=== PATIENT | female | born 1990 | race Two or more races ===

== ENCOUNTER 2016-03-12 22:22 | Emergency (ER) | payer OTHER ==
[~2016-03-12 22:22] MED LIST: ACET50TA PO; ANUS2.5C2 TOP; CALC500C8 AD; DOCU10ELUD PO; FLINSTONES VITAMIN PO; IBUP-1114 PO; IBUP600T26 PO; MOM30SS PO; PERC5TAB6 PO; PNV-CAP5 PO; PRENTAB13 PO; ZOVI400T PO; [UNRECOGNIZED DRUG - OTHER] PO
[2016-03-12] MEDS ORDERED: KETOROLAC 30 MG/ML VIAL (J1885) As Ordered ONE (22:51)
[2016-03-12 23:01] LABS: BASO # 0.1 K/mm3 (0.0-0.2); BASO % 1.1 % (0.0-1.0); EOS # 0.1 K/mm3 (0.0-0.50); EOS % 1.3 % (0.0-3.0); LARGE UNSTAINED CELL # 0.2 K/mm3 (0.0-0.4); LYMPH # 2.7 K/mm3 (1.5-6.5); LYMPH % 25.5 % (24.0-44.0); MEAN CORPUSCULAR HGB CONC 34.4 g/dl (32.0-36.5); MEAN CORPUSCULAR VOLUME 87.2 fl (80.0-96.0); MONO # 0.4 K/mm3 (0.0-0.8); MONO % 4.2 % (0.0-5.0); NEUTROPHILS # 6.5 K/mm3 (1.8-7.7); NEUTROPHILS % 65.9 % (36.0-66.0); PLATELET COUNT, AUTOMATED 246 k/mm3 (150-450); RED CELL DISTRIBUTION WIDTH 14.1 % (11.5-14.5); WHITE BLOOD COUNT 9.8 K/mm3 (4.0-10.0)
--- NOTE | 2016-03-13 | REPUSA ---
CLINICAL HISTORY: Vaginal bleeding TECHNIQUE: Pelvic ultrasound COMPARISON: No study for comparison is available at the time of interpretation. Uterus: 10.4 x 4.3 x 5.9 cm. Normal without masses. Endometrial stripe: Normal 2 mm thickness. Right ovary: 3.6 x 2.2 x 1.8 cm. Normal size. No masses. Normal vascular flow. Left ovary: 3.9 x 2.3 x 2.2 cm. Normal size. No masses. Normal vascular flow. Pelvic fluid: Physiologic. IMPRESSION: Normal pelvic ultrasound.
--- NOTE | 2016-03-13 00:23 | EDDOCDS ---
Nurse's Notes [facility] Name: Michelle Kelly Age: 25 yrs Sex: Female : 1990 Arrival Date: 03/12/2016 Time: 22:22 Bed I4 / M4 Private MD: Jose Antonio Dupree Diagnosis: Abnormal uterine and vaginal bleeding, unspecified Presentation: 03/12 22:24 Presenting complaint: Patient states: "I've been going through 4 pads an hour since af2 , dark red blood." states she received her period 10 days early. Risk factors: The patient reports no loss of conciousness prior to arrival. This patient has not had a hysterectomy. This patient has not begun menopause. Adult Sepsis Screening: The patient does not have new or worsening altered mentation. Patient's respiratory rate is less than 22. Systolic blood pressure is greater than 100. Patient has a qSOFA score of 0- Negative Sepsis Screen. Suicide/Homicide risk assessment- the patient denies having any suicidal and/or homicidal ideations and does not present with any other emotional, behavioral or mental health complaints. Status: Patient is not a full service vending driver or dependent. Transition of care: patient was not received from another setting of care. 22:24 Acuity: SHANELLE Level 3 af2 22:24 Method Of Arrival: Walkin/Carried/Asstd af2 Triage Assessment: 22:27 General: Appears in no apparent distress, Behavior is cooperative. Pain: Location: af2 abdomen Pain currently is 10 out of 10 on a pain scale. Noted to be smiling, comfortable. Pt Declines HIV testing. : Reports vaginal bleeding that is brown heavy flow. Historical: - Allergies: Amoxicillin; Pitocin (makes her crazy); PENICILLINS; - Home Meds: 1. trazodone 50 mg Oral tab 1 tab nightly 2. ibuprofen 800 mg Oral tab 1 tab 3 times per day 3. Diamox Sequels 500 mg Oral cpER 1 cap 2 times per day 4. albuterol sulfate 90 mcg/actuation Inhl HFAA 1 puff every 4 hours 5. Flonase Allergy Relief 50 mcg/actuation nasal spsn twice a day 6. 3 prescriptions for h pylori - PMHx: Allergies, Seasonal; bacterial vaginosis; Depression; Pseudo Tumor Cerebri; Anxiety; - PSHx: Cesearean Section; - Social history: Smoking status: Patient uses tobacco products, current every day smoker. No barriers to communication noted, The patient speaks fluent [place]. - Family history: Not pertinent. - : The pt / caregiver states he / she is not on anticoagulants. Home medication list is obtained from the patient. - Exposure Risk Screening:: None identified. Screenin/01 00:20 Screening information is obtained from the patient. Fall risk: No risks identified. ka4 Assistance ADL's: requires no assistance with activities of daily living. Abuse/DV Screen: The patient / caregiver reports he/she is: not in a situation that causes fear, pain or injury. Nutritional screening: No deficits noted. Advance Directives: There is no active DNR order. home support is adequate. Assessment: 03/12 22:56 General: Appears in no apparent distress, comfortable, obese, Behavior is appropriate ka4 for age, cooperative, pleasant. Neurological: Level of Consciousness is awake, alert, obeys commands, Oriented to person, place, time, Leadership Intern are weak bilaterally Moves all extremities. Gait is steady, Speech is normal, Facial symmetry appears normal, Facial symmetry: tongue is midline. Respiratory: Airway is patent Respiratory effort is even, unlabored, Respiratory pattern is regular, symmetrical. : Urine is cloudy. : Derm: Skin is intact, is healthy with good turgor, Skin is pink, warm & dry. 23:06 General: Pt resting comfortably in bed playing on cell phone. When asked about pain, pt ld5 states "well since it only goes to a 10 then my pain is a 10, but it's much more than that". Pt medicated per orders. Will continue to monitor. GI: Abdomen is obese, Bowel sounds present X 4 quads. Denies nausea, vomiting. 23:45 Pain: Pain currently is 7 out of 10 on a pain scale. ka4 Vital Signs: 22:23 BP 114 / 81; Pulse 94; Resp 16; Temp 96.6; Pulse Ox 99% ; Weight 96.16 kg; Height 5 ft. elp 2 in. (157.48 cm); Pain 10/10; 23:51 BP 105 / 58; Pulse 97; Resp 18; Temp 98.2; Pulse Ox 98% ; Pain 7/10; ajs 22:23 Body Mass Index 38.77 (96.16 kg, 157.48 cm) [facility] Vitals: 22:23 Log In Time: March 12, 2016 at 22:21. elp ED Course: 22:23 Patient visited by Afia Miranda PCA. elp 22:23 Jose Antonio Dupree MD is Private Physician. elp 22:23 Patient visited by Afia Miranda PCA. elp 22:23 Patient moved to Waiting elp 22:24 Patient moved to Pre RCE elp 22:26 Triage Initiated af2 22:28 Patient visited by Tosha Rangel,RN. af2 22:28 Patient moved to Triage 3 jmb 22:39 [facility]C [facility] ck7 22:39 Prince Phillips DO is Attending Physician. ck7 22:39 Patient visited by Lamberto Carter RPA-C. ck7 22:44 Patient moved to I4 / M4 rs3 22:56 CBC with Diff Sent. ka4 22:56 Inserted saline lock: 20 gauge in right antecubital area and blood collected. The ka4 patient tolerated the procedure well. 22:57 Patient visited by Jing Mesa LPN. ka4 23:08 Patient visited by Nathalia Patel RN. ld5 23:15 [facility] Payment Agreement was scanned into [employer] and attached to record. zo 23:45 Patient visited by Lamberto Carter RPA-C. ck7 23:53 Patient visited by Jaelyn Alexander. ajs 03/13 00:11 -US Pelvic Non-Ob Complete Returned. EDMS 00:17 Zane Miranda is Referral Physician. ck7 00:20 The patient / caregiver is instructed regarding the plan of care and ED course. ka4 00:20 Discontinued IV lock intact, bleeding controlled, pressure dressing applied, No ka4 redness/swelling at site. No IV's were initiated during this patient's visit. No procedures done that require assistance. Administered Medications: 03/12 23:05 Drug: NS 0.9% 1000 ml [sodium chloride 0.9 % intravenous solution] Route: IV; Rate: ld5 bolus; Site: right antecubital; 23:05 Drug: ketorolac 30 mg [ketorolac 30 mg/mL (1 mL) injection solution (1 mL)] Route: IVP; ld5 Site: right antecubital; 23:46 Follow up: Response: Pain is decreased ka4 Point of Care Testing: Urine : 22:51 hCG Reading: Negative; Control Reading: Positive; rs3 Ranges: Order Results: Lab Order: CBC with Diff; SPEC'M 03/12/16 22:52 Test: WHITE BLOOD COUNT; Value: 9.8; Range: 4.0-10.0; Units: K/mm3; Status: F Test: RED BLOOD COUNT; Value: 4.64; Range: 4.00-5.40; Units: M/mm3; Status: F Test: HEMOGLOBIN; Value: 13.9; Range: 12.0-16.0; Units: g/dl; Status: F Test: HEMATOCRIT; Value: 40.4; Range: 36.0-47.0; Units: %; Status: F Test: MEAN CORPUSCULAR VOLUME; Value: 87.2; Range: 80.0-96.0; Units: fl; Status: F Test: MEAN CORPUSCULAR HEMOGLOBIN; Value: 30.0; Range: 27.0-33.0; Units: pg; Status: F Test: MEAN CORPUSCULAR HGB CONC; Value: 34.4; Range: 32.0-36.5; Units: g/dl; Status: F Test: RED CELL DISTRIBUTION WIDTH; Value: 14.1; Range: 11.5-14.5; Units: %; Status: F Test: PLATELET COUNT, AUTOMATED; Value: 246; Range: 150-450; Units: k/mm3; Status: F Test: NEUTROPHILS %; Value: 65.9; Range: 36.0-66.0; Units: %; Status: F Test: LYMPH %; Value: 25.5; Range: 24.0-44.0; Units: %; Status: F Test: MONO %; Value: 4.2; Range: 0.0-5.0; Units: %; Status: F Test: EOS %; Value: 1.3; Range: 0.0-3.0; Units: %; Status: F Test: BASO %; Value: 1.1; Range: 0.0-1.0; Abnormal: Above high normal; Units: %; Status: F Test: LARGE UNSTAINED CELL %; Value: 2.0; Range: 0.0-4.0; Units: %; Status: F Test: NEUTROPHILS #; Value: 6.5; Range: 1.8-7.7; Units: K/mm3; Status: F Test: LYMPH #; Value: 2.7; Range: 1.5-6.5; Units: K/mm3; Status: F Test: MONO #; Value: 0.4; Range: 0.0-0.8; Units: K/mm3; Status: F Test: EOS #; Value: 0.1; Range: 0.0-0.50; Units: K/mm3; Status: F Test: BASO #; Value: 0.1; Range: 0.0-0.2; Units: K/mm3; Status: F Test: LARGE UNSTAINED CELL #; Value: 0.2; Range: 0.0-0.4; Units: K/mm3; Status: F Radiology Order: -US Pelvic Non-Ob Complete Test: -US Pelvic Non-Ob Complete REASON FOR EXAMINATION: Vaginal Bleeding - Nn-; ; CLINICAL HISTORY: Vaginal bleeding; TECHNIQUE: Pelvic ultrasound; ; COMPARISON: No study for comparison is available at the time of interpretation.; ; Uterus: 10.4 x 4.3 x 5.9 cm. Normal without masses.; Endometrial stripe: Normal 2 mm thickness.; Right ovary: 3.6 x 2.2 x 1.8 cm. Normal size. No masses. Normal vascular flow.; Left ovary: 3.9 x 2.3 x 2.2 cm. Normal size. No masses. Normal vascular flow.; Pelvic fluid: Physiologic.; ; IMPRESSION: Normal pelvic ultrasound.; ; Outcome: 03/13 00:18 Discharge ordered by Provider. ck7 00:22 Patient left the ED. ka4 Signatures: Dispatcher [employer] EDMS Henry Mullen Rosemary,RN RN rs3 Nathalia Patel RN RN ld5 Jaelyn Alexander Christopher, RPA-C RPA-Cck7 Afia Miranda PCA PCA elp Becker, JoshuaRN RN jmb Moshe,Jing,BUTT TRIMMER BUTT TRIMMER ka4 Rangel,Tosha,RN RN af2 MTDD
--- NOTE | 2016-03-13 00:23 | EDDOCDS ---
Physician Documentation [facility] Name: Michelle Kelly Age: 25 yrs Sex: Female : 1990 Arrival Date: 03/12/2016 Time: 22:22 Bed I4 / M4 Private MD: Jose Antonio Dupree Disposition: 03/13/16 00:18 Discharged to Home/Self Care. Impression: Abnormal uterine and vaginal bleeding, unspecified. - Condition is Stable. - Discharge Instructions: Abnormal Uterine Bleeding. - Prescriptions for Ibuprofen 600 mg Oral Tablet - take 1 tablet by ORAL route every 6 hours As needed take with food; 30 tablet. - Medication Reconciliation, Local Pharmacy Hours form. - Follow up: Zane Miranda; When: 2 - 3 days; Reason: Recheck today's complaints, Continuance of care. - Problem is new. - Symptoms have improved. Historical: - Allergies: Amoxicillin; Pitocin (makes her crazy); PENICILLINS; - Home Meds: 1. trazodone 50 mg Oral tab 1 tab nightly 2. ibuprofen 800 mg Oral tab 1 tab 3 times per day 3. Diamox Sequels 500 mg Oral cpER 1 cap 2 times per day 4. albuterol sulfate 90 mcg/actuation Inhl HFAA 1 puff every 4 hours 5. Flonase Allergy Relief 50 mcg/actuation nasal spsn twice a day 6. 3 prescriptions for h pylori - PMHx: Allergies, Seasonal; bacterial vaginosis; Depression; Pseudo Tumor Cerebri; Anxiety; - PSHx: Cesearean Section; - Social history: Smoking status: Patient uses tobacco products, current every day smoker. No barriers to communication noted, The patient speaks fluent Russian. - Family history: Not pertinent. - : The pt / caregiver states he / she is not on anticoagulants. Home medication list is obtained from the patient. - Exposure Risk Screening:: None identified. Vital Signs: 03/12 22:23 BP 114 / 81; Pulse 94; Resp 16; Temp 96.6; Pulse Ox 99% ; Weight 96.16 kg / 212 lbs; elp Height 5 ft. 2 in. (157.48 cm); Pain 10/10; 23:51 BP 105 / 58; Pulse 97; Resp 18; Temp 98.2; Pulse Ox 98% ; Pain 7/10; ajs 22:23 Body Mass Index 38.77 (96.16 kg, 157.48 cm) elp MDM: 22:43 UCG by Nursing ordered. ck7 22:43 IV Saline Lock ordered. ck7 22:43 NS 0.9% 1000 ml IV at bolus once ordered. ck7 22:43 ketorolac 30 mg IVP once ordered. ck7 22:45 CBC with Diff Ordered. EDMS 22:45 -US Pelvic Non-Ob Complete Ordered. EDMS 22:45 DUPLEX SCAN LIMITED (DOPPLER)+US Ordered. EDMS 22:47 Financial registration complete. zo 23:08 CBC with Diff Reviewed. ck7 23:15 [facility] Payment Agreement was scanned into [employer] and attached to record. zo Point of Care Testing: Urine : 22:51 hCG Reading: Negative; Control Reading: Positive; rs3 Ranges: Administered Medications: 23:05 Drug: NS 0.9% 1000 ml [sodium chloride 0.9 % intravenous solution] Route: IV; Rate: ld5 bolus; Site: right antecubital; 23:05 Drug: ketorolac 30 mg [ketorolac 30 mg/mL (1 mL) injection solution (1 mL)] Route: IVP; ld5 Site: right antecubital; 23:46 Follow up: Response: Pain is decreased ka4 Signatures: Dispatcher [employer] EDMS Henry Mullen Christopher, RPA-C RPA-Cck7 Jing Mesa LPN LPN ka4 Tosha Rangel RN RN af2 Nathalia Patel RN ld5 The chart was reviewed and I authenticate all verbal orders and agree with the evaluation and treatment provided.Attachments: 23:15 [facility] Payment Agreement zo MTDD
--- NOTE | 2016-03-15 01:23 | EDDOCDS ---
Physician Documentation [facility] Name: Michelle Kelly Age: 25 yrs Sex: Female : 1990 Arrival Date: 03/12/2016 Time: 22:22 Bed I4 / M4 Private MD: Jose Antonio Dupree Disposition: 03/13/16 00:18 Discharged to Home/Self Care. Impression: Abnormal uterine and vaginal bleeding, unspecified. - Condition is Stable. - Discharge Instructions: Abnormal Uterine Bleeding. - Prescriptions for Ibuprofen 600 mg Oral Tablet - take 1 tablet by ORAL route every 6 hours As needed take with food; 30 tablet. - Medication Reconciliation, Local Pharmacy Hours form. - Follow up: Zane Miranda; When: 2 - 3 days; Reason: Recheck today's complaints, Continuance of care. - Problem is new. - Symptoms have improved. Historical: - Allergies: Amoxicillin; Pitocin (makes her crazy); PENICILLINS; - Home Meds: 1. trazodone 50 mg Oral tab 1 tab nightly 2. ibuprofen 800 mg Oral tab 1 tab 3 times per day 3. Diamox Sequels 500 mg Oral cpER 1 cap 2 times per day 4. albuterol sulfate 90 mcg/actuation Inhl HFAA 1 puff every 4 hours 5. Flonase Allergy Relief 50 mcg/actuation nasal spsn twice a day 6. 3 prescriptions for h pylori - PMHx: Allergies, Seasonal; bacterial vaginosis; Depression; Pseudo Tumor Cerebri; Anxiety; - PSHx: Cesearean Section; - Social history: Smoking status: Patient uses tobacco products, current every day smoker. No barriers to communication noted, The patient speaks fluent Trinidadian. - Family history: Not pertinent. - : The pt / caregiver states he / she is not on anticoagulants. Home medication list is obtained from the patient. - Exposure Risk Screening:: None identified. Vital Signs: 03/12 22:23 BP 114 / 81; Pulse 94; Resp 16; Temp 96.6; Pulse Ox 99% ; Weight 96.16 kg / 212 lbs; elp Height 5 ft. 2 in. (157.48 cm); Pain 10/10; 23:51 BP 105 / 58; Pulse 97; Resp 18; Temp 98.2; Pulse Ox 98% ; Pain 7/10; ajs 22:23 Body Mass Index 38.77 (96.16 kg, 157.48 cm) elp MDM: 22:43 UCG by Nursing ordered. ck7 22:43 IV Saline Lock ordered. ck7 22:43 NS 0.9% 1000 ml IV at bolus once ordered. ck7 22:43 ketorolac 30 mg IVP once ordered. ck7 22:45 CBC with Diff Ordered. EDMS 22:45 -US Pelvic Non-Ob Complete Ordered. EDMS 22:45 DUPLEX SCAN LIMITED (DOPPLER)+US Ordered. EDMS 22:47 Financial registration complete. zo 23:08 CBC with Diff Reviewed. ck7 23:15 [facility] Payment Agreement was scanned into [employer] and attached to record. zo 03/13 09:30 T-Sheet-- Draft Copy was scanned into [employer] and attached to record. [facility] Point of Care Testing: Urine : 03/12 22:51 hCG Reading: Negative; Control Reading: Positive; rs3 Ranges: Administered Medications: 23:05 Drug: NS 0.9% 1000 ml [sodium chloride 0.9 % intravenous solution] Route: IV; Rate: ld5 bolus; Site: right antecubital; 23:05 Drug: ketorolac 30 mg [ketorolac 30 mg/mL (1 mL) injection solution (1 mL)] Route: IVP; ld5 Site: right antecubital; 23:46 Follow up: Response: Pain is decreased ka4 Signatures: Dispatcher [employer] EDMS Henry Mullen Christopher, RPA-C RPA-Cck7 Jing Mesa,ATHLETIC INSTRUCTOR ATHLETIC INSTRUCTOR ka4 Tosha Rangel RN RN norberto2 Sara Jaramillo Laura RN ld5 The chart was reviewed and I authenticate all verbal orders and agree with the evaluation and treatment provided.Attachments: 23:15 [facility] Payment Agreement zo 03/13 09:30 T-Sheet-- Draft Copy [facility] Chart Complete MTDD
--- NOTE | 2016-03-15 01:23 | EDDOCDS ---
Physician Documentation [facility] Name: Michelle Kelly Age: 25 yrs Sex: Female : 1990 Arrival Date: 03/12/2016 Time: 22:22 Bed I4 / M4 Private MD: Jose Antonio Dupree Disposition: 03/13/16 00:18 Discharged to Home/Self Care. Impression: Abnormal uterine and vaginal bleeding, unspecified. - Condition is Stable. - Discharge Instructions: Abnormal Uterine Bleeding. - Prescriptions for Ibuprofen 600 mg Oral Tablet - take 1 tablet by ORAL route every 6 hours As needed take with food; 30 tablet. - Medication Reconciliation, Local Pharmacy Hours form. - Follow up: Zane Miranda; When: 2 - 3 days; Reason: Recheck today's complaints, Continuance of care. - Problem is new. - Symptoms have improved. Historical: - Allergies: Amoxicillin; Pitocin (makes her crazy); PENICILLINS; - Home Meds: 1. trazodone 50 mg Oral tab 1 tab nightly 2. ibuprofen 800 mg Oral tab 1 tab 3 times per day 3. Diamox Sequels 500 mg Oral cpER 1 cap 2 times per day 4. albuterol sulfate 90 mcg/actuation Inhl HFAA 1 puff every 4 hours 5. Flonase Allergy Relief 50 mcg/actuation nasal spsn twice a day 6. 3 prescriptions for h pylori - PMHx: Allergies, Seasonal; bacterial vaginosis; Depression; Pseudo Tumor Cerebri; Anxiety; - PSHx: Cesearean Section; - Social history: Smoking status: Patient uses tobacco products, current every day smoker. No barriers to communication noted, The patient speaks fluent [place]ruguayan. - Family history: Not pertinent. - : The pt / caregiver states he / she is not on anticoagulants. Home medication list is obtained from the patient. - Exposure Risk Screening:: None identified. Vital Signs: 03/12 22:23 BP 114 / 81; Pulse 94; Resp 16; Temp 96.6; Pulse Ox 99% ; Weight 96.16 kg / 212 lbs; elp Height 5 ft. 2 in. (157.48 cm); Pain 10/10; 23:51 BP 105 / 58; Pulse 97; Resp 18; Temp 98.2; Pulse Ox 98% ; Pain 7/10; ajs 22:23 Body Mass Index 38.77 (96.16 kg, 157.48 cm) elp MDM: 22:43 UCG by Nursing ordered. ck7 22:43 IV Saline Lock ordered. ck7 22:43 NS 0.9% 1000 ml IV at bolus once ordered. ck7 22:43 ketorolac 30 mg IVP once ordered. ck7 22:45 CBC with Diff Ordered. EDMS 22:45 -US Pelvic Non-Ob Complete Ordered. EDMS 22:45 DUPLEX SCAN LIMITED (DOPPLER)+US Ordered. EDMS 22:47 Financial registration complete. zo 23:08 CBC with Diff Reviewed. ck7 23:15 [facility] Payment Agreement was scanned into [employer] and attached to record. zo 03/13 09:30 T-Sheet-- Draft Copy was scanned into [employer] and attached to record. [facility] Point of Care Testing: Urine : 03/12 22:51 hCG Reading: Negative; Control Reading: Positive; rs3 Ranges: Administered Medications: 23:05 Drug: NS 0.9% 1000 ml [sodium chloride 0.9 % intravenous solution] Route: IV; Rate: ld5 bolus; Site: right antecubital; 23:05 Drug: ketorolac 30 mg [ketorolac 30 mg/mL (1 mL) injection solution (1 mL)] Route: IVP; ld5 Site: right antecubital; 23:46 Follow up: Response: Pain is decreased ka4 Signatures: Dispatcher [employer] EDMS Henry Mullen Christopher, RPA-C RPA-Cck7 Jing Mesa,DIRECTOR HUMAN SERVICES DIRECTOR HUMAN SERVICES ka4 Tosha Rangel RN RN norberto2 Sara Jaramillo Laura RN ld5 The chart was reviewed and I authenticate all verbal orders and agree with the evaluation and treatment provided.Attachments: 23:15 [facility] Payment Agreement zo 03/13 09:30 T-Sheet-- Draft Copy [facility] Chart Complete MTDD
--- NOTE | 2016-03-15 01:23 | EDDOCDS ---
Nurse's Notes [facility] Name: Michelle Kelly Age: 25 yrs Sex: Female : 1990 Arrival Date: 03/12/2016 Time: 22:22 Bed I4 / M4 Private MD: Jose Antonio Dupree Diagnosis: Abnormal uterine and vaginal bleeding, unspecified Presentation: 03/12 22:24 Presenting complaint: Patient states: "I've been going through 4 pads an hour since af2 , dark red blood." states she received her period 10 days early. Risk factors: The patient reports no loss of conciousness prior to arrival. This patient has not had a hysterectomy. This patient has not begun menopause. Adult Sepsis Screening: The patient does not have new or worsening altered mentation. Patient's respiratory rate is less than 22. Systolic blood pressure is greater than 100. Patient has a qSOFA score of 0- Negative Sepsis Screen. Suicide/Homicide risk assessment- the patient denies having any suicidal and/or homicidal ideations and does not present with any other emotional, behavioral or mental health complaints. Status: Patient is not a equipment service technician or dependent. Transition of care: patient was not received from another setting of care. 22:24 Acuity: SHANELLE Level 3 af2 22:24 Method Of Arrival: Walkin/Carried/Asstd af2 Triage Assessment: 22:27 General: Appears in no apparent distress, Behavior is cooperative. Pain: Location: af2 abdomen Pain currently is 10 out of 10 on a pain scale. Noted to be smiling, comfortable. Pt Declines HIV testing. : Reports vaginal bleeding that is brown heavy flow. Historical: - Allergies: Amoxicillin; Pitocin (makes her crazy); PENICILLINS; - Home Meds: 1. trazodone 50 mg Oral tab 1 tab nightly 2. ibuprofen 800 mg Oral tab 1 tab 3 times per day 3. Diamox Sequels 500 mg Oral cpER 1 cap 2 times per day 4. albuterol sulfate 90 mcg/actuation Inhl HFAA 1 puff every 4 hours 5. Flonase Allergy Relief 50 mcg/actuation nasal spsn twice a day 6. 3 prescriptions for h pylori - PMHx: Allergies, Seasonal; bacterial vaginosis; Depression; Pseudo Tumor Cerebri; Anxiety; - PSHx: Cesearean Section; - Social history: Smoking status: Patient uses tobacco products, current every day smoker. No barriers to communication noted, The patient speaks fluent Angolan. - Family history: Not pertinent. - : The pt / caregiver states he / she is not on anticoagulants. Home medication list is obtained from the patient. - Exposure Risk Screening:: None identified. Screenin/01 00:20 Screening information is obtained from the patient. Fall risk: No risks identified. ka4 Assistance ADL's: requires no assistance with activities of daily living. Abuse/DV Screen: The patient / caregiver reports he/she is: not in a situation that causes fear, pain or injury. Nutritional screening: No deficits noted. Advance Directives: There is no active DNR order. home support is adequate. Assessment: 03/12 22:56 General: Appears in no apparent distress, comfortable, obese, Behavior is appropriate ka4 for age, cooperative, pleasant. Neurological: Level of Consciousness is awake, alert, obeys commands, Oriented to person, place, time, Ventilating Engineer are weak bilaterally Moves all extremities. Gait is steady, Speech is normal, Facial symmetry appears normal, Facial symmetry: tongue is midline. Respiratory: Airway is patent Respiratory effort is even, unlabored, Respiratory pattern is regular, symmetrical. : Urine is cloudy. : Derm: Skin is intact, is healthy with good turgor, Skin is pink, warm & dry. 23:06 General: Pt resting comfortably in bed playing on cell phone. When asked about pain, pt ld5 states "well since it only goes to a 10 then my pain is a 10, but it's much more than that". Pt medicated per orders. Will continue to monitor. GI: Abdomen is obese, Bowel sounds present X 4 quads. Denies nausea, vomiting. 23:45 Pain: Pain currently is 7 out of 10 on a pain scale. ka4 Vital Signs: 22:23 BP 114 / 81; Pulse 94; Resp 16; Temp 96.6; Pulse Ox 99% ; Weight 96.16 kg; Height 5 ft. elp 2 in. (157.48 cm); Pain 10/10; 23:51 BP 105 / 58; Pulse 97; Resp 18; Temp 98.2; Pulse Ox 98% ; Pain 7/10; ajs 22:23 Body Mass Index 38.77 (96.16 kg, 157.48 cm) [facility] Vitals: 22:23 Log In Time: March 12, 2016 at 22:21. [facility] ED Course: 22:23 Patient visited by Afia Miranda PCA. elp 22:23 Jose Antonio Dupree MD is Private Physician. elp 22:23 Patient visited by Afia Miranda PCA. elp 22:23 Patient moved to Waiting elp 22:24 Patient moved to Pre RCE elp 22:26 Triage Initiated af2 22:28 Patient visited by Tosha Rangel,RN. af2 22:28 Patient moved to Triage 3 jmb 22:39 [facility] ck7 22:39 Prince Phillips DO is Attending Physician. ck7 22:39 Patient visited by Lamberto Carter RPA-C. ck7 22:44 Patient moved to I4 / M4 rs3 22:56 CBC with Diff Sent. ka4 22:56 Inserted saline lock: 20 gauge in right antecubital area and blood collected. The ka4 patient tolerated the procedure well. 22:57 Patient visited by Jing Mesa LPN. ka4 23:08 Patient visited by Nathalia Patel RN. ld5 23:15 [facility] Payment Agreement was scanned into [employer] and attached to record. zo 23:45 Patient visited by Lamberto Carter RPA-C. ck7 23:53 Patient visited by Jaelyn Alexander. ajs 03/13 00:11 -US Pelvic Non-Ob Complete Returned. EDMS 00:17 Zane Miranda is Referral Physician. ck7 00:20 The patient / caregiver is instructed regarding the plan of care and ED course. ka4 00:20 Discontinued IV lock intact, bleeding controlled, pressure dressing applied, No ka4 redness/swelling at site. No IV's were initiated during this patient's visit. No procedures done that require assistance. 09:30 T-Sheet-- Draft Copy was scanned into [employer] and attached to record. [facility] Administered Medications: 03/12 23:05 Drug: NS 0.9% 1000 ml [sodium chloride 0.9 % intravenous solution] Route: IV; Rate: ld5 bolus; Site: right antecubital; 23:05 Drug: ketorolac 30 mg [ketorolac 30 mg/mL (1 mL) injection solution (1 mL)] Route: IVP; ld5 Site: right antecubital; 23:46 Follow up: Response: Pain is decreased ka4 Point of Care Testing: Urine : 22:51 hCG Reading: Negative; Control Reading: Positive; rs3 Ranges: Order Results: Lab Order: CBC with Diff; SPEC'M 03/12/16 22:52 Test: WHITE BLOOD COUNT; Value: 9.8; Range: 4.0-10.0; Units: K/mm3; Status: F Test: RED BLOOD COUNT; Value: 4.64; Range: 4.00-5.40; Units: M/mm3; Status: F Test: HEMOGLOBIN; Value: 13.9; Range: 12.0-16.0; Units: g/dl; Status: F Test: HEMATOCRIT; Value: 40.4; Range: 36.0-47.0; Units: %; Status: F Test: MEAN CORPUSCULAR VOLUME; Value: 87.2; Range: 80.0-96.0; Units: fl; Status: F Test: MEAN CORPUSCULAR HEMOGLOBIN; Value: 30.0; Range: 27.0-33.0; Units: pg; Status: F Test: MEAN CORPUSCULAR HGB CONC; Value: 34.4; Range: 32.0-36.5; Units: g/dl; Status: F Test: RED CELL DISTRIBUTION WIDTH; Value: 14.1; Range: 11.5-14.5; Units: %; Status: F Test: PLATELET COUNT, AUTOMATED; Value: 246; Range: 150-450; Units: k/mm3; Status: F Test: NEUTROPHILS %; Value: 65.9; Range: 36.0-66.0; Units: %; Status: F Test: LYMPH %; Value: 25.5; Range: 24.0-44.0; Units: %; Status: F Test: MONO %; Value: 4.2; Range: 0.0-5.0; Units: %; Status: F Test: EOS %; Value: 1.3; Range: 0.0-3.0; Units: %; Status: F Test: BASO %; Value: 1.1; Range: 0.0-1.0; Abnormal: Above high normal; Units: %; Status: F Test: LARGE UNSTAINED CELL %; Value: 2.0; Range: 0.0-4.0; Units: %; Status: F Test: NEUTROPHILS #; Value: 6.5; Range: 1.8-7.7; Units: K/mm3; Status: F Test: LYMPH #; Value: 2.7; Range: 1.5-6.5; Units: K/mm3; Status: F Test: MONO #; Value: 0.4; Range: 0.0-0.8; Units: K/mm3; Status: F Test: EOS #; Value: 0.1; Range: 0.0-0.50; Units: K/mm3; Status: F Test: BASO #; Value: 0.1; Range: 0.0-0.2; Units: K/mm3; Status: F Test: LARGE UNSTAINED CELL #; Value: 0.2; Range: 0.0-0.4; Units: K/mm3; Status: F Radiology Order: -US Pelvic Non-Ob Complete Test: -US Pelvic Non-Ob Complete REASON FOR EXAMINATION: Vaginal Bleeding - Nn-; ; CLINICAL HISTORY: Vaginal bleeding; TECHNIQUE: Pelvic ultrasound; ; COMPARISON: No study for comparison is available at the time of interpretation.; ; Uterus: 10.4 x 4.3 x 5.9 cm. Normal without masses.; Endometrial stripe: Normal 2 mm thickness.; Right ovary: 3.6 x 2.2 x 1.8 cm. Normal size. No masses. Normal vascular flow.; Left ovary: 3.9 x 2.3 x 2.2 cm. Normal size. No masses. Normal vascular flow.; Pelvic fluid: Physiologic.; ; IMPRESSION: Normal pelvic ultrasound.; ; Outcome: 03/13 00:18 Discharge ordered by Provider. ck7 00:22 Patient left the ED. ka4 Signatures: Dispatcher [employer] EDMS Henry Mullen RosemaryRN RN rs3 Nathalia Patel RN RN ld5 Jaelyn Alexander Christopher, RPA-C RPA-Cck7 Afia Miranda PCA PCA elp BeckerRichard,RN RN franckb Jing Mesa,LAUNCHING PAD MECHANIC LAUNCHING PAD MECHANIC ka4 Tosha RangelRN RN af2 Ella, Sara payton Chart Complete MTDD
== END 2016-03-13 00:22 | disposition home or self-care (01) ==
LOC: M ED 22:22
DX: N93.8 Other specified abnormal uterine and vaginal bleeding (principal); G93.2 Benign intracranial hypertension; F41.9 Anxiety disorder, unspecified; F32.9 Major depressive disorder, single episode, unspecified; J30.2 Other seasonal allergic rhinitis; F17.210 Nicotine dependence, cigarettes, uncomplicated; Z92.240 Personal history of inhaled steroid therapy; Z79.899 Other long term (current) drug therapy; Z88.0 Allergy status to penicillin; Z88.8 Allergy status to other drugs, medicaments and biological substances
CPT/HCPCS: 36415; 76856; 81025; 85025; 93976; 96374; 99284; J1885

== ENCOUNTER 2016-03-31 15:13 | Emergency (ER) | payer OTHER ==
[2016-03-31] MEDS ORDERED: BISACODYL 10 MG SUPP As Ordered ONE (17:54)
[2016-03-31] MEDS ORDERED: LACTULOSE 20 GM/30 ML SYRUP UD As Ordered ONE (17:55)
--- NOTE | 2016-03-31 18:12 | REP ---
AP ABDOMINAL SERIES: 03/31/2016. Comparison: CT abdomen pelvis 12/30/2015, KUB 10/17/2015, chest x-ray 05/06/2014. Clinical history: Constipation. PA chest: Upright chest shows the lungs adequately inflated. There is no effusion, atelectasis or mass. No free air under the diaphragm. Heart, mediastinal, hilar contours are normal. There is mild dextroconvex curve mid-thoracic spine. Visualized bones intact. Flat upright abdomen: IUD seen in the paramedian pelvis overlying the sacrum. Moderate stool from rectosigmoid through the distal transverse colon representing some degree of constipation but no obstruction, mass or free air. Gas seen in the proximal colon and small bowel loops without abnormal dilatation. Impression: 1. Some mild degree of constipation without obstruction, mass, free air or abnormal calcifications. 2. PA chest negative. Signed by Edin Light MD 03/31/2016 08:16 P
--- NOTE | 2016-03-31 20:13 | EDDOCDS ---
Physician Documentation [facility] Name: Michelle Kelly Age: 26 yrs Sex: Female : 1990 Arrival Date: 03/31/2016 Time: 15:13 Bed TR7 Private MD: Jose Antonio Dupree M. Disposition: 03/31/16 19:19 Discharged to Home/Self Care. Impression: Constipation. - Condition is Stable. - Discharge Instructions: Constipation, Adult, High-Fiber Diet. - Medication Reconciliation, Local Pharmacy Hours form. - Follow up: Jose Antonio Dupree; When: Call to arrange an appointment; Reason: Recheck today's complaints, Continuance of care. - Problem is new. - Symptoms have improved. - Notes: Keep hydrated Return to the ED for any further concerns Historical: - Allergies: Amoxicillin; PENICILLINS; Pitocin (makes her crazy); - Home Meds: 1. albuterol sulfate 90 mcg/actuation Inhl HFAA 1 puff every 4 hours 2. Diamox Sequels 500 mg Oral cpER 1 cap 2 times per day 3. 3 prescriptions for h pylori 4. Flonase Allergy Relief 50 mcg/actuation nasal spsn twice a day 5. trazodone 50 mg Oral tab 1 tab nightly 6. Dulcolax (bisacodyl) 10 mg Rectal supp 1 suppository once daily (Last dose: 03/31/2016 13:00) - PMHx: Allergies, Seasonal; Anxiety; bacterial vaginosis; Depression; Pseudo Tumor Cerebri; - PSHx: Cesearean Section; - Social history: Smoking status: Patient states was never smoker of tobacco. No barriers to communication noted, The patient speaks fluent Turkmen, Speaks appropriately for age. - Family history: Not pertinent. - : The pt / caregiver states he / she is not on anticoagulants. Home medication list is obtained from the patient. - Exposure Risk Screening:: None identified. 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 2 in. (157.48 cm) (R); Pain 8/10; 18:42 BP 107 / 60; Pulse 100; Resp 20; Temp 98.9(O); Pulse Ox 98% on R/A; Pain 10/10; rs6 19:40 BP 110 / 72; Pulse 106; Resp 20 S; Temp 99.6; Pulse Ox 96% on R/A; ms2 15:15 Body Mass Index 39.69 (98.43 kg, 157.48 cm) gr2 MDM: 16:03 Enema - Tapwater ordered. le 16:30 Abdomen, Flat\E\Upright,PA Chest Ordered. EDMS 17:52 Lactulose Liquid 30 ml PO once ordered. le 17:52 Bisacodyl Suppository 10 mg AL once ordered. le 17:58 [facility] Payment Agreement was scanned into [employer] and attached to record. [facility] 17:58 Financial registration complete. [facility] Administered Medications: 18:04 Drug: Bisacodyl 10 mg [bisacodyl 10 mg rectal suppository (1 supp)] Route: AL; jjr 18:05 Drug: Lactulose 30 ml [lactulose 20 gram/30 mL oral solution (30 mL)] Route: PO; jjr Signatures: Dispatcher [employer] EDMS Nikolai Malone,RN RN Sagar Harris RN RN mlb1 Merlene Lloyd FNP FNP le King, Margaret RN RN mk4 Tammy Ibrahim Yamilet Partida RN jjr The chart was reviewed and I authenticate all verbal orders and agree with the evaluation and treatment provided.Corrections: (The following items were deleted from the chart) 16:11 15:58 Abdomen,Flat\E\Upright,PA CHEST+XR ordered. EDMS EDMS Attachments: 17:58 [facility] Payment Agreement [facility] MTDD
--- NOTE | 2016-03-31 20:13 | EDDOCDS ---
Nurse's Notes [facility] Name: Michelle Kelly Age: 26 yrs Sex: Female : 1990 Arrival Date: 03/31/2016 Time: 15:13 Bed TR7 Private MD: Jose Antonio Dupree M. Diagnosis: Constipation Presentation: 03/31 15:18 Presenting complaint: Mother states: Constipation no BM for the past four days. Risk mlb1 factors: the patient reports no vaginal bleeding. Adult Sepsis Screening: The patient does not have new or worsening altered mentation. Patient's respiratory rate is less than 22. Systolic blood pressure is greater than 100. Patient has a qSOFA score of 0- Negative Sepsis Screen. Suicide/Homicide risk assessment- the patient denies having any suicidal and/or homicidal ideations and does not present with any other emotional, behavioral or mental health complaints. Status: Patient is not a insurance and financial services agent or dependent. Transition of care: patient was not received from another setting of care. 15:18 Acuity: SHANELLE Level 4 mlb1 15:18 Method Of Arrival: Ambulance mlb1 Triage Assessment: 15:20 General: Appears in no apparent distress, obese, Behavior is appropriate for age, mlb1 cooperative. Pain: Location: abdomen Pain currently is 10 out of 10 on a pain scale. HIV screening NA for this visit Offered previously. 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 albuterol sulfate 90 mcg/actuation Inhl HFAA 1 puff every 4 hours 2. Diamox Sequels 500 mg Oral cpER 1 cap 2 times per day 3. 3 prescriptions for h pylori 4. Flonase Allergy Relief 50 mcg/actuation nasal spsn twice a day 5. trazodone 50 mg Oral tab 1 tab nightly 6. Dulcolax (bisacodyl) 10 mg Rectal supp 1 suppository once daily (Last dose: 03/31/2016 13:00) - PMHx: Allergies, Seasonal; Anxiety; bacterial vaginosis; Depression; Pseudo Tumor Cerebri; - PSHx: Cesearean Section; - Social history: Smoking status: Patient states was never smoker of tobacco. No barriers to communication noted, The patient speaks fluent [place], Speaks appropriately for age. - Family history: Not pertinent. - : The pt / caregiver states he / she is not on anticoagulants. Home medication list is obtained from the patient. - Exposure Risk Screening:: None identified. Screenin:25 Screening information is obtained from the patient. Fall risk: No risks identified. mk4 Assistance ADL's: requires no assistance with activities of daily living. Abuse/DV Screen: The patient / caregiver reports he/she is: not in a situation that causes fear, pain or injury. Nutritional screening: No deficits noted. Advance Directives: Currently, there is no health care proxy. There is no active DNR order. There is no living will. There is no Power of Registered Vascular Technologist (Rvt). Advance directive information has not previously been placed in an [facility] medical record. Further advance directive information is declined. home support is adequate. Assessment: 16:21 General: Appears uncomfortable. GI: Abdomen is obese, Abd is tender to palpation X 4 mk4 quads. Reports that she hasnt had a BM in 4 days states that she is supposed to be on a med for stool softening but she hasnt been taking it , tap water enema given pt was unable to retain it, solution returned as soon as it was inserted. 17:16 General: Appears uncomfortable. General:. Pain: Location: abdomen. mk4 18:05 General: Appears in no apparent distress, pt reports difficult to lie down d/t rectal jjr discomfort, 2 small children in room. 18:39 General: attempted 250 mL tap water enema per pt request and permission of provider, pt jjr only able to tolerate 250 mL due to rectal pain, pt c/o dizziness and "I think I'm dehydrated". 19:18 General: Appears in no apparent distress, 2 large formed ck colored stool in BSC, pt jjr reports relief of cramping and continued presence of nausea. 19:40 Adult Sepsis Screening: The patient does not have new or worsening altered mentation. ms2 Patient's respiratory rate is less than 22. Systolic blood pressure is greater than 100. Patient has a qSOFA score of 0- Negative Sepsis Screen. General: Appears in no apparent distress, Behavior is cooperative. Neurological: Level of Consciousness is awake, alert, obeys commands. Respiratory: No deficits noted. Airway is patent Respiratory effort is even, unlabored, Respiratory pattern is regular, symmetrical. GI: Abdomen is non- distended obese. Derm: Skin is pink, warm & dry. Musculoskeletal: Range of motion intact in all extremities. Vital Signs: 15:15 BP 114 / 82; Pulse 119; Resp 18 S; Temp 96.7(O); Pulse Ox 98% on R/A; Weight 98.43 kg gr2 (R); Height 5 ft. 2 in. (157.48 cm) (R); Pain 8/10; 18:42 BP 107 / 60; Pulse 100; Resp 20; Temp 98.9(O); Pulse Ox 98% on R/A; Pain 10/10; rs6 19:40 BP 110 / 72; Pulse 106; Resp 20 S; Temp 99.6; Pulse Ox 96% on R/A; ms2 15:15 Body Mass Index 39.69 (98.43 kg, 157.48 cm) gr2 Vitals: 15:15 Log In Time: March 31, 2016 at 15:15. gr2 ED Course: 15:15 Patient visited by Noé Davey. gr2 15:15 Jose Antonio Dupree is Private Physician. gr2 15:15 Patient moved to Waiting gr2 15:17 Patient visited by Noé Davey. gr2 15:17 Patient moved to Pre RCE gr2 15:18 Patient visited by Sagar Harrison, DARINEL. mlb1 15:18 Triage Initiated mlb1 15:20 Patient visited by Sagar Harrison, DARINEL. mlb1 15:55 Merlene Lloyd FNP is [facility]. le 15:55 Patient moved to I ead 15:56 Patient visited by Kaya Saunders RN. mk4 16:00 Patient visited by Merlene Lloyd FNP. le 16:00 Patient visited by Merlene Lloyd FNP. le 16:25 The patient / caregiver is instructed regarding the plan of care and ED course. mk4 16:25 Tapwater enema given. Patient tolerated poorly. mk4 16:33 Patient visited by Kaya Saunders RN. mk4 17:05 Patient visited by Kaya Saunders RN. mk4 17:54 Patient visited by Kaya Saunders RN. mk4 17:58 [facility] Payment Agreement was scanned into [employer] and attached to record. gjb 18:05 Patient visited by Yamilet Davey RN. jjr 18:37 Patient visited by Kaya Saunders RN. mk4 18:40 Patient visited by Yamilet Davey RN. jjr 18:42 Patient visited by Tiffany Eubanks PCA. rs6 19:07 Abdomen, Flat\\E\\Upright,PA Chest Returned. EDMS 19:18 Patient visited by Yamilet Davey RN. jjr 19:18 Jose Antonio Dupree is Referral Physician. le 19:40 The patient / caregiver is instructed regarding the plan of care and ED course. ms2 19:40 No IV's were initiated during this patient's visit. No procedures done that require ms2 assistance. 19:51 Patient moved to 7 rs6 Administered Medications: 18:04 Drug: Bisacodyl 10 mg [bisacodyl 10 mg rectal suppository (1 supp)] Route: KS; jjr 18:05 Drug: Lactulose 30 ml [lactulose 20 gram/30 mL oral solution (30 mL)] Route: PO; jjr Order Results: Radiology Order: Abdomen, Flat\\E\\Upright,PA Chest Test: Abdomen, Flat\\E\\Upright,PA Chest REASON FOR EXAMINATION: no BM x4 days; AP ABDOMINAL SERIES: 03/31/2016.; ; Comparison: CT abdomen pelvis 12/30/2015, KUB 10/17/2015, chest x-ray; 05/06/2014.; ; Clinical history: Constipation.; ; PA chest: Upright chest shows the lungs adequately inflated. There is no; effusion, atelectasis or mass. No free air under the diaphragm. Heart,; mediastinal, hilar contours are normal. There is mild dextroconvex curve; mid-thoracic spine. Visualized bones intact.; ; Flat upright abdomen: IUD seen in the paramedian pelvis overlying the sacrum.; Moderate stool from rectosigmoid through the distal transverse colon representing; some degree of constipation but no obstruction, mass or free air. Gas seen in; the proximal colon and small bowel loops without abnormal dilatation.; ; Impression:; 1. Some mild degree of constipation without obstruction, mass, free air or; abnormal calcifications.; 2. PA chest negative.; ; ; ; ; ; ; ; ; Unreviewed; Outcome: 19:19 Discharge ordered by Provider. everardo 19:40 Discharge Assessment: patient administered narcotics - no. The following High Risk ms2 Discharge criteria are identified: None. Discharged to home ambulatory, with family. Condition: stable. Discharge instructions given to patient, Instructed on discharge instructions, follow up and referral plans. Demonstrated understanding of instructions, Pt was receptive of discharge instructions/ teaching. No special radiology studies were completed. Property sent home with patient. 20:12 Patient left the ED. ms2 Signatures: Dispatcher [employer] EDMS Nikolai Malone,RN RN ms2 Sagar Harrison RN RN mlb1 Merlene Lloyd, KENO CLERK KENO CLERK Yamilet Arroyo RN RN Noé Martinez 2 Kaya Saunders RN RN mk4 Zoila Damian,RN RN Tiffany Pena, MARKY CLOTH FINISHING RANGE TENDER rs6 Tammy Ibrahim Corrections: (The following items were deleted from the chart) 16:26 16:21 General: Appears uncomfortable, Smells of cat urine. mk4 mk4 20:08 20:06 BP 110 / 72; Pulse 106bpm; Resp 20bpm; Spontaneous; Pulse Ox 96% RA; Temp 99.6F; ms2 ms2 MTDD
--- NOTE | 2016-04-02 21:13 | EDDOCDS ---
Nurse's Notes [facility] Name: Michelle Kelly Age: 26 yrs Sex: Female : 1990 Arrival Date: 03/31/2016 Time: 15:13 Bed TR7 Private MD: Jose Antonio Dupree M. Diagnosis: Constipation Presentation: 03/31 15:18 Presenting complaint: Mother states: Constipation no BM for the past four days. Risk mlb1 factors: the patient reports no vaginal bleeding. Adult Sepsis Screening: The patient does not have new or worsening altered mentation. Patient's respiratory rate is less than 22. Systolic blood pressure is greater than 100. Patient has a qSOFA score of 0- Negative Sepsis Screen. Suicide/Homicide risk assessment- the patient denies having any suicidal and/or homicidal ideations and does not present with any other emotional, behavioral or mental health complaints. Status: Patient is not a central services tech or dependent. Transition of care: patient was not received from another setting of care. 15:18 Acuity: SHANELLE Level 4 mlb1 15:18 Method Of Arrival: Ambulance mlb1 Triage Assessment: 15:20 General: Appears in no apparent distress, obese, Behavior is appropriate for age, mlb1 cooperative. Pain: Location: abdomen Pain currently is 10 out of 10 on a pain scale. HIV screening NA for this visit Offered previously. 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 albuterol sulfate 90 mcg/actuation Inhl HFAA 1 puff every 4 hours 2. Diamox Sequels 500 mg Oral cpER 1 cap 2 times per day 3. 3 prescriptions for h pylori 4. Flonase Allergy Relief 50 mcg/actuation nasal spsn twice a day 5. trazodone 50 mg Oral tab 1 tab nightly 6. Dulcolax (bisacodyl) 10 mg Rectal supp 1 suppository once daily (Last dose: 03/31/2016 13:00) - PMHx: Allergies, Seasonal; Anxiety; bacterial vaginosis; Depression; Pseudo Tumor Cerebri; - PSHx: Cesearean Section; - Social history: Smoking status: Patient states was never smoker of tobacco. No barriers to communication noted, The patient speaks fluent Icelandic, Speaks appropriately for age. - Family history: Not pertinent. - : The pt / caregiver states he / she is not on anticoagulants. Home medication list is obtained from the patient. - Exposure Risk Screening:: None identified. Screenin:25 Screening information is obtained from the patient. Fall risk: No risks identified. mk4 Assistance ADL's: requires no assistance with activities of daily living. Abuse/DV Screen: The patient / caregiver reports he/she is: not in a situation that causes fear, pain or injury. Nutritional screening: No deficits noted. Advance Directives: Currently, there is no health care proxy. There is no active DNR order. There is no living will. There is no Power of Casino Shift Manager. Advance directive information has not previously been placed in an [facility] medical record. Further advance directive information is declined. home support is adequate. Assessment: 16:21 General: Appears uncomfortable. GI: Abdomen is obese, Abd is tender to palpation X 4 mk4 quads. Reports that she hasnt had a BM in 4 days states that she is supposed to be on a med for stool softening but she hasnt been taking it , tap water enema given pt was unable to retain it, solution returned as soon as it was inserted. 17:16 General: Appears uncomfortable. General:. Pain: Location: abdomen. mk4 18:05 General: Appears in no apparent distress, pt reports difficult to lie down d/t rectal jjr discomfort, 2 small children in room. 18:39 General: attempted 250 mL tap water enema per pt request and permission of provider, pt jjr only able to tolerate 250 mL due to rectal pain, pt c/o dizziness and "I think I'm dehydrated". 19:18 General: Appears in no apparent distress, 2 large formed ck colored stool in BSC, pt jjr reports relief of cramping and continued presence of nausea. 19:40 Adult Sepsis Screening: The patient does not have new or worsening altered mentation. ms2 Patient's respiratory rate is less than 22. Systolic blood pressure is greater than 100. Patient has a qSOFA score of 0- Negative Sepsis Screen. General: Appears in no apparent distress, Behavior is cooperative. Neurological: Level of Consciousness is awake, alert, obeys commands. Respiratory: No deficits noted. Airway is patent Respiratory effort is even, unlabored, Respiratory pattern is regular, symmetrical. GI: Abdomen is non- distended obese. Derm: Skin is pink, warm & dry. Musculoskeletal: Range of motion intact in all extremities. Vital Signs: 15:15 BP 114 / 82; Pulse 119; Resp 18 S; Temp 96.7(O); Pulse Ox 98% on R/A; Weight 98.43 kg gr2 (R); Height 5 ft. 2 in. (157.48 cm) (R); Pain 8/10; 18:42 BP 107 / 60; Pulse 100; Resp 20; Temp 98.9(O); Pulse Ox 98% on R/A; Pain 10/10; rs6 19:40 BP 110 / 72; Pulse 106; Resp 20 S; Temp 99.6; Pulse Ox 96% on R/A; ms2 15:15 Body Mass Index 39.69 (98.43 kg, 157.48 cm) gr2 Vitals: 15:15 Log In Time: March 31, 2016 at 15:15. gr2 ED Course: 15:15 Patient visited by Noé Davey. gr2 15:15 Jose Antonio Dupree is Private Physician. gr2 15:15 Patient moved to Waiting gr2 15:17 Patient visited by Noé Davey. gr2 15:17 Patient moved to Pre RCE gr2 15:18 Patient visited by Sagar Harrison, DARINEL. mlb1 15:18 Triage Initiated mlb1 15:20 Patient visited by Sagar Harrison, DARINEL. mlb1 15:55 Merlene Lloyd FNP is [facility]. le 15:55 Patient moved to I ead 15:56 Patient visited by Kaya Saunders RN. mk4 16:00 Patient visited by Merlene Lloyd FNP. le 16:00 Patient visited by Merlene Lloyd FNP. le 16:25 The patient / caregiver is instructed regarding the plan of care and ED course. mk4 16:25 Tapwater enema given. Patient tolerated poorly. mk4 16:33 Patient visited by Kaya Saunders RN. mk4 17:05 Patient visited by Kaya Saunders RN. mk4 17:54 Patient visited by Kaya Saunders RN. mk4 17:58 [facility] Payment Agreement was scanned into [employer] and attached to record. gjb 18:05 Patient visited by Yamilet Davey RN. jjr 18:37 Patient visited by aKya Saunders RN. mk4 18:40 Patient visited by Yamilet Davey RN. jjr 18:42 Patient visited by Tiffany Eubanks PCA. rs6 19:07 Abdomen, Flat\\E\\Upright,PA Chest Returned. EDMS 19:18 Patient visited by Yamilet Davey RN. jjr 19:18 Jose Antonio Dupree is Referral Physician. le 19:40 The patient / caregiver is instructed regarding the plan of care and ED course. ms2 19:40 No IV's were initiated during this patient's visit. No procedures done that require ms2 assistance. 19:51 Patient moved to [place] [id number] 04/01 10:42 T-Sheet-- Draft Copy was scanned into [employer] and attached to record. gb Administered Medications: 03/31 18:04 Drug: Bisacodyl 10 mg [bisacodyl 10 mg rectal suppository (1 supp)] Route: WV; jjr 18:05 Drug: Lactulose 30 ml [lactulose 20 gram/30 mL oral solution (30 mL)] Route: PO; jjr Order Results: Radiology Order: Abdomen, Flat\\E\\Upright,PA Chest Test: Abdomen, Flat\\E\\Upright,PA Chest REASON FOR EXAMINATION: no BM x4 days; AP ABDOMINAL SERIES: 03/31/2016.; ; Comparison: CT abdomen pelvis 12/30/2015, KUB 10/17/2015, chest x-ray; 05/06/2014.; ; Clinical history: Constipation.; ; PA chest: Upright chest shows the lungs adequately inflated. There is no; effusion, atelectasis or mass. No free air under the diaphragm. Heart,; mediastinal, hilar contours are normal. There is mild dextroconvex curve; mid-thoracic spine. Visualized bones intact.; ; Flat upright abdomen: IUD seen in the paramedian pelvis overlying the sacrum.; Moderate stool from rectosigmoid through the distal transverse colon representing; some degree of constipation but no obstruction, mass or free air. Gas seen in; the proximal colon and small bowel loops without abnormal dilatation.; ; Impression:; ; 1. Some mild degree of constipation without obstruction, mass, free air or; abnormal calcifications.; ; 2. PA chest negative.; ; ; ; ; ; ; Signed by; Edin Light MD 03/31/2016 08:16 P; Outcome: 19:19 Discharge ordered by Provider. everardo 19:40 Discharge Assessment: patient administered narcotics - no. The following High Risk ms2 Discharge criteria are identified: None. Discharged to home ambulatory, with family. Condition: stable. Discharge instructions given to patient, Instructed on discharge instructions, follow up and referral plans. Demonstrated understanding of instructions, Pt was receptive of discharge instructions/ teaching. No special radiology studies were completed. Property sent home with patient. 20:12 Patient left the ED. ms2 Signatures: Dispatcher [employer] EDMS Nikolai Malone,RN RN ms2 Debo Romero, Reg Reg Sagar Bower, RN RN mlb1 Merlene Lloyd, BRAZER CRAWLER TORCH BRAZER CRAWLER TORCH Ymailet Arroyo RN RN Noé Martinez gr2 Kaya Saunders RN RN mk4 Zoila DamianRN RN Tiffany Pena, MARKY MARKETING TECHNOLOGY COORDINATOR rs6 Tammy Ibrahim Corrections: (The following items were deleted from the chart) 16:26 16:21 General: Appears uncomfortable, Smells of cat urine. mk4 mk4 20:08 20:06 BP 110 / 72; Pulse 106bpm; Resp 20bpm; Spontaneous; Pulse Ox 96% RA; Temp 99.6F; ms2 ms2 Chart Complete MTDD
--- NOTE | 2016-04-02 21:13 | EDDOCDS ---
Physician Documentation [facility] Name: Michelle Kelly Age: 26 yrs Sex: Female : 1990 Arrival Date: 03/31/2016 Time: 15:13 Bed TR7 Private MD: Jose Antonio Dupree M. Disposition: 03/31/16 19:19 Discharged to Home/Self Care. Impression: Constipation. - Condition is Stable. - Discharge Instructions: Constipation, Adult, High-Fiber Diet. - Medication Reconciliation, Local Pharmacy Hours form. - Follow up: Jose Antonio Dupree; When: Call to arrange an appointment; Reason: Recheck today's complaints, Continuance of care. - Problem is new. - Symptoms have improved. - Notes: Keep hydrated Return to the ED for any further concerns Historical: - Allergies: Amoxicillin; PENICILLINS; Pitocin (makes her crazy); - Home Meds: 1. albuterol sulfate 90 mcg/actuation Inhl HFAA 1 puff every 4 hours 2. Diamox Sequels 500 mg Oral cpER 1 cap 2 times per day 3. 3 prescriptions for h pylori 4. Flonase Allergy Relief 50 mcg/actuation nasal spsn twice a day 5. trazodone 50 mg Oral tab 1 tab nightly 6. Dulcolax (bisacodyl) 10 mg Rectal supp 1 suppository once daily (Last dose: 03/31/2016 13:00) - PMHx: Allergies, Seasonal; Anxiety; bacterial vaginosis; Depression; Pseudo Tumor Cerebri; - PSHx: Cesearean Section; - Social history: Smoking status: Patient states was never smoker of tobacco. No barriers to communication noted, The patient speaks fluent Swedish, Speaks appropriately for age. - Family history: Not pertinent. - : The pt / caregiver states he / she is not on anticoagulants. Home medication list is obtained from the patient. - Exposure Risk Screening:: None identified. 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 2 in. (157.48 cm) (R); Pain 8/10; 18:42 BP 107 / 60; Pulse 100; Resp 20; Temp 98.9(O); Pulse Ox 98% on R/A; Pain 10/10; rs6 19:40 BP 110 / 72; Pulse 106; Resp 20 S; Temp 99.6; Pulse Ox 96% on R/A; ms2 15:15 Body Mass Index 39.69 (98.43 kg, 157.48 cm) gr2 MDM: 16:03 Enema - Tapwater ordered. le 16:30 Abdomen, Flat\E\Upright,PA Chest Ordered. EDMS 17:52 Lactulose Liquid 30 ml PO once ordered. le 17:52 Bisacodyl Suppository 10 mg AK once ordered. le :58 [facility] Payment Agreement was scanned into [employer] and attached to record. [facility] [place] Financial registration complete. [facility] 04/01 10:42 T-Sheet-- Draft Copy was scanned into [employer] and attached to record. gb Administered Medications: 03/31 18:04 Drug: Bisacodyl 10 mg [bisacodyl 10 mg rectal suppository (1 supp)] Route: AK; jjr 18:05 Drug: Lactulose 30 ml [lactulose 20 gram/30 mL oral solution (30 mL)] Route: PO; jjr Signatures: Dispatcher [employer] EDMS Nikolai Malone,RN RN ms2 Debo Romero, Reg Reg Sagar Bower, RN RN mlb1 Merlene Lloyd, SALES AND MARKETING ANALYST Kaya Waggoner RN RN riley4 Tammy Ibrahim [facility] Yamilet Davey RN jjr The chart was reviewed and I authenticate all verbal orders and agree with the evaluation and treatment provided.Corrections: (The following items were deleted from the chart) 16:11 15:58 Abdomen,Flat\E\Upright,PA CHEST+XR ordered. EDMS EDMS Attachments: :58 [facility] Payment Agreement [facility] 04/01 10:42 T-Sheet-- Draft Copy gb Chart Complete MTDD
--- NOTE | 2016-04-02 21:13 | EDDOCDS ---
Physician Documentation [facility] Name: Michelle Kelly Age: 26 yrs Sex: Female : 1990 Arrival Date: 03/31/2016 Time: 15:13 Bed TR7 Private MD: Jose Antonio Dupree M. Disposition: 03/31/16 19:19 Discharged to Home/Self Care. Impression: Constipation. - Condition is Stable. - Discharge Instructions: Constipation, Adult, High-Fiber Diet. - Medication Reconciliation, Local Pharmacy Hours form. - Follow up: Jose Antonio Dupree; When: Call to arrange an appointment; Reason: Recheck today's complaints, Continuance of care. - Problem is new. - Symptoms have improved. - Notes: Keep hydrated Return to the ED for any further concerns Historical: - Allergies: Amoxicillin; PENICILLINS; Pitocin (makes her crazy); - Home Meds: 1. albuterol sulfate 90 mcg/actuation Inhl HFAA 1 puff every 4 hours 2. Diamox Sequels 500 mg Oral cpER 1 cap 2 times per day 3. 3 prescriptions for h pylori 4. Flonase Allergy Relief 50 mcg/actuation nasal spsn twice a day 5. trazodone 50 mg Oral tab 1 tab nightly 6. Dulcolax (bisacodyl) 10 mg Rectal supp 1 suppository once daily (Last dose: 03/31/2016 13:00) - PMHx: Allergies, Seasonal; Anxiety; bacterial vaginosis; Depression; Pseudo Tumor Cerebri; - PSHx: Cesearean Section; - Social history: Smoking status: Patient states was never smoker of tobacco. No barriers to communication noted, The patient speaks fluent Luxembourgish, Speaks appropriately for age. - Family history: Not pertinent. - : The pt / caregiver states he / she is not on anticoagulants. Home medication list is obtained from the patient. - Exposure Risk Screening:: None identified. 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 2 in. (157.48 cm) (R); Pain 8/10; 18:42 BP 107 / 60; Pulse 100; Resp 20; Temp 98.9(O); Pulse Ox 98% on R/A; Pain 10/10; rs6 19:40 BP 110 / 72; Pulse 106; Resp 20 S; Temp 99.6; Pulse Ox 96% on R/A; ms2 15:15 Body Mass Index 39.69 (98.43 kg, 157.48 cm) gr2 MDM: 16:03 Enema - Tapwater ordered. le 16:30 Abdomen, Flat\E\Upright,PA Chest Ordered. EDMS 17:52 Lactulose Liquid 30 ml PO once ordered. le 17:52 Bisacodyl Suppository 10 mg RI once ordered. le :58 [facility] Payment Agreement was scanned into [employer] and attached to record. [facility] : Financial registration complete. [facility] 04/01 10:42 T-Sheet-- Draft Copy was scanned into [employer] and attached to record. gb Administered Medications: 03/31 18:04 Drug: Bisacodyl 10 mg [bisacodyl 10 mg rectal suppository (1 supp)] Route: RI; jjr 18:05 Drug: Lactulose 30 ml [lactulose 20 gram/30 mL oral solution (30 mL)] Route: PO; jjr Signatures: Dispatcher [employer] EDMS Nikolai Malone,RN RN ms2 Debo Romero, Reg Reg Sagar Bower, RN RN mlb1 Merlene Lloyd, SUPERVISOR PLATE FORMING Kaya Waggoner RN RN [email or web address] Tammy Ibrahim [facility] Yamilet Davey RN jjr The chart was reviewed and I authenticate all verbal orders and agree with the evaluation and treatment provided.Corrections: (The following items were deleted from the chart) 16:11 15:58 Abdomen,Flat\E\Upright,PA CHEST+XR ordered. EDMS EDMS Attachments: :58 [facility] Payment Agreement [facility] 04/01 10:42 T-Sheet-- Draft Copy gb Chart Complete MTDD
== END 2016-03-31 20:12 | disposition home or self-care (01) ==
LOC: M ED 15:13
DX: K59.00 Constipation, unspecified (principal); J30.9 Allergic rhinitis, unspecified; F41.9 Anxiety disorder, unspecified; F32.9 Major depressive disorder, single episode, unspecified; G93.2 Benign intracranial hypertension; N76.0 Acute vaginitis; Z79.51 Long term (current) use of inhaled steroids; Z79.899 Other long term (current) drug therapy; Z88.0 Allergy status to penicillin; Z88.8 Allergy status to other drugs, medicaments and biological substances

== ENCOUNTER → 2016-04-25 | Outpatient (CLI) | payer OTHER, MEDICAID ==
--- NOTE | 2016-04-25 13:09 | REP ---
Clinical: Abdominal pain. Technique: Single supine view of the abdomen and pelvis. Findings: Bowel gas pattern is nonspecific and without obstruction or obvious perforation. No organomegaly. No abnormal calcifications. Skeletal structures intact. IUD identified within the pelvis. Impression: Nonspecific bowel gas pattern. Signed by Jani Lowery MD 04/25/2016 01:01 P
[2016-04-25 14:15] LABS: ALBUMIN 3.7 GM/DL (3.2-5.2); ALBUMIN/GLOBULIN RATIO 0.95 (1.00-1.93); ALKALINE PHOSPHATASE 113 U/L (45-117); ALT/SGPT 83 U/L (12-78); ANION GAP 7 MEQ/L (8-16); AST/SGOT 39 U/L (15-37); BILIRUBIN,TOTAL 0.4 MG/DL (0.2-1.0); BLOOD UREA NITROGEN 11 MG/DL (7-18); CALCIUM LEVEL 9.9 MG/DL (8.5-10.1); CARBON DIOXIDE LEVEL 31 MEQ/L (21-32); CHLORIDE LEVEL 104 MEQ/L (98-107); CREATININE FOR GFR 0.65 MG/DL (0.55-1.02); GLOMERULAR FILTRATION RATE > 60.0 (>60); GLUCOSE, FASTING 84 MG/DL (70-105); POTASSIUM SERUM 4.9 MEQ/L (3.5-5.1); SODIUM LEVEL 142 MEQ/L (136-145); TOTAL PROTEIN 7.6 GM/DL (6.4-8.2)
== END ==
LOC: M LAB 12:25
PROVIDERS: ATTEND Family Medicine
DX: R10.30 Lower abdominal pain, unspecified (principal)

== ENCOUNTER → 2016-06-08 | Outpatient (CLI) | payer OTHER, MEDICAID ==
[2016-06-08 18:44] LABS: ALBUMIN 3.4 GM/DL (3.2-5.2); ALBUMIN/GLOBULIN RATIO 1.03 (1.00-1.93); BILIRUBIN,DIRECT 0.2 MG/DL (0.0-0.2); BILIRUBIN,TOTAL 0.7 MG/DL (0.2-1.0); TOTAL PROTEIN 6.7 GM/DL (6.4-8.2)
== END ==
LOC: M LAB 16:49
PROVIDERS: ATTEND Family Medicine
DX: Z00.00 Encounter for general adult medical examination without abnormal findings (principal)

== ENCOUNTER → 2016-06-21 | Outpatient (CLI) | payer OTHER ==
--- NOTE | 2016-06-21 10:05 | REP ---
Right upper quadrant sonography: History: Elevated liver function studies. Findings: Scanning through the right upper quadrant of the abdomen demonstrates a small contracted appearing gallbladder filled with shadowing calculi. Common bile duct is normal measuring 0.3 cm in greatest diameter. No focal liver lesion is seen. No pancreatic abnormality is observed. There is no evidence of ascites or right renal abnormality. The right kidney measures 10.4 x 4.5 x 3.6 cm. Impression: Cholelithiasis. Gallbladder tender to scan. It appears contracted and filled with shadowing calculi. Signed by Jose Little MD 06/21/2016 10:14 A
--- NOTE | 2016-06-21 10:34 | REP ---
Pelvic ultrasound including transabdominal, endovaginal and Doppler ultrasound assessment: Comparison is the pelvic ultrasound dated 03/12/2016. The patient had an IUD placed a few months ago and complains of right side pain. The uterus is anteverted and mildly enlarged measuring 10.1 x 5.1 x 5.8 cm. The endometrium is not thickened measuring 3.1 mm. There is an IUD within the endometrial canal, however, appears to extend into the lower uterine segment. The ovaries are normal size. Right ovary is 2.6 x 2.0 x 2.6 cm. Left ovary is 2.3 x 2.0 x 2.1 cm. Because of its high location the right ovary is only visualized on transabdominal ultrasound. There is vascular flow in both ovaries with the Doppler resistive index of the intraparenchymal arteries on the right measuring zero point 04/07 right 0.60. There is no free fluid in the cul-de-sac. Impression: The IUD is within the endometrial canal, however extends into the lower uterine segment. Otherwise, essentially negative pelvic ultrasound. Signed by Richar Peters MD 06/21/2016 10:25 A
== END ==
LOC: M RAD 08:39
PROVIDERS: ATTEND Family Medicine
DX: R10.31 Right lower quadrant pain (principal)

== ENCOUNTER 2016-07-13 13:24 | Emergency (ER) | payer OTHER ==
[~2016-07-13] VITALS: Ht 157.5 cm; Wt 100.7 kg
[2016-07-13] MEDS ORDERED: [UNRECOGNIZED DRUG - OTHER] PO (13:33)
[2016-07-13] MEDS ORDERED: NS 1,000 ML IV ONE (13:45)
[2016-07-13] MEDS ORDERED: KETOROLAC 30 MG/ML VIAL (J1885) IV ONE (13:45)
[2016-07-13] MEDS ORDERED: ONDANSETRON 4MG/2ML VIAL (J2405) IV ONE (13:45)
[2016-07-13 14:11] LABS: BASO % 0.2 % (0.0-1.0); EOS # 0.1 K/mm3 (0.0-0.50); LARGE UNSTAINED CELL # 0.1 K/mm3 (0.0-0.4); LYMPH # 2.5 K/mm3 (1.5-6.5); LYMPH % 36.3 % (24.0-44.0); MEAN CORPUSCULAR HEMOGLOBIN 30.6 pg (27.0-33.0); MONO # 0.3 K/mm3 (0.0-0.8); MONO % 4.5 % (0.0-5.0); NEUTROPHILS # 3.9 K/mm3 (1.8-7.7); NEUTROPHILS % 55.9 % (36.0-66.0); PLATELET COUNT, AUTOMATED 290 k/mm3 (150-450); RED CELL DISTRIBUTION WIDTH 12.8 % (11.5-14.5); WHITE BLOOD COUNT 6.9 K/mm3 (4.0-10.0)
[2016-07-13 14:26] LABS: ALBUMIN 3.5 GM/DL (3.2-5.2); ALKALINE PHOSPHATASE 76 U/L (45-117); ALT/SGPT 25 U/L (12-78); AMYLASE 40 U/L (25-115); ANION GAP 7 MEQ/L (8-16); AST/SGOT 17 U/L (15-37); BILIRUBIN,DIRECT 0.2 MG/DL (0.0-0.2); BILIRUBIN,TOTAL 1.1 MG/DL (0.2-1.0); BLOOD UREA NITROGEN 8 MG/DL (7-18); CALCIUM LEVEL 9.1 MG/DL (8.5-10.1); CARBON DIOXIDE LEVEL 29 MEQ/L (21-32); CHLORIDE LEVEL 106 MEQ/L (98-107); GLOMERULAR FILTRATION RATE > 60.0 (>60); GLUCOSE, FASTING 90 MG/DL (70-105); SODIUM LEVEL 142 MEQ/L (136-145)
[2016-07-13] MEDS ORDERED: NAPR500T PO (14:41)
[2016-07-13 14:57] VITALS: BP 111/79
== END 2016-07-13 14:55 | disposition home or self-care (01) ==
LOC: M ED 14:33
DX: K80.50 Calculus of bile duct without cholangitis or cholecystitis without obstruction (principal)
CPT/HCPCS: 80048; 80076; 81001; 81025; 82150; 83690; 85025; 96374; 96375; 99283; J1885; J2405

== ENCOUNTER → 2016-07-18 | Outpatient (CLI) | payer OTHER, MEDICAID ==
[~2016-07-18] MED LIST changes: +NAPR500T PO; +[UNRECOGNIZED DRUG - OTHER] PO
--- NOTE | 2016-07-18 20:20 | ECGEPIP ---
Stationary ECG Study [facility] Test Date: 2016-07-18 Pat Name: AGUSTIN MAHER Department: Room: - Gender: F Station Inspector: SOO : 1990 Requested By: Jono Ballard Order Number: [id number] Reading MD: Ivory Fletcher Measurements Intervals [place] Rate: 80 P: 38 AK: 134 QRS: -8 QRSD: 87 T: 0 QT: 352 QTc: 408 Interpretive Statements SINUS RHYTHM VOLTAGE CRITERIA FOR LVH NO PRIOR Electronically Signed On 07-18-2016 20:20:53 EDT by Ivory Fletcher
== END ==
LOC: M EKG 15:48
PROVIDERS: ATTEND Anesthesiology
DX: Z01.818 Encounter for other preprocedural examination (principal)

== ENCOUNTER → 2016-07-20 | Day surgery (SDC) | payer OTHER ==
[~2016-07-20] VITALS: Ht 157.5 cm; Wt 100.8 kg
[~2016-07-20] MED LIST changes: +BUPIVACAINE/EPIN 0.25% 30 ML VIAL As Ordered ONE; +CLINDAMYCIN 600 MG in APPROPRIATE DILUENT 1 EA IV ONE; +GLYCOPYRROLATE INJ 0.2 MG/ML 2 ML VIAL As Ordered ONE; +HYDROmorphone HCL 1 MG/ML SYRINGE (J1170) As Ordered ONE; +HYDROmorphone HCL 1 MG/ML SYRINGE (J1170) IV PRN; +KETOROLAC 60 MG/2 ML VIAL (J1885) As Ordered ONE; +LIDOCAINE 2% INJ 100 MG/5 ML SDV (FOR ANES.) As Ordered ONE; +LR 1,000 ML IV ONE; +LR 1,000 ML IV SCH; +METOCLOPRAMIDE INJ 10MG/2ML VIAL (J2765) As Ordered ONE; +METOCLOPRAMIDE INJ 10MG/2ML VIAL (J2765) IV PRN; +MIDAZOLAM INJ 2 MG/2 ML VIAL (J2250) As Ordered ONE; +NEOSTIGMINE 1MG/ML 5 ML SYRINGE (J2710) As Ordered ONE; +NORCO, ANEXSIA 5/325MG TABLET (HYDROcodone/ACETAMINOPHEN) PO PRN; +ONDANSETRON 4MG/2ML VIAL (J2405) As Ordered ONE; +ONDANSETRON 4MG/2ML VIAL (J2405) IV PRN; +PERCOCET 5MG/325MG TAB As Ordered ONE; +PERCOCET 5MG/325MG TAB PO PRN; +PHENYLephrine HCL 500 MCG/5 ML (100MCG/ML) SYRINGE (J2370) As Ordered ONE; +PROPOFOL 200 MG/20 ML VIAL As Ordered ONE; +ROCURONIUM BROMIDE 50 MG/5 ML VIAL As Ordered ONE; +dexameTHASONE 4 MG/ML 1ML VIAL (J1100) As Ordered ONE; +ePHEDrine SULFATE 25 MG/5 ML(5MG/ML) SYRINGE As Ordered ONE; +fentaNYL 100 MCG/2 ML INJECTION (J3010) IV PRN; +fentaNYL 250 MCG/5 ML INJECTION (J3010) As Ordered ONE
[2016-07-20 12:02] LABS: CONTROL LINE UCG INT CTR LINE PRESENT
[2016-07-20 18:45] VITALS: BP 131/83
--- NOTE | 2016-07-22 11:53 | RO ---
DATE OF PROCEDURE: 07/20/2016 PREOPERATIVE DIAGNOSIS: Symptomatic cholelithiasis. POSTOPERATIVE DIAGNOSIS: Symptomatic cholelithiasis. PROCEDURE: Laparoscopic cholecystectomy. SURGEON: Dr. Hull SYSTEM SPECIALIST: Dr. Fisher ANESTHESIA: General. ESTIMATED BLOOD LOSS: 5 mL. COMPLICATIONS: None. INDICATIONS FOR PROCEDURE: The patient is a 26-year-old female who has had multiple attacks of right upper quadrant pain associated nausea. She had an ultrasound that showed gallbladder wall thickening, as well as gallstones. Recommendation was to proceed with laparoscopic, possible open cholecystectomy. Risks and procedure, not limited to, but including bleeding, infection, hernia formation, damage to surrounding structures were discussed in detail with the patient, informed consent was obtained and procedure was planned. DESCRIPTION OF PROCEDURE: The patient was brought back to operating room #3. After sufficient sedation, the abdomen was sterilely prepped and draped. Next, a time-out was done to confirm proper patient and proper procedure. Following that, a stab incision was made in the left lower quadrant. Veress needle was inserted and the abdomen was insufflated to 50 mmHg. Next, a 5 mm OptiView port was used with a 3 mm camera at the umbilicus to gain access to the abdomen. Once abdomen is entered, the Veress needle site was examined and there were no signs of injury. Veress needle was then removed. An 8 mm port was placed subxiphoid. Two 3 mm ports in the right upper quadrant. The fundus of the gallbladder was elevated up towards the right shoulder. Peritoneal adhesions were taken off of wall of the gallbladder using electrocautery. Electrocautery and blunt dissection were then used to dissect the cystic duct and cystic artery until they were both clearly identified. They were both then doubly clipped and cut. The gallbladder was removed from gallbladder fossa using electrocautery. The gallbladder was then removed from the gallbladder fossa and brought out at the subxiphoid port site with a 5 mm EndoCatch bag. The abdomen was then desufflated. Skin incision was closed with #4-0 Vicryl subcuticular sutures. The abdomen was cleaned and dried. Steri-Strips, 4x4 and tape were applied, thus ending procedure.
== END | disposition home or self-care (01) ==
LOC: M SDC 11:01
PROVIDERS: ATTEND Surgery
DX: K80.10 Calculus of gallbladder with chronic cholecystitis without obstruction (principal); K80.50 Calculus of bile duct without cholangitis or cholecystitis without obstruction; G93.2 Benign intracranial hypertension; H47.11 Papilledema associated with increased intracranial pressure; G43.909 Migraine, unspecified, not intractable, without status migrainosus; G47.10 Hypersomnia, unspecified; R10.30 Lower abdominal pain, unspecified; F90.9 Attention-deficit hyperactivity disorder, unspecified type; F41.9 Anxiety disorder, unspecified; K59.00 Constipation, unspecified; R29.898 Other symptoms and signs involving the musculoskeletal system; R06.83 Snoring; E66.9 Obesity, unspecified; Z88.0 Allergy status to penicillin; Z88.1 Allergy status to other antibiotic agents; Z88.8 Allergy status to other drugs, medicaments and biological substances; Z79.899 Other long term (current) drug therapy; Z87.440 Personal history of urinary (tract) infections; Z86.59 Personal history of other mental and behavioral disorders
CPT/HCPCS: 47562; 84703; 88304; J1100; J1885; J2250; J2370; J2405; J2710; J2765; J3010

== ENCOUNTER → 2016-08-01 | Outpatient (REF) | payer OTHER ==
[~2016-08-01] MED LIST changes: -BUPIVACAINE/EPIN 0.25% 30 ML VIAL As Ordered ONE; -CLINDAMYCIN 600 MG in APPROPRIATE DILUENT 1 EA IV ONE; -GLYCOPYRROLATE INJ 0.2 MG/ML 2 ML VIAL As Ordered ONE; -HYDROmorphone HCL 1 MG/ML SYRINGE (J1170) As Ordered ONE; -HYDROmorphone HCL 1 MG/ML SYRINGE (J1170) IV PRN; -KETOROLAC 60 MG/2 ML VIAL (J1885) As Ordered ONE; -LIDOCAINE 2% INJ 100 MG/5 ML SDV (FOR ANES.) As Ordered ONE; -LR 1,000 ML IV ONE; -LR 1,000 ML IV SCH; -METOCLOPRAMIDE INJ 10MG/2ML VIAL (J2765) As Ordered ONE; -METOCLOPRAMIDE INJ 10MG/2ML VIAL (J2765) IV PRN; -MIDAZOLAM INJ 2 MG/2 ML VIAL (J2250) As Ordered ONE; -NEOSTIGMINE 1MG/ML 5 ML SYRINGE (J2710) As Ordered ONE; -NORCO, ANEXSIA 5/325MG TABLET (HYDROcodone/ACETAMINOPHEN) PO PRN; -ONDANSETRON 4MG/2ML VIAL (J2405) As Ordered ONE; -ONDANSETRON 4MG/2ML VIAL (J2405) IV PRN; -PERCOCET 5MG/325MG TAB As Ordered ONE; -PERCOCET 5MG/325MG TAB PO PRN; -PHENYLephrine HCL 500 MCG/5 ML (100MCG/ML) SYRINGE (J2370) As Ordered ONE; -PROPOFOL 200 MG/20 ML VIAL As Ordered ONE; -ROCURONIUM BROMIDE 50 MG/5 ML VIAL As Ordered ONE; -dexameTHASONE 4 MG/ML 1ML VIAL (J1100) As Ordered ONE; -ePHEDrine SULFATE 25 MG/5 ML(5MG/ML) SYRINGE As Ordered ONE; -fentaNYL 100 MCG/2 ML INJECTION (J3010) IV PRN; -fentaNYL 250 MCG/5 ML INJECTION (J3010) As Ordered ONE
[2016-08-01 15:05] LABS: BASO % 0.2 % (0.0-1.0); EOS % 0.6 % (0.0-3.0); LARGE UNSTAINED CELL # 0.1 K/mm3 (0.0-0.4); LYMPH # 2.6 K/mm3 (1.5-6.5); LYMPH % 28.2 % (24.0-44.0); MEAN CORPUSCULAR HEMOGLOBIN 30.8 pg (27.0-33.0); MEAN CORPUSCULAR HGB CONC 34.5 g/dl (32.0-36.5); MEAN CORPUSCULAR VOLUME 89.2 fl (80.0-96.0); MONO # 0.3 K/mm3 (0.0-0.8); MONO % 3.4 % (0.0-5.0); NEUTROPHILS # 6.1 K/mm3 (1.8-7.7); NEUTROPHILS % 66.6 % (36.0-66.0); PLATELET COUNT, AUTOMATED 303 k/mm3 (150-450); RED CELL DISTRIBUTION WIDTH 13.2 % (11.5-14.5); WHITE BLOOD COUNT 9.2 K/mm3 (4.0-10.0)
== END ==
LOC: M SFHCLERA 13:20
PROVIDERS: ATTEND Physician Assistant
DX: R58 Hemorrhage, not elsewhere classified (principal); Z32.01 Encounter for pregnancy test, result positive

== ENCOUNTER 2016-08-03 15:25 | Emergency (ER) | payer OTHER ==
[~2016-08-03] VITALS: Ht 157.5 cm; Wt 103.4 kg
--- NOTE | 2016-08-03 16:55 | REP ---
Clinical: Pelvic pain. Technique: Transabdominal and transvaginal first trimester obstetrical ultrasound with color Doppler evaluation. Findings: Bladder is unremarkable and measures 7.0 x 4.1 x 2.8 cm. Heterogeneous anteverted uterus measures 10.8 x 5.1 x 7.0 cm. A gestational sac is identified without yolk sac or pole. Mean sac diameter of 7 mm corresponds to 5 weeks 3 days gestational age. Maternal ovaries are normal in appearance and vascularity without torsion. Right ovary measures 3.0 x 1.9 x 2.0 cm; RI equal 0.51. Left ovary measures 3.1 x 3.4 x 4.5 cm; RI equal 0.54 and includes 3.6 cm corpus luteal cyst. Trace pelvic free fluid is nonspecific. No adnexal mass lesion identified. Impression: Gestational sac without yolk sac or pole measuring at 5 weeks 3 days gestational age. Differential diagnosis includes early , blighted ovum, and less likely ectopic cannot be excluded. Correlation with serial HCG levels recommended and repeat ultrasound if necessary. Signed by Jani Lowery MD 08/03/2016 04:47 P
[2016-08-03 17:10] VITALS: BP 120/77
--- NOTE | 2016-08-05 07:56 | ED PDOC ---
Post-Departure Follow-Up radiology report faaxed to Sara Sultana MD August 05, 2016 07:55
== END 2016-08-03 17:13 | disposition home or self-care (01) ==
LOC: M ED 16:46
DX: O26.891 Other specified pregnancy related conditions, first trimester (principal); Z3A.01 Less than 8 weeks gestation of pregnancy; O99.211 Obesity complicating pregnancy, first trimester; O99.341 Other mental disorders complicating pregnancy, first trimester; F99 Mental disorder, not otherwise specified; Z88.0 Allergy status to penicillin

== ENCOUNTER → 2016-08-04 | Outpatient (REF) | payer OTHER, MEDICAID ==
[2016-08-04 17:03] LABS: MEAN CORPUSCULAR HEMOGLOBIN 30.5 pg (27.0-33.0); MEAN CORPUSCULAR HGB CONC 34.2 g/dl (32.0-36.5); MEAN CORPUSCULAR VOLUME 89.1 fl (80.0-96.0); RED CELL DISTRIBUTION WIDTH 13.8 % (11.5-14.5); WHITE BLOOD COUNT 8.9 K/mm3 (4.0-10.0)
== END ==
LOC: M LAB REF 16:18
PROVIDERS: ATTEND Obstetrics & Gynecology
DX: Z34.81 Encounter for supervision of other normal pregnancy, first trimester (principal)

== ENCOUNTER 2016-08-08 11:40 | Emergency (ER) | payer MEDICAID, OTHER ==
[~2016-08-08] VITALS: Ht 157.5 cm; Wt 103.4 kg
[2016-08-08] MEDS ORDERED: METOCLOPRAMIDE 10 MG TAB PO ONE (13:00)
[2016-08-08 13:16] LABS: BASO % 0.4 % (0.0-1.0); EOS # 0.1 K/mm3 (0.0-0.50); EOS % 0.9 % (0.0-3.0); LARGE UNSTAINED CELL # 0.1 K/mm3 (0.0-0.4); LARGE UNSTAINED CELL % 1.6 % (0.0-4.0); LYMPH # 1.9 K/mm3 (1.5-6.5); LYMPH % 27.7 % (24.0-44.0); MEAN CORPUSCULAR HGB CONC 33.8 g/dl (32.0-36.5); MEAN CORPUSCULAR VOLUME 88.8 fl (80.0-96.0); MONO # 0.3 K/mm3 (0.0-0.8); MONO % 4.1 % (0.0-5.0); NEUTROPHILS # 4.2 K/mm3 (1.8-7.7); NEUTROPHILS % 65.3 % (36.0-66.0); PLATELET COUNT, AUTOMATED 258 k/mm3 (150-450); RED CELL DISTRIBUTION WIDTH 13.5 % (11.5-14.5); WHITE BLOOD COUNT 6.5 K/mm3 (4.0-10.0)
[2016-08-08 13:56] VITALS: BP 120/71
--- NOTE | 2016-08-08 14:41 | REP ---
Clinical: Abdominopelvic pain for dating and viability. Technique: Transabdominal first trimester obstetrical ultrasound with color Doppler evaluation. Findings: Single live early intrauterine is appreciated. Gestational sac with yolk sac and pole identified. [place]-rump length of 3 mm corresponds to 6 weeks 0 days gestational age with estimated date of delivery 04/03/2017. heart rate equals 112 beats per minute. No gross abnormalities are identified. Left maternal ovarian cyst likely corpus luteum measures 2.4 cm maximal diameter. No significant pelvic free fluid. Impression: 1. Single live early intrauterine at 6 weeks 0 days gestational age. Complete anatomical assessment should be performed and 19-20 weeks. 2. 2.4 cm left ovarian cyst likely corpus luteum. Signed by Jani Lowery MD 08/08/2016 02:32 P
== END 2016-08-08 15:09 | disposition home or self-care (01) ==
LOC: M ED 12:27
DX: O99.89 Other specified diseases and conditions complicating pregnancy, childbirth and the puerperium (principal); R10.9 Unspecified abdominal pain; Z3A.01 Less than 8 weeks gestation of pregnancy

== ENCOUNTER → 2016-09-01 | Outpatient (REF) | payer OTHER, MEDICAID | LOC: M LAB REF 16:43 | PROVIDERS: ATTEND Obstetrics & Gynecology | DX: Z34.81 Encounter for supervision of other normal pregnancy, first trimester (principal) ==

== ENCOUNTER 2016-09-17 14:35 | Emergency (ER) | payer MEDICAID, OTHER ==
[~2016-09-17] VITALS: Ht 157.5 cm; Wt 100.9 kg
[~2016-09-17 14:35] MED LIST changes: +PERC5TAB12 PO; -PERC5TAB6 PO; -PRENTAB13 PO; +PRENTAB20 PO
--- NOTE | 2016-09-17 16:59 | REP ---
Clinical: Dating and viability. Technique: Transabdominal first trimester obstetrical ultrasound with color Doppler evaluation. Findings: Single live early intrauterine is appreciated. Gestational sac with pole identified. [place]-rump length of 5.1 cm corresponds to 11 weeks 5 days gestational age with estimated date of delivery 04/03/2017 . heart rate equals 157 beats per minute. No gross abnormalities are identified. Impression: Single live early intrauterine at 11 weeks 5 days gestational age. Complete anatomical assessment should be performed and 19-20 weeks. Signed by Jani Lowery MD 09/17/2016 04:50 P
[2016-09-17 17:34] LABS: BASO % 0.3 % (0.0-1.0); EOS % 0.3 % (0.0-3.0); LARGE UNSTAINED CELL # 0.1 K/mm3 (0.0-0.4); LARGE UNSTAINED CELL % 1.4 % (0.0-4.0); LYMPH # 2.1 K/mm3 (1.5-6.5); LYMPH % 22.7 % (24.0-44.0); MEAN CORPUSCULAR HGB CONC 35.1 g/dl (32.0-36.5); MEAN CORPUSCULAR VOLUME 88.5 fl (80.0-96.0); MONO # 0.4 K/mm3 (0.0-0.8); NEUTROPHILS # 6.2 K/mm3 (1.8-7.7); NEUTROPHILS % 71.4 % (36.0-66.0); PLATELET COUNT, AUTOMATED 231 k/mm3 (150-450); RED CELL DISTRIBUTION WIDTH 12.7 % (11.5-14.5); WHITE BLOOD COUNT 8.7 K/mm3 (4.0-10.0)
[2016-09-17 18:07] LABS: ALBUMIN 2.8 GM/DL (3.2-5.2); ALBUMIN/GLOBULIN RATIO 0.74 (1.00-1.93); ALKALINE PHOSPHATASE 69 U/L (45-117); ALT/SGPT 30 U/L (12-78); ANION GAP 7 MEQ/L (8-16); AST/SGOT 27 U/L (15-37); BILIRUBIN,TOTAL 0.4 MG/DL (0.2-1.0); BLOOD UREA NITROGEN 8 MG/DL (7-18); CALCIUM LEVEL 8.7 MG/DL (8.5-10.1); CARBON DIOXIDE LEVEL 24 MEQ/L (21-32); CHLORIDE LEVEL 106 MEQ/L (98-107); CREATININE FOR GFR 0.51 MG/DL (0.55-1.02); GLOMERULAR FILTRATION RATE > 60.0 (>60); GLUCOSE, FASTING 86 MG/DL (70-105); HCG, SERUM QUANTITATIVE 88811 MIU/ML; POTASSIUM SERUM 3.8 MEQ/L (3.5-5.1); SODIUM LEVEL 137 MEQ/L (136-145); TOTAL PROTEIN 6.6 GM/DL (6.4-8.2)
[2016-09-17] MEDS ORDERED: ZOFR4TAB3 PO (18:32)
[2016-09-17 18:40] VITALS: BP 115/76
[2017-01-14] MEDS ORDERED: VENTAER (20:22)
== END 2016-09-17 18:42 | disposition home or self-care (01) ==
LOC: M ED 14:35
DX: O26.891 Other specified pregnancy related conditions, first trimester (principal); R11.0 Nausea; R10.9 Unspecified abdominal pain; Z3A.11 11 weeks gestation of pregnancy

== ENCOUNTER → 2016-09-27 | Outpatient (CLI) | payer OTHER ==
[~2016-09-27] MED LIST changes: +PREN1CHW4 PO; +UNIS25TA2 PO; +VENTAER; +VITA50TA43 PO; +ZOFR4TAB3 PO
[2016-09-27 11:47] LABS: ALT/SGPT 24 U/L (12-78); AST/SGOT 14 U/L (15-37); BILIRUBIN,TOTAL 0.4 MG/DL (0.2-1.0); CREATININE FOR GFR 0.55 MG/DL (0.55-1.02); GLOMERULAR FILTRATION RATE > 60.0 (>60); URIC ACID 3.7 MG/DL (2.6-6.0)
== END ==
LOC: M LAB 10:32
PROVIDERS: ATTEND Advanced Practice Midwife
DX: O10.119 Pre-existing hypertensive heart disease complicating pregnancy, unspecified trimester (principal)

== ENCOUNTER 2016-10-09 14:32 | Emergency (ER) | payer MEDICAID, OTHER ==
[~2016-10-09] VITALS: Ht 157.5 cm; Wt 99.1 kg
[~2016-10-09 14:32] MED LIST changes: -PREN1CHW4 PO; -UNIS25TA2 PO; -VENTAER; -VITA50TA43 PO
[2016-10-09] MEDS ORDERED: PREN1CHW4 PO (14:42)
[2016-10-09] MEDS ORDERED: VITA50TA43 PO (14:42)
[2016-10-09] MEDS ORDERED: UNIS25TA2 PO (14:42)
[2016-10-09] MEDS ORDERED: ONDANSETRON 4MG/2ML VIAL (J2405) IV ONE (15:00)
[2016-10-09] MEDS ORDERED: NS 1,000 ML IV ONE (15:00)
[2016-10-09 15:41] LABS: BASO % 0.2 % (0.0-1.0); EOS % 0.4 % (0.0-3.0); LARGE UNSTAINED CELL # 0.1 K/mm3 (0.0-0.4); LARGE UNSTAINED CELL % 1.3 % (0.0-4.0); LYMPH # 1.6 K/mm3 (1.5-6.5); LYMPH % 24.6 % (24.0-44.0); MEAN CORPUSCULAR HEMOGLOBIN 30.5 pg (27.0-33.0); MEAN CORPUSCULAR HGB CONC 34.6 g/dl (32.0-36.5); MEAN CORPUSCULAR VOLUME 88.2 fl (80.0-96.0); MONO # 0.2 K/mm3 (0.0-0.8); MONO % 3.8 % (0.0-5.0); NEUTROPHILS # 4.3 K/mm3 (1.8-7.7); NEUTROPHILS % 69.6 % (36.0-66.0); PLATELET COUNT, AUTOMATED 218 k/mm3 (150-450); RED CELL DISTRIBUTION WIDTH 12.9 % (11.5-14.5); WHITE BLOOD COUNT 6.1 K/mm3 (4.0-10.0)
[2016-10-09 16:06] LABS: ALBUMIN/GLOBULIN RATIO 0.94 (1.00-1.93); ALKALINE PHOSPHATASE 65 U/L (45-117); ALT/SGPT 21 U/L (12-78); ANION GAP 10 MEQ/L (8-16); AST/SGOT 18 U/L (15-37); BILIRUBIN,DIRECT 0.1 MG/DL (0.0-0.2); BILIRUBIN,TOTAL 0.5 MG/DL (0.2-1.0); BLOOD UREA NITROGEN 4 MG/DL (7-18); CALCIUM LEVEL 8.8 MG/DL (8.5-10.1); CARBON DIOXIDE LEVEL 23 MEQ/L (21-32); CHLORIDE LEVEL 109 MEQ/L (98-107); CREATININE FOR GFR 0.45 MG/DL (0.55-1.02); GLOMERULAR FILTRATION RATE > 60.0 (>60); GLUCOSE, FASTING 83 MG/DL (70-105); HCG, SERUM QUANTITATIVE 56799 MIU/ML; POTASSIUM SERUM 3.9 MEQ/L (3.5-5.1); SODIUM LEVEL 142 MEQ/L (136-145); TOTAL PROTEIN 6.2 GM/DL (6.4-8.2)
[2016-10-09 17:11] VITALS: BP 119/79
[2017-01-14] MEDS ORDERED: VENTAER (20:22)
== END 2016-10-09 17:17 | disposition home or self-care (01) ==
LOC: M ED 14:32
DX: O21.9 Vomiting of pregnancy, unspecified (principal); Z3A.15 15 weeks gestation of pregnancy
CPT/HCPCS: 80048; 80076; 83690; 84702; 85025; 93041; 96374; 99284; J2405

== ENCOUNTER → 2016-10-17 | Outpatient (CLI) | payer OTHER ==
[~2016-10-17] MED LIST changes: +PREN1CHW4 PO; +UNIS25TA2 PO; +VENTAER; +VITA50TA43 PO
== END ==
LOC: M LAB 14:16
PROVIDERS: ATTEND Family Medicine
DX: Z34.80 Encounter for supervision of other normal pregnancy, unspecified trimester (principal)

== ENCOUNTER → 2016-10-31 | Outpatient (CLI) | payer OTHER ==
--- NOTE | 2016-10-31 13:42 | REP ---
OB ULTRASOUND: Real-time sonographic evaluation of the gravid uterus is performed utilizing transabdominal technique. There is a single living intrauterine gestation. Estimated gestational age 18 weeks with EDC 04/03/2017. Today's measurements indicate appropriate growth. BPD 41 mm 18 weeks 2 days, 60th percentile HC 146 mm 17 weeks 5 days, 43rd percentile AC 137 mm 19 weeks 1 day, 75th percentile FL 29 mm 18 weeks 5 days, 71st percentile HC/AC ratio 1.07 is slightly below normal range of 1.08 - 1.27. Estimated weight 259 grams, 82nd percentile. Cervix closed and measures 4.9 cm in length. heart rate 142 beats per minute. SEEN/GROSSLY UNREMARKABLE Lateral ventricles Yes Posterior fossa No Upper lip Yes Four-chamber heart No LVOT No RVOT No Stomach Yes Cord insertion Yes Three vessel cord Yes Kidneys No Bladder Yes Spine No position vertex. Placenta is anterior grade 0 with no previa or abruption. Amniotic fluid within normal limits. Signed by Richar Frederick MD 10/31/2016 04:05 P
== END ==
LOC: M RAD 10:00
PROVIDERS: ATTEND Obstetrics & Gynecology
DX: Z34.82 Encounter for supervision of other normal pregnancy, second trimester (principal)

== ENCOUNTER → 2016-11-18 | Outpatient (CLI) | payer OTHER ==
--- NOTE | 2016-11-18 15:19 | REP ---
Clinical: Anatomical re-evaluation. Comparison: 10/31/2016 . Findings: Examination demonstrates a single live intrauterine in cephalic presentation. motion is identified by technologist. Placenta is noted anteriorly and grade zero without evidence for placenta previa or abruption. Amniotic fluid volume is normal. Cervix measures 3.3 cm in length and appears closed. No evidence for nuchal cord. Gestational age by LMP 20 weeks 4 days with SHOLA 04/03/2017 . Gestational age by current measurements 20 weeks 3 days with SHOLA 04/04/2017 . FHR equals 144 beats per minute. Estimated weight 366 grams (50th percentile). Anatomical assessment demonstrates normal structures including cranium, choroid plexus, cavum, cerebellum/posterior fossa, facial profile, lungs, diaphragm, stomach, cord insertion/three-vessel cord, kidneys/bladder, spine, and extremities. Impression: 1. Single live intrauterine in cephalic presentation demonstrating appropriate interval growth. 2. Limited evaluation of the heart and ventricular outflow tracts is again noted. The remainder of the anatomical assessment in conjunction with prior examination is normal. Signed by Jani Lowery MD 11/18/2016 03:10 P
== END ==
LOC: M RAD 14:26
PROVIDERS: ATTEND Obstetrics & Gynecology
DX: Z34.80 Encounter for supervision of other normal pregnancy, unspecified trimester (principal)

== ENCOUNTER 2016-12-06 01:39 | Outpatient (CLI) | payer OTHER ==
[~2016-12-06 01:39] MED LIST changes: -VENTAER
[2016-12-06 01:48] VITALS: BP 104/64
[2017-01-14] MEDS ORDERED: VENTAER (20:22)
== END 2016-12-06 02:40 | disposition home or self-care (01) ==
LOC: M LDO 01:39
PROVIDERS: ATTEND Obstetrics & Gynecology
DX: O26.892 Other specified pregnancy related conditions, second trimester (principal); O99.342 Other mental disorders complicating pregnancy, second trimester; Z3A.23 23 weeks gestation of pregnancy; O99.322 Drug use complicating pregnancy, second trimester; O99.212 Obesity complicating pregnancy, second trimester; O10.112 Pre-existing hypertensive heart disease complicating pregnancy, second trimester; Z88.0 Allergy status to penicillin; Z88.8 Allergy status to other drugs, medicaments and biological substances

== ENCOUNTER 2016-12-24 17:51 | Emergency (ER) | payer MEDICAID, OTHER ==
[~2016-12-24] VITALS: Ht 157.5 cm; Wt 98.2 kg
[2016-12-24 19:39] LABS: BASO % 0.2 % (0.0-1.0); EOS % 0.3 % (0.0-3.0); LYMPH # 2.5 10^3/uL (1.5-6.5); LYMPH % 22.7 % (24.0-44.0); MEAN CORPUSCULAR HEMOGLOBIN 31.5 pg (27.0-33.0); MEAN CORPUSCULAR HGB CONC 35.2 g/dl (32.0-36.5); MEAN CORPUSCULAR VOLUME 89.4 fl (80.0-96.0); MONO # 0.6 10^3/uL (0.0-0.8); MONO % 5.1 % (0.0-5.0); NEUTROPHILS # 7.9 10^3/uL (1.8-7.7); NEUTROPHILS % 70.7 % (36.0-66.0); PLATELET COUNT, AUTOMATED 242 10^3/uL (150-450); RED CELL DISTRIBUTION WIDTH 13.4 % (11.5-14.5); WHITE BLOOD COUNT 11.1 10^3/uL (4.0-10.0)
[2016-12-24 19:52] LABS: INR 0.94
[2016-12-24 20:04] LABS: ALBUMIN 2.5 GM/DL (3.2-5.2); ALBUMIN/GLOBULIN RATIO 0.68 (1.00-1.93); ALKALINE PHOSPHATASE 84 U/L (45-117); ALT/SGPT 18 U/L (12-78); ANION GAP 8 MEQ/L (8-16); AST/SGOT 10 U/L (15-37); BILIRUBIN,DIRECT < 0.1 MG/DL (0.0-0.2); BILIRUBIN,TOTAL 0.4 MG/DL (0.2-1.0); BLOOD UREA NITROGEN 6 MG/DL (7-18); CALCIUM LEVEL 9.1 MG/DL (8.5-10.1); CARBON DIOXIDE LEVEL 24 MEQ/L (21-32); CHLORIDE LEVEL 108 MEQ/L (98-107); CREATININE FOR GFR 0.47 MG/DL (0.55-1.02); GLOMERULAR FILTRATION RATE > 60.0 (>60); GLUCOSE, FASTING 99 MG/DL (70-105); SODIUM LEVEL 140 MEQ/L (136-145); TOTAL PROTEIN 6.2 GM/DL (6.4-8.2)
[2016-12-24 21:18] VITALS: BP 100/60
[2017-01-14] MEDS ORDERED: VENTAER (20:22)
== END 2016-12-24 21:45 | disposition home or self-care (01) ==
LOC: M ED 17:51
DX: O99.89 Other specified diseases and conditions complicating pregnancy, childbirth and the puerperium (principal); R23.3 Spontaneous ecchymoses; Z3A.25 25 weeks gestation of pregnancy

== ENCOUNTER → 2017-01-06 | Outpatient (CLI) | payer OTHER ==
[~2017-01-06] MED LIST changes: +VENTAER
[2017-01-06 12:17] LABS: MEAN CORPUSCULAR HEMOGLOBIN 30.7 pg (27.0-33.0); MEAN CORPUSCULAR HGB CONC 34.3 g/dl (32.0-36.5); MEAN CORPUSCULAR VOLUME 89.4 fl (80.0-96.0); PLATELET COUNT, AUTOMATED 222 10^3/uL (150-450); RED CELL DISTRIBUTION WIDTH 13.6 % (11.5-14.5); WHITE BLOOD COUNT 8.8 10^3/uL (4.0-10.0)
== END ==
LOC: M LAB 10:20
PROVIDERS: ATTEND Advanced Practice Midwife
DX: Z34.82 Encounter for supervision of other normal pregnancy, second trimester (principal)

== ENCOUNTER → 2017-02-27 | Outpatient (CLI) | payer OTHER ==
--- NOTE | 2017-02-27 17:12 | REP ---
OB ULTRASOUND, BIOPHYSICAL PROFILE: Real-time sonographic evaluation of the gravid uterus is performed. There is a single living intrauterine gestation. The estimated gestational age is 35 weeks 2 days. EDC 04/01/2017. heart rate 121 beats per minute. Amniotic fluid within normal limits. RENALDO 11.1 within normal range of 7.9 to 24.9. Biophysical profile score 8/8. SD ratio 2.97 within normal range. RI 0.6 is within normal range. position is vertex. Placenta is anterior and grade 1 with no previa or abruption. Signed by Richar Frederick MD 02/27/2017 06:01 P
== END ==
LOC: M RAD 16:08
PROVIDERS: ATTEND Advanced Practice Midwife
DX: O36.8131 Decreased fetal movements, third trimester, fetus 1 (principal); Z3A.35 35 weeks gestation of pregnancy

== ENCOUNTER → 2017-03-10 | Outpatient (REF) | payer OTHER | LOC: M LAB REF 16:57 | DX: Z34.83 Encounter for supervision of other normal pregnancy, third trimester (principal) ==

== ENCOUNTER 2017-03-27 04:50 | Inpatient (IN) | payer OTHER ==
[2017-03-27] MEDS: BICITRA 30ML SOLN UDC PO (05:15)
[2017-03-27] MEDS: LR 1,000 ML IV ×4 (05:15→20:03)
[2017-03-27 05:25] LABS: HEMATOCRIT 34.8 % (36.0-47.0); HEMOGLOBIN 11.9 g/dl (12.0-16.0); MEAN CORPUSCULAR HEMOGLOBIN 30.8 pg (27.0-33.0); MEAN CORPUSCULAR HGB CONC 34.2 g/dl (32.0-36.5); MEAN CORPUSCULAR VOLUME 90.2 fl (80.0-96.0); PLATELET COUNT, AUTOMATED 213 10^3/uL (150-450); RED BLOOD COUNT 3.86 10^6/uL (4.00-5.40); RED CELL DISTRIBUTION WIDTH 13.4 % (11.5-14.5); WHITE BLOOD COUNT 10.2 10^3/uL (4.0-10.0)
[2017-03-27 05:53] LABS: AMPHETAMINES URINE REFLEX NEGATIVE (NEGATIVE); BARBITURATES URINE REFLEX NEGATIVE (NEGATIVE); BENZODIAZEPINES URINE REFLEX NEGATIVE (NEGATIVE); CANNABINOIDS URINE REFLEX NEGATIVE (NEGATIVE); COCAINE METABOLITE URINE REFLE NEGATIVE (NEGATIVE); METHADONE URINE REFLEX NEGATIVE (NEGATIVE); OPIATES URINE REFLEX NEGATIVE (NEGATIVE); PHENCYCLIDINE URINE REFLEX NEGATIVE (NEGATIVE)
[2017-03-27] MEDS: GENTAMICIN 150 MG in D5W 50 ML IV (07:03)
[2017-03-27] MEDS: CLINDAMYCIN 900 MG in APPROPRIATE DILUENT 1 EA IV (07:03)
[2017-03-27] MEDS ORDERED: ONDANSETRON 4MG/2ML VIAL (J2405) As Ordered (07:20)
[2017-03-27] MEDS ORDERED: OXYTOCIN INJ 10 UNITS/ML VIAL (J2590) As Ordered ×2 (07:20→08:57)
[2017-03-27] MEDS ORDERED: dexameTHASONE 4 MG/ML 1ML VIAL (J1100) As Ordered (07:20)
[2017-03-27] MEDS ORDERED: MORPHINE PRES-FREE INJ 10 MG/10 ML VIAL (J2274) As Ordered (07:24)
[2017-03-27] MEDS ORDERED: fentaNYL 100 MCG/2 ML INJECTION (J3010) As Ordered (07:24)
[2017-03-27] MEDS ORDERED: NALBUPHINE HCL 10 MG/ML AMP (J2300) IV ×2 (07:46→09:30)
[2017-03-27] MEDS ORDERED: NALOXONE INJ 0.4 MG/1 ML VIAL (J2310) IV ×2 (07:46)
[2017-03-27] MEDS ORDERED: ONDANSETRON 4MG/2ML VIAL (J2405) IV ×2 (07:46→09:30)
[2017-03-27] MEDS ORDERED: LR 1,000 ML IV (07:51)
[2017-03-27] MEDS ORDERED: RHOGAM 300 MCG (1500 IU) INJ (J2790) IM (08:00)
[2017-03-27] MEDS ORDERED: MEASLES,MUMPS,RUBELLA VACCINE INJ (MMR-II) (90707) SC (08:00)
[2017-03-27] MEDS ORDERED: PERCOCET 5MG/325MG TAB PO ×2 (08:00→09:30)
[2017-03-27] MEDS ORDERED: PROMETHAZINE 25 MG TAB PO (08:00)
[2017-03-27] MEDS ORDERED: PHENYLephrine HCL 500 MCG/5 ML (100MCG/ML) SYRINGE (J2370) As Ordered (08:20)
[2017-03-27] MEDS ORDERED: ePHEDrine SULFATE 25 MG/5 ML(5MG/ML) SYRINGE As Ordered (08:20)
[2017-03-27] MEDS: DOCUSATE SODIUM 100 MG CAP PO ×2 (09:00→21:00)
[2017-03-27] MEDS: PRENATAL VITAMINS CHEWABLE TABLET PO (09:00)
[2017-03-27] MEDS ORDERED: fentaNYL 100 MCG/2 ML INJECTION (J3010) IV (09:30)
[2017-03-27] MEDS ORDERED: HYDROmorphone HCL 1 MG/ML SYRINGE (J1170) IV (09:30)
[2017-03-27] MEDS ORDERED: MEPERIDINE INJ 25 MG/ML VIAL (J2175) IV (09:30)
[2017-03-27] MEDS ORDERED: KETOROLAC 30 MG/ML VIAL (J1885) IV (10:00)
[2017-03-27] MEDS: METOCLOPRAMIDE INJ 10MG/2ML VIAL (J2765) IV (11:21)
[2017-03-27] MEDS ORDERED: SLF 3 ML SYR IV (12:00)
[2017-03-27] MEDS: SLF 3 ML SYR IV ×2 (14:00→22:00)
[2017-03-27] MEDS: KETOROLAC 30 MG/ML VIAL (J1885) IV ×2 (14:59→21:43)
[2017-03-27] MEDS: ALBUTEROL 90 MCG/ACT 8GM HFA INHALER INH (18:20)
[2017-03-27] MEDS: ONDANSETRON 4MG/2ML VIAL (J2405) IV (19:35)
[2017-03-28] MEDS: KETOROLAC 30 MG/ML VIAL (J1885) IV ×2 (03:40→09:09)
[2017-03-28 07:17] LABS: HEMATOCRIT 27.9 % (36.0-47.0); MEAN CORPUSCULAR HEMOGLOBIN 30.6 pg (27.0-33.0); MEAN CORPUSCULAR HGB CONC 33.3 g/dl (32.0-36.5); MEAN CORPUSCULAR VOLUME 91.8 fl (80.0-96.0); PLATELET COUNT, AUTOMATED 174 10^3/uL (150-450); RED BLOOD COUNT 3.04 10^6/uL (4.00-5.40); RED CELL DISTRIBUTION WIDTH 13.3 % (11.5-14.5); WHITE BLOOD COUNT 13.6 10^3/uL (4.0-10.0)
[2017-03-28 07:22] LABS: HEMOGLOBIN 9.3 g/dl (12.0-16.0)
[2017-03-28] MEDS: DOCUSATE SODIUM 100 MG CAP PO ×2 (09:09→20:04)
[2017-03-28] MEDS: PRENATAL VITAMINS CHEWABLE TABLET PO ×2 (09:09)
[2017-03-28] MEDS: IBUPROFEN 800 MG TAB PO (17:24)
[2017-03-28] MEDS: PERCOCET 5MG/325MG TAB PO (20:03)
[2017-03-28] MEDS: SLF 3 ML SYR IV (21:13)
[2017-03-29] MEDS: IBUPROFEN 800 MG TAB PO ×2 (00:37→08:09)
[2017-03-29] MEDS: PERCOCET 5MG/325MG TAB PO (00:39)
[2017-03-29] MEDS: SLF 3 ML SYR IV (05:30)
[2017-03-29] MEDS: PRENATAL VITAMINS CHEWABLE TABLET PO (08:08)
[2017-03-29] MEDS: DOCUSATE SODIUM 100 MG CAP PO (08:08)
== END 2017-03-29 15:00 | disposition home or self-care (01) | DRG 540 ==
LOC: M LDI 04:50 → M OBS 10:54
PROVIDERS: Obstetrics & Gynecology
PROC: 10D00Z1 Extraction of Products of Conception, Low, Open Approach (ICD-10-PCS; principal; 2017-03-27 07:30)
DX: O34.211 Maternal care for low transverse scar from previous cesarean delivery (principal); Z37.0 Single live birth; Z3A.39 39 weeks gestation of pregnancy

== ENCOUNTER 2017-04-10 13:09 | Emergency (ER) | payer OTHER ==
[2017-04-10 16:37] LABS: BASO # 0.1 10^3/uL (0.0-0.2); BASO % 0.6 % (0.0-1.0); EOS # 0.4 10^3/uL (0.0-0.50); EOS % 4.5 % (0.0-3.0); HEMOGLOBIN 13.5 g/dl (12.0-16.0); IMMATURE GRANULOCYTE % 0.2 % (0-0); LYMPH # 2.3 10^3/uL (1.5-6.5); LYMPH % 28.1 % (24.0-44.0); MEAN CORPUSCULAR HEMOGLOBIN 30.4 pg (27.0-33.0); MEAN CORPUSCULAR HGB CONC 33.8 g/dl (32.0-36.5); MEAN CORPUSCULAR VOLUME 90.1 fl (80.0-96.0); MONO # 0.5 10^3/uL (0.0-0.8); MONO % 5.6 % (0.0-5.0); NEUTROPHILS # 5.1 10^3/uL (1.8-7.7); PLATELET COUNT, AUTOMATED 311 10^3/uL (150-450); RED BLOOD COUNT 4.44 10^6/uL (4.00-5.40); RED CELL DISTRIBUTION WIDTH 12.3 % (11.5-14.5); WHITE BLOOD COUNT 8.3 10^3/uL (4.0-10.0)
[2017-04-10 16:51] LABS: D-DIMER QUANT 1734.6 ng/ml (<500)
[2017-04-10] MEDS ORDERED: ISOVUE-370 76% 100ML VIAL (Q9967) As Ordered (17:00)
[2017-04-10 17:26] LABS: ANION GAP 9 MEQ/L (8-16); BLOOD UREA NITROGEN 15 MG/DL (7-18); CALCIUM LEVEL 8.7 MG/DL (8.5-10.1); CARBON DIOXIDE LEVEL 26 MEQ/L (21-32); CHLORIDE LEVEL 105 MEQ/L (98-107); CREATININE FOR GFR 0.57 MG/DL (0.55-1.30); GLOMERULAR FILTRATION RATE > 60.0 (>60); GLUCOSE, FASTING 98 MG/DL (70-100); POTASSIUM SERUM 4.3 MEQ/L (3.5-5.1); SODIUM LEVEL 140 MEQ/L (136-145)
== END 2017-04-10 18:27 | disposition home or self-care (01) ==
LOC: M ED 13:09
DX: J06.9 Acute upper respiratory infection, unspecified (principal); J45.909 Unspecified asthma, uncomplicated; Z88.1 Allergy status to other antibiotic agents; Z88.8 Allergy status to other drugs, medicaments and biological substances; Z79.899 Other long term (current) drug therapy
CPT/HCPCS: Q9967

== ENCOUNTER → 2017-04-26 | Outpatient (REF) | payer OTHER, MEDICAID ==
[2017-04-26 16:25] LABS: ALBUMIN 3.1 GM/DL (3.2-5.2); ALBUMIN/GLOBULIN RATIO 0.89 (1.00-1.93); ALKALINE PHOSPHATASE 105 U/L (45-117); ALT/SGPT 17 U/L (12-78); AST/SGOT 13 U/L (7-37); BILIRUBIN,DIRECT 0.1 MG/DL (0.0-0.2); BILIRUBIN,TOTAL 0.5 MG/DL (0.2-1.0); TOTAL PROTEIN 6.6 GM/DL (6.4-8.2)
== END ==
LOC: M LAB REF 15:35
DX: K76.9 Liver disease, unspecified (principal)

== ENCOUNTER → 2017-09-07 | Outpatient (CLI) | payer OTHER | LOC: M RAD 11:23 | DX: R10.2 Pelvic and perineal pain (principal) | CPT/HCPCS: 76856 ==

== ENCOUNTER → 2017-09-21 | Outpatient (REF) | payer OTHER ==
[2017-09-21 20:32] LABS: CHLAMYDIA DNA AMPLIFICATION NEGATIVE (NEGATIVE); GC DNA AMPLIFICATION NEGATIVE (NEGATIVE)
== END ==
LOC: M SFHCPLAZ 14:20
DX: R10.2 Pelvic and perineal pain (principal)

== ENCOUNTER → 2017-10-17 | Outpatient (CLI) | payer OTHER | LOC: M RAD 13:55 | DX: R10.2 Pelvic and perineal pain (principal) | CPT/HCPCS: 74018 ==

== ENCOUNTER → 2017-10-19 | Outpatient (CLI) | payer OTHER | LOC: M RAD 15:20 | DX: Z12.31 Encounter for screening mammogram for malignant neoplasm of breast (principal); Z80.3 Family history of malignant neoplasm of breast | CPT/HCPCS: 77067 ==

== ENCOUNTER → 2017-11-01 | Outpatient (REF) | payer OTHER ==
[2017-11-01 18:39] LABS: HCG, SERUM QUANTITATIVE < 1.0 MIU/ML
== END ==
LOC: M SFHCPLAZ 16:14
DX: Z71.1 Person with feared health complaint in whom no diagnosis is made (principal)

== ENCOUNTER 2017-12-30 11:49 | Emergency (ER) | payer OTHER, MEDICAID ==
[2017-12-30 12:57] LABS: KETONE, URINE AUTO RFX NEGATIVE (NEGATIVE); LEUKOCYTE ESTERASE UR AUTO RFX NEGATIVE (NEGATIVE); MUCUS, URINE RFX SMALL (NEGATIVE); NITRITE, URINE AUTO RFX NEGATIVE (NEGATIVE); RBC, URINE AUTO RFX 127 /HPF (0-3); SPECIFIC GRAVITY UR AUTO RFX 1.011 (1.002-1.035); SQUAM EPITHELIAL CELL UR AURFX 1 /HPF (0-6); WBC, URINE AUTO RFX 5 /HPF (0-3)
[2017-12-30 13:09] LABS: BASO % 0.2 % (0.0-1.0); EOS % 0.1 % (0.0-3.0); HEMATOCRIT 40.2 % (36.0-47.0); HEMOGLOBIN 13.9 g/dl (12.0-15.5); IMMATURE GRANULOCYTE % 0.4 % (0-3.0); LYMPH # 1.3 10^3/uL (1.5-6.5); LYMPH % 9.5 % (24.0-44.0); MEAN CORPUSCULAR HEMOGLOBIN 30.5 pg (27.0-33.0); MEAN CORPUSCULAR HGB CONC 34.6 g/dl (32.0-36.5); MEAN CORPUSCULAR VOLUME 88.4 fl (80.0-96.0); MONO # 0.6 10^3/uL (0.0-0.8); MONO % 4.5 % (0.0-5.0); NEUTROPHILS % 85.3 % (36.0-66.0); PLATELET COUNT, AUTOMATED 233 10^3/uL (150-450); RED BLOOD COUNT 4.55 10^6/uL (4.00-5.40); RED CELL DISTRIBUTION WIDTH 12.4 % (11.5-14.5); WHITE BLOOD COUNT 14.1 10^3/uL (4.0-10.0)
[2017-12-30] MEDS: ONDANSETRON 4MG/2ML VIAL (J2405) IV (13:13)
[2017-12-30] MEDS: KETOROLAC 30 MG/ML VIAL (J1885) IV (13:14)
[2017-12-30] MEDS: NS 1,000 ML IV (13:14)
[2017-12-30 13:23] LABS: CONTROL LINE UCG INT CTR LINE PRESENT; URINE PREG TEST NEGATIVE (NEGATIVE)
[2017-12-30 13:37] LABS: ALBUMIN 3.5 GM/DL (3.2-5.2); ALBUMIN/GLOBULIN RATIO 1.03 (1.00-1.93); ALKALINE PHOSPHATASE 95 U/L (45-117); ALT/SGPT 34 U/L (12-78); ANION GAP 8 MEQ/L (8-16); AST/SGOT 22 U/L (7-37); BILIRUBIN,TOTAL 1.1 MG/DL (0.2-1.0); BLOOD UREA NITROGEN 6 MG/DL (7-18); C REACTIVE PROTEIN QUANTITATIV 2.15 MG/DL (0.00-0.30); CALCIUM LEVEL 8.6 MG/DL (8.5-10.1); CARBON DIOXIDE LEVEL 27 MEQ/L (21-32); CHLORIDE LEVEL 106 MEQ/L (98-107); GLOMERULAR FILTRATION RATE > 60.0 (>60); GLUCOSE, FASTING 88 MG/DL (70-100); POTASSIUM SERUM 3.9 MEQ/L (3.5-5.1); SODIUM LEVEL 141 MEQ/L (136-145); TOTAL PROTEIN 6.9 GM/DL (6.4-8.2)
[2017-12-30] MEDS: GASTROGRAFIN SOLUTION 30ML PO ×2 (13:42→14:12)
[2017-12-30] MEDS ORDERED: MAGIC MOUTHWASH SUSPENSION BTL SS (14:30)
[2017-12-30] MEDS: MORPHINE 2 MG/ML 1ML SYRINGE (J2270) IV (14:53)
[2017-12-30] MEDS ORDERED: ISOVUE-370 76% 100ML VIAL (Q9967) As Ordered (15:05)
[2017-12-30] MEDS: MAGIC MOUTHWASH SUSPENSION BTL SS (15:33)
[2017-12-30] MEDS: HYDROMORPHONE HCL 0.5 MG/ 0.5 ML SYRINGE (J1170 PER 1) IV (15:45)
[2017-12-30] MEDS: ACETAMINOPHEN 325 MG TAB PO (16:30)
== END 2017-12-30 17:35 | disposition home or self-care (01) ==
LOC: M ED 11:49
DX: J02.0 Streptococcal pharyngitis (principal); R50.9 Fever, unspecified; R10.31 Right lower quadrant pain; J45.909 Unspecified asthma, uncomplicated; F41.9 Anxiety disorder, unspecified; F32.9 Major depressive disorder, single episode, unspecified; F31.9 Bipolar disorder, unspecified; G93.2 Benign intracranial hypertension; K57.30 Diverticulosis of large intestine without perforation or abscess without bleeding; Z79.899 Other long term (current) drug therapy; Z88.0 Allergy status to penicillin; Z88.8 Allergy status to other drugs, medicaments and biological substances
CPT/HCPCS: Q9963

== ENCOUNTER → 2018-01-02 | Outpatient (CLI) | payer OTHER ==
[2018-01-02 11:36] LABS: BASO % 0.4 % (0.0-1.0); EOS # 0.1 10^3/uL (0.0-0.50); EOS % 1.1 % (0.0-3.0); HEMATOCRIT 38.9 % (36.0-47.0); HEMOGLOBIN 13.4 g/dl (12.0-15.5); IMMATURE GRANULOCYTE % 0.5 % (0-3.0); LYMPH # 2.3 10^3/uL (1.5-6.5); LYMPH % 22.7 % (24.0-44.0); MEAN CORPUSCULAR HEMOGLOBIN 30.1 pg (27.0-33.0); MEAN CORPUSCULAR HGB CONC 34.4 g/dl (32.0-36.5); MEAN CORPUSCULAR VOLUME 87.4 fl (80.0-96.0); MONO # 0.5 10^3/uL (0.0-0.8); NEUTROPHILS # 7.1 10^3/uL (1.8-7.7); NEUTROPHILS % 70.3 % (36.0-66.0); PLATELET COUNT, AUTOMATED 274 10^3/uL (150-450); RED BLOOD COUNT 4.45 10^6/uL (4.00-5.40); RED CELL DISTRIBUTION WIDTH 12.2 % (11.5-14.5)
[2018-01-02 12:37] LABS: APPEARANCE, URINE HAZY (CLEAR); BACTERIA, URINE AUTO NEGATIVE (NEGATIVE); BILIRUBIN, URINE AUTO NEGATIVE (NEGATIVE); BLOOD, URINE BLOOD 1+ (NEGATIVE); COLOR, URINE YELLOW (YELLOW); GLUCOSE, URINE (UA) AUTO NEGATIVE (NEGATIVE); KETONE, URINE AUTO NEGATIVE (NEGATIVE); LEUKOCYTE ESTERASE, URINE AUTO TRACE (NEGATIVE); MUCUS, URINE SMALL (NEGATIVE); NITRITE, URINE AUTO NEGATIVE (NEGATIVE); PROTEIN, URINE AUTO NEGATIVE (NEGATIVE); RBC, URINE AUTO 2 /HPF (0-3); SPECIFIC GRAVITY URINE AUTO 1.026 (1.002-1.035); SQUAMOUS EPITHELIAL CELL UR AU 5 /HPF (0-6); WBC, URINE AUTO 2 /HPF (0-3)
== END ==
LOC: M LAB 10:58
DX: R10.9 Unspecified abdominal pain (principal)
CPT/HCPCS: 85025

== ENCOUNTER → 2018-01-12 | Outpatient (CLI) | payer OTHER | LOC: M PLARAD 07:32 | DX: G93.2 Benign intracranial hypertension (principal) | CPT/HCPCS: 70553 ==

== ENCOUNTER 2018-01-23 20:43 | Emergency (ER) | payer OTHER ==
[2018-01-23] MEDS: PERCOCET 5MG/325MG TAB PO (23:32)
== END 2018-01-24 00:17 | disposition home or self-care (01) ==
LOC: M ED 01-24 00:17
DX: M54.5 Low back pain (principal); G93.2 Benign intracranial hypertension; J45.909 Unspecified asthma, uncomplicated; Z88.0 Allergy status to penicillin; Z88.8 Allergy status to other drugs, medicaments and biological substances; Z79.899 Other long term (current) drug therapy
CPT/HCPCS: 72131

== ENCOUNTER → 2018-01-23 | Outpatient (CLI) | payer OTHER ==
[2018-01-23 12:52] LABS: CSF RBC < 2 10^3/uL (<2)
[2018-01-23 12:53] LABS: CSF TUBE# CELL CNT TUBE 1; CSF WBC 4 /uL (0-10)
[2018-01-23 12:54] LABS: APPEARANCE, CSF CLEAR (CLEAR); COLOR, CSF COLORLESS (COLORLESS); CSF DIFF IF INDICATED? NO (NO)
== END ==
LOC: M RADPRO 10:16
DX: G93.2 Benign intracranial hypertension (principal); R51 Headache; R10.9 Unspecified abdominal pain; Z79.899 Other long term (current) drug therapy; Z88.0 Allergy status to penicillin; Z88.8 Allergy status to other drugs, medicaments and biological substances
CPT/HCPCS: 62270

== ENCOUNTER → 2018-01-31 | Outpatient (REF) | payer OTHER ==
[2018-01-31 17:36] LABS: BASO % 0.2 % (0.0-1.0); EOS % 0.8 % (0.0-3.0); HEMATOCRIT 43.3 % (36.0-47.0); HEMOGLOBIN 15.1 g/dl (12.0-15.5); IMMATURE GRANULOCYTE % 0.4 % (0-3.0); LYMPH # 1.1 10^3/uL (1.5-6.5); LYMPH % 21.4 % (24.0-44.0); MEAN CORPUSCULAR HEMOGLOBIN 30.4 pg (27.0-33.0); MEAN CORPUSCULAR HGB CONC 34.9 g/dl (32.0-36.5); MEAN CORPUSCULAR VOLUME 87.1 fl (80.0-96.0); MONO # 0.5 10^3/uL (0.0-0.8); MONO % 10.2 % (0.0-5.0); NEUTROPHILS # 3.6 10^3/uL (1.8-7.7); PLATELET COUNT, AUTOMATED 250 10^3/uL (150-450); RED BLOOD COUNT 4.97 10^6/uL (4.00-5.40); RED CELL DISTRIBUTION WIDTH 12.5 % (11.5-14.5); WHITE BLOOD COUNT 5.3 10^3/uL (4.0-10.0)
[2018-01-31 17:57] LABS: ALBUMIN 3.6 GM/DL (3.2-5.2); ALBUMIN/GLOBULIN RATIO 0.88 (1.00-1.93); ALKALINE PHOSPHATASE 120 U/L (45-117); ALT/SGPT 159 U/L (12-78); ANION GAP 8 MEQ/L (8-16); AST/SGOT 90 U/L (7-37); BILIRUBIN,TOTAL 1.1 MG/DL (0.2-1.0); BLOOD UREA NITROGEN 9 MG/DL (7-18); CALCIUM LEVEL 8.7 MG/DL (8.5-10.1); CARBON DIOXIDE LEVEL 24 MEQ/L (21-32); CHLORIDE LEVEL 108 MEQ/L (98-107); GLOMERULAR FILTRATION RATE > 60.0 (>60); GLUCOSE, FASTING 97 MG/DL (70-100); POTASSIUM SERUM 3.7 MEQ/L (3.5-5.1); SODIUM LEVEL 140 MEQ/L (136-145); TOTAL PROTEIN 7.7 GM/DL (6.4-8.2)
== END ==
LOC: M SFHCPLAZ 16:17
DX: R19.7 Diarrhea, unspecified (principal)
CPT/HCPCS: 80053

== ENCOUNTER 2018-02-01 11:10 | Emergency (ER) | payer OTHER ==
[2018-02-01] MEDS: KETOROLAC 30 MG/ML VIAL (J1885) IV (12:17)
[2018-02-01] MEDS: DICYCLOMINE 10 MG CAP PO (12:17)
[2018-02-01] MEDS: NS 1,000 ML IV (12:17)
[2018-02-01] MEDS: ONDANSETRON 4MG/2ML VIAL (J2405) IV (12:17)
[2018-02-01 12:36] LABS: BASO % 0.4 % (0.0-1.0); EOS # 0.1 10^3/uL (0.0-0.50); EOS % 0.9 % (0.0-3.0); HEMATOCRIT 43.1 % (36.0-47.0); IMMATURE GRANULOCYTE % 0.4 % (0-3.0); LYMPH # 1.4 10^3/uL (1.5-6.5); LYMPH % 23.8 % (24.0-44.0); MEAN CORPUSCULAR HEMOGLOBIN 29.8 pg (27.0-33.0); MEAN CORPUSCULAR HGB CONC 34.8 g/dl (32.0-36.5); MEAN CORPUSCULAR VOLUME 85.7 fl (80.0-96.0); MONO # 0.7 10^3/uL (0.0-0.8); MONO % 11.6 % (0.0-5.0); NEUTROPHILS # 3.6 10^3/uL (1.8-7.7); NEUTROPHILS % 62.9 % (36.0-66.0); PLATELET COUNT, AUTOMATED 254 10^3/uL (150-450); RED BLOOD COUNT 5.03 10^6/uL (4.00-5.40); RED CELL DISTRIBUTION WIDTH 12.4 % (11.5-14.5); WHITE BLOOD COUNT 5.7 10^3/uL (4.0-10.0)
[2018-02-01 12:55] LABS: ALBUMIN 3.6 GM/DL (3.2-5.2); ALBUMIN/GLOBULIN RATIO 0.82 (1.00-1.93); ALKALINE PHOSPHATASE 108 U/L (45-117); ALT/SGPT 116 U/L (12-78); ANION GAP 7 MEQ/L (8-16); AST/SGOT 48 U/L (7-37); BILIRUBIN,TOTAL 0.9 MG/DL (0.2-1.0); BLOOD UREA NITROGEN 7 MG/DL (7-18); CALCIUM LEVEL 8.6 MG/DL (8.5-10.1); CARBON DIOXIDE LEVEL 24 MEQ/L (21-32); CHLORIDE LEVEL 106 MEQ/L (98-107); CREATININE FOR GFR 0.67 MG/DL (0.55-1.30); GLOMERULAR FILTRATION RATE > 60.0 (>60); GLUCOSE, FASTING 102 MG/DL (70-100); LIPASE 72 U/L (73-393); POTASSIUM SERUM 3.2 MEQ/L (3.5-5.1); SODIUM LEVEL 137 MEQ/L (136-145)
[2018-02-01] MEDS: POTASSIUM CHLORIDE 10 MEQ SR TABLET PO (13:38)
[2018-02-01 14:48] LABS: APPEARANCE, URINE CLOUDY (CLEAR); BACTERIA, URINE AUTO NEGATIVE (NEGATIVE); BILIRUBIN, URINE AUTO NEGATIVE (NEGATIVE); BLOOD, URINE BLOOD 3+ (NEGATIVE); COLOR, URINE AMBER (YELLOW); GLUCOSE, URINE (UA) AUTO NEGATIVE (NEGATIVE); KETONE, URINE AUTO TRACE mg/dL (NEGATIVE); LEUKOCYTE ESTERASE, URINE AUTO NEGATIVE (NEGATIVE); MUCUS, URINE MODERATE (NEGATIVE); NITRITE, URINE AUTO NEGATIVE (NEGATIVE); PROTEIN, URINE AUTO 2+ mg/dL (NEGATIVE); RBC, URINE AUTO TNTC /HPF (0-3); SPECIFIC GRAVITY URINE AUTO 1.031 (1.002-1.035); SQUAMOUS EPITHELIAL CELL UR AU 11 /HPF (0-6); UROBILINOGEN, URINE AUTO 0.2 mg/dL (0.0-2.0); WBC, URINE AUTO 3 /HPF (0-3)
== END 2018-02-01 15:06 | disposition home or self-care (01) ==
LOC: M ED 11:10
DX: G89.29 Other chronic pain (principal); R10.9 Unspecified abdominal pain; R19.7 Diarrhea, unspecified; E87.6 Hypokalemia; G93.2 Benign intracranial hypertension; G93.5 Compression of brain; Z79.899 Other long term (current) drug therapy; Z88.0 Allergy status to penicillin; Z88.8 Allergy status to other drugs, medicaments and biological substances
CPT/HCPCS: J2405

== ENCOUNTER 2018-03-11 18:29 | Emergency (ER) | payer MEDICAID, OTHER ==
[~2018-03-11] VITALS: Ht 157.5 cm; Wt 104.9 kg
[~2018-03-11 18:29] MED LIST changes: +ACET250T2; +ACET50CA PO; +ADDE20CA3 PO; +BUSP1TAB PO; +DICY10CA13 PO; +HYDR1CAP25; +IBUP-1022 PO; +LAMO150T2 PO; +LAMO25TA4; +MIRT15TA3 PO; +NAPR-50 PO; -NAPR500T PO; +NORCOTAB PO; +OXYC1TAB23 PO; +PREN1CHW PO; -UNIS25TA2 PO; +UNIS25TA3 PO; -VENTAER; +VENTAER INH; +ZITHTAB PO; +ZOFR4TAB14 PO; -ZOFR4TAB3 PO
[2018-03-11] MEDS ORDERED: NS 1,000 ML IV ONE (19:15)
[2018-03-11 19:53] LABS: BASO % 0.3 % (0.0-1.0); EOS # 0.3 10^3/uL (0.0-0.50); EOS % 3.4 % (0.0-3.0); HEMATOCRIT 35.6 % (36.0-47.0); HEMOGLOBIN 12.2 g/dl (12.0-15.5); LYMPH # 2.4 10^3/uL (1.5-6.5); LYMPH % 30.2 % (24.0-44.0); MEAN CORPUSCULAR HGB CONC 34.3 g/dl (32.0-36.5); MEAN CORPUSCULAR VOLUME 87.7 fl (80.0-96.0); MONO # 0.4 10^3/uL (0.0-0.8); MONO % 4.7 % (0.0-5.0); NEUTROPHILS # 4.8 10^3/uL (1.8-7.7); PLATELET COUNT, AUTOMATED 236 10^3/uL (150-450); RED BLOOD COUNT 4.06 10^6/uL (4.00-5.40); WHITE BLOOD COUNT 7.9 10^3/uL (4.0-10.0)
[2018-03-11 20:09] LABS: APPEARANCE, URINE CLOUDY (CLEAR); BACTERIA, URINE AUTO 2+ (NEGATIVE); BILIRUBIN, URINE AUTO NEGATIVE (NEGATIVE); BLOOD, URINE BLOOD 1+ (NEGATIVE); COLOR, URINE YELLOW (YELLOW); GLUCOSE, URINE (UA) AUTO NEGATIVE (NEGATIVE); KETONE, URINE AUTO 2+ mg/dL (NEGATIVE); LEUKOCYTE ESTERASE, URINE AUTO 2+ (NEGATIVE); MUCUS, URINE LARGE (NEGATIVE); NITRITE, URINE AUTO NEGATIVE (NEGATIVE); PROTEIN, URINE AUTO 1+ mg/dL (NEGATIVE); RBC, URINE AUTO 2 /HPF (0-3); SPECIFIC GRAVITY URINE AUTO 1.019 (1.002-1.035); SQUAMOUS EPITHELIAL CELL UR AU 30 /HPF (0-6); WBC, URINE AUTO 9 /HPF (0-3)
[2018-03-11 20:18] LABS: HCG, SERUM QUALITATIVE NEGATIVE (NEGATIVE)
[2018-03-11 20:20] LABS: AMYLASE 39 U/L (25-115); BLOOD UREA NITROGEN 6 MG/DL (7-18); CALCIUM LEVEL 8.5 MG/DL (8.5-10.1); CARBON DIOXIDE LEVEL 27 MEQ/L (21-32); CHLORIDE LEVEL 107 MEQ/L (98-107); CREATININE FOR GFR 0.69 MG/DL (0.55-1.30); GLOMERULAR FILTRATION RATE > 60.0 (>60); GLUCOSE, FASTING 75 MG/DL (70-100); LIPASE 122 U/L (73-393); POTASSIUM SERUM 3.6 MEQ/L (3.5-5.1); SODIUM LEVEL 142 MEQ/L (136-145)
[2018-03-11] MEDS ORDERED: PERC5TAB12 PO (20:44)
[2018-03-11 20:53] VITALS: BP 112/72
== END 2018-03-11 21:06 | disposition home or self-care (01) ==
LOC: M ED 18:29
DX: D64.9 Anemia, unspecified (principal); R42 Dizziness and giddiness; N39.0 Urinary tract infection, site not specified; J45.909 Unspecified asthma, uncomplicated; G93.2 Benign intracranial hypertension; F31.9 Bipolar disorder, unspecified; Z98.890 Other specified postprocedural states; Z98.84 Bariatric surgery status; Z88.0 Allergy status to penicillin; Z88.8 Allergy status to other drugs, medicaments and biological substances

== ENCOUNTER 2018-04-07 02:33 | Emergency (ER) | payer MEDICAID, OTHER ==
[~2018-04-07] VITALS: Ht 157.5 cm; Wt 98.6 kg
[2018-04-07] MEDS ORDERED: OMEP20CA3 (02:40)
[2018-04-07] MEDS ORDERED: TESS100C PO (04:19)
[2018-04-07 04:27] VITALS: BP 92/64
== END 2018-04-07 04:30 | disposition home or self-care (01) ==
LOC: M ED 02:33
DX: J06.9 Acute upper respiratory infection, unspecified (principal); J45.909 Unspecified asthma, uncomplicated; Z98.84 Bariatric surgery status; Z88.0 Allergy status to penicillin; Z88.8 Allergy status to other drugs, medicaments and biological substances; Z79.899 Other long term (current) drug therapy

== ENCOUNTER → 2018-04-25 | Outpatient (REF) | payer MEDICAID ==
[~2018-04-25] MED LIST changes: +OMEP20CA3; +TESS100C PO
[2018-04-25 12:59] LABS: BASO % 0.5 % (0.0-1.0); EOS # 0.2 10^3/uL (0.0-0.50); EOS % 2.4 % (0.0-3.0); HEMATOCRIT 43.6 % (36.0-47.0); HEMOGLOBIN 15.1 g/dl (12.0-15.5); LYMPH # 1.9 10^3/uL (1.5-4.5); LYMPH % 31.5 % (24.0-44.0); MEAN CORPUSCULAR HEMOGLOBIN 30.3 pg (27.0-33.0); MEAN CORPUSCULAR HGB CONC 34.6 g/dl (32.0-36.5); MEAN CORPUSCULAR VOLUME 87.6 fl (80.0-96.0); MONO # 0.5 10^3/uL (0.0-0.8); MONO % 7.6 % (0.0-5.0); NEUTROPHILS # 3.6 10^3/uL (1.8-7.7); NEUTROPHILS % 57.8 % (36.0-66.0); PLATELET COUNT, AUTOMATED 251 10^3/uL (150-450); RED BLOOD COUNT 4.98 10^6/uL (4.00-5.40); WHITE BLOOD COUNT 6.2 10^3/uL (4.0-10.0)
[2018-04-25 13:05] LABS: ALBUMIN 3.8 GM/DL (3.2-5.2); ALT/SGPT 26 U/L (12-78); BLOOD UREA NITROGEN 6 MG/DL (7-18); CALCIUM LEVEL 8.9 MG/DL (8.5-10.1); CARBON DIOXIDE LEVEL 27 MEQ/L (21-32); CHLORIDE LEVEL 107 MEQ/L (98-107); CREATININE FOR GFR 0.64 MG/DL (0.55-1.30); FERRITIN 72 NG/ML (8-252); GLOMERULAR FILTRATION RATE > 60.0 (>60); GLUCOSE, FASTING 86 MG/DL (70-100); IRON (FE) 79 UG/DL (50-170); PERCENT SATURATION 29.2 % (13.2-45.0); PHOSPHORUS LEVEL 2.9 MG/DL (2.5-4.9); POTASSIUM SERUM 3.9 MEQ/L (3.5-5.1); SODIUM LEVEL 142 MEQ/L (136-145); TOTAL IRON BINDING CAPACITY 271 UG/DL (250-450); TOTAL PROTEIN 6.8 GM/DL (6.4-8.2)
[2018-04-25 13:14] LABS: TOTAL 25(OH) VITAMIN D 10.8 NG/ML (30.0-100.0); VITAMIN B12 LEVEL 789 PG/ML (247-911)
[2018-04-25 13:51] LABS: HEMOGLOBIN A1c 4.9 %
== END ==
LOC: M LABDRAWP 11:05
PROVIDERS: ATTEND Physician Assistant
DX: K91.2 Postsurgical malabsorption, not elsewhere classified (principal); Z98.84 Bariatric surgery status; E55.9 Vitamin D deficiency, unspecified

== ENCOUNTER → 2018-05-23 | Outpatient (REF) | payer OTHER ==
[2018-05-23 16:22] LABS: BASO % 0.7 % (0.0-1.0); EOS # 0.2 10^3/uL (0.0-0.50); EOS % 2.9 % (0.0-3.0); HEMATOCRIT 40.9 % (36.0-47.0); HEMOGLOBIN 13.8 g/dl (12.0-15.5); LYMPH # 1.8 10^3/uL (1.5-4.5); LYMPH % 32.1 % (24.0-44.0); MEAN CORPUSCULAR HEMOGLOBIN 29.4 pg (27.0-33.0); MEAN CORPUSCULAR HGB CONC 33.7 g/dl (32.0-36.5); MONO # 0.4 10^3/uL (0.0-0.8); MONO % 6.6 % (0.0-5.0); NEUTROPHILS # 3.2 10^3/uL (1.8-7.7); NEUTROPHILS % 57.5 % (36.0-66.0); PLATELET COUNT, AUTOMATED 282 10^3/uL (150-450); WHITE BLOOD COUNT 5.6 10^3/uL (4.0-10.0)
[2018-05-23 16:32] LABS: HCG, SERUM QUANTITATIVE < 1.0 MIU/ML; IRON (FE) 56 UG/DL (50-170)
== END ==
LOC: M SFHCPLAZ 14:33
PROVIDERS: ATTEND Family Medicine
DX: R10.2 Pelvic and perineal pain (principal); N93.9 Abnormal uterine and vaginal bleeding, unspecified

== ENCOUNTER 2018-08-24 11:30 | Day surgery (SDC) | payer OTHER ==
[~2018-08-24] VITALS: Ht 160 cm; Wt 80.7 kg
[~2018-08-24 11:30] MED LIST changes: -ACET50TA PO; -DOCU10ELUD PO; +DOCU5LIQ PO; +HYDR-3715 PO; +LAMO200T2 PO; +MAPA500T17 PO; -NAPR-50 PO; +NAPR-837 PO; -NORCOTAB PO; +NS 1,000 ML IV ONE; +ZOLO50TA PO
[2018-08-24] MEDS ORDERED: LIDOCAINE 2% INJ 100 MG/5 ML SDV (FOR ANES.) As Ordered ONE (11:31)
[2018-08-24] MEDS ORDERED: PROPOFOL 200 MG/20 ML VIAL As Ordered ONE (11:31)
[2018-08-24] MEDS ORDERED: fentaNYL 100 MCG/2 ML INJECTION (J3010) As Ordered ONE (11:32)
[2018-08-24 14:00] VITALS: BP 107/77
--- NOTE | 2018-08-24 14:31 | ROOR ---
Patient Name: Michelle Kelly Procedure Date: 08/24/2018 1:21 PM Date of : 1990 Age: 28 Room: [facility] Gender: Female Note Status: Finalized Procedure: Upper GI endoscopy Indications: Persistent vomiting Providers: Ron Saeed MD Referring MD: Jose Antonio HARRELL MD Requesting Provider: Medicines: Monitored Anesthesia Care Complications: No immediate complications. Procedure: Pre-Anesthesia Assessment: - Prior to the procedure, a History and Physical was performed, and patient medications and allergies were reviewed. The patient is competent. The risks and benefits of the procedure and the sedation options and risks were discussed with the patient. All questions were answered and informed consent was obtained. Patient identification and proposed procedure were verified by the physician, the nurse and the anesthesiologist in the procedure room. Mental Status Examination: alert and oriented. Airway Examination: normal oropharyngeal airway and neck mobility. Respiratory Examination: clear to auscultation. CV Examination: normal. Prophylactic Antibiotics: The patient does not require prophylactic antibiotics. Prior Anticoagulants: The patient has taken no previous anticoagulant or antiplatelet agents. ASA Grade Assessment: II - A patient with mild systemic disease. After reviewing the risks and benefits, the patient was deemed in satisfactory condition to undergo the procedure. The anesthesia plan was to use monitored anesthesia care (MAC). Immediately prior to administration of medications, the patient was re-assessed for adequacy to receive sedatives. The heart rate, respiratory rate, oxygen saturations, blood pressure, adequacy of pulmonary ventilation, and response to care were monitored throughout the procedure. The physical status of the patient was re-assessed after the procedure. The Endoscope was introduced through the mouth, and advanced to the afferent and efferent jejunal loops. The upper GI endoscopy was accomplished without difficulty. The patient tolerated the procedure well. Findings: The examined esophagus was normal. Evidence of a gastric bypass was found. A gastric pouch with a 4 cm length from the GE junction to the gastrojejunal anastomosis was found. The staple line appeared intact. The gastrojejunal anastomosis was characterized by healthy appearing mucosa. The jejunojejunal anastomosis was characterized by healthy appearing mucosa. The jfsutuxs-mo-yjdkoym limb was not examined as it could not be found. Two biopsies were obtained at the anastomosis with cold forceps for histology. Verification of patient identification for the specimen was done by the physician and nurse using the patient's name, date and medical record number. Estimated blood loss was minimal. Normal mucosa was found in the jejunum. Biopsies for histology were taken with a cold forceps for evaluation of celiac disease. Impression: - Normal esophagus. - Gastric bypass with a pouch 4 cm in length and intact staple line. Gastrojejunal anastomosis characterized by healthy appearing mucosa. - Normal mucosa was found in the jejunum. Biopsied. - Two biopsies were obtained at the anastomosis. Recommendation: - Patient has a contact number available for emergencies. The signs and symptoms of potential delayed complications were discussed with the patient. Return to normal activities tomorrow. Written discharge instructions were provided to the patient. - Resume previous diet. - Continue present medications. - Await pathology results. - Telephone GI clinic for pathology results in 2 weeks. - Return to primary care physician. Ron Saeed MD Ron Saeed MD 08/24/2018 2:30:54 PM Electronically signed by Ron Saeed MD Number of Addenda: 0 Note Initiated On: 08/24/2018 1:21 PM Estimated Blood Loss: Estimated blood loss was minimal.
== END 2018-08-24 14:35 | disposition home or self-care (01) ==
LOC: M OPP 11:30
PROVIDERS: ATTEND Internal Medicine Gastroenterology
DX: R11.10 Vomiting, unspecified (principal); Z98.84 Bariatric surgery status
CPT/HCPCS: 43239; 88305; J3010

== ENCOUNTER → 2018-09-12 | Outpatient (REF) | payer OTHER ==
[~2018-09-12] MED LIST changes: -NS 1,000 ML IV ONE; -OMEP20CA3; +OMEP20CA4
[2018-09-12 13:49] LABS: ALBUMIN 3.7 GM/DL (3.2-5.2); ALT/SGPT 25 U/L (12-78); BILIRUBIN,TOTAL 0.6 MG/DL (0.2-1.0); BLOOD UREA NITROGEN 5 MG/DL (7-18); CALCIUM LEVEL 9.2 MG/DL (8.5-10.1); CARBON DIOXIDE LEVEL 24 MEQ/L (21-32); CHLORIDE LEVEL 110 MEQ/L (98-107); CREATININE FOR GFR 0.65 MG/DL (0.55-1.30); GLOMERULAR FILTRATION RATE > 60.0 (>60); GLUCOSE, FASTING 80 MG/DL (70-100); POTASSIUM SERUM 4.4 MEQ/L (3.5-5.1); SODIUM LEVEL 140 MEQ/L (136-145); TOTAL PROTEIN 6.9 GM/DL (6.4-8.2)
== END ==
LOC: M SFHCPLAZ 10:39
PROVIDERS: ATTEND Family Medicine
DX: R10.11 Right upper quadrant pain (principal)

== ENCOUNTER 2018-12-02 16:17 | Emergency (ER) | payer MEDICAID, OTHER ==
[~2018-12-02] VITALS: Ht 160 cm; Wt 74.9 kg
[2018-12-02 16:17] VITALS: BP 116/70
[2018-12-02] MEDS ORDERED: NEXP1IMP SC (16:22)
[2018-12-02 17:09] LABS: HEMATOCRIT 40.6 % (36.0-47.0); HEMOGLOBIN 13.6 g/dl (12.0-15.5); MEAN CORPUSCULAR HEMOGLOBIN 29.8 pg (27.0-33.0); MEAN CORPUSCULAR HGB CONC 33.5 g/dl (32.0-36.5); PLATELET COUNT, AUTOMATED 259 10^3/uL (150-450); RED BLOOD COUNT 4.56 10^6/uL (4.00-5.40); WHITE BLOOD COUNT 6.8 10^3/uL (4.0-10.0)
== END 2018-12-02 17:35 | disposition home or self-care (01) ==
LOC: M ED 16:17
DX: N93.9 Abnormal uterine and vaginal bleeding, unspecified (principal); F31.9 Bipolar disorder, unspecified; Z79.51 Long term (current) use of inhaled steroids; Z79.899 Other long term (current) drug therapy; Z88.1 Allergy status to other antibiotic agents; Z88.8 Allergy status to other drugs, medicaments and biological substances; Z98.84 Bariatric surgery status

== ENCOUNTER 2019-01-11 20:56 | Emergency (ER) | payer MEDICAID, OTHER ==
[~2019-01-11] VITALS: Ht 160 cm; Wt 76.6 kg
[~2019-01-11 20:56] MED LIST changes: +NEXP1IMP SC
[2019-01-11] MEDS ORDERED: diazePAM 10 MG TAB PO ONE (21:45)
[2019-01-11] MEDS ORDERED: KETOROLAC 60 MG/2 ML VIAL (J1885) IM ONE (21:45)
[2019-01-11] MEDS ORDERED: LIDOCAINE 5% (LIDODERM) PATCH TD ONE (21:45)
--- NOTE | 2019-01-11 23:22 | REPVR ---
PROCEDURE INFORMATION: Exam: MR Lumbar Spine Without Contrast. Exam date and time: 01/11/2019 11:00 PM Clinical history: 28 years old, female; Patient HX: Incontinence, low back pain, frequent falls TECHNIQUE: Imaging protocol: Multiplanar magnetic resonance images of the lumbar spine without intravenous contrast. COMPARISON: CT Spine, lumbar w/o contrast 01/23/2018 11:14 PM FINDINGS: Vertebrae: Unremarkable. Spinal cord: Normal signal. No cord compression. L1-L2: No significant disc disease. No significant spinal stenosis. L2-L3: No significant disc disease. No significant spinal stenosis. L3-L4: No significant disc disease. No significant spinal stenosis. L4-L5: No significant disc disease. No significant spinal stenosis. L5-S1: Mild diffuse annular bulge at L5-S1 without evidence of spinal stenosis. Mild bilateral facet joint arthropathy. Soft tissues: Unremarkable. IMPRESSION: 1. Mild diffuse annular bulge at L5-S1 without evidence of spinal stenosis. Mild bilateral facet joint arthropathy. 2. Otherwise unremarkable. Electronically signed by: Neptali Cazares On 01/11/2019 23:21:56 PM
[2019-01-11] MEDS ORDERED: ROBA750T4 PO (23:44)
[2019-01-11 23:50] VITALS: BP 113/58
[2019-01-12] MEDS ORDERED: **NOTE PATIENT COMMENT** MISC XX SCH (21:00)
== END 2019-01-11 23:54 | disposition home or self-care (01) ==
LOC: M ED 20:56
DX: S39.92XA Unspecified injury of lower back, initial encounter (principal); M51.27 Other intervertebral disc displacement, lumbosacral region; W10.9XXA Fall (on) (from) unspecified stairs and steps, initial encounter; Y92.9 Unspecified place or not applicable; G93.2 Benign intracranial hypertension; J45.909 Unspecified asthma, uncomplicated; I10 Essential (primary) hypertension; Z90.49 Acquired absence of other specified parts of digestive tract; Z98.84 Bariatric surgery status; Z79.899 Other long term (current) drug therapy; Z88.0 Allergy status to penicillin; Z88.8 Allergy status to other drugs, medicaments and biological substances
CPT/HCPCS: 72148; 81001; 84702; 96372; 99283; J1885

== ENCOUNTER → 2019-01-30 | Outpatient (REF) | payer OTHER ==
[~2019-01-30] MED LIST changes: +ROBA750T4 PO
[2019-01-30 12:03] LABS: HEMOGLOBIN 13.6 g/dl (12.0-15.5); MEAN CORPUSCULAR HEMOGLOBIN 30.3 pg (27.0-33.0); MEAN CORPUSCULAR HGB CONC 33.2 g/dl (32.0-36.5); MEAN CORPUSCULAR VOLUME 91.3 fl (80.0-96.0); PLATELET COUNT, AUTOMATED 229 10^3/uL (150-450); RED BLOOD COUNT 4.49 10^6/uL (4.00-5.40); WHITE BLOOD COUNT 5.1 10^3/uL (4.0-10.0)
[2019-01-30 12:15] LABS: ALBUMIN 3.5 GM/DL (3.2-5.2); ALT/SGPT 44 U/L (12-78); BILIRUBIN,TOTAL 0.7 MG/DL (0.2-1.0); BLOOD UREA NITROGEN 10 MG/DL (7-18); CARBON DIOXIDE LEVEL 29 MEQ/L (21-32); CHLORIDE LEVEL 107 MEQ/L (98-107); CREATININE FOR GFR 0.66 MG/DL (0.55-1.30); FERRITIN 28 NG/ML (8-252); GLOMERULAR FILTRATION RATE > 60.0 (>60); GLUCOSE, FASTING 97 MG/DL (70-100); IRON (FE) 105 UG/DL (50-170); PERCENT SATURATION 33.1 % (13.2-45.0); POTASSIUM SERUM 4.3 MEQ/L (3.5-5.1); SODIUM LEVEL 141 MEQ/L (136-145); TOTAL IRON BINDING CAPACITY 317 UG/DL (250-450); TOTAL PROTEIN 6.8 GM/DL (6.4-8.2)
[2019-01-30 12:16] LABS: TOTAL 25(OH) VITAMIN D 12.9 NG/ML (30.0-100.0)
== END ==
LOC: M SFHCPLAZ 09:58
PROVIDERS: ATTEND Nurse Practitioner Adult Health
DX: Z98.84 Bariatric surgery status (principal)

== ENCOUNTER → 2019-02-18 | Outpatient (REF) | payer OTHER, MEDICAID ==
[~2019-02-18] MED LIST changes: -LAMO150T2 PO; +LAMO150T3 PO; -LAMO200T2 PO; +LAMO200T3 PO; +OMEP-172; -OMEP20CA4
== END ==
LOC: M LAB REF 18:14
PROVIDERS: ATTEND Psychiatry & Neurology Psychiatry
DX: F90.2 Attention-deficit hyperactivity disorder, combined type (principal); F43.10 Post-traumatic stress disorder, unspecified; F31.81 Bipolar II disorder

== ENCOUNTER → 2019-02-28 | Outpatient (REF) | payer OTHER ==
[2019-02-28 11:52] LABS: BLOOD UREA NITROGEN 9 MG/DL (7-18); CALCIUM LEVEL 9.3 MG/DL (8.5-10.1); CARBON DIOXIDE LEVEL 28 MEQ/L (21-32); CHLORIDE LEVEL 107 MEQ/L (98-107); CREATININE FOR GFR 0.64 MG/DL (0.55-1.30); GLOMERULAR FILTRATION RATE > 60.0 (>60); GLUCOSE, FASTING 88 MG/DL (70-100); POTASSIUM SERUM 4.1 MEQ/L (3.5-5.1); SODIUM LEVEL 140 MEQ/L (136-145)
[2019-02-28 12:05] LABS: HEMOGLOBIN A1c 4.5 %
== END ==
LOC: M SFHCPLAZ 08:53
PROVIDERS: ATTEND Nurse Practitioner Adult Health
DX: Z98.84 Bariatric surgery status (principal); E16.2 Hypoglycemia, unspecified

== ENCOUNTER 2019-03-09 12:48 | Emergency (ER) | payer MEDICAID, OTHER ==
[~2019-03-09] VITALS: Ht 157.5 cm; Wt 78.4 kg
[2019-03-09] MEDS ORDERED: AZIT-12 (12:55)
[2019-03-09] MEDS ORDERED: BENZ-18 (12:55)
[2019-03-09] MEDS ORDERED: PRED10TA2 (12:55)
[2019-03-09 14:10] LABS: AMORPHOUS SEDIMENT SMALL (NEGATIVE); APPEARANCE, URINE CLEAR (CLEAR); BACTERIA, URINE AUTO NEGATIVE (NEGATIVE); BILIRUBIN, URINE AUTO NEGATIVE (NEGATIVE); BLOOD, URINE BLOOD NEGATIVE (NEGATIVE); COLOR, URINE YELLOW (YELLOW); GLUCOSE, URINE (UA) AUTO NEGATIVE (NEGATIVE); KETONE, URINE AUTO NEGATIVE (NEGATIVE); LEUKOCYTE ESTERASE, URINE AUTO NEGATIVE (NEGATIVE); MUCUS, URINE SMALL (NEGATIVE); NITRITE, URINE AUTO NEGATIVE (NEGATIVE); PROTEIN, URINE AUTO NEGATIVE (NEGATIVE); RBC, URINE AUTO 2 /HPF (0-3); SPECIFIC GRAVITY URINE AUTO 1.016 (1.002-1.035); SQUAMOUS EPITHELIAL CELL UR AU 0 /HPF (0-6); UROBILINOGEN, URINE AUTO 0.2 mg/dL (0.0-2.0); WBC, URINE AUTO 1 /HPF (0-3)
[2019-03-09 14:13] LABS: BASO # 0.1 10^3/uL (0.0-0.2); BASO % 0.8 % (0.0-1.0); EOS # 0.2 10^3/uL (0.0-0.5); EOS % 2.8 % (0.0-3.0); HEMATOCRIT 42.8 % (36.0-47.0); HEMOGLOBIN 13.8 g/dl (12.0-15.5); LYMPH # 2.5 10^3/uL (1.5-5.0); LYMPH % 31.8 % (24.0-44.0); MEAN CORPUSCULAR HEMOGLOBIN 29.7 pg (27.0-33.0); MEAN CORPUSCULAR HGB CONC 32.2 g/dl (32.0-36.5); MEAN CORPUSCULAR VOLUME 92.2 fl (80.0-96.0); MONO # 0.4 10^3/uL (0.0-0.8); MONO % 4.9 % (0.0-5.0); NEUTROPHILS # 4.6 10^3/uL (1.5-8.5); NEUTROPHILS % 59.4 % (36.0-66.0); PLATELET COUNT, AUTOMATED 273 10^3/uL (150-450); RED BLOOD COUNT 4.64 10^6/uL (4.00-5.40); WHITE BLOOD COUNT 7.7 10^3/uL (4.0-10.0)
[2019-03-09 14:44] LABS: BLOOD UREA NITROGEN 8 MG/DL (7-18); CALCIUM LEVEL 8.6 MG/DL (8.5-10.1); CARBON DIOXIDE LEVEL 28 MEQ/L (21-32); CHLORIDE LEVEL 109 MEQ/L (98-107); CREATININE FOR GFR 0.64 MG/DL (0.55-1.30); GLOMERULAR FILTRATION RATE > 60.0 (>60); GLUCOSE, FASTING 80 MG/DL (70-100); SODIUM LEVEL 143 MEQ/L (136-145)
--- NOTE | 2019-03-09 15:32 | REP ---
Clinical: Headache and dizziness . Comparison: 05/06/2014 . Technique: Axial images from the skull base to the vertex with coronal re-formations. Findings: The ventricles, sulci, and cisterns are normal in position and appearance. Frederick-white differentiation is maintained. No acute intracranial hemorrhage, mass/mass effect, pathology or trauma/injury. No evidence for acute infarction. No extra-axial fluid collection. Calvarium is intact. Paranasal sinuses and mastoid air cells are clear. Impression: Normal noncontrast head CT. No evidence for acute intracranial pathology or trauma/injury. Electronically Signed by Jani Lowery MD 03/09/2019 03:23 P
[2019-03-09 15:48] VITALS: BP 100/68
--- NOTE | 2019-03-10 15:31 | ECGEPIP ---
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
== END 2019-03-09 16:32 | disposition home or self-care (01) ==
LOC: M ED 12:48
DX: R42 Dizziness and giddiness (principal); J45.909 Unspecified asthma, uncomplicated; F33.9 Major depressive disorder, recurrent, unspecified; F41.9 Anxiety disorder, unspecified; F43.10 Post-traumatic stress disorder, unspecified; F90.9 Attention-deficit hyperactivity disorder, unspecified type; G93.2 Benign intracranial hypertension; Z98.84 Bariatric surgery status; Z79.899 Other long term (current) drug therapy; Z79.3 Long term (current) use of hormonal contraceptives; Z88.0 Allergy status to penicillin; Z88.8 Allergy status to other drugs, medicaments and biological substances

== ENCOUNTER 2019-03-28 13:10 | Emergency (ER) | payer MEDICAID, OTHER ==
[~2019-03-28] VITALS: Ht 160 cm; Wt 81.5 kg
[2019-03-28 13:10] VITALS: BP 100/68
[~2019-03-28 13:10] MED LIST changes: +AZIT-12; +BENZ-18; -OMEP-172; +OMEP1CAP73; +PRED10TA2
--- NOTE | 2019-03-28 14:08 | REP ---
RIGHT RIB SERIES: Four views including PA chest. HISTORY: Trauma. Posterior pain. COMPARISON STUDY: March 31, 2016. FINDINGS: PA chest radiograph is normal. There is no evidence of pneumothorax or hydrothorax. Mediastinum is not widened. Heart size is normal. Multiple views of the right ribcage show intact right ribs. No rib fracture or bony destructive lesion is appreciated. There are clips in right upper quadrant post cholecystectomy. IMPRESSION: Negative right rib radiographs. Electronically Signed by Jose Little MD 03/28/2019 03:13 P
== END 2019-03-28 14:02 | disposition home or self-care (01) ==
LOC: M ED 13:10
DX: S20.221A Contusion of right back wall of thorax, initial encounter (principal); W10.8XXA Fall (on) (from) other stairs and steps, initial encounter; Y92.018 Other place in single-family (private) house as the place of occurrence of the external cause; F31.9 Bipolar disorder, unspecified; Z88.0 Allergy status to penicillin; Z88.8 Allergy status to other drugs, medicaments and biological substances

== ENCOUNTER 2019-04-06 14:15 | Emergency (ER) | payer OTHER ==
[~2019-04-06] VITALS: Ht 157.5 cm; Wt 84.5 kg
[2019-04-06] MEDS ORDERED: SERO50TA PO (14:33)
[2019-04-06] MEDS ORDERED: ADDE1TAB14 PO (14:33)
[2019-04-06] MEDS ORDERED: ZOLO100T (14:33)
[2019-04-06] MEDS ORDERED: ADDE20TA PO (14:33)
[2019-04-06 15:39] LABS: BASO # 0.1 10^3/uL (0.0-0.2); BASO % 0.7 % (0.0-1.0); EOS # 0.2 10^3/uL (0.0-0.5); EOS % 3.1 % (0.0-3.0); HEMATOCRIT 40.5 % (36.0-47.0); LYMPH # 2.5 10^3/uL (1.5-5.0); MEAN CORPUSCULAR HEMOGLOBIN 29.1 pg (27.0-33.0); MEAN CORPUSCULAR HGB CONC 32.1 g/dl (32.0-36.5); MEAN CORPUSCULAR VOLUME 90.8 fl (80.0-96.0); MONO # 0.6 10^3/uL (0.0-0.8); MONO % 8.2 % (0.0-5.0); NEUTROPHILS # 3.8 10^3/uL (1.5-8.5); NEUTROPHILS % 52.9 % (36.0-66.0); PLATELET COUNT, AUTOMATED 234 10^3/uL (150-450); RED BLOOD COUNT 4.46 10^6/uL (4.00-5.40); WHITE BLOOD COUNT 7.2 10^3/uL (4.0-10.0)
[2019-04-06 16:03] LABS: CK-MB VALUE MASS 1.3 NG/ML (<3.6); CPK CREATINE PHOSPHOKINASE 178 U/L (26-192); MB/CK RELATIVE INDEX 0.73 (< OR =4); TROPONIN I < 0.02 NG/ML (< 0.10)
[2019-04-06 16:06] LABS: INR 1.09; PROTHROMBIN TIME 13.8 SECONDS (11.8-14.0)
[2019-04-06 16:07] LABS: PARTIAL THROMBOPLASTIN TIME 30.8 SECONDS (25.0-38.4)
[2019-04-06] MEDS ORDERED: PROHANCE 279.3MG/ML 15ML VIAL (A9576) As Ordered ONE (16:11)
--- NOTE | 2019-04-06 17:22 | ECGEPIP ---
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
--- NOTE | 2019-04-06 17:46 | REPVR ---
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 COMPARISON: MRI-Brain W/O FOLL BY WITH 01/12/2018 8:16 AM FINDINGS: Brain: Normal. No acute infarct. No hemorrhage. No significant white matter disease. No edema. Ventricles: Normal. No ventriculomegaly. Bones/joints: Unremarkable. Soft tissues: Unremarkable. Sinuses: Normal as visualized. No acute sinusitis. Mastoid air cells: Normal as visualized. No mastoid effusion. Orbits: Unremarkable. IMPRESSION: No acute findings. Electronically signed by: Neptali Cazares On 04/06/2019 17:45:59 PM
--- NOTE | 2019-04-06 17:48 | REPVR ---
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 Exam focused on the arteries. 3D rendering: MIP and/or 3D reconstructed images were created by the technologist. COMPARISON: MRI-Brain W/O FOLL BY WITH 01/12/2018 8:16 AM FINDINGS: Right internal carotid artery: Unremarkable. Intracranial segment is patent with no significant stenosis. No aneurysm. Right anterior cerebral artery: Unremarkable. No occlusion or significant stenosis. No aneurysm. Right middle cerebral artery: Unremarkable. No occlusion or significant stenosis. No aneurysm. Right posterior cerebral artery: Persistent origin of the right posterior cerebral artery. Right vertebral artery: Unremarkable. No occlusion or significant stenosis. No aneurysm. Left internal carotid artery: Unremarkable. Intracranial segment is patent with no significant stenosis. No aneurysm. Left anterior cerebral artery: Unremarkable. No occlusion or significant stenosis. No aneurysm. Left middle cerebral artery: Unremarkable. No occlusion or significant stenosis. No aneurysm. Left posterior cerebral artery: Persistent origin of the left posterior cerebral artery. Left vertebral artery: Unremarkable. No occlusion or significant stenosis. No aneurysm. Basilar artery: Unremarkable. No occlusion or significant stenosis. No aneurysm. IMPRESSION: No acute findings. Electronically signed by: Neptali Cazares On 04/06/2019 17:48:16 PM
[2019-04-06] MEDS ORDERED: PRED20TA PO (19:44)
[2019-04-06] MEDS ORDERED: VALT1TAB PO (19:44)
[2019-04-06] MEDS ORDERED: valACYclovir HCL 500 MG TAB PO ONE (19:45)
[2019-04-06] MEDS ORDERED: predniSONE 50 MG TAB PO ONE (19:45)
[2019-04-06] MEDS ORDERED: TEARSOL10 OP (19:45)
[2019-04-06] MEDS ORDERED: ARTIDRO2 OP (19:47)
[2019-04-06 20:09] VITALS: BP 96/63
--- NOTE | 2019-04-07 07:08 | REP ---
CT BRAIN WITHOUT CONTRAST: 04/06/2019. Comparison: 03/09/2019. Clinical history: CVA. Findings: Standard noncontrast images of the brain were provided. Lateral ventricles are midline, symmetric and without dilatation or displacement. Third and fourth ventricles are proportionate. There is no atrophy, intracranial hemorrhage, mass or mass effect. Frederick/white junction differentiation was well maintained. Basal ganglia were normal. No white matter tract focal lesions. Cortical stripe is preserved. No extra-axial fluid collections evident. The brainstem and cerebellum are grossly intact. Basal cisterns intact. No posterior fossa bleed. Mastoids, visualized sinuses, skull base and calvarium are all without fracture or focal lesion. Impression: 1. Negative noncontrast CT brain for infarct, hemorrhage, mass, edema or other acute finding. 2. No fracture skull base or calvarium. The sinuses, mastoids and posterior fossa grossly intact. Electronically Signed by Edin Light MD 04/07/2019 08:06 P
--- NOTE | 2019-04-07 07:17 | REP ---
AP PORTABLE CHEST: 04/06/2019. Comparison: PA chest with ribs 03/28/2019. Clinical history: CVA. Findings: Lungs are hypoinflated but no infiltrate, effusion, atelectasis or mass is identified. There is no pleural thickening laterally or apical scar/pneumothorax. Heart not enlarged for this degree of inflation. There is no vascular redistribution. The aorta and airway intact. Visualized bones show mild dextroconvex curvature mid thoracic spine as before. The visualized clavicles, portions of scapula and ribs included were all grossly unremarkable. No free air. Impression: 1. Hypoinflated chest without acute cardiopulmonary change. No effusion, infiltrate, pneumothorax, pneumomediastinum or visible focal bone lesion. Electronically Signed by Edin Light MD 04/07/2019 08:07 P
== END 2019-04-06 20:13 | disposition home or self-care (01) ==
LOC: M ED 14:15
DX: G51.0 Bell's palsy (principal); R20.2 Paresthesia of skin; Z79.51 Long term (current) use of inhaled steroids; Z79.899 Other long term (current) drug therapy; Z88.1 Allergy status to other antibiotic agents; Z88.8 Allergy status to other drugs, medicaments and biological substances
CPT/HCPCS: 70450; 70544; 70551; 71045; 80047; 82550; 82553; 85025; 85610; 85730; 86617; 86850; 86900; 86901; 93005; 93041; 94760; 99285; A9576

== ENCOUNTER 2019-04-07 23:33 | Emergency (ER) | payer OTHER ==
[~2019-04-07] VITALS: Ht 157.5 cm; Wt 71.8 kg
[~2019-04-07 23:33] MED LIST changes: +ADDE1TAB14 PO; +ADDE20TA PO; +ARTIDRO2 OP; +PRED20TA PO; +SERO50TA PO; +TEARSOL10 OP; +VALT1TAB PO; +ZOLO100T
[2019-04-08 02:24] VITALS: BP 97/72
[2019-04-08] MEDS ORDERED: VENTAER INH (05:16)
[2019-04-08] MEDS ORDERED: PRED20TA PO (05:16)
[2019-04-08] MEDS ORDERED: ARTIDRO2 OU (05:16)
[2019-04-08] MEDS ORDERED: VALA1TAB64 PO (05:16)
[2019-04-08] MEDS ORDERED: REFR0.5D8 OD (10:59)
== END 2019-04-08 02:31 | disposition left against medical advice (07) ==
LOC: M ED 23:33
DX: G51.0 Bell's palsy (principal); J45.909 Unspecified asthma, uncomplicated; G93.2 Benign intracranial hypertension; F33.9 Major depressive disorder, recurrent, unspecified; Z98.84 Bariatric surgery status; Z79.899 Other long term (current) drug therapy; Z88.0 Allergy status to penicillin; Z88.8 Allergy status to other drugs, medicaments and biological substances

== ENCOUNTER 2019-04-08 02:54 | Observation (INO) | payer OTHER ==
[~2019-04-08] VITALS: Ht 157.5 cm; Wt 71.8 kg
[2019-04-08] MEDS ORDERED: NS 1,000 ML IV ONE (05:00)
[2019-04-08] MEDS ORDERED: PRED20TA PO (05:16)
[2019-04-08] MEDS ORDERED: VALA1TAB64 PO (05:16)
[2019-04-08] MEDS ORDERED: VENTAER INH (05:16)
[2019-04-08] MEDS ORDERED: ARTIDRO2 OU (05:16)
[2019-04-08] MEDS ORDERED: POLYVINYL ALCOHOL OPHTH SOLN 15 ML(LIQUITEARS) OU PRN (05:30)
[2019-04-08 05:37] LABS: BASO % 0.3 % (0.0-1.0); EOS # 0.1 10^3/uL (0.0-0.5); HEMATOCRIT 37.1 % (36.0-47.0); HEMOGLOBIN 12.2 g/dl (12.0-15.5); LYMPH # 2.7 10^3/uL (1.5-5.0); LYMPH % 46.1 % (24.0-44.0); MEAN CORPUSCULAR HEMOGLOBIN 29.8 pg (27.0-33.0); MEAN CORPUSCULAR HGB CONC 32.9 g/dl (32.0-36.5); MEAN CORPUSCULAR VOLUME 90.5 fl (80.0-96.0); MONO # 0.4 10^3/uL (0.0-0.8); MONO % 6.9 % (0.0-5.0); NEUTROPHILS # 2.7 10^3/uL (1.5-8.5); NEUTROPHILS % 45.4 % (36.0-66.0); PLATELET COUNT, AUTOMATED 205 10^3/uL (150-450); WHITE BLOOD COUNT 5.9 10^3/uL (4.0-10.0)
[2019-04-08 05:50] LABS: HCG, SERUM QUALITATIVE NEGATIVE (NEGATIVE)
--- NOTE | 2019-04-08 05:54 | HPEPDOC ---
General Date of Admission 04/08/2019 Date of Service: Apr 08, 2019 Attending Physician: SACHIN FALK MD Chief Complaint The patient is a 29-year-old female admitted with a reason for visit of Medical Complaint. Source: Patient Exam Limitations: No limitations Timing/Duration: Day(s) Severity: Moderate Associated Symptoms: Other (persistent facial droop) History of Present Illness 29 yo W with a history of psedotumor cerebri, bipolar disorder, prior PSUD who originally presented to the ED on 04/06 with sudden onset L facial droop and LUE numbness where she had a normal CT head and MRI of brain with grossly normal CBC and BMP and neurology was called and she was diagnosed with Rukcer's Palsy and prescribed prednisone 60 daily for 5 days and given 50mg once in the ED with plan to spanish moss picker medications from her pharmacy. Of note, she was also prescribed valtrex for active HSV lesions. After discharge home, she did not collect her steroids due to her pharmacy being closed? and returns today reporting persistent droop and is now being admitted with plan for repeat brain imaging, though this plan was made before she confirmed with me that she had not taken the prescribed steroids. In the ED today, she was hemodynamically stable and afebrile, breathing comfortably on room air reporting a resolving URI with sick children at home. Home Medications Scheduled Dextroamphetamine/Amphetamine (Adderall 20 mg Tablet) 20 Mg Tablet, 20 MG PO QAM, (Reported) Dextroamphetamine/Amphetamine (Adderall 5 mg Tablet) 5 Mg Tablet, 5 MG PO QPM, (Reported) Prednisone (Prednisone) 20 Mg Tablet, 60 MG PO DAILY, (Reported) FOR 3 DAYS. STARTED 04/07/2019 Sertraline Hcl (Zoloft) 100 Mg Tablet, 100 MG DAILY, (Reported) Valacyclovir HCl (Valacyclovir) 1,000 Mg Tablet, 1 GM PO TID, (Reported) FOR 7 DAYS/ STARTED 04/07/2019 Scheduled PRN Albuterol Sulfate (Ventolin Hfa) 18 Gm Hfa.aer.ad, 2 PUFF INH Q4-6HP PRN for wheezing, (Reported) Polyvinyl Alcohol (Artificial Tears) 15 Ml Drops, 1 DROP OU QID PRN for DRY EYES, (Reported) Allergies Coded Allergies: amoxicillin (Verified Allergy, Severe, throat closes, 04/08/19) oxytocin (Verified Allergy, Unknown, aggression and caused patient to pass out, 04/08/19) Past Medical History Medical History psedotumor cerebri, bipolar disorder, prior PSUD, history of anorexia nervosa Surgical History C section EGD wnl Family History Significant Family History: No pertinent family hx Social History Psychosocial History: Bipolar, Depression , lives with and young children. Non smoker, no alcohol. Prior history of crack cocaine, MJ and alcohol use disorder A-FIB/CHADSVASC A-FIB History Current/History of A-Fib/PAF?: No Current PO Anticoag Therapy: No Age/Risk Factor Scoring CHADSVASC: CHADSVASC Response (Comments) Value Age Risk Factor Age < 65 years old 0 Gender Risk Factor Female 1 Hx of CHF No 0 Hx of HTN No 0 Hx of Stroke/TIA/or VTE No 0 Hx of Diabetes No 0 Hx of Vascular Disease No 0 Total 1 Treatment Treatment ordered: NONE Reason Anticoagulant not given: Not indicated/[id number] Review of Systems Constitutional: Denies: Chills, Fever, Night Sweats Eyes: Reports: Vision change (some diplopia in L eye at times) ENT: Reports: Head Aches (chronic) Skin: Denies: Rash, Lesions, Breakdown Pulmonary: Denies: Dyspnea, Cough Cardiovascular: Denies: Chest Pain, Palpitations, Orthopnea, Paroxysmal Noc. Dyspnea, Lt Headedness Gastrointestinal: Denies: Nausea, Vomiting, Abdominal Pain, Diarrhea Genitourinary: Denies: Dysuria, Frequency, Incontinence, Retention Hematologic: Denies: Bruising, Bleeding Excessively Endocrine: Denies: Polydipsia, Polyphagia, Polyuria, Heat Intolerance, Cold Intolerance, Other Endocrine Sx Musculoskeletal: Denies: Neck Pain, Back Pain, Joint Pain, Muscle Pain, Spasms Neurological: Reports: Numbness (L shoulder and upper arm. L facial droop ); Denies: Weakness, Change in speech, Confusion Psych: Reports: Mood Normal; Denies: Depression, Memory Issues Physical Examination General Exam: Positive: Alert, No Acute Distress Eye Exam: Positive: PERRLA, Conjunctiva & lids normal (Has a left lid lag), EOMI, Ptosis (L ptosis); Negative: Sclera icteric ENT Exam: Positive: Atraumatic, Mucous membr. moist/pink, Pharynx Normal, Nares Patent Neck Exam: Positive: Supple; Negative: JVD, thyromegaly Chest Exam: Positive: Clear to auscultation, Normal air movement Heart Exam: Positive: Rate Normal, Regular Rhythm, Normal S1, Normal S2; Negative: Murmurs, Rubs Abdomen Exam: Positive: Normal bowel sounds, Soft; Negative: Tenderness, Hepatospenomegaly Extremity Exam: Positive: Normal pulses; Negative: Clubbing, Cyanosis, Edema Skin Exam: Positive: Nl turgor and temperature; Negative: Breakdown, Lesion Neuro Exam: Positive: Normal Speech, Strength at 5/5 X4 ext, Normal Tone, Sensation Intact, Cranial Nerves 3-12 NL (Left cranial nerve 7 with deficit with facial droop. 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 Rucker's palsy: -Prednisone 60 daily -neurology will see the patient in the morning per ED plan -Plan is for repeat brain MRI though I am doubting there will be new findings after finding that she had not started taking her treatment Bipolar: has not taken her meds in >1month per patient report, unclear why? -Continue seroquel, zoloft -Waiting to understand the adderall script and indication and reports not having taken in a while. I did not want to start it while giving her steroids that may precipitate hyperactivity HSV infection: continue valtrex DVT ppx: lovenox Diet: regular Plan / VTE VTE Prophylaxis Ordered?: Yes SACHIN FALK MD Apr 08, 2019 05:54
[2019-04-08 05:58] LABS: BLOOD UREA NITROGEN 8 MG/DL (7-18); CALCIUM LEVEL 7.8 MG/DL (8.5-10.1); CARBON DIOXIDE LEVEL 29 MEQ/L (21-32); CHLORIDE LEVEL 111 MEQ/L (98-107); CPK CREATINE PHOSPHOKINASE 93 U/L (26-192); CREATININE FOR GFR 0.57 MG/DL (0.55-1.30); GLOMERULAR FILTRATION RATE > 60.0 (>60); GLUCOSE, FASTING 83 MG/DL (70-100); MB/CK RELATIVE INDEX 1.08 (< OR =4); POTASSIUM SERUM 3.7 MEQ/L (3.5-5.1); SODIUM LEVEL 143 MEQ/L (136-145); TROPONIN I < 0.02 NG/ML (< 0.10)
[2019-04-08 07:00] VITALS: BP 104/57
[2019-04-08] MEDS ORDERED: predniSONE 20 MG TAB PO SCH (09:00)
[2019-04-08] MEDS ORDERED: valACYclovir HCL 500 MG TAB PO SCH (09:00)
[2019-04-08] MEDS ORDERED: SERTRALINE 100 MG TAB PO SCH (09:00)
[2019-04-08] MEDS ORDERED: ENOXAPARIN 40 MG/0.4 ML SYRINGE (J1650) SC SCH (09:00)
[2019-04-08] MEDS ORDERED: REFR0.5D8 OD (10:59)
--- NOTE | 2019-04-09 13:57 | DSES ---
DATE OF ADMISSION: 04/07/2019 DATE OF DISCHARGE: 04/08/2019 PRIMARY DISCHARGE DIAGNOSES: Rucker palsy. History of pseudotumor cerebri. Bipolar disorder. History of anorexia nervosa. DISCHARGE MEDICATIONS: - prednisone 60 mg daily for 7 days - Valtrex 1 gram three times a day for 7 days - Refresh one drop both eyes (OU) four times a day - albuterol two puffs every 4-6 as needed - sertraline 100 daily - Adderall 20 mg every morning and 5 mg each evening HOSPITAL COURSE: This is a 29-year-old female who presented to the emergency room with persistent facial droop. The patient has not taken her medications as she did not have access to them. Her pharmacy was supposed to send them to her and will receive it later today. She was admitted. MRI of the brain was negative. No acute stroke. Chest x-ray showed no acute infection. The patient was given Valtrex and prednisone. She is discharged home in stable condition. Negative MRIs for cerebrovascular accident (CVA). PHYSICAL EXAMINATION ON DISCHARGE: Temperature 98, pulse 82, respiratory rate 18, blood pressure 104/57, 99% on room air. Generally, the patient has a facial droop, which is improved. Able to close her eyelids. Left facial droop with a left ptosis. Lungs are clear to auscultation. No wheezing, rales, or rhonchi. Heart: S1, S2. Sinus rhythm. Abdomen is soft, nontender, nondistended. Positive bowel sounds. Extremities: No cyanosis, clubbing, pitting edema. Motor function 5/5 lower extremities. White count 5.9, hemoglobin 12, hematocrit 37, platelet count 205. Sodium 142, potassium 3.7, chloride 111, bicarbonate 29, BUN 8, creatinine 0.57, glucose of 83, calcium of 7.8, total CK 93, MB fraction 1, relative index 1.08, troponin less than 0.02. IMAGING STUDIES: MRI of the brain: No acute finding. TIME SPENT ON DISCHARGE: 30 minutes.
== END 2019-04-08 12:25 | disposition home or self-care (01) ==
LOC: M ED 02:54 → M ED INP 02:55 → ENRESERV 06:33 → M MS5PR 07:40
PROVIDERS: ADMIT Internal Medicine; ATTEND Internal Medicine
DX: G51.0 Bell's palsy (principal); G93.2 Benign intracranial hypertension; F31.9 Bipolar disorder, unspecified; B00.9 Herpesviral infection, unspecified; Z86.59 Personal history of other mental and behavioral disorders; Z91.14 Patient's other noncompliance with medication regimen; Z79.899 Other long term (current) drug therapy; Z79.52 Long term (current) use of systemic steroids; Z88.1 Allergy status to other antibiotic agents; Z88.5 Allergy status to narcotic agent
CPT/HCPCS: 80048; 82550; 82553; 84702; 84703; 85025; 93041; 96360; 96361; 96372; 99285; J1650

== ENCOUNTER → 2019-04-30 | Outpatient (REF) | payer OTHER ==
[~2019-04-30] MED LIST changes: -ARTIDRO2 OP; +POLYOPD OP; +POLYOPD OU; +REFR0.5D8 OD; +VALA1TAB5 PO
[2019-04-30 17:10] LABS: BASO % 0.7 % (0.0-1.0); EOS # 0.3 10^3/uL (0.0-0.5); EOS % 4.9 % (0.0-3.0); HEMATOCRIT 40.8 % (36.0-47.0); HEMOGLOBIN 13.3 g/dl (12.0-15.5); LYMPH # 2.2 10^3/uL (1.5-5.0); LYMPH % 36.4 % (24.0-44.0); MEAN CORPUSCULAR HEMOGLOBIN 29.2 pg (27.0-33.0); MEAN CORPUSCULAR HGB CONC 32.6 g/dl (32.0-36.5); MEAN CORPUSCULAR VOLUME 89.7 fl (80.0-96.0); MONO # 0.4 10^3/uL (0.0-0.8); MONO % 6.5 % (0.0-5.0); NEUTROPHILS # 3.2 10^3/uL (1.5-8.5); NEUTROPHILS % 51.3 % (36.0-66.0); PLATELET COUNT, AUTOMATED 263 10^3/uL (150-450); RED BLOOD COUNT 4.55 10^6/uL (4.00-5.40); WHITE BLOOD COUNT 6.2 10^3/uL (4.0-10.0)
[2019-04-30 17:39] LABS: ALBUMIN 3.5 GM/DL (3.2-5.2); ALT/SGPT 23 U/L (12-78); BILIRUBIN,TOTAL 0.5 MG/DL (0.2-1.0); BLOOD UREA NITROGEN 7 MG/DL (7-18); CALCIUM LEVEL 8.6 MG/DL (8.5-10.1); CARBON DIOXIDE LEVEL 28 MEQ/L (21-32); CHLORIDE LEVEL 110 MEQ/L (98-107); CREATININE FOR GFR 0.59 MG/DL (0.55-1.30); GLOMERULAR FILTRATION RATE > 60.0 (>60); GLUCOSE, FASTING 80 MG/DL (70-100); POTASSIUM SERUM 4.6 MEQ/L (3.5-5.1); SODIUM LEVEL 141 MEQ/L (136-145); TOTAL PROTEIN 6.6 GM/DL (6.4-8.2)
== END ==
LOC: M LAB REF 16:24
PROVIDERS: ATTEND Family Medicine
DX: Z01.818 Encounter for other preprocedural examination (principal)

== ENCOUNTER 2019-05-09 06:51 | Day surgery (SDC) | payer OTHER ==
[~2019-05-09] VITALS: Ht 157.5 cm; Wt 80.2 kg
[~2019-05-09 06:51] MED LIST changes: +CIPROFLOXACIN 400 MG in IV 1 EA IV ONE; +LR 1,000 ML IV ONE
[2019-05-09] MEDS ORDERED: LIDOCAINE 2% INJ 100 MG/5 ML SDV (FOR ANES.) As Ordered ONE (08:21)
[2019-05-09] MEDS ORDERED: ROCURONIUM BROMIDE 50 MG/5 ML VIAL As Ordered ONE (08:21)
[2019-05-09] MEDS ORDERED: ONDANSETRON 4MG/2ML VIAL (J2405) As Ordered ONE ×2 (08:21→14:52)
[2019-05-09] MEDS ORDERED: propofoL 200 MG/20 ML VIAL As Ordered ONE ×2 (08:21→13:11)
[2019-05-09] MEDS ORDERED: dexameTHASONE 4 MG/ML 1ML VIAL (J1100) As Ordered ONE (08:21)
[2019-05-09] MEDS ORDERED: fentaNYL 250 MCG/5 ML INJECTION (J3010) As Ordered ONE (08:21)
[2019-05-09] MEDS ORDERED: MIDAZOLAM INJ 2 MG/2 ML VIAL (J2250) As Ordered ONE (08:22)
[2019-05-09] MEDS ORDERED: BUPIVACAINE LIPOSOME/PF 1.3% 20ML VIAL (13.3MG/ML)(EXPAREL)(C9290 PER1MG) As Ordered ONE (09:10)
[2019-05-09] MEDS ORDERED: LIDOCAINE W/EPINEPHRINE 1% 20ML VIAL As Ordered ONE (09:10)
[2019-05-09] MEDS ORDERED: BACITRACIN PWD 50,000 UNITS VIAL As Ordered ONE (09:10)
[2019-05-09] MEDS ORDERED: PHENYLephrine HCL 500 MCG/5 ML (100MCG/ML) SYRINGE (J2370) As Ordered ONE (12:30)
[2019-05-09] MEDS ORDERED: SUGAMMADEX SODIUM 500 MG/5 ML VIAL (BRIDION) As Ordered ONE (12:31)
[2019-05-09] MEDS ORDERED: ePHEDrine SULFATE 25 MG/5 ML(5MG/ML) SYRINGE As Ordered ONE (12:35)
--- NOTE | 2019-05-09 14:16 | POST-OPPD ---
Postoperative Procedure Note Date Of Procedure: May 09, 2019 PREOPERATIVE DIAGNOSIS: Bilateral symptomatic macromastia POSTOPERATIVE DIAGNOSIS: same FINDINGS: Large pendulous breasts PROCEDURE: Bilateral breast reduction SURGEON: Dr Guardado ANESTHESIA: General SPECIMENS: Right breast 970gm, Left breast 865 gm ESTIMATED BLOOD LOSS: 150cc REPLACED: none DRAINS: 10 mm REBECCA x 2 COMPLICATIONS: none POSTOPERATIVE CONDITION: stable [id number] DUNCAN GUARDADO DO May 09, 2019 14:16
[2019-05-09] MEDS ORDERED: METOCLOPRAMIDE INJ 10MG/2ML VIAL (J2765) As Ordered ONE (14:52)
[2019-05-09] MEDS: ONDANSETRON 4MG/2ML VIAL (J2405) IV PRN ×2 (15:00→15:30)
[2019-05-09] MEDS ORDERED: LR 1,000 ML IV SCH (15:00)
[2019-05-09] MEDS ORDERED: PERCOCET 5MG/325MG TAB PO PRN (15:00)
[2019-05-09] MEDS ORDERED: METOCLOPRAMIDE INJ 10MG/2ML VIAL (J2765) IV PRN (15:00)
[2019-05-09] MEDS: fentaNYL 100 MCG/2 ML INJECTION (J3010) IV PRN ×4 (15:30→15:53)
[2019-05-09] MEDS ORDERED: ACETAMINOPHEN TAB 650MG DOSE (2X325MG) PO PRN (16:00)
[2019-05-09] MEDS ORDERED: MORPHINE 4 MG/ML 1ML VIAL/SYRINGE (J2270) IM PRN (16:00)
[2019-05-09] MEDS ORDERED: ONDANSETRON 4MG/2ML VIAL (J2405) IV PRN (16:00)
[2019-05-09] MEDS ORDERED: SCOPOLAMINE 1MG TRANSDERMAL PATCH As Ordered ONE (16:06)
[2019-05-09] MEDS ORDERED: SCOPOLAMINE 1MG TRANSDERMAL PATCH TOP ONE (16:30)
[2019-05-09 18:00] VITALS: BP 111/60
[2019-05-09] MEDS ORDERED: FLUT1INH2 INH (18:47)
[2019-05-09] MEDS: PERCOCET 5MG/325MG TAB PO PRN ×2 (18:55→23:51)
[2019-05-09 19:20] VITALS: BP 109/76
[2019-05-09] MEDS: LR 1,000 ML IV SCH (19:22)
[2019-05-09 20:04] VITALS: BP 108/75
[2019-05-09 21:08] VITALS: BP 96/55
[2019-05-09 21:46] VITALS: BP 127/82
[2019-05-09 21:47] VITALS: BP 110/70
[2019-05-10 02:00] VITALS: BP 100/59
[2019-05-10] MEDS: LR 1,000 ML IV SCH (02:09)
[2019-05-10] MEDS: PERCOCET 5MG/325MG TAB PO PRN ×2 (05:09→10:26)
[2019-05-10 06:00] VITALS: BP 108/70
[2019-05-10] MEDS ORDERED: lamoTRIgine 100MG TAB PO SCH (09:00)
[2019-05-10] MEDS ORDERED: SERTRALINE HCL 50 MG TAB PO SCH (09:00)
[2019-05-10] MEDS ORDERED: ADDERALL 5 MG TAB PO SCH (09:00)
--- NOTE | 2019-05-10 09:59 | IPNPDOC ---
Subjective General Date Seen: May 10, 2019 Subject Chief Complaint/History The patient is a 29-year-old female admitted with a reason for visit of Bilateral Breast Hypertrophy. S/p BBR POD 1 Pain controlled with Percocet. Doing well. Ambulating, tolerating diet. Nausea resolved. Current Medications Current Medications Current Medications Medications (Trade) Dose Ordered Sig/Janiya Route PRN Reason Start Time Stop Time Status Last Admin Dose Admin Acetaminophen (Tylenol Tab) 650 mg Q6HP PRN PO MILD PAIN 05/09/19 16:00 Amphetamine/ Dextroamphetamine (Adderall) 15 mg DAILY PO 05/10/19 09:00 Hold Fentanyl Citrate (Sublimaze) 25 mcg Q5MP PRN IV PAIN LEVEL 5-10 05/09/19 15:00 05/09/19 15:54 DC 05/09/19 15:53 Home Med (Med Rec Complete!) ASDIRECTED XX 05/09/19 19:00 05/09/19 18:52 DC Lactated Ringer's 1,000 ml @ 75 mls/hr [id number] IV 05/09/19 16:00 05/10/19 02:09 Lactated Ringer's 1,000 ml @ 100 mls/hr Q10H IV 05/09/19 15:00 05/09/19 16:00 DC Lamotrigine (LaMICtal) 150 mg DAILY PO 05/10/19 09:00 Hold Metoclopramide HCl (REGLAN INJection) 10 mg Q6HP PRN IV NAUSEA OR VOMITING 05/09/19 15:00 05/09/19 15:30 DC 05/09/19 15:00 Miscellaneous (Unresolved Clarification Entry) SEE LABEL COMMENTS DAILY XX 05/09/19 09:00 Morphine Sulfate (Morphine Sulfate Inj) 4 mg Q4HP PRN IM SEVERE PAIN 05/09/19 16:00 Ondansetron HCl (ZOFRAN INJection) 4 mg Q4HP PRN IV NAUSEA OR VOMITING 05/09/19 15:00 05/09/19 16:00 DC 05/09/19 15:00 Ondansetron HCl (ZOFRAN INJection) 4 mg Q6H PRN IV NAUSEA OR VOMITING 05/09/19 16:00 05/09/19 18:25 Oxycodone/ Acetaminophen (Percocet 5mg/ 325mg Tablet) 1 tab ASDIRECTED PRN PO PAIN LEVEL 1-4 05/09/19 15:00 05/09/19 16:00 DC Oxycodone/ Acetaminophen (Percocet 5mg/ 325mg Tablet) 1 tab Q4H PRN PO MODERATE PAIN 05/09/19 16:00 05/10/19 05:09 Sertraline HCl (Zoloft) 50 mg DAILY PO 05/10/19 09:00 Hold Allergies Coded Allergies: amoxicillin (Verified Allergy, Severe, throat closes, 05/09/19) oxytocin (Verified Allergy, Unknown, aggression and caused patient to pass out, 05/09/19) Objective Physical Examination Examination GENERAL APPEARANCE:Patient seen, laying in bed, awake, alert, and oriented. Comfortable, in no acute distress. SKIN: Warm and moist. BREAST: Right and left soft, non-tender incisions intact. REBECCA drains: Left 40 cc/24 hr, Right 30cc/24. NAC: Viable, warm, symmetrical, mild post-op ecchymosis, no expanding hematoma. LUNGS: Clear to auscultation bilaterally. No wheezing appreciated. HEART: No chest wall abnormalities. Regular rate and rhythm with no murmurs appreciated. ABDOMEN: Abdomen is soft, non-tender, non-distended. Incision intact. EXTREMITIES: No edema identified. No calf tenderness. Vital Signs Vital Signs Date Time Temp Pulse Resp B/P (MAP) Pulse Ox O2 Delivery O2 Flow Rate FiO2 05/10/19 06:00 98.3 94 18 108/70 (83) 94 Room Air I&Os I&O- Last 24 Hours up to 6 AM 05/10/19 06:00 Intake Total 1980 ml Output Total 335 ml Balance 1645 ml Impression Symptomatic macromastia. S/p BBR pod 1. Stable for discharge. No heavy lifting Keep dressings on. Instructions given to patient. F/up plastic surgery. Plan / VTE VTE Prophylaxis Ordered?: Yes DUNCAN GUARDADO DO May 10, 2019 09:59
[2019-05-10] MEDS ORDERED: PERCOCET PO (10:02)
--- NOTE | 2019-05-11 10:10 | RO ---
DATE OF PROCEDURE: 05/09/2019 PREOPERATIVE DIAGNOSIS: Bilateral symptomatic macromastia. POSTOPERATIVE DIAGNOSIS: Bilateral symptomatic macromastia. PROCEDURE: Bilateral breast reduction. SURGEON: Soumya Daniels DO ANESTHESIA: General. SPECIMENS SENT: Right breast 970 grams, left breast 865 grams. BLOOD LOSS: 150 mL. No replacement. Two 10 mm Trevor-Soni drains. No complications. DESCRIPTION OF PROCEDURE: This is a 29-year-old female who has very large breasts with significant ptosis, grade 3 but also she measures from sternal notch on the left slightly smaller at 42.5 and on the right is 43 cm from sternal notch. Her inframammary fold (IMF) measures at 24 cm. Very heavy, wide base breasts. The patient is status post gastric bypass and lost a significant amount of weight as well. She is a good candidate for breast reduction. All the risks and benefits and alternatives discussed with the patient, and she is ready to proceed. The day of surgery, she was marked in the upright position in preoperative holding area. Her markings are according to superior medial pedicle fashion. Then, informed consent was confirmed. She was brought into the operating room, placed in supine position. Preoperative antibiotics were given. Sequential stockings placed on the lower calves. General anesthesia was induced, and she was prepped and draped in the usual sterile fashion. Started our procedure on the right side. Right side is larger, wider, and nipple-areolar complex is a little longer from the sternal notch at 43 cm. We will be going to 24 cm from sternal notch for the new nipple-areolar complex. The nipple-areolar complex is measured at 42.5 mm in diameter and the resection started. We resected the inferolateral portion of the breast using electrocautery and PEAK cautery and after that portion of procedure completed, the pedicle was in good perfusion. It was de-epithelialized using Olivera scissors, and then the wound was irrigated and hemostasis was obtained. Exparel was infiltrated throughout the breast, 7 mL, and then we turned the pedicle superiorly and placed it to its new position and a mound was re-created from the pedicle and also from the lateral excess tissue using #0 Vicryl sutures. Then, we started closing vertical limb with #3-0 Monocryl sutures, a total length of 8.5 cm. Excess tissue inferiorly was measured and resected, creating the horizontal scar. A 10 mm Trevor-Soni drain was placed through the lateral portion of that incision. Then, the nipple-areolar complex was brought through the new incision and closed in layers with #3-0 and #4-0 Monocryl sutures, as well as interrupted #5-0 plain gut sutures. Then, we turned our attention to the left side, which is slightly smaller and not as full of a breast by texture. Nipple-areolar complex is measured at 45 mm in diameter. Then, we started our resection with a knife and then followed by PEAK and electrocautery. Inferolateral portion of the breast was removed according to superior medial pattern. Hemostasis was obtained using electrocautery. The pedicle was in good perfusion, and it was de-epithelialized using Olivera scissors. Exparel was infiltrated throughout the breast and pectoralis muscle, 7 mL, and then the wound was irrigated. The pedicle was then placed superiorly at 24 cm from the sternal notch, and the mound was re-created using #0 Vicryl sutures. Then, the pillars were closed with interrupted #3-0 Monocryl sutures. Vertical limb was 8.5 cm length. Excess tissue inferiorly was measured and resected, creating a horizontal scar, which was also closed with #3-0 Monocryl sutures and a V-Loc running #3-0 Monocryl suture as well. A 10 mm Trevor-Soni drain was placed through the lateral portion of that incision. The nipple-areolar complex was sutured in place with interrupted #3-0 and #4-0 Monocryl sutures, as well as #5-0 plain. Additional 3 mL of Exparel on each side was added to the incision site, totaling 20 mL of Exparel for the case. Prineo dressing was used for the vertical and horizontal scars, and Xeroform for the nipple-areolar complex with 4 x 4's, bulky dressing, and a surgical bra. Also, we used foam dressing for the expanded portions of the horizontal incision to control the edema. Surgical bra was placed. Patient extubated in the operating room and transferred to the recovery room in stable condition. BRIAN
== END 2019-05-10 12:50 | disposition home or self-care (01) ==
LOC: M SDC 06:51 → M MS5PR 18:10 → M SDC 05-10 12:50
PROVIDERS: ATTEND Plastic Surgery Surgery of the Hand
DX: N62 Hypertrophy of breast (principal); I10 Essential (primary) hypertension; J45.909 Unspecified asthma, uncomplicated; G43.909 Migraine, unspecified, not intractable, without status migrainosus; F43.10 Post-traumatic stress disorder, unspecified; F41.9 Anxiety disorder, unspecified; F32.9 Major depressive disorder, single episode, unspecified; Z79.899 Other long term (current) drug therapy; Z98.84 Bariatric surgery status; Z88.0 Allergy status to penicillin
CPT/HCPCS: 19318; 81025; 88305; 96361; 96374; C9290; J0744; J1100; J2250; J2370; J2405; J2765; J3010

== ENCOUNTER 2019-05-26 03:08 | Emergency (ER) | payer OTHER ==
[~2019-05-26] VITALS: Ht 157.5 cm; Wt 80.1 kg
[~2019-05-26 03:08] MED LIST changes: -CIPROFLOXACIN 400 MG in IV 1 EA IV ONE; +FLUT1INH2 INH; -LR 1,000 ML IV ONE; +PERCOCET PO
[2019-05-26] MEDS ORDERED: SERO50TA (03:18)
[2019-05-26 06:42] VITALS: BP 122/79
--- NOTE | 2019-05-26 14:15 | REP ---
REASON: Pleuritic chest pain. COMPARISON: Multiple, the latest 04/06/2019. TWO-VIEW CHEST: FINDINGS: The superior mediastinal structures are midline. The cardiac silhouette is unremarkable in size, shape, and position. The diaphragmatic surfaces of the lungs are regular, and the costophrenic angles are clear. The pulmonary pleitez are clear. The imaged osseous structures are intact. IMPRESSION: There is no acute cardiopulmonary disease. Unreviewed
== END 2019-05-26 06:44 | disposition home or self-care (01) ==
LOC: M ED 03:08
DX: T14.8XXA Other injury of unspecified body region, initial encounter (principal); Y04.8XXA Assault by other bodily force, initial encounter; Y92.89 Other specified places as the place of occurrence of the external cause; Z79.899 Other long term (current) drug therapy; Z79.3 Long term (current) use of hormonal contraceptives; Z88.0 Allergy status to penicillin; Z88.8 Allergy status to other drugs, medicaments and biological substances

== ENCOUNTER 2019-06-02 18:31 | Emergency (ER) | payer OTHER ==
[~2019-06-02] VITALS: Ht 157.5 cm; Wt 78.7 kg
[~2019-06-02 18:31] MED LIST changes: +SERO50TA
[2019-06-02 19:56] LABS: BASO # 0.1 10^3/uL (0.0-0.2); BASO % 0.6 % (0.0-1.0); EOS # 1.2 10^3/uL (0.0-0.5); EOS % 13.9 % (0.0-3.0); HEMATOCRIT 36.4 % (36.0-47.0); HEMOGLOBIN 11.7 g/dl (12.0-15.5); LYMPH # 2.3 10^3/uL (1.5-5.0); LYMPH % 26.2 % (24.0-44.0); MEAN CORPUSCULAR HEMOGLOBIN 27.7 pg (27.0-33.0); MEAN CORPUSCULAR HGB CONC 32.1 g/dl (32.0-36.5); MEAN CORPUSCULAR VOLUME 86.1 fl (80.0-96.0); MONO # 0.5 10^3/uL (0.0-0.8); MONO % 6.3 % (0.0-5.0); NEUTROPHILS # 4.5 10^3/uL (1.5-8.5); NEUTROPHILS % 52.7 % (36.0-66.0); PLATELET COUNT, AUTOMATED 314 10^3/uL (150-450); RED BLOOD COUNT 4.23 10^6/uL (4.00-5.40); WHITE BLOOD COUNT 8.6 10^3/uL (4.0-10.0)
[2019-06-02 20:13] LABS: ERYTHROCYTE SEDIMENTATION RATE 20 mm/hr (0-20)
--- NOTE | 2019-06-02 20:37 | REPVR ---
PROCEDURE INFORMATION: Exam: US Left Breast Limited US Right Breast Limited Exam date and time: 06/02/2019 8:18 PM Age: 29 years old Clinical indication: Other: Dehiscence; Prior surgery; Surgery date: <1 month; Surgery type: Breast reduction; Additional info: S/P augmentation, dehisence, red, warm, fever TECHNIQUE: Imaging protocol: Limited ultrasound of Left breast with image documentation, including axilla when performed. Exam focused on the search and evaluation for mass. Limited ultrasound of Right breast with image documentation, including axilla when performed. Exam focused on the search and evaluation for mass. COMPARISON: MG DIGITAL MAMMO SCREENING BILAT 10/19/2017 3:32 PM FINDINGS: Breast: No mass demonstrated in the region of the scar in the right breast. Other findings: Imaging of the left breast demonstrates 2 areas adjacent to the scar, demonstrating no abnormality on the lateral side of the scar and more medially in the scar adjacent to an area of overlying skin discoloration and erythema there is a complex hypoechoic focus measuring 1.1 x 2.9 x 1 cm. Mildly increased flow demonstrated on Doppler. Finding may represent a hematoma or abscess. IMPRESSION: No sonographic evidence of malignancy. Annual mammographic screening is recommended unless otherwise clinically indicated. ASSESSMENT: No abnormalities in the right breast. Imaging of the left breast demonstrates a 1.1 x 2.9 x 1 cm complex hypoechoic focus with mildly increased Doppler flow which may represent a postoperative hematoma and or abscess. Electronically signed by: Neptali Cazares On 06/02/2019 20:37:10 PM
[2019-06-02] MEDS ORDERED: CLEO300C2 PO (21:03)
[2019-06-02 21:15] VITALS: BP 99/67
[2019-06-02] MEDS ORDERED: CLINDAMYCIN 150 MG CAP PO ONE (21:15)
== END 2019-06-02 21:34 | disposition home or self-care (01) ==
LOC: M ED 18:31
DX: T81.31XA Disruption of external operation (surgical) wound, not elsewhere classified, initial encounter (principal); T81.40XA Infection following a procedure, unspecified, initial encounter; R92.8 Other abnormal and inconclusive findings on diagnostic imaging of breast; G93.2 Benign intracranial hypertension; J45.909 Unspecified asthma, uncomplicated; Z79.899 Other long term (current) drug therapy; Z88.1 Allergy status to other antibiotic agents; Z88.8 Allergy status to other drugs, medicaments and biological substances; Z98.84 Bariatric surgery status

== ENCOUNTER → 2019-06-07 | Outpatient (REF) | payer OTHER ==
[~2019-06-07] MED LIST changes: +CLEO300C2 PO
[2019-06-07 13:20] LABS: BASO % 0.6 % (0.0-1.0); EOS # 0.8 10^3/uL (0.0-0.5); EOS % 11.9 % (0.0-3.0); HEMATOCRIT 37.6 % (36.0-47.0); HEMOGLOBIN 11.9 g/dl (12.0-15.5); LYMPH # 1.6 10^3/uL (1.5-5.0); LYMPH % 24.1 % (24.0-44.0); MEAN CORPUSCULAR HEMOGLOBIN 27.5 pg (27.0-33.0); MEAN CORPUSCULAR HGB CONC 31.6 g/dl (32.0-36.5); MEAN CORPUSCULAR VOLUME 86.8 fl (80.0-96.0); MONO # 0.5 10^3/uL (0.0-0.8); MONO % 6.6 % (0.0-5.0); NEUTROPHILS # 3.9 10^3/uL (1.5-8.5); NEUTROPHILS % 56.5 % (36.0-66.0); PLATELET COUNT, AUTOMATED 281 10^3/uL (150-450); RED BLOOD COUNT 4.33 10^6/uL (4.00-5.40); WHITE BLOOD COUNT 6.8 10^3/uL (4.0-10.0)
[2019-06-07 13:21] LABS: HCG, SERUM QUALITATIVE NEGATIVE (NEGATIVE)
[2019-06-07 13:30] LABS: ALBUMIN 3.1 GM/DL (3.2-5.2); ALT/SGPT 20 U/L (12-78); BILIRUBIN,TOTAL 0.4 MG/DL (0.2-1.0); BLOOD UREA NITROGEN 7 MG/DL (7-18); CALCIUM LEVEL 8.8 MG/DL (8.5-10.1); CARBON DIOXIDE LEVEL 28 MEQ/L (21-32); CHLORIDE LEVEL 107 MEQ/L (98-107); CHOLESTEROL LEVEL 153 MG/DL (<200); CHOLESTEROL RISK RATIO 2.637 (<5); CREATININE FOR GFR 0.62 MG/DL (0.55-1.30); GLOMERULAR FILTRATION RATE > 60.0 (>60); GLUCOSE, FASTING 104 MG/DL (70-100); HDL CHOLESTEROL 58 MG/DL (>40); LDL CHOLESTEROL 79 MG/DL (<100); NON-HDL-C 95 MG/DL; POTASSIUM SERUM 3.9 MEQ/L (3.5-5.1); SODIUM LEVEL 140 MEQ/L (136-145); TOTAL PROTEIN 6.6 GM/DL (6.4-8.2); TRIGLYCERIDES LEVEL 81 MG/DL (<150)
[2019-06-07 13:31] LABS: TOTAL 25(OH) VITAMIN D 9.8 NG/ML (30.0-100.0)
== END ==
LOC: M LAB REF 12:32
PROVIDERS: ATTEND Nurse Practitioner Family
DX: Z13.9 Encounter for screening, unspecified (principal); R53.83 Other fatigue; R11.2 Nausea with vomiting, unspecified; T81.41XA Infection following a procedure, superficial incisional surgical site, initial encounter

== ENCOUNTER 2019-07-06 12:33 | Emergency (ER) | payer MEDICAID, OTHER ==
[~2019-07-06] VITALS: Ht 157.5 cm; Wt 80.2 kg
[2019-07-06 12:34] VITALS: BP 96/65
[2019-07-06] MEDS ORDERED: DEXTROAMP PO (12:39)
[2019-07-06] MEDS ORDERED: LIDOCAINE 1% MDV 20ML VIAL As Ordered ONE (12:47)
[2019-07-06] MEDS ORDERED: LIDOCAINE 1% MDV 20ML VIAL SC ONE (13:00)
--- NOTE | 2019-07-06 13:18 | CR.PDOC ---
Plastic Surgery Consultation Date of Consultation 07/06/19 History and Physical CONSULT REPORT FOR: Emergency room REASON FOR CONSULTATION: Bilateral breast collection HISTORY OF PRESENT ILLNESS: 29 y/o female s/p BBR on 05/09/19 here complaining of blisters on the lower incisions bilaterally. Started 2 days ago. No fever, chills, drainage. Patient states she did not change any of her regular routine. PAST MEDICAL HISTORY: 1. migranes, back pain. PAST SURGICAL HISTORY: INCLUDES: 1. Breast reduction. PREVIOUS ANESTHESIA REACTIONS: denies ALLERGIES: Please see below. FAMILY HISTORY: non contributory. HOME MEDICATIONS: Please see below. REVIEW OF SYSTEMS: GENERAL: Denies chills, reports weight gain,. HEENT: Denies blurred vision and double vision. Denies ear symptoms. Denies hoarseness. NECK: Denies any neck pain]. CARDIOVASCULAR: Denies chest pain and palpitations. MUSCULOSKELETAL: Denies arthralgias, back pain and thrombophlebitis. SKIN: Denies rash. Hypertrophic scar NEUROLOGIC: Denies headache, stroke and transient ischemic attack. PSYCHIATRIC: Denies anxiety and depression. ENDOCRINE: Denies thyroid disease. HEMATOLOGY/ONCOLOGY: Denies bleeding or clotting disorder. HEART: Denies any chest pains, palpitations, paroxysmal dyspnea, orthopnea. PULMONARY: Denies chronic cough, dyspnea and wheezing. GASTROINTESTINAL: Denies rectal bleeding, family history of colon cancer, constipation, diarrhea, dysphagia, heartburn and jaundice. GENITOURINARY: Denies dysuria, frequency, hematuria and nocturia. ENDOCRINE: Denies polydipsia, polyphagia, polyuria, heat or cold intolerance. INFECTIOUS: Denies any recent upper respiratory tract infection, UTI, need for use of antibiotics. NUTRITION: Reports good appetite. PHYSICAL EXAMINATION: VITALS SIGNS: Please see below. GENERAL APPEARANCE:Patient seen, laying in bed, awake, alert, and oriented. Comfortable, in no acute distress. SKIN: Warm and moist. Horizontal scar right breast with hypertrophy, collection. 2x1cm, Left breast horizontal scar with widening and collection 7x1 cm. Fluctuant, tender to palpation. No surrounding redness. BREAST: Right and left soft, Symmetrical. Incisions periareolar, vertical well healed. NECK: Supple, no thyromegaly. No obvious jugular venous distention. LUNGS: Clear to auscultation bilaterally. No wheezing appreciated. HEART: No chest wall abnormalities. Regular rate and rhythm with no murmurs appreciated. ABDOMEN: Abdomen is soft, non-tender, non-distended. IMPRESSION: Bilateral breast horizontal scars hypertrophy with collection. PLANS: Drainage of collection in ER. Procedure: Informed consent obtained from patient. Area cleaned with bethadine solution. 1 % Lidocaine infiltrated in the area, total 4 cc. Stab incision done on the Right breast fluctuant portion, clear serous fluid evacuated. Culture taken. Stab incision Stab incision done on the Left breast fluctuant portion, clear serous fluid evacuated. Superficial collection only bilaterally. Xeroform dressing and dry gauze applied Patient tolerated well. Change dressing at home daily. F/up plastic surgery clinic 07/10/19 Instruction given. Vital Signs Vital Signs Date Time Temp Pulse Resp B/P (MAP) Pulse Ox O2 Delivery O2 Flow Rate FiO2 07/06/19 12:34 97.4 98 18 96/65 (75) 100 Room Air Home Medications Scheduled Dextroamphetamine/Amphetamine (Adderall 5 mg Tablet) 5 Mg Tablet, 20 MG PO DAILY, (Reported) takes in the afternoon Sertraline Hcl (Zoloft) 100 Mg Tablet, 100 MG BID, (Reported) [Dextroamp] , 5 MG PO QAM, (Reported) Miscellaneous Medications Etonogestrel (Nexplanon) 68 Mg Implant, Unknown Dose SC, (Reported) implant Quetiapine Fumarate (Seroquel) 50 Mg Tablet, (Reported) Allergies Coded Allergies: amoxicillin (Verified Allergy, Severe, throat closes, 05/09/19) oxytocin (Verified Allergy, Unknown, aggression and caused patient to pass out, 05/09/19) DUNCAN GUARDADO DO Jul 06, 2019 13:18
--- NOTE | 2019-07-07 16:48 | ED PDOC ---
Post-Departure Follow-Up d/w Dr. Daniels prelim culture results yielding moderate staph aureas growth. she advises no antibiotics at this time, has follow up scheduled with patient this week for follow up. will follow. CHARO MCGINNIS PA-C. Jul 07, 2019 16:47
== END 2019-07-06 13:20 | disposition home or self-care (01) ==
LOC: M ED 12:33
DX: L08.9 Local infection of the skin and subcutaneous tissue, unspecified (principal); Z88.8 Allergy status to other drugs, medicaments and biological substances; Z79.899 Other long term (current) drug therapy

== ENCOUNTER 2019-08-19 20:00 | Emergency (ER) | payer OTHER ==
[~2019-08-19] VITALS: Ht 157.5 cm; Wt 82.6 kg
[~2019-08-19 20:00] MED LIST changes: +DEXTROAMP PO
[2019-08-19 20:01] VITALS: BP 111/77
[2019-08-19] MEDS ORDERED: TRAZ-252 PO (20:11)
[2019-08-19 20:56] LABS: BASO % 0.5 % (0.0-1.0); EOS # 0.1 10^3/uL (0.0-0.5); EOS % 1.4 % (0.0-3.0); HEMATOCRIT 38.6 % (36.0-47.0); HEMOGLOBIN 11.8 g/dl (12.0-15.5); LYMPH # 2.2 10^3/uL (1.5-5.0); MEAN CORPUSCULAR HEMOGLOBIN 24.7 pg (27.0-33.0); MEAN CORPUSCULAR HGB CONC 30.6 g/dl (32.0-36.5); MEAN CORPUSCULAR VOLUME 80.8 fl (80.0-96.0); MONO # 0.4 10^3/uL (0.0-0.8); NEUTROPHILS # 3.5 10^3/uL (1.5-8.5); NEUTROPHILS % 55.8 % (36.0-66.0); PLATELET COUNT, AUTOMATED 268 10^3/uL (150-450); RED BLOOD COUNT 4.78 10^6/uL (4.00-5.40); WHITE BLOOD COUNT 6.3 10^3/uL (4.0-10.0)
[2019-08-19] MEDS ORDERED: ROBA750T4 PO (21:09)
[2019-08-19] MEDS ORDERED: VOLT1GEL15 TOP (21:09)
[2019-08-19] MEDS ORDERED: LIDOCAINE 5% (LIDODERM) PATCH TD ONE (21:15)
[2019-08-19] MEDS ORDERED: methocarbamoL 750 MG TAB PO ONE (21:15)
[2019-08-20] MEDS ORDERED: **NOTE PATIENT COMMENT** MISC XX ONE (09:00)
== END 2019-08-19 21:17 | disposition home or self-care (01) ==
LOC: M ED 20:00
DX: M54.5 Low back pain (principal)

== ENCOUNTER → 2019-12-20 | Outpatient (CLI) | payer OTHER, MEDICAID ==
[~2019-12-20] MED LIST changes: +TRAZ-252 PO; +VOLT1GEL15 TOP
== END ==
LOC: M PLALAB 13:31
PROVIDERS: ATTEND Obstetrics & Gynecology
DX: Z32.01 Encounter for pregnancy test, result positive (principal)

== ENCOUNTER → 2019-12-22 | Outpatient (CLI) | payer OTHER ==
[2019-12-22 14:33] LABS: HCG, SERUM QUALITATIVE POSITIVE (NEGATIVE)
== END ==
LOC: M LAB 13:06
PROVIDERS: ATTEND Obstetrics & Gynecology
DX: Z32.01 Encounter for pregnancy test, result positive (principal); Z3A.00 Weeks of gestation of pregnancy not specified

== ENCOUNTER 2020-02-11 10:53 | Emergency (ER) | payer MEDICAID, OTHER ==
[~2020-02-11] VITALS: Ht 157.5 cm; Wt 84.5 kg
[2020-02-11] MEDS ORDERED: PSEU30TA85 PO (11:03)
[2020-02-11] MEDS ORDERED: ACETAMINOPHEN 500 MG TAB PO ONE (11:45)
[2020-02-11 11:49] LABS: BASO % 0.3 % (0.0-1.0); EOS # 0.1 10^3/uL (0.0-0.5); EOS % 1.9 % (0.0-3.0); HEMATOCRIT 35.8 % (36.0-47.0); HEMOGLOBIN 11.2 g/dl (12.0-15.5); LYMPH # 1.6 10^3/uL (1.5-5.0); LYMPH % 21.3 % (24.0-44.0); MEAN CORPUSCULAR HEMOGLOBIN 25.3 pg (27.0-33.0); MEAN CORPUSCULAR HGB CONC 31.3 g/dl (32.0-36.5); MONO # 0.4 10^3/uL (0.0-0.8); MONO % 5.8 % (0.0-5.0); NEUTROPHILS # 5.3 10^3/uL (1.5-8.5); NEUTROPHILS % 70.3 % (36.0-66.0); PLATELET COUNT, AUTOMATED 260 10^3/uL (150-450); RED BLOOD COUNT 4.42 10^6/uL (4.00-5.40); WHITE BLOOD COUNT 7.5 10^3/uL (4.0-10.0)
[2020-02-11 12:27] LABS: BLOOD UREA NITROGEN 7 MG/DL (7-18); CARBON DIOXIDE LEVEL 24 MEQ/L (21-32); CHLORIDE LEVEL 108 MEQ/L (98-107); CK-MB VALUE MASS < 1.0 NG/ML (<3.6); CPK CREATINE PHOSPHOKINASE 46 U/L (26-192); CREATININE FOR GFR 0.52 MG/DL (0.55-1.30); GLOMERULAR FILTRATION RATE > 60.0 (>60); GLUCOSE, FASTING 91 MG/DL (70-100); HCG, SERUM QUANTITATIVE 99509 MIU/ML; MB/CK RELATIVE INDEX 2.17 (< OR =4); POTASSIUM SERUM 4.2 MEQ/L (3.5-5.1); SODIUM LEVEL 136 MEQ/L (136-145); TROPONIN I < 0.02 NG/ML (< 0.10)
--- NOTE | 2020-02-11 13:13 | REP ---
INDICATION: upper abd pain, hx cholecyst, gastric bypasss. COMPARISON: None. TECHNIQUE: Right upper quadrant sonography. FINDINGS: The gallbladder surgically absent. Common bile duct is normal measuring 0.4 cm in greatest diameter. Liver is normal in size homogeneous in texture. No focal liver lesion is seen. Limited views of pancreas show no abnormality. There is no evidence of ascites or right renal abnormality. The right kidney measures 12.0 x 5.1 x 4.3 cm. IMPRESSION: Negative right upper quadrant sonography post cholecystectomy. No abnormality noted. <Electronically signed by Adolfo Little > 02/11/20 [id number]
--- NOTE | 2020-02-11 13:47 | REP ---
INDICATION: vaginal bleeding, pain, 12 weeks . COMPARISON: None. TECHNIQUE: Transabdominal sonography. FINDINGS: Transabdominal imaging demonstrates a single living intrauterine gestation in a free-floating lie. A crown-rump length of the embryonic pole is 61 mm. This corresponds with a 12 week 4 day gestational age estimate. art rate is recorded at 153 beats per minute. There is no evidence of subchorionic hemorrhage. There is a cystic area in the right ovary consistent with corpus luteum, 2.7 cm in greatest diameter. IMPRESSION: Single living intrauterine gestation at 12 weeks 4 days by crown-rump length. SHOLA by today's sonography August 21, 2020. No complication is identified. <Electronically signed by Adolfo Little > 02/11/20 [id number]
[2020-02-11 14:17] VITALS: BP 105/77
--- NOTE | 2020-02-11 17:08 | ECGEPIP ---
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
== END 2020-02-11 14:18 | disposition home or self-care (01) ==
LOC: M ED 10:53
DX: O20.9 Hemorrhage in early pregnancy, unspecified (principal); Z79.899 Other long term (current) drug therapy; Z88.0 Allergy status to penicillin; Z3A.12 12 weeks gestation of pregnancy

== ENCOUNTER → 2020-02-17 | Outpatient (REF) | payer OTHER ==
[~2020-02-17] MED LIST changes: +PSEU30TA85 PO
[2020-02-17 17:47] LABS: HEMATOCRIT 35.4 % (36.0-47.0); HEMOGLOBIN 11.1 g/dl (12.0-15.5); MEAN CORPUSCULAR HEMOGLOBIN 26.1 pg (27.0-33.0); MEAN CORPUSCULAR HGB CONC 31.4 g/dl (32.0-36.5); MEAN CORPUSCULAR VOLUME 83.1 fl (80.0-96.0); PLATELET COUNT, AUTOMATED 267 10^3/uL (150-450); RED BLOOD COUNT 4.26 10^6/uL (4.00-5.40); WHITE BLOOD COUNT 7.8 10^3/uL (4.0-10.0)
[2020-02-17 17:49] LABS: ALBUMIN 2.9 GM/DL (3.2-5.2); ALT/SGPT 17 U/L (12-78); BILIRUBIN,TOTAL 0.3 MG/DL (0.2-1.0); BLOOD UREA NITROGEN 6 MG/DL (7-18); CALCIUM LEVEL 8.4 MG/DL (8.5-10.1); CARBON DIOXIDE LEVEL 24 MEQ/L (21-32); CHLORIDE LEVEL 109 MEQ/L (98-107); CREATININE FOR GFR 0.52 MG/DL (0.55-1.30); FERRITIN 6 NG/ML (8-252); GLOMERULAR FILTRATION RATE > 60.0 (>60); GLUCOSE, FASTING 71 MG/DL (70-100); IRON (FE) 39 UG/DL (50-170); PERCENT SATURATION 9.2 % (13.2-45.0); POTASSIUM SERUM 4.1 MEQ/L (3.5-5.1); SODIUM LEVEL 140 MEQ/L (136-145); TOTAL IRON BINDING CAPACITY 426 UG/DL (250-450); TOTAL PROTEIN 6.4 GM/DL (6.4-8.2)
[2020-02-17 17:58] LABS: TOTAL 25(OH) VITAMIN D 10.7 NG/ML (30.0-100.0)
[2020-02-17 17:59] LABS: VITAMIN B12 LEVEL 488 PG/ML (247-911)
[2020-02-17 18:00] LABS: FOLATE 10.7 NG/ML (>5.4)
[2020-02-17 18:21] LABS: HEMOGLOBIN A1c 5.2 %
[2020-02-17 18:37] LABS: HEPATITIS C VIRUS ABY INDEX < 0.0 INDEX (<0.8)
[2020-02-17 18:38] LABS: HIV 1&2 SCREEN CENTAUR NEGATIVE (NEGATIVE)
== END ==
LOC: M PLALAB 12:47
PROVIDERS: ATTEND Obstetrics & Gynecology
DX: O99.841 Bariatric surgery status complicating pregnancy, first trimester (principal)

== ENCOUNTER → 2020-02-26 | Outpatient (CLI) | payer OTHER | LOC: M LAB 12:35 | PROVIDERS: ATTEND Advanced Practice Midwife | DX: Z34.82 Encounter for supervision of other normal pregnancy, second trimester (principal); Z3A.00 Weeks of gestation of pregnancy not specified ==

== ENCOUNTER → 2020-03-25 | Outpatient (CLI) | payer OTHER ==
--- NOTE | 2020-03-31 18:16 | REP ---
INDICATION: ANATOMY COMPARISON: None. TECHNIQUE: Transabdominal obstetrical ultrasound with color Doppler evaluation. FINDINGS: Examination demonstrates a single live intrauterine in breech presentation. motion is identified by technologist. Marginal placenta is noted anteriorly and grade 1 extending to the edge of the closed internal os. Amniotic fluid volume is normal. Cervix measures 3.7 cm in length and appears closed. Gestational age by LMP 18 weeks 3 days with SHOLA 08/23/2020. Gestational age by current measurements 18 weeks 5 days with SHOLA 08/21/2020. FHR equals 152 beats per minute. BPD: 4.2 cm 18 weeks 5 days HC: 15.5 cm 18 weeks 3 days AC: 13.6 cm 19 weeks 0 days FL: 2.8 cm 18 weeks 3 days HL: 2.7 cm 18 weeks 4 days HC/AC: 1.15 Estimated weight 253 grams (64thpercentile). Anatomical assessment demonstrates normal structures including cranium, cavum, cerebellum/posterior fossa, facial features, lungs, four-chamber heart/ventricular outflow tracts, diaphragm, stomach, cord insertion/three-vessel cord, kidneys/bladder, spine, and extremities. IMPRESSION: 1. Single live intrauterine in breech presentation demonstrating appropriate estimated weight and growth. 2. Small choroid plexus cysts less than 5 mm. Remainder of the anatomical assessment is complete and normal. 3. Marginal placenta. <Electronically signed by Jani Lowery > 03/31/20 [id number]
== END ==
LOC: M PLAIMG 09:39
PROVIDERS: ATTEND Obstetrics & Gynecology
DX: Z36.89 Encounter for other specified antenatal screening (principal); Z3A.18 18 weeks gestation of pregnancy

== ENCOUNTER 2020-04-30 10:31 | Emergency (ER) | payer MEDICAID, OTHER ==
[~2020-04-30] VITALS: Ht 157.5 cm; Wt 88.2 kg
[2020-04-30] MEDS ORDERED: OXYC1TAB23 PO (10:40)
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
--- OUTSIDE RECORDS SUMMARY | 2020-04-30 10:43 | CCD ---
Author Author [facility] Organization [facility] Address Unknown Phone Unavailable Support Name Relationship Address Phone MERT Next Of Kin [address] [place] [address] STACINicole [place] [address] Charlotte Howard Next Of Kin [address] [place] [address] Shefali DDJuan CarlosCourt Next Of Kin [address] [place], [place] [id number] BOBEVAWAT Next Of Kin [phone] [address] SELFEMPLOYED Next Of Kin [address] [place] [address] SPONGE MAKER Next Of Kin [address] [facility] [address] [place] [address] SELF EMPLOYED Next Of Kin [address] [place] [address] BABYSITTING Next Of Kin [address] [facility] [address] [place] [address] CATALINO WIGGINS Next Of Kin [address] [place] [address] [place] [address] ACTALINO LICEA Next Of Kin [address] [facility] [address] [place] [address] ZULAY DE LA PAZ Next Of Kin [address] [facility] [place] [address] KRISTEN DE LA PAZ Next Of Kin [address] [place] [address] EUGENIO CHARLES Next Of Kin [address] [place] [address] BECCA'S Next Of Kin [address] [facility] [place] [address] [place] [address] LISE MANCILLA Next Of Kin [address] [place] [address] NONE ISABELA MUNROE [place] [address] HERRING CHOPPER Next Of Kin [address] [facility] [address] [place] [address] [place] [address] ARIANA TINSLEY Next Of Kin [address] [place] [address] MUSTAPHA BORJA Next Of Kin [facility] [address] KRISTEN HERRING Next Of Kin [address] [place] [address] LYUBOV BORJA Next Of Kin [address] [place] [address] ISRRAEL MAHER Next Of Kin [place] [address] CAESAR MCBRIDE Next Of Kin [address] [place] [address] UE Next Of Kin Unknown Unavailable KRISTEN MORRISSEY Next Of Kin [address] [facility] [address] [place] [address] CONNER ALCOCER Next Of Kin [address] [place] [address] Catalino Licea ECON [address] [facility] [address] [place] [address] [phone] Care Team Providers Care Special Delivery Messenger Name Role Phone RAMESH FARIA Unavailable Unavailable Luis Ortega CNM Unavailable UnavailLuis Dave CNM Unavailable Unavailabl e Vallandigham, D Loida CNM Unavailable Unavailabl e Vallandigham, D Loida CNM Unavailable Unavailabl e Vallandigham, D Loida CNM Unavailable Unavailabl e Vallandigham, D Loida CNM Unavailable Unavailabl e Vallandigham, D Loida CNM Unavailable Unavailabl e Vallandigham, D Loida CNM Unavailable Unavailabl e Vallandigham, D Loida CNM Unavailable Unavailabl e Vallandigham, D Loida CNM Unavailable Unavailabl e Vallandigham, D Loida CNM Unavailable Unavailabl e Vallandigham, D Loida CNM Unavailable Unavailabl e Vallandigham, D Loida CNM Unavailable Unavailabl e Vallandigham, D Loida CNM Unavailable Unavailabl e Vallandigham, D Loida CNM Unavailable Unavailabl e Vallandigham, D Loida CNM Unavailable Unavailabl e Vallandigham, D Loida CNM Unavailable Unavailabl e Vallandigham, D Loida CNM Unavailable Unavailabl e Vallandigham, D Loida CNM Unavailable Unavailabl e Vallandigham, D Loida CNM Unavailable Unavailabl e Vallandigham, D Loida CNM Unavailable Unavailabl e Vallandigham, D Loida CNM Unavailable Unavailabl e Vallandigham, D Loida CNM Unavailable Unavailabl e Vallandigham, D Loida CNM Unavailable Unavailabl e Vallandigham, D Loida CNM Unavailable Unavailabl e Dille, E Court DDS Unavailable Unavailable Dille, E Court DDS Unavailable Unavailable Dille, E Court DDS Unavailable Unavailable Dille, E Court DDS Unavailable Unavailable GUZMÁN, W VINOD PA Unavailable Unavailable GUZMÁN, W VINOD PA Unavailable Unavailable GUZMÁN, W VINOD PA Unavailable Unavailable GUZMÁN, W VINOD PA Unavailable Unavailable GUZMÁN, W VINOD PA Unavailable Unavailable GUZMÁN, W VINOD PA Unavailable Unavailable GUZMÁN, W VINOD PA Unavailable Unavailable GUZMÁN, W VINOD PA Unavailable Unavailable GUZMÁN, W VINOD PA Unavailable Unavailable GUZMÁN, W VINOD PA Unavailable Unavailable GUZMÁN, W VINOD PA Unavailable Unavailable GUZMÁN, W VINOD PA Unavailable Unavailable GUZMÁN, W VINOD PA Unavailable Unavailable Charlotte MurrayP FUR SEWER Unavailable Unavailable ROGELIO GREENBERG Unavailable Unavailable Nicole Murray FUR SEWER Unavailable Unavailable Nicole Murrayra FUR SEWER Unavailable Unavailable Trevor, A Charlotte FUR SEWER Unavailable Unavailable Trevor, A Charlotte FUR SEWER Unavailable Unavailable Trevor, A Charlotte FUR SEWER Unavailable Unavailable Trevor, A Charlotte FUR SEWER Unavailable Unavailable Trevor, A Charlotte FUR SEWER Unavailable Unavailable Trevor, A Charlotte FUR SEWER Unavailable Unavailable Trevor, A Charlotte FUR SEWER Unavailable Unavailable Trevor, A Charlotte FUR SEWER Unavailable Unavailable Trevor, A Charlotte FUR SEWER Unavailable Unavailable Trevor, A Charlotte FUR SEWER Unavailable Unavailable Trevor, A Charlotte FUR SEWER Unavailable Unavailable Trevor, A Charlotte FUR SEWER Unavailable Unavailable Trevor, A Charlotte FUR SEWER Unavailable Unavailable Trevor, A Charlotte FUR SEWER Unavailable Unavailable Trevor, A Charlotte FUR SEWER Unavailable Unavailable Trevor, A Charlotte FUR SEWER Unavailable Unavailable Trevor, A Charlotte FUR SEWER Unavailable Unavailable Trevor, A Charlotte FUR SEWER Unavailable Unavailable Trevor, A Charlotte FUR SEWER Unavailable Unavailable Trevor, A Charlotte FUR SEWER Unavailable Unavailable Trevor, A Charlotte FUR SEWER Unavailable Unavailable Trevor, A Charlotte FUR SEWER Unavailable Unavailable Trevor, A Charlotte FUR SEWER Unavailable Unavailable Trevor, A Charlotte FUR SEWER Unavailable Unavailable Trevor, A Charlotte FUR SEWER Unavailable Unavailable Trevor, A Charlotte FUR SEWER Unavailable Unavailable Re-disclosure Warning The records that you are about to access may contain information from federally-assisted alcohol or drug abuse programs. If such information is present, then the following federally mandated warning applies: This information has been disclosed to you from records protected by federal confidentiality rules (42 CFR part 2). The federal rules prohibit you from making any further disclosure of this information unless further disclosure is expressly permitted by the written consent of the person to whom it pertains or as otherwise permitted by 42 CFR part 2. A general authorization for the release of medical or other information is NOT sufficient for this purpose. The Federal rules restrict any use of the information to criminally investigate or prosecute any alcohol or drug abuse patient.The records that you are about to access may contain highly sensitive health information, the redisclosure of which is protected by Article 27-F of the [facility] Public Health law. If you continue you may have access to information: Regarding HIV / AIDS; Provided by facilities licensed or operated by the [facility] Office of Mental Health; or Provided by the [facility] Office for People With Developmental Disabilities. If such information is present, then the following [facility] mandated warning applies: This information has been disclosed to you from confidential records which are protected by state law. State law prohibits you from making any further disclosure of this information without the specific written consent of the person to whom it pertains, or as otherwise permitted by law. Any unauthorized further disclosure in violation of state law may result in a fine or care home sentence or both. A general authorization for the release of medical or other information is NOT sufficient authorization for further disc losure. Allergies and Adverse Reactions Type Description Substance Reaction Status Data Source(s ) Drug allergy POTOCIN POTOCIN [facility] y [facility] Family History Family Member Name Family Member Gender Family Member Status Date o f Status Description Data Source(s) Unknown Unknown Problem MEDENT ([facility], ) Unknown Unknown Problem MEDENT ([facility], ) Encounters Encounter Providers Location Date Indications Data [facility] [address] [place] [address] 04/22/2020 12:00:00 AM EST eCW1 ([facility]) Unknown [address] [facility] [address] 04/21/2020 12:00:00 AM EST eCW1 ([facility]) Outpatient Attender: RAMESH FARIA 04/15/2020 11:00:00 AM [facility] ( ESTOB) [facility] [address] [place] [address] 03/24/2020 12:00:00 AM EST eCW1 ([facility]) Unknown [address] [facility] [address] 03/10/2020 12:00:00 AM EST eCW1 ([facility]) Unknown [address] [facility] [address] 03/09/2020 12:00:00 AM EST eCW1 ([facility]) [facility] [address] [place] [address] 02/20/2020 12:00:00 AM EST eCW1 ([facility]) Unknown [address] [facility] [address] 01/30/2020 12:00:00 AM EST eCW1 ([facility]) ([facility]) [facility] [address] [place] [address] 01/22/2020 12:00:00 AM EST eCW1 ([facility]) [place] [address] [facility] [address] 12/30/2019 12:00:00 AM EDT [facility] Outpatient Attender: Charlotte CALZADA FP 12/22/2019 06:1 1:00 PM EDT [facility] [place] [address] [facility] [address] 12/18/2019 12:00:00 AM EDT eCW1 [facility]) Outpatient Attender: Charlotte DEWEY 12/16/2019 10:5 8:00 AM EDT [facility] Outpatient Attender: ELSI CALZADA FP 12/16/2019 10:48:01 A M EDT [facility] Outpatient Attender: ELSI CALZADA FP 12/16/2019 09:56:03 A M EDT [facility] Outpatient Attender: Charlotte DEWEY 12/16/2019 09:5 6:02 AM EDT [facility] Outpatient Attender: ELSI DEWEY 12/16/2019 09:01:02 A M EDT [facility] Outpatient Attender: ELSI DEWEY 11/12/2019 05:50:01 P M EDT [facility] Outpatient Attender: ELSI DEWEY 10/14/2019 03:58:00 P M EDT [facility] Outpatient Attender: Charlotte DEWEY 08/30/2019 11:0 4:00 AM EDT [facility] Outpatient Attender: Charlotte DEWEY 08/29/2019 01:3 2:01 PM EDT [facility] Outpatient Attender: ELSI DEWEY 08/22/2019 03:46:02 P M EDT [facility] Outpatient Attender: ELSI DEWEY 08/22/2019 03:15:01 P M EDT [facility] Outpatient Attender: ELSI BUSTAMANTEP FP 08/22/2019 03:13:01 P M EDT [facility] Outpatient Attender: ELSI BUSTAMANTEP FP 08/22/2019 03:12:00 P M EDT [facility] Outpatient Attender: ELSI BUSTAMANTEP FP 08/22/2019 11:52:00 A M EDT [facility] Outpatient Attender: Charlotte BUSTAMANTEP FP 08/22/2019 11:2 8:00 AM EDT [facility] Outpatient Attender: Charlotte BUSTAMANTEP FP 08/20/2019 11:1 2:01 AM EDT [facility] Outpatient Attender: ELSI BUSTAMANTEP FP 08/10/2019 12:14:40 A M EDT [facility] Outpatient Attender: ELSI BUSTAMANTEP FP 08/02/2019 11:05:00 A M EDT [facility] Outpatient Attender: Charlotte BUSTAMANTEP FP 07/08/2019 01:3 5:03 PM EDT [facility] Outpatient Referrer: Loida ANDREWS 06/18/2019 05:34:00 AM EDT [facility] Outpatient Attender: ELSI BUSTAMANTEP FP 06/10/2019 09:13:00 A M EDT [facility] Outpatient Attender: ELSI BUSTAMANTEP FP 06/08/2019 01:06:02 P M EDT [facility] Outpatient Attender: Charlotte BUSTAMANTEP FP 06/08/2019 01:0 6:01 PM EDT [facility] Outpatient Attender: ELSI BUSTAMANTEP FP 06/08/2019 01:06:00 P M EDT [facility] Outpatient Attender: Charlotte BUSTAMANTEP FP 06/08/2019 12:5 7:02 PM EDT [facility] Outpatient Attender: Charlotte BUSTAMANTEP FP 06/08/2019 12:1 1:01 PM EDT [facility] Outpatient Attender: ELSI BUSTAMANTEP FP 06/08/2019 12:11:00 P M EDT [facility] Outpatient Attender: Charlotte BUTSAMANTEP FP 06/08/2019 12:0 7:01 PM EDT [facility] Outpatient Attender: ELSI BUSTAMANTEP FP 06/08/2019 12:06:59 P M EDT [facility] Outpatient Attender: ELSI Trevor FUR SEWER FP 06/07/2019 08:36:02 A M EDT [facility] Outpatient Attender: Charlotte Trevor FUR SEWER FP 06/07/2019 08:3 6:01 AM EDT [facility] Outpatient Attender: ELSI Trevor FUR SEWER FP 06/05/2019 03:26:02 P M EDT [facility] Outpatient Attender: ELSI Trevor FUR SEWER FP 06/05/2019 01:10:01 P M EDT [facility] Outpatient Attender: Charlotte Trevor FUR SEWER FP 05/09/2019 10:4 2:00 AM EST [facility] Outpatient Attender: ELSI Murray FUR SEWER FP 05/09/2019 10:42:00 A M [address] [address] 05/02/2019 12:00:00 AM EST eCW1 ([facility]) [address] [address] 05/02/2019 12:00:00 AM EST eCW1 ([facility]) Outpatient Attender: Charoltte BUSTAMANTEP FP 04/30/2019 11:2 7:00 AM [facility] Outpatient Attender: Charlotte Trevor BUSTAMANTEP FP 04/30/2019 10:2 9:01 AM [facility] Outpatient Attender: ELSI Murray FUR SEWER FP 04/30/2019 10:22:02 A M [facility] Outpatient Attender: Charlotte BUSTAMANTEP FP 04/30/2019 10:2 2:01 AM [facility] Outpatient Attender: ELSI Murray FUR SEWER FP 04/30/2019 09:53:00 A M [facility] [address] [place] [address] [place] [address] 04/30/2019 12:00:00 AM EST eCW1 ([facility]) [facility] [address] [place] [address] [place] [address] 04/30/2019 12:00:00 AM EST eCW1 ([facility]) Outpatient Referrer: Loida ANDREWS 04/23/2019 09:19:00 PM [facility] Outpatient Attender: ELSI CALZADA FP 04/22/2019 01:26:00 P [facility] Outpatient Attender: Charlotte CALZADA FP 04/22/2019 07:5 8:04 AM [facility] Outpatient Attender: ELSI CALZADA FP 04/18/2019 12:00:23 A M [facility] [address] [place] [address], [place] [address] 04/18/2019 12:00:00 AM [place] [address] ([facility]) Outpatient Attender: ELSI CALZADA FP 04/17/2019 09:01:04 P [facility] Outpatient Attender: ELSI CALZADA FP 04/17/2019 02:23:00 P [facility] Outpatient Attender: ELSI CALZADA FP 04/17/2019 02:16:06 P [facility] Outpatient Attender: ELSI BUSTAMANTEP FP 04/17/2019 02:15:01 P [facility] Outpatient Attender: ELSI BUSTAMANTEP FP 04/17/2019 02:14:01 P [facility] Outpatient Attender: ELSI CALZADA FP 04/17/2019 10:40:02 A [facility] Outpatient Attender: ELSI CALZADA FP 04/17/2019 09:16:01 A [facility] Outpatient Attender: ELSI BUSTAMANTEP FP 04/16/2019 09:01:05 P [facility] Outpatient Referrer: Loida Ortega [facility] 04/12/2019 01:22:00 PM [facility] Outpatient Referrer: Loida ANDREWS 04/10/2019 09:07:00 PM [facility] Outpatient Attender: ELSI CALZADA FP 04/10/2019 09:22:01 A [facility] Outpatient Attender: Charlotte CALZADA FP 04/09/2019 03:5 3:03 PM [facility] [address] [facility] [address] 04/08/2019 12:00:00 AM EST eCW1 ([facility]) Outpatient Referrer: Loida Ortega CNM 04/04/2019 12:53:00 PM [facility] Outpatient Attender: [facility]SI [facility] 04/02/2019 09:53:00 A M [facility] Outpatient Attender: ELSI Murray FUR SEWER FP 04/01/2019 01:52:00 P M [facility] Att[facility]: [facility]/2019 01:51:00 P [place] [address] [address] 03/29/2019 12:00:00 AM EST eCW1 ([facility] [address] [address] 03/25/2019 12:00:00 AM EST [facility]CW1 ([facility] [address] [address] 03/25/2019 12:00:00 AM EST [facility]CW1 [facility] [address] [address] 03/12/2019 12:00:00 AM EST eCW1 ([facility]) [address] [address] 03/11/2019 12:00:00 AM EST eCW1 ([facility]) [address] [address] 03/08/2019 12:00:00 AM EST eCW1 [facility] [address] [address] 03/05/2019 12:00:00 AM EST eCW1 ([facility]) Emergency Attender: VINOD HERNANDEZ EMERGENCY ROOM-ER 2014 10:33:00 PM EST - 04/06/2014 11:21:00 PM [facility] Emergency Attender: ROGELIO GREENBERG 3 07:58:00 PM T - 11/10/2012 03:30:00 AM [facility] Medications Medication Brand Name Start Date Product Form Dose Route Admi nistrative Instructions Pharmacy Instructions Status Indications Reaction Description Data Source(s) Sucralfate 100 MG/ML Oral Suspension Sucralfate 1 GM/10ML Kwon cralfate 1 GM/10ML 04/22/2020 12:00:00 AM EST 10.0 {ml_on_an_empty_stomach} active Sucralfate 1 GM/10ML eCW1 ([facility]) Acetaminophen 325 MG / Oxycodone Hydroch loride 5 MG Oral Tablet [Percocet] Percocet 5-325 MG Percocet 5-325 MG 04/22/2020 12:00:00 AM EST 1 .0 {tablet_as_needed} active Percocet 5-32 5 MG eCW1 ([facility]) Amphetamine aspartate 5 MG / Amphetamine Sulfate 5 MG / Dextroamphetamine saccharate 5 MG / Dextroamphetamine Sulfate 5 MG Oral Tablet [Adderall] Adderall 20 MG Adderall 20 MG 03/24/2020 12:00:00 AM EST 1.0 {tablet} active Adderall 20 MG eCW1 ([facility]) Amphetamine aspartate 5 MG / Amphetamine Sulfate 5 MG / Dextroamphetamine saccharate 5 MG / Dextroamphetamine Sulfate 5 MG Oral Tablet [Adderall] Adderall 20 MG Adderall 20 MG 03/24/2020 12:00:00 AM EST 1.0 {tablet} active Adderall 20 MG eCW1 ([facility]) Amphetamine aspartate 5 MG / Amphetamine Sulfate 5 MG / Dextroamphetamine saccharate 5 MG / Dextroamphetamine Sulfate 5 MG Oral Tablet [Adderall] Adderall 20 MG Adderall 20 MG 03/24/2020 12:00:00 AM EST 1.0 {tablet} active Adderall 20 MG eCW1 ([facility]) 24 HR Amphetamine aspartate 6.25 MG / Am phetamine Sulfate 6.25 MG / Dextroamphetamine saccharate 6.25 MG / Dextroamphetamine Sulfate 6.25 MG Extended Release Oral Capsule [Adderall] Adderall XR 25 MG Adderall XR 25 MG 03/12/2020 12:00:00 AM EST active Adderall XR 25 MG eCW1 ([facility]) 24 HR Amphetamine aspartate 6.25 MG / Am phetamine Sulfate 6.25 MG / Dextroamphetamine saccharate 6.25 MG / Dextroamphetamine Sulfate 6.25 MG Extended Release Oral Capsule [Adderall] Adderall XR 25 MG Adderall XR 25 MG 03/12/2020 12:00:00 AM EST active Adderall XR 25 MG eCW1 ([facility]) 24 HR Amphetamine aspartate 6.25 MG / Am phetamine Sulfate 6.25 MG / Dextroamphetamine saccharate 6.25 MG / Dextroamphetamine Sulfate 6.25 MG Extended Release Oral Capsule [Adderall] Adderall XR 25 MG Adderall XR 25 MG 03/12/2020 12:00:00 AM EST active Adderall XR 25 MG eCW1 ([facility]) 24 HR Amphetamine aspartate 6.25 MG / Am phetamine Sulfate 6.25 MG / Dextroamphetamine saccharate 6.25 MG / Dextroamphetamine Sulfate 6.25 MG Extended Release Oral Capsule [Adderall] Adderall XR 25 MG Adderall XR 25 MG 03/12/2020 12:00:00 AM EST active Adderall XR 25 MG eCW1 ([facility]) 24 HR Amphetamine aspartate 6.25 MG / Am phetamine Sulfate 6.25 MG / Dextroamphetamine saccharate 6.25 MG / Dextroamphetamine Sulfate 6.25 MG Extended Release Oral Capsule [Adderall] Adderall XR 25 MG Adderall XR 25 MG 02/05/2020 12:00:00 AM EST active Adderall XR 25 MG eCW1 ([facility]) 24 HR Amphetamine aspartate 6.25 MG / Am phetamine Sulfate 6.25 MG / Dextroamphetamine saccharate 6.25 MG / Dextroamphetamine Sulfate 6.25 MG Extended Release Oral Capsule [Adderall] Adderall XR 25 MG Adderall XR 25 MG 02/05/2020 12:00:00 AM EST active Adderall XR 25 MG eCW1 ([facility]) 24 HR Amphetamine aspartate 6.25 MG / Am phetamine Sulfate 6.25 MG / Dextroamphetamine saccharate 6.25 MG / Dextroamphetamine Sulfate 6.25 MG Extended Release Oral Capsule [Adderall] Adderall XR 25 MG Adderall XR 25 MG 02/05/2020 12:00:00 AM EST active Adderall XR 25 MG eCW1 ([facility]) 24 HR Amphetamine aspartate 1.25 MG / Am phetamine Sulfate 1.25 MG / Dextroamphetamine saccharate 1.25 MG / Dextroamphetamine Sulfate 1.25 MG Extended Release Oral Capsule Amphetamine-Dextroamphet ER 5 MG Amphetamine- Dextroamphet ER 5 MG 01/01/2020 12:00:00 AM EDT 1.0 {capsule_in_ the_evening} suspended Amphetamine-Dextroam phet ER 5 MG eCW1 ([facility]) 24 HR Amphetamine aspartate 1.25 MG / Am phetamine Sulfate 1.25 MG / Dextroamphetamine saccharate 1.25 MG / Dextroamphetamine Sulfate 1.25 MG Extended Release Oral Capsule Amphetamine-Dextroamphet ER 5 MG Amphetamine- Dextroamphet ER 5 MG 01/01/2020 12:00:00 AM EDT 1.0 {capsule_in_ the_evening} suspended Amphetamine-Dextroam phet ER 5 MG eCW1 ([facility]) 24 HR Amphetamine aspartate 1.25 MG / Am phetamine Sulfate 1.25 MG / Dextroamphetamine saccharate 1.25 MG / Dextroamphetamine Sulfate 1.25 MG Extended Release Oral Capsule Amphetamine-Dextroamphet ER 5 MG Amphetamine- Dextroamphet ER 5 MG 01/01/2020 12:00:00 AM EDT 1.0 {capsule_in_ the_evening} suspended Amphetamine-Dextroam phet ER 5 MG eCW1 ([facility]) 24 HR Amphetamine aspartate 5 MG / Amphe tamine Sulfate 5 MG / Dextroamphetamine saccharate 5 MG / Dextroamphetamine Sulfate 5 MG Extended Release Oral Capsule [Adderall] Adderall XR 20 MG Adderall XR 20 MG 01/01/2020 12:00:00 AM EDT 1.0 {capsule_in_the_morning} suspended Adder all XR 20 MG eCW1 ([facility]) 24 HR Amphetamine aspartate 5 MG / Amphe tamine Sulfate 5 MG / Dextroamphetamine saccharate 5 MG / Dextroamphetamine Sulfate 5 MG Extended Release Oral Capsule [Adderall] Adderall XR 20 MG Adderall XR 20 MG 01/01/2020 12:00:00 AM EDT 1.0 {capsule_in_the_morning} suspended Adder all XR 20 MG eCW1 ([facility]) 24 HR Amphetamine aspartate 1.25 MG / Am phetamine Sulfate 1.25 MG / Dextroamphetamine saccharate 1.25 MG / Dextroamphetamine Sulfate 1.25 MG Extended Release Oral Capsule Amphetamine-Dextroamphet ER 5 MG Amphetamine- Dextroamphet ER 5 MG 01/01/2020 12:00:00 AM EDT 1.0 {capsule_in_ the_evening} active Amphetamine-Dextroam phet ER 5 MG eCW1 ([facility]) 24 HR Amphetamine aspartate 1.25 MG / Am phetamine Sulfate 1.25 MG / Dextroamphetamine saccharate 1.25 MG / Dextroamphetamine Sulfate 1.25 MG Extended Release Oral Capsule Amphetamine-Dextroamphet ER 5 MG Amphetamine- Dextroamphet ER 5 MG 01/01/2020 12:00:00 AM EDT 1.0 {capsule_in_ the_evening} suspended Amphetamine-Dextroam phet ER 5 MG eCW1 ([facility]) 24 HR Amphetamine aspartate 1.25 MG / Am phetamine Sulfate 1.25 MG / Dextroamphetamine saccharate 1.25 MG / Dextroamphetamine Sulfate 1.25 MG Extended Release Oral Capsule Amphetamine-Dextroamphet ER 5 MG Amphetamine- Dextroamphet ER 5 MG 01/01/2020 12:00:00 AM EDT 1.0 {capsule_in_ the_evening} active Amphetamine-Dextroam phet ER 5 MG eCW1 ([facility]) 24 HR Amphetamine aspartate 1.25 MG / Am phetamine Sulfate 1.25 MG / Dextroamphetamine saccharate 1.25 MG / Dextroamphetamine Sulfate 1.25 MG Extended Release Oral Capsule Amphetamine-Dextroamphet ER 5 MG Amphetamine- Dextroamphet ER 5 MG 01/01/2020 12:00:00 AM EDT 1.0 {capsule_in_ the_evening} suspended Amphetamine-Dextroam phet ER 5 MG eCW1 ([facility]) 24 HR Amphetamine aspartate 5 MG / Amphe tamine Sulfate 5 MG / Dextroamphetamine saccharate 5 MG / Dextroamphetamine Sulfate 5 MG Extended Release Oral Capsule [Adderall] Adderall XR 20 MG Adderall XR 20 MG 01/01/2020 12:00:00 AM EDT 1.0 {capsule_in_the_morning} suspended Adder all XR 20 MG eCW1 ([facility]) 24 HR Amphetamine aspartate 5 MG / Amphe tamine Sulfate 5 MG / Dextroamphetamine saccharate 5 MG / Dextroamphetamine Sulfate 5 MG Extended Release Oral Capsule [Adderall] Adderall XR 20 MG Adderall XR 20 MG 01/01/2020 12:00:00 AM EDT 1.0 {capsule_in_the_morning} active Adderal l XR 20 MG eCW1 ([facility]) 24 HR Amphetamine aspartate 5 MG / Amphe tamine Sulfate 5 MG / Dextroamphetamine saccharate 5 MG / Dextroamphetamine Sulfate 5 MG Extended Release Oral Capsule [Adderall] Adderall XR 20 MG Adderall XR 20 MG 01/01/2020 12:00:00 AM EDT 1.0 {capsule_in_the_morning} active Adderal l XR 20 MG eCW1 ([facility]) 24 HR Amphetamine aspartate 5 MG / Amphe tamine Sulfate 5 MG / Dextroamphetamine saccharate 5 MG / Dextroamphetamine Sulfate 5 MG Extended Release Oral Capsule [Adderall] Adderall XR 20 MG Adderall XR 20 MG 01/01/2020 12:00:00 AM EDT 1.0 {capsule_in_the_morning} suspended Adder all XR 20 MG eCW1 ([facility]) 24 HR Amphetamine aspartate 5 MG / Amphe tamine Sulfate 5 MG / Dextroamphetamine saccharate 5 MG / Dextroamphetamine Sulfate 5 MG Extended Release Oral Capsule [Adderall] Adderall XR 20 MG Adderall XR 20 MG 01/01/2020 12:00:00 AM EDT 1.0 {capsule_in_the_morning} active Adderal l XR 20 MG eCW1 ([facility]) 24 HR Amphetamine aspartate 1.25 MG / Am phetamine Sulfate 1.25 MG / Dextroamphetamine saccharate 1.25 MG / Dextroamphetamine Sulfate 1.25 MG Extended Release Oral Capsule Amphetamine-Dextroamphet ER 5 MG Amphetamine- Dextroamphet ER 5 MG 01/01/2020 12:00:00 AM EDT 1.0 {capsule_in_ the_evening} active Amphetamine-Dextroam phet ER 5 MG eCW1 ([facility]) 24 HR Amphetamine aspartate 5 MG / Amphe tamine Sulfate 5 MG / Dextroamphetamine saccharate 5 MG / Dextroamphetamine Sulfate 5 MG Extended Release Oral Capsule [Adderall] Adderall XR 20 MG Adderall XR 20 MG 01/01/2020 12:00:00 AM EDT 1.0 {capsule_in_the_morning} suspended Adder all XR 20 MG eCW1 ([facility]) 24 HR Amphetamine aspartate 5 MG / Amphe tamine Sulfate 5 MG / Dextroamphetamine saccharate 5 MG / Dextroamphetamine Sulfate 5 MG Extended Release Oral Capsule [Adderall] Adderall XR 20 MG Adderall XR 20 MG 01/01/2020 12:00:00 AM EDT 1.0 {capsule_in_the_morning} suspended Adder all XR 20 MG eCW1 ([facility]) 24 HR Amphetamine aspartate 1.25 MG / Am phetamine Sulfate 1.25 MG / Dextroamphetamine saccharate 1.25 MG / Dextroamphetamine Sulfate 1.25 MG Extended Release Oral Capsule Amphetamine-Dextroamphet ER 5 MG Amphetamine- Dextroamphet ER 5 MG 01/01/2020 12:00:00 AM EDT 1.0 {capsule_in_ the_evening} suspended Amphetamine-Dextroam phet ER 5 MG eCW1 ([facility]) Mupirocin 0.02 MG/MG Topical Ointment Mupirocin 07/08/2019 12:00:00 AM EDT TOPICAL active MEDENT ([facility], ) 113-14 mcg/actuation 01/30/2019 12:00:00 AM EST aerosol powdr breath activated 1 INHALE ONE PUFF BY MOUTH TWICE A DAY INHA LE ONE PUFF BY MOUTH TWICE A DAY SOLD: 03/11/2019 [facility] 113-14 mcg/actuation 01/30/2019 12:00:00 AM EST aerosol powdr breath activated 1 INHALE ONE PUFF BY MOUTH TWICE A DAY INHA LE ONE PUFF BY MOUTH TWICE A DAY SOLD: 04/21/2019 [facility] Insurance Providers Payer name Policy type / Coverage type Policy ID Covered green party ID Covered green party's relationship to sosa Policy Sosa Plan Information [facility] [id number] SP [id number] UNHC COMMUNITY PLAN MCDHMO [id number] SP [id number] [place] [id number] S [id number] [facility] MEDICAID [id number] S [id number] [facility] [id number] S [id number] [facility] MEDICAID [id number] S [id number] [facility](MCAID) O [id number] S [id number] UNHC COMMUNITY PLAN MCDHMO [id number] SP [id number] EMEDNY [id number] SP [id number] [facility] ODESSA [id number] SP [id number] Medicaid S [id number] S [id number] Managed Care - C Community Plan P [id number] S [id number] Medicaid S [id number] S [id number] UNHC COMMUNITY PLAN MCDHMO [id number] SP [id number] [facility] ODESSA [id number] SP [id number] [facility](MCAID) O [id number] S [id number] Managed Care - C Community Plan P [id number] S [id number] [facility]-Medicaid [id number] ANSI-Medicaid [id number] ANSI-Medicaid [id number] ANSI-Medicaid [id number] ANSI-Medicaid [id number] ANSI-Medicaid [id number] ANSI-Medicaid [id number] ANSI-Medicaid [id number] ANSI-Medicaid [id number] ANSI-Medicaid [id number] ANSI-Medicaid [id number] ANSI-Medicaid [id number] ANSI-Medicaid [id number] ANSI-Medicaid [id number]-6bgk-85q6-10lz-[id number] ANSI-Medicaid [id number] ANSI-Medicaid [id number] ANSI-Medicaid [id number] ANSI-Medicaid [id number] ANSI-Medicaid [id number] ANSI-Medicaid [id number] ANSI-Medicaid [id number] ANSI-Medicaid [id number] ANSI-Medicaid [id number] ANSI-Medicaid [id number] ANSI-Medicaid [id number] ANSI-Medicaid [id number] ANSI-Medicaid [id number] ANSI-Medicaid [id number] ANSI-Medicaid [id number] ANSI-Medicaid [id number]-[id number] ANSI-Medicaid [id number]-[id number] ANSI-Medicaid [id number] ANSI-Medicaid [id number]-e826-3j86-xt9h-[id number] ANSI-Medicaid [id number]-x30r-[id number] ANSI-Medicaid [id number] ANSI-Medicaid [id number]-[id number] [facility] Health Maintenance Organization (HMO) [id number] [id number] [id number] Self [id number] Managed Care - Community Plan [facility] P [id number] S [id number] MEDICAID [id number] SP [id number] ANSI-Medicaid [id number] ANSI-Medicaid [id number] ANSI-Medicaid [id number] ANSI-Medicaid [id number]-[id number] ANSI-Medicaid [id number]-6xg5-[id number] ANSI-Medicaid [id number] ANSI-Medicaid [id number]-mjgf-9x34-53jd-[id number] ANSI-Medicaid [id number] ANSI-Medicaid [id number]-93ke-7wk6-88g1-[id number] ANSI-Medicaid [id number] ANSI-Medicaid [id number]-[id number] ANSI-Medicaid [id number] ANSI-Medicaid [id number] ANSI-Medicaid [id number] ANSI-Medicaid [id number]-800n-[id number] [facility] I [id number] Self [id number] ANSI-Medicaid [id number] ANSI-Medicaid [id number] ANSI-Medicaid [id number]-[id number] ANSI-Medicaid [id number] ANSI-Medicaid [id number]-8160-5n4r-60ns-[id number] ANSI-Medicaid [id number]-[id number]-[id number] ANSI-Medicaid [id number] ANSI-Medicaid [id number]-i24r-89uu-[id number] ANSI-Medicaid [id number]-[id number]-l428-7q6v-e7ih-b0mh4f9j6m0s ANSI-Medicaid [id number]-[id number] ANSI-Medicaid [id number] ANSI-Medicaid [id number]-46z4-02o3-[id number] ANSI-Medicaid [id number]-[id number] ANSI-Medicaid [id number] ANSI-Medicaid [id number]-la04-9h8z-[id number] ANSI-Medicaid [id number]-[id number] ANSI-Medicaid [id number]-[id number] ANSI-Medicaid [id number] 1933ulfp-[id number]-[id number] ANSI-Medicaid [id number] ANSI-Medicaid [id number]-[id number] ANSI-Medicaid [id number] [facility] Health Maintenance Organization ([facility]) [id number] Self [id number] ANSI-Medicaid [id number] ANSI-Medicaid [id number]-[id number] ANSI-Medicaid [id number] ANSI-Medicaid [id number] ANSI-Medicaid [id number] ANSI-Medicaid [id number] ANSI-Medicaid [id number]-[id number] ANSI-Medicaid [id number] ANSI-Medicaid [id number]-uit0-[id number] [facility] COMMUNITY PLAN [facility] [id number] ANSI-Medicaid [id number] ANSI-Medicaid [id number]-[id number] ANSI-Medicaid [id number] ANSI-Medicaid [id number] ANSI-Medicaid [id number]-hov0-2w27-29cl-[id number] ANSI-Medicaid [id number]-[id number] ANSI-Medicaid [id number]-[id number] ANSI-Medicaid [id number] ANSI-Medicaid [id number] OTHER1 [facility] [id number] Managed Care - Community Plan [facility] P [id number] S [id number] ANSI-Medicaid [id number] ANSI-Medicaid [id number]-[id number] ANSI-Medicaid [id number] ANSI-Medicaid [id number] ANSI-Medicaid [id number] [facility] MEDICAID [id number] Ingrid [id number] [facility] MEDICAID PI PI UN COMMUNITY PLAN [facility] [id number] ANSI-Medicaid [id number] ANSI-Medicaid [id number] ANSI-Medicaid [id number] ANSI-Medicaid [id number] ANSI-Medicaid [id number] ANSI-Medicaid [id number] ANSI-Medicaid [id number] ANSI-Medicaid [id number] ANSI-Medicaid [id number] ANSI-Medicaid [id number] ANSI-Medicaid [id number] ANSI-Medicaid [id number] ANSI-Medicaid [id number] ANSI-Medicaid [id number] ANSI-Medicaid [id number] ANSI-Medicaid [id number] ANSI-Medicaid [id number] ANSI-Medicaid [id number] ANSI-Medicaid [id number] ANSI-Medicaid [id number] ANSI-Medicaid [id number] ANSI-Medicaid [id number] ANSI-Medicaid [id number] ANSI-Medicaid [id number] ANSI-Medicaid [id number] ANSI-Medicaid [id number] ANSI-Medicaid [id number] ANSI-Medicaid [id number] ANSI-Medicaid [id number] ANSI-Medicaid [id number] ANSI-Medicaid [id number] ANSI-Medicaid [id number] ANSI-Medicaid [id number] ANSI-Medicaid [id number] ANSI-Medicaid [id number] ANSI-Medicaid [id number] ANSI-Medicaid [id number] ANSI-Medicaid [id number] ANSI-Medicaid [id number] ANSI-Medicaid [id number] ANSI-Medicaid [id number] ANSI-Medicaid [id number] ANSI-Medicaid [id number] ANSI-Medicaid [id number] [employer] COMM[employer]ITY [employer]AN MCDHMO [id number] SP [id number] [facility] Health Maintenance Organization (HMO) [id number] Self [id number] [facility]/MCR Medigap Part B [id number] Self [id number] [facility]/MCR Health Maintenance Organization (HMO) [id number] Self [id number] HC COMMUNITY PLAN MCDHMO [id number] SP [id number] [facility] O [id number] S [id number] UNHC COMMUNITY PLAN MCDHMO [id number] SP [id number] [employer] BS Medigap Part B [id number] Self [id number] [facility]/MCR Medigap Part B [id number] Self [id number] [employer] BCBS Medigap Part B [id number] Self [id number] [facility]/MCR Health Maintenance Organization (HMO) [id number] Self [id number] SELF PAY O UNAVAILABLE S UNAVAILA BLE MEDICAID [id number] SP [id number] UNHC COMMUNITY PLAN MCDHMO [id number] SP [id number] [facility] I [id number] Self [id number] UNHC COMMUNITY PLAN MCDHMO [id number] SP [id number] [facility] COMM PLAN [place] W [id number] S [id number] MEDICAID GME W [id number] S [id number] [facility] Hmo Commercial Self United [facility]CR/Community [facility] Health Maintenance Organization (HMO) Self [facility] Community Plan Health Maintenance Organization (HMO) Self MEDICAID [id number] SP [id number] BCBS [facility] BC [id number] S [id number] BLUE CROSS [employer] PLAN [id number] SP [id number] SELF PAY UNAVAILABLE UNAVAILA BLE MEDICAID P [id number] S [id number] HMO BLUE [id number] SP [id number] Problems, Conditions, and Diagnoses Code Display Name Description Problem Type Effective Dates Data Source(s) O99.[id number] atus complicating , second trimester Problem 03/24/2020 12:00:00 AM EST eCW1 ([facility]) O99.841 [id number] Previous gastric byp ass complicating in first trimester, antepartum Problem 01/22/2020 12:00:00 AM EST eCW1 ([facility]ly [facility]) Z34.80 care Supervision of other normal P roblem 01/17/2020 12:00:00 AM EST eCW1 ([facility]) F90.9 [id number] ADHD Problem 01/01/2020 12:00:00 AM ED T eCW1 ([facility]) 626.8 Missed period Missed period 12/16/2019 09:55:42 AM EDT [facility] 782.1 Eruption Eruption 11/12/2019 05:49:17 PM ED T [facility] R58 Hemorrhage, not elsewhere classified Ecchymosis 08/22/2019 03:44:50 PM EDT [facility] 724.2 Low back pain Low back pain 08/22/2019 03:44:50 PM EDT [facility] 268.9 vitamin D deficiency vitamin D deficiency 06/07 01:05:19 PM EDT [facility] 998.59 Infection following a procedure, deep in cisional surgical site, sequela Infection following a procedure, deep incisional surgical site, sequela 06/07/2019 08:35:28 AM EDT [facility] R52 Pain, unspecified Pain of lymph node 06/07/2019 08:35:28 AM EDT [facility] V70.0 Health Screening Health Screening 06/05/2019 03 :24:34 PM EDT [facility] 998.59 Infection following a proced ure, superficial incisional surgical site, initial encounter Infection following a procedure, superfi cial incisional surgical site, initial encounter 06/05/2019 03:24:34 PM EDT [facility] 787.01 Nausea with vomiting, unspecified Nausea with vomiting , unspecified 06/05/2019 03:24:34 PM EDT [facility] 780.79 Other fatigue Other fatigue 06/05/2019 03:24:34 PM EDT [facility] V72.84 Encounter for other preprocedural examin ation Encounter for other preprocedural examination 04/30/2019 10:21:10 AM EST [facility] [id number] Mild persistent asthma, uncomplicated Mi ld persistent asthma, uncomplicated 04/17/2019 10:38:38 AM [facility] 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 04/17/2019 10:38:38 AM [facility] V45.86 Bariatric surgery status Bariatric surgery status 04/17/2019 10:38:38 AM [facility] Surgeries/Procedures Procedure Description Date Indications Data Source(s) Reduction Mammaplasty (Female Only) 05/09/2019 12:00:0 0 AM EST [facility] ([facility], ) Results ID Date Data Source [id number] 01/16/2020 12:00:00 AM EST [facility] Name Value Range Interpretation Code Description Data Feli rce(s) Supporting Document(s) SARS coronavirus 2 RNA [Presence] in Res piratory specimen by ARMIN with probe detection [facility] This lab was ordered by Cherrie shore Hai and reported by [facility]. ID Date Data Source [id number] 12/16/2019 01:11:44 PM EDT [facility] Labs In-House Blood TestsDate/Time Colle cted: December 16, 2019 11:05 AMTest Result Reference Range Normal ValueComments: Blood drawn in office. Taken from [facility]. Tolerated well. Nohemy Ching MA, December 16, 2019 1:13 PMAssessment & Plan Orders:[id number] Vst-Est Level I [CPT-70669] 60075 - Venipuncture [CPT-32148] Name Value Range Interpretation Code Description Data Feli rce(s) Supporting Document(s) ID Date Data Source [id number] 11/12/2019 04:52:37 PM EDT [facility] Measurements & CalculationsHeight: 62 inches (5 ft. 2 in.) 157.48 cm Weight: 185 pounds 2 oz. 84.15 kg Body Mass Index (BMI): 33.98BMI Interpretation: ObeseBody Surface Area (BSA): 1.85Weight Management Education Done (Nutrition/Physical Activity)Vital SignsTemperature: 97.8FPulse Rate: 86 beats/minuteRespiratory Rate: 16 respirati ons/minuteBlood Pressure: 102/71 right arm sitting automaticO2 Saturation: 99% room airVital Signs performed by: Gregorio Kent LPN, November 12, 2019 4:59 PMInitial Intake Information From: patientRoom #: 9Infectious Disease / Travel ScreeningRecent travel for you or any close contacts? NoHave you had any close contact with anyone diagnosed with or under investigation for COVID-19 (coronavirus)? NoFever? NoRespiratory symptoms: cough, cold, congestion, shortness of breath, difficulty breathing? NoLoss of smell? NoLoss of taste? NoSmoking, Tobacco, Vaping or Smoke Exposure StatusSmoke Status: never smokerTobacco Use: NoDo you vape? NoPassive Smoke Exposure: NoMenstrual HistoryLast Menstrual Period (LMP): 10/19/2019Any possibility of ? YesHealthcare HistorySince your last office visit...Have you been admitted to the hospital? NoHave you been to an emergency room (ER) or urgent care clinic? NoHave you seen another healthcare provider? Yes - [facility] Have you seen a dentist? Yes - NOCOIntake performed by: Gregorio Kent LPN, November 12, 2019 4:55 PMRate Your HealthIn general, would you say your health is? GoodPain AssessmentAre you currently having any pain which... You would like your provider to address? Yes Affects your activity level? YesDepression Screening - PHQ-2Over the last two weeks, have you... Had little interest or pleasure in doing things? Not at all Been feeling down, depressed, or hopeless? Not at all PHQ-2 Score: 0Anxiety Screening - TRE-2Over the last two weeks, have you been... Feeling nervous, anxious, or on edge? Not at all Unable to stop or control worrying? Not at all TRE-2 Score: 0Food InsecurityWithin the past year...Did you worry whether your food would run out before you got money to buy more? Never trueWas there a time when the food you bought didn't last and you didn't have money to get more? Never truePatient Learning & Communication Needs Preferred learning style: by experiencePossible barriers: nonePatient's Language used in visit: YesLanguage: Kenyan Pain AssessmentPain ScaleNumeric Rating Scale: 5 / 10Location: lower backDuration: chronicFrequency: DailyCharacter/Quality: aching, throbbing and pressureIs the pain radiating? NoScreening, Brief Intervention, & Referral to Treatment (SBIRT)Pre-Screening Questions How many times have you have 4 or more drinks in a day? 0How many times have you used an illegal drug or used a prescription medication for a non- medical reason? 0Performed by: Gregorio Kent LPN, November 12, 2019 4:56 PMPatient History Medical History:Pseudotumor cerebriAnxietyDepressionADHAPTSDBipolar 2 Due 10/22-Induced 10/14-5 due 03/2017AsthmaSurgical History:Gallbladder remopovalGastric Bypass 03/08/2018Cesarean section [id number] reduction-may 2019 Family History:Anxiety (Mother) defects (Mother)Depression (Mother)Schizophrenia (Mother)Depression (Brother)Substance abuse (Brother)Heart disease (Maternal Grandmother)Hypertension (Maternal Grandmother)Diabetes (Maternal Grandmother)Stroke (Maternal Grandmother)Social/Personal History: Chief Complaintallergy testing referral RM 9 History of Present Illness (HPI)29 yo female PT here today to discuss being referred to get allergy testing. Pt states she is has chronic lower back pain. Pt states she is taking all medications with no side effects or issues. Pt states skin changes for about 4 months. Pt states rash to arms, legs, chest and back. HPI performed by: Charlotte CALZADA, November 12, 2019 5:37 PMTransitions of Care InboundProblem ReviewProblem List was reviewed and/or updated during this visit.Medication Reconciliation & ReviewMedication List was reviewed and/or updated during this visit, including review of any [id number]-[id number] medications, herbal therapies, and/or supplements.Allergy ReviewAllergy List was reviewed and/or updated during this visit.Adult Preventive CareProvider Calculated and Reviewed all Clinical Protocols for patient today. Labs/Meds/Other Counseling-Nutrition and Physical Activity:BMI Interpretation: Obese (11/12/2019) Counseling: Done (11/12/2019) Physical Activity: Done (11/12/2019)Review of Systems General: Denies loss of appetite, chills, dizziness, fatigue, fever, continued fever, headache, feeling ill, sweats, night sweats, sleep disturbances, weight loss. Eyes: Denies blurring of vision, double vision, irritation, discharge, vision loss, eye pain, eye swelling, droopy eyelid, sensitivity to light, redness, itching. Ears/Nose/Throat: Denies earache, ear discharge, ringing in ears, decreased hearing, nasal congestion, nosebleeds, runny nose, sore throat, hoarseness, difficulty swallowing, dry mouth, tooth pain, bleeding gums, swollen glands. Cardiovascular: Denies chest pain, palpitations, feeling faint, trouble breathing w/exertion, SOB upon lying down, SOB at night, peripheral edema, elevated blood pressure, decreased heart rate. Respiratory: Denies cough, difficulty breathing, shortness of breath, excessive sputum, coughing up blood, wheezing, chest pain. Breast: Denies discoloration, tenderness, breast changes, breast lump, nipple discharge. Gastrointestinal: Denies nausea, vomiting, bleeding, burning, itching, irritation, cramps, diarrhea, constipation. Genitourinary: Denies urinary incontinence, pain with urination, burning with urination, urinary frequency, urinary hesitancy, urinary urgency, urinary urgency at night, incomplete emptying, blood in urine. Musculoskeletal: Complains of back pain. chronic painSkin: Complains of rash. Denies hives, redness, itching, dryness, nail changes, suspicious lesions, athlete's f oot, rash on palms, rash on bottom of feet. Neurologic: Denies muscle impairment, weakness, numbness/tingling, seizures, slurred speech, feeling faint, tremors, vertigo, paralysis on one side, paralysis on both sides. Psychiatric: Denies depression, anxiety, memory loss, mental disturbance, suicidal ideation, homicidal ideation, hallucinations, paranoia, feeling stressed, hearing voices. Endocrine: Denies cold intolerance, heat intolerance, excessive thirst, excessive hunger, excessive urination, weight loss, weight gain. Physical ExamGeneral Appearance: well nourished, well hydrated, no acute distressEyes, External: conjunctivae and lids normal, EOMIRespiratory, Auscultation: clear to auscultation bilaterally; no rales, rhonchi, or wheezesRespiratory, Effort: no intercostal retractions or use of accessory musclesCardiovascular, Auscultation: S1, S2 audible; no murmur, rub, or gallop; RRRPeripheral Circulation: no clubbing, cyanosis, edema, or varicositiesAbdomen: soft, non-tender, no masses, bowel sounds normalGait & Station: normalSkin, Inspection: rash arms, legs, back, chestOrientation: oriented to time, place, and personMood & Affect: no depression, anxiety, or agitationJudgment & Insight: intactCare Management Plan Transitions of CareInboundRate Your HealthIn general, would you say your health is? GoodAssessment & Plan Problems:Added: Eruption (ICD-782.1) ([id number]) Assessment: Instructions: We have sent a prescription to your pharmacy today. Please use medication as prescribed. Please report any major side effects.Assessment not Saved Eruption ([id number]): Patient Instructions/Care Plan: Eruption: We have sent a prescription to your pharmacy today. Please use medication as prescribed. Please report any major side effects. Plan developed in collaboration with patient and/or familyMedications:VOLTAREN 1 % TRANSDERMAL GELVITAMIN D (ERGOCALCIFEROL) 38138 UNIT ORAL CAPSULEVITAMIN D TABLETFLONASE ALLERGY RELIEF 50 MCG/ACT NASAL SUSPENSIONVENTOLIN HFA 108 (90 BASE) MCG/ACT INHALATION AEROSOL SOLUTIONADDERALL 20 MG ORAL TABLETADDERALL 10 MG ORAL TABLETZOLOFT 50 MG ORAL TABLETMedication Changes:New Prescription:BETAMETHASONE DIPROPIONATE 0.05 % EXTERNAL CREAM-apply to affected areas twice daily. Bilat hands and forearm. Qty: 2[Tube] Refills: 1 Method: ElectronicAllergies:AMOXICILLIN (Critical)* POTOCIN (Critical)* SEASONAL (Mild)Orders:Allergy Consult [CPT-00219] Adult - Ofc Vst, EST, Level III [CPT-26096] Follow-Up Return to clinic: 4-6 weeks for follow up. Clinical Visit Summary Completed Name Value Range Interpretation Code Description Data Feli rce(s) Supporting Document(s) ID Date Data Source [id number] 08/22/2019 03:10:28 PM EDT [facility] Measurements & CalculationsHeight: 62 inches (5 ft. 2 in.) 157.48 cm Weight: 185 pounds 4 oz. 84.20 kg Body Mass Index (BMI): 34.01BMI Interpretation: ObeseBody Surface Area (BSA): 1.85Weight Management Education Done (Nutrition/Physical Activity)Vital SignsTemperature: 98.0F 36.67C tympanic Pulse Rate: 91 beats/minut eRespiratory Rate: 17 respirations/minuteBlood Pressure: 104/69 right arm sitting automaticO2 Saturation: 98% Vital Signs performed by: Keely Lebron LPN, August 22, 2019 3:10 PMVital Signs performed by: Bill HERNANDEZ, August 22, 2019 3:35 PMInitial Intake Information From: patientInfectious Disease / Travel ScreeningRecent travel for you or any close contacts? NoHave you had any close contact with anyone diagnosed with or under investigation for COVID-19 (coronavirus)? NoFever? NoRespiratory symptoms: cough, cold, congestion, shortness of breath, difficulty breathing? NoLoss of smell? NoLoss of taste? NoSmoking, Tobacco, Vaping or Smoke Exposure StatusSmoke Status: never smokerTobacco Use: NoDo you vape? NoMenstrual HistoryLast Menstrual Period (LMP): 2014LM History: ApproximateAny possibility of ? NoComments: nexplanonHealthcare HistorySince your last office visit...Have you been admitted to the hospital? NoHave you been to an emergency room (ER) or urgent care clinic? Yes - bruising on back/back painEmergency room (ER) or urgent care date reported today: 08/19/2019Have you seen another healthcare provider? NoHave you seen a dentist? Yes - ncfhcIntake performed by: Keely Lebron LPN, August 22, 2019 3:15 PMRate Your HealthIn general, would you say your health is? FairPain AssessmentAre you currently having any pain which... You would like your provider to address? Yes Affects your activity level? YesDepression Screening - PHQ-2Over the last two weeks, have you... Had little interest or pleasure in doing things? Not at all Been feeling down, depressed, or hopeless? Not at all PHQ-2 Score: 0Anxiety Screening - TRE-2Over the last two weeks, have you been... Feeling nervous, anxious, or on edge? Several days Unable to stop or control worrying? Several days TRE-2 Score: 2Food InsecurityWithin the past year...Did you worry whether your food would run out before you got money to buy more? NoWas there a time when the food you bought didn't last and you didn't have money to get more? NoGeneralized Anxiety Disorder 7-Item Screening (TRE-7)Answer Guide:0 = Not at all1 = Several days2 = Over half the days3 = Nearly every dayOver the last 2 weeks, how often have you been bothered by the following problems?Feeling nervous, anxious, or on edge: 1Not being able to stop or control worryinWorrying too much about different things: 1Trouble relaxinBeing so restless that it's hard to sit still: 3Becoming easily annoyed or irritable: 2Feeling afraid as if something awful might happen: 1Answer Guide:0 = Not difficult at all1 = Somewhat difficult2 = Very difficult3 = Extremely difficultHow difficult have these made it for you to do your work, take care of things at home, or get along with other people? 2GAD-7 Screening Results TRE-2 Score: 2GAD-7 Score: 12Functional Impairment: Very difficultRecommendation: Moderate anxietyPain AssessmentPain ScaleNumeric Rating Scale: 7 / 10Location: lower backOnset: 08/17/2019Duration: 4-7 daysFrequency: DailyCharacter/Quality: sharp, stabbing and throbbingIs the pain radiating? YesTo what body part(s) is the pain radiating? up back when movingPatient History Medical History:Pseudotumor cerebriAnxietyDepressionADHAPTSDBipolar 2 Due 10/22-Induced 10/14-5 due 03/2017AsthmaSurgical History:Gallbladder remopovalGastric Bypass 03/08/2018Cesarean section [id number] reduction-may 2019 Family History:Anxiety (Mother) defects (Mother)Depression (Mother)Schizophrenia (Mother)Depression (Brother)Substance abuse (Brother)Heart disease (Maternal Grandmother)Hypertension (Maternal Grandmother)Diabetes (Maternal Grandmother)Stroke (Maternal Grandmother)Social/Personal History: [facility] Complaint[facility].History of Present Illness (HPI)29 yo female pt presents today for [facility] ED discharge for back pain. Pt states the pain is in her lower back and radiates up back when moving. Pt states ian found large bruise on back on 08/19/2019 which prompted her to go to the ED. States she has no idea how she got the bruise. States she has had mysterious bruises in the past. Pt was prescribed Methocarbamol and Voltaren gel. States Voltaren needs a prior auth: patient unable to take steroids or oral anti-inflammatories due to gastric bypass status, no relief with bengay, icy/hot, heat/ice, rest, muscle rub. HPI performed by: Bill HERNANDEZ, August 22, 2019 3:38 PMTransitions of Care InboundAdult Preventive CareLabs/Meds/Other Counseling-Nutrition and Physical Activity:BMI Interpretation: Obese (08/22/2019) Counseling: Done (08/22/2019) Physical Activity: Done (08/22/2019)Review of Systems General: Denies loss of appetite, chills, dizziness, fatigue, fever, headache, feeling ill. Cardiovascular: Denies chest pain, palpitations, feeling faint. Respi ratory: Denies cough, difficulty breathing, shortness of breath. Gastrointestinal: Denies nausea, vomiting, diarrhea, constipation, pain or discomfort, blood in stool, black or tarry stools. Musculoskeletal: Complains of see HPI, back pain, muscle aches, stiffness. Denies recent injury. Skin: Denies rash, redness, itching. Neurologic: Denies weakness, numbness/tingling, feeling faint. Heme/Lymphatic: Complains of abnormal bruising. Denies bleeding, enlarged lymph nodes. Physical ExamGeneral Appearance: well nourished, well hydrated, no acute distressEyes, External: conjunctivae and lids normal, EOMIRespiratory, Auscultation: clear to auscultation bilaterally; no rales, rhonchi, or wheezesCardiovascular, Auscultation: S1, S2 audible; no murmur, rub, or gallop; RRRPeripheral Circulation: no clubbing, cyanosis, edema, or varicositiesAbdomen: soft, non-tender, no masses, bowel sounds normalGait & Station: normalBack: midline, straight, mild pain to palpation of lumbar spine without vertebral crepitus or stepoff, no palpable spasmSkin, Inspection: no rashes, lesions, or ulcerations, large softball sized flat ecchymosis on lumbar central spine that is round and sparing the centerOrientation: oriented to time, place, and personMood & Affect: no depression, anxiety, or agitationJudgment & Insight: intactCare Management Plan Transitions of CareInboundRate Your HealthIn general, would you say your health is? FairAssessment & Plan Problems:Added: Low back pain (ICD-724.2) (DKQ41-G23.5) Assessment: Instructions: Supportive measures: rest, ice/heat, muscle rub/massage, Robaxin and Voltaren as prescribed, tylenol as needed. Consider physical therapy and/or chiropractic if pain continues.Ecchymosis (ICD-459.89) ([id number]) Assessment: Instructions: Unclear origin. Appears to be improving. Monitor for any worsening symptoms.Patient Instructions/Care Plan: Low back pain: Supportive measures: rest, ice/heat, muscle rub/massage, Robaxin and Voltaren as prescribed, tylenol as needed. Consider physical therapy and/or chiropractic if pain continues.Ecchymosis: Unclear origin. Appears to be improving. Monitor for any worsening symptoms. Plan developed in collaboration with patient and/or familyMedication Changes:New Prescription:VOLTAREN 1 % TRANSDERMAL GEL- Apply to low back up to three times daily prn pain Qty: 1[Tube] Refills: 1 Method: ElectronicRemoved:* CLINDAMYCIN 300 MG-three times daily, ACETAZOLAMIDE ER 500 MG ORAL CAPSULE EXTENDED RELEASE 12 HOUR-take 1 cap po dailyOrders:Adult - Ofc Vst, EST, Level III [CPT-07689] Follow-Up Return to clinic: as needed Clinical Visit Summary CompletedMedications:VOLTAREN 1 % TRANSDERMAL GEL (DICLOFENAC SODIUM) Apply to low back up to three times daily prn pain #1[Tube] x 1 Route:TRANSDERMAL Entered and Authorized by: Bill HERNANDEZ Method used: Electronically to [facility] (retail) [address] [place] [address] Note to Pharmacy: Route: TRANSDERMAL; Indications: LOW BACK PAIN;ECCHYMOSIS RxID: [id number] signed by Bill HERNANDEZ on 08/29/2019 at 1:31 PM Name Value Range Interpretation Code Description Data Feli rce(s) Supporting Document(s) ID Date Data Source [id number] 06/07/2019 08:15:53 AM EDT [facility] Measurements & CalculationsHeight: 62 inches 157.48 cm Weight: 177 pounds 80.45 kg Body Mass Index (BMI): 32.49BMI Interpretation: ObeseBody Surface Area (BSA): 1.82Weight Management Education Done (Nutrition/Physical Activity)Vital SignsTemperature: 98.7F tympanic Pulse Rate: 89 beats/minuteRespiratory Rate: 20 respirations/minuteBlood Pressure: 107/77 left arm sitting automaticO2 Saturation: 98% room airVital Signs performed by: Luis Gill MA, June 07, 2019 8:21 AMInitial Intake Information from: [facility] #: 14Smoking, Tobacco, Vaping or Smoke Exposure StatusSmoke Status: never smokerDo you vape? NoPassive Smoke Exposure: NoMenstrual HistoryAny possibility of ? NoComments: nexplanonHealthcare HistorySince your last office visit...Have you been admitted to the hospital? NoHave you been to an emergency room (ER) or urgent care clinic? Yes - [facility] ERHave you seen another healthcare provider? NoHave you seen a dentist? NoIntake performed by: Luis Gill MA, June 07, 2019 8:17 AMRate Your HealthIn general, would you say your health is? GoodDepression Screening - PHQ-2Over the last two weeks, have you... Had little interest or pleasure in doing things? Not at all Been feeling down, depressed, or hopeless? Not at all PHQ-2 Score: 0Anxiety Screening - TRE-2Over the last two weeks, have you been... Feeling nervous, anxious, or on edge? Not at all Unable to stop or control worrying? Not at all TRE-2 Score: 0Infectious Disease / Travel ScreeningRecent travel for you or any close contacts? NoHave you had any close contact with anyone diagnosed with or under investigation for COVID-19 (coronavirus)? NoHave you had any of the following symptoms recently? Fever? NoRespiratory symptoms: cough, cold, congestion, shortness of breath, difficulty breathing? NoScreening, Brief Intervention, & Referral to Treatment (SBIRT)Pre- Screening Questions How many times have you have 4 or more drinks in a day? 0How many times have you used an illegal drug or used a prescription medication for a non-medical reason? 0Performed by: Luis Gill MA, June 07, 2019 8:18 AMPatient History Medical History:Pseudotumor cerebriAnxietyDepressionADHAPTSDBipolar 2 Due 10/22-Induced 10/14-5 due 03/2017AsthmaSurgical History:Gallbladder remopovalGastric Bypass 03/08/2018Cesarean section x2 Family History:Anxiety (Mother) defects (Mother)Depression (Mother)Schizophrenia (Mother)Depression (Brother)Substance abuse (Brother)Heart disease (Maternal Grandmother)Hypertension (Maternal Grandmother)Diabetes (Maternal Grandmother)Stroke (Maternal Grandmother)Social/Personal History: Chief Complaintpt has lump on neck History of Present Illness (HPI)I, Luis Gill MA, am scribing for, and in the presence of, Kain Dickens, pt here today had labs drawn in office. pt complains of two lumps. one on each side of her neck. she states they are getting bigger. DO states that she has reactive lymph nodes. Pt is told to watch and make sure they do not continue to get bigger. if so DO wants a white blood cell count. pt states she does get hot and cold flashes since her surgery. pt seen charlotte a few days prior to this. pt states that she gets dizzy and feels as though she is going to pass out. pt feels very tired. pt is on clyndamycin t hree times a day for ten days. pt states that her breasts are warm hot and burning. charlotte advised to do antibiotic and keep a warm compress. Transitions of Care InboundProblem ReviewProblem List was reviewed and/or updated during this visit.Medication Reconciliation & ReviewMedication List was reviewed and/or updated during this visit, including review of any ldne-rzb-qdqqkvi medications, herbal therapies, and/or supplements.Allergy ReviewAllergy List was reviewed and/or updated during this visit.Adult Preventive CareLabs/Meds/Other Counseling-Nutrition and Physical Activity:BMI Interpretation: Obese (06/07/2019) Counseling: Done (06/07/2019) Physical Activity: Done (06/07/2019)Review of Systems General: Complains of night sweats. Cardiovascular: Denies chest pain, palpitations, feeling faint, trouble breathing w/exertion, SOB upon lying down, SOB at night, peripheral edema, elevated blood pressure, decreased heart rate. Respiratory: Denies cough, difficulty breathing, excessive sputum, coughing up blood, wheezing, chest pain. Physical ExamGeneral Appearance: well nourished, well hydrated, no acute distressGait & Station: normalCervical Nodes: bilat posterior chain lyph node X2, left 2X3 cm, right 2x2 cmOrientation: oriented to time, place, and personMood & Affect: no depression, anxiety, or agitationJudgment & Insight: intactCare Management Plan Transitions of CareInboundRate Your HealthIn general, would you say your health is? GoodAssessment & Plan Problems:Added: Infection following a procedure, deep incisional surgical site, sequela (ICD-998.59) ([id number])Pain of lymph node (ICD-457.8) (LAI00-T98) Assessment: pt on clindamycinAssessment not Saved Pain of lymph node (ZTI55-C01): Comment Onlypt on clindamycinMedications:CLINDAMYCIN 300 MGVITAMIN D TABLETFLONASE ALLERGY RELIEF 50 MCG/ACT NASAL SUSPENSIONVENTOLIN HFA 108 (90 BASE) MCG/ACT INHALATION AEROSOL SOLUTIONACETAZOLAMIDE ER 500 MG ORAL CAPSULE EXTENDED RELEASE 12 HOURADDERALL 20 MG ORAL TABLETADDERALL 10 MG ORAL TABLETZOLOFT 50 MG ORAL TABLETAllergies:AMOXICILLIN (Critical)* POTOCIN (Critical)* SEASONAL (Mild) Name Value Range Interpretation Code Description Data Feli rce(s) Supporting Document(s) ID Date Data Source [id number] 06/07/2019 08:10:00 AM EDT [facility] Name Value Range Interpretation Code Description Data Feli rce(s) Supporting Document(s) VIT D25 TOT 9.8 ng/mL 30.0-100.0 L [facility] BG FASTING 104 mg/dL 70-100 H [facility] T4, FREE 0.80 ng/dL 0.76-1.46 N [facility] TSH 1.430 microintl units/mL 0.358-3.740 N [facility] ID Date Data Source [id number] 06/07/2019 08:10:00 AM EDT [facility] Name Value Range Interpretation Code Description Data Feli rce(s) Supporting Document(s) HCT 37.6 % 36.0-47.0 N [facility] HGB 11.9 g/dL 12.0-15.5 L [facility] MCH 31.6 G/DL pg 32.0-36.5 L [facility] MCHC 27.5 PG % 27.0-33.0 N [facility] PLATELETS 281 10 10*3/mm3 150-450 [facility] RBC 4.33 10 10*6/mm3 4.00-5.40 [facility] RDW 11.8 % 11.5-14.5 [facility] WBC TOTAL 6.8 4.0-10.0 [facility] ID Date Data Source [id number] 06/07/2019 08:10:00 AM EDT [facility] Name Value Range Interpretation Code Description Data Feli rce(s) Supporting Document(s) HGBA1C 5.0 % N [facility] ID Date Data Source [id number] 06/05/2019 02:03:25 PM EDT [facility] Measurements & CalculationsHeight: 62 inches (5 ft. 2 in.) 157.48 cm Weight: 173 pounds 4 oz. 78.75 kg Body Mass Index (BMI): 31.80BMI Interpretation: ObeseBody Surface Area (BSA): 1.80Weight Management Education Done (Nutrition/Physical Activity)Vital SignsTemperature: 99.3FPulse Rate: 87 beats/minuteRespiratory Rate: 14 respirations/minuteBlood Pressure: 100/77 O2 Saturation: 99% Vital Signs performed by: Bel Milton LPN, June 05, 2019 2:07 PMVital Signs performed by: Bel Milton LPN, June 05, 2019 2:07 PMInitial Intake Information from: patientRoom #: 8Smoking, Tobacco, Vaping or Smoke Exposure StatusSmoke Status: never smokerTobacco Use: NoDo you vape? NoPassive Smoke Exposure: NoMenstrual HistoryAny possibility of ? NoComments: nexplanonHealthcare HistorySince your last office visit...Have you been admitted to the hospital? NoHave you been to an emergency room (ER) or urgent care clinic? Yes - [facility] ER Emergency room (ER) or urgent care date reported today: 06/02/2019Have you seen another healthcare provider? NoHave you seen a dentist? Yes - NCFHRate Your HealthIn general, would you say your health is? GoodPain AssessmentAre you currently having any pain which... You would like your provider to address? No Affects your activity level? NoDepression Screening - PHQ-2Over the last two weeks, have you... Had little interest or pleasure in doing things? Not at all Been feeling down, depressed, or hopeless? Not at all PHQ-2 Score: 0Anxiety Screening - TRE-2Over the last two weeks, have you been... Feeling nervous, anxious, or on edge? Not at all Unable to stop or control worrying? Not at all TRE-2 Score: 0Food InsecurityWithin the past year...Did you worry whether your food would run out before you got money to buy more? NoWas there a time when the food you bought didn't last and you didn't have money to get more? NoInfectious Disease / Travel ScreeningRecent travel for you or any close contacts? NoHave you had any close contact with anyone diagnosed with or under investigation for COVID-19 (coronavirus)? NoHave you had any of the following symptoms recently? Fever? NoRespiratory symptoms: cough, cold, congestion, shortness of breath, difficulty breathing? NoScreening, Brief Intervention, & Referral to Treatment (SBIRT)Pre-Screening Questions How many times have you have 4 or more drinks in a day? 0How many times have you used an illegal drug or used a prescription medication for a non-medical reason? 0Performed by: Bel Milton LPN, June 05, 2019 2:13 PMPatient History Medical History:Pseudotumor cerebriAnxietyDepressionADHAPTSDBipolar 2 Due 10/22-Induced 10/14-5 due 03/2017AsthmaSurgical History:Gallbladder remopovalGastric Bypass 03/08/2018Cesarean section x2 Family History:Anxiety (Mother) defects (Mother)Depression (Mother)Schizophrenia (Mother)Depression (Brother)Substance abuse (Brother)Heart disease (Maternal Grandmother)Hypertension (Maternal Grandmother)Diabetes (Maternal Grandmother)Stroke (Maternal Grandmother)Social/Personal History: Chief ComplaintER follow up , pt had breast reduction surgery in Apr 8History of Present Illness (HPI)29 yo female her for ER follow up. Pt is concerned with discomfort at Left breast surgical incision site.Pt states recent bilateral breast surgery, ( Breast reduction)Pt states had follow up with breast surgeon yesterday. Pt states had received ABX from the ER. Pt would like results of labs and US done at the ER.Pt also states fatigue, nausa and intermittent vomiting. Pt would like a test done today. HPI performed by: Charlotte CALZADA, June 05, 2019 2:35 PMTransitions of Care InboundProblem ReviewProblem List was reviewed and/or updated during this visit.Medication Reconciliation & ReviewMedication List was reviewed and/or updated during this visit, including review of any [id number]-[id number] medications, herbal therapies, and/or supplements.Allergy ReviewAllergy List was reviewed and/or updated during this visit.Adult Preventive CareProvider Calculated and Reviewed all Clinical Protocols for patient today. Labs/Meds/Other Counseling-Nutrition and Physical Activity:BMI Interpretation: Obese (06/05/2019) Counseling: Done (06/05/2019) Physical Activity: Done (06/05/2019)Cancer Screening Pap Smear/HPV TestingReviewed: Previous Comments: Pt would like to scheduled in house. (04/17/2019)Today's Comments: in house to be scheduled( 06/05/2019)Review of Systems General: Complains of fatigue. Denies loss of appetite, chills, dizziness, fever, continued fever, headache, feeling ill, sweats, night sweats, sleep disturbances, weight loss. Eyes: Denies blurring of vision, double vision, irritation, discharge, vision loss, eye pain, eye swelling, droopy eyelid, sens itivity to light, redness, itching. Ears/Nose/Throat: Denies earache, ear discharge, ringing in ears, decreased hearing, nasal congestion, nosebleeds, runny nose, sore throat, hoarseness, difficulty swallowing, dry mouth, tooth pain, bleeding gums, swollen glands. Cardiovascular: Denies chest pain, palpitations, feeling faint, trouble breathing w/exertion, SOB upon lying down, SOB at night, peripheral edema, elevated blood pressure, decreased heart rate. Respiratory: Denies cough, difficulty breathing, shortness of breath, excessive sputum, coughing up blood, wheezing, chest pain. Gastrointestinal: Complains of nausea, vomiting. Denies bleeding, burning, itching, irritation, cramps, diarrhea, constipation. verbalized nausea, denies vomiting. Genitourinary: Complains of absence of menstrual period. Denies urinary incontinence, pain with urination, burning with urination, urinary frequency, urinary hesitancy, urinary urgency, urinary urgency at night, incomplete emptying, blood in urine. absence of menstral due to nexplanon bith controlMusculoskeletal: Denies back pain, joint pain, leg pain, joint swelling, body aches, muscle aches, muscle cramps, muscle weakness, stiffness, recent injury. Skin: Complains of redness. Denies rash, hives, itching, dryness, nail changes, suspicious lesions, athlete's foot, rash on palms, rash on bottom of feet. left breast incisionNeurologic: Denies muscle impairment, weakness, numbness/tingling, seizures, slurred speech, feeling faint, tremors, vertigo, paralysis on one side, paralysis on both sides. Psychiatric: Denies depression, anxiety, memory loss, mental disturbance, suicidal ideation, homicidal ideation, hallucinations, paranoia, feeling stressed, hearing voices. Endocrine: Denies cold intolerance, heat intolerance, excessive thirst, excessive hunger, excessive urination, weight loss, weight gain. Physical ExamGeneral Appearance: well nourished, well hydrated, no acute distressEyes, External: conjunctivae and lids normal, EOMIRespiratory, Auscultation: clear to auscultation bilaterally; no rales, rhonchi, or wheezesRespiratory, Effort: no intercostal retractions or use of accessory musclesCardiovascular, Auscultation: S1, S2 audible; no murmur, rub, or gallop; RRRPeripheral Circulation: no clubbing, cyanosis, edema, or varicositiesAbdomen: soft, non-tender, no masses, bowel sounds normalGait & Station: normalSkin, Inspection: bilateral breast incision, left breast incision rednessOrientation: oriented to time, place, and personMood & Affect: no depression, anxiety, or agitationJudgment & Insight: intactCare Management Plan Transitions of CareInboundRate Your HealthIn general, would you say your health is? GoodAssessment & Plan Problems:Added: Health Screening (ICD-V70.0) (SQU05-A60.9) Assessment: Instructions: We have ordered fasting labs for you today. Please return prior to your next visit to have labs drawn. Please fast for 8-10 hours prior.Infection following a procedure, superficial incisional surgical site, initial encounter (ICD-998.59) (YMJ01-W47.41xA) Assessment: Instructions: Please continue medications as prescribed. Please continue warm compresses three times daily and as needed. Please try to maintain good hygiene.Please continue to follow with your surgeon as scheduled.Nausea with vomiting, unspecified (ICD-787.01) (UBL81-R93.2) Assessment: Instructions: Urine test negative in office today.We will order Blood HCG level. We will contact you if your result is positive.Other fatigue (ICD-780.79) (WQJ12-Y51.83) Assessment: Instructions: We have orde red labs for you today. We will contact you if results are abnormal.Assessment not Saved Nausea with vomiting; unspecified (RGC68-R66.2): Patient Instructions/Care Plan: Health Screening: We have ordered fasting labs for you today. Please return prior to your next visit to have labs drawn. Please fast for 8-10 hours prior.Infection following a procedure- superficial incisional surgical site- initial encounter: Please continue medications as prescribed. Please continue warm compresses three times daily and as needed. Please try to maintain good hygiene.Please continue to follow with your surgeon as scheduled.Nausea with vomiting- unspecified: Urine test negative in office today.We will order Blood HCG level. We will contact you if your result is positive.Other fatigue: We have ordered labs for you today. We will contact you if results are abnormal. Plan developed in collaboration with patient and/or familyMedications:CLINDAMYCIN 300 MGVITAMIN D TABLETFLONASE ALLERGY RELIEF 50 MCG/ACT NASAL SUSPENSIONVENTOLIN HFA 108 (90 BASE) MCG/ACT INHALATION AEROSOL SOLUTIONACETAZOLAMIDE ER 500 MG ORAL CAPSULE EXTENDED RELEASE 12 HOURADDERALL 20 MG ORAL TABLETADDERALL 10 MG ORAL TABLETZOLOFT 50 MG ORAL TABLETMedication Changes:Added: * CLINDAMYCIN 300 MG-three times dailyAllergies:AMOXICILLIN (Critical)* POTOCIN (Critical)* SEASONAL (Mild)Orders:COMP METABOLIC PANEL [CPT-73705] CBC W/DIFF [CPT-03019] HgBA1c [CPT-48683] LIPID PANEL [CPT-71670] T-4 free [CPT-28430] URINALYSIS [CPT-05714] Vitamin D 250H Unspecified [CPT-28257] TSH [CPT-54130] Free Beta hCG [CPT-11950] HCG- QUALITATIVE [CPT-74075] Adult - Ofc Vst, EST, Level IV [CPT-10007] Follow- Up Return to clinic: 2-3 weeks for follow up. Clinical Visit Summary Completed Name Value Range Interpretation Code Description Data Feli rce(s) Supporting Document(s) ID Date Data Source [id number] 05/09/2019 02:29:00 PM EST [facility] ([facility], ) Name Value Range Interpretation Code Description Data Feli rce(s) Supporting Document(s) Surgical pathology study Laboratory test result [facility] ([facility], ) FINAL DIAGNOSIS AB - Right and left breast, reduction mammoplasty: Benign breast parenchyma. See gross description. 05/14/2019 - 0840 CLINICAL DIAGNOSIS Bilateral breast hypertrophy 05/10/2019 - 134 GROSS DIAGNOSIS A - Received in formalin labeled "right breast tissue" are multiple fragments of breast and skin, approximately 15 x 15 x 10 cm. Sectioning reveals a predominantly fatty breast tissue with focal fibrotic bands. No well-defined mass/lesion is noted. Extracorporeal Circulation Specialist in one. B - Received in formalin labeled "left breast tissue" is a 15 x 15 x approximately 10 cm aggregate of breast tissue fragments and skin. Sectioning reveals focal fibrotic areas. No well-defined mass/lesion is noted. Extracorporeal Circulation Specialist in one. - 05/10/2019 - 1344 Signed iNsh Naylor MD 05/14/2019 1102 ID Date Data Source [id number] 04/30/2019 10:40:32 AM EST [facility] In-House Blood TestsDate/Time Colle cted: April 30, 2019 10:41 AMTest Result Reference Range Normal ValueComments: blood draw done in offcie done in the right ac tolertaed well Min Babcock MA, April 30, 2019 10:41 AMAssessment & Plan Orders:58880-Abw Vst-Est Level I [CPT-10137] 12615 - Venipuncture [CPT-05948] Name Value Range Interpretation Code Description Data Feli rce(s) Supporting Document(s) ID Date Data Source [id number] 04/30/2019 10:35:00 AM [facility] Name Value Range Interpretation Code Description Data Feli rce(s) Supporting Document(s) HCT 40.8 % 36.0-47.0 [facility] HGB 13.3 g/dL 12.0-15.5 N [facility] MCH 32.6 G/DL pg 32.0-36.5 N [facility] MCHC 29.2 PG % 27.0-33.0 [facility] PLATELETS 263 10 10*3/mm3 150-450 [facility] RBC 4.55 10 10*6/mm3 4.00-5.40 [facility] RDW 11.9 % 11.5-14.5 [facility] WBC TOTAL 6.2 4.0-10.0 [facility] ID Date Data Source [id number] 04/30/2019 10:35:00 AM [facility] Name Value Range Interpretation Code Description Data Feli rce(s) Supporting Document(s) BG FASTING 80 mg/dL 70-100 [facility] ID Date Data Source [id number] 04/30/2019 09:59:52 AM [facility] Measurements & CalculationsHeight: 62 inches 157.48 cm Weight: 177.8 pounds 80.82 kg Body Mass Index (BMI): 32.64BMI Interpretation: ObeseBody Surface Area (BSA): 1.82Vital SignsTemperature: 99.0F oral Pulse Rate: 80 beats/minuteRespiratory Rate: 20 respirations/minuteBlood Pressure: 103/72 right arm sitting O2 Saturation: 100% room airVital Signs performed by: Luis Gill MA, April 30, 2019 10:02 AMInitial Intake Information from: [facility] #: 13Smoking, Tobacco, Vaping or Smoke Exposure StatusSmoke Status: never smokerDo you vape? NoPassive Smoke Exposure: NoMenstrual HistoryComments: nexplanonHealthcare HistorySince your last office visit...Have you been admitted to the hospital? NoHave you been to an emergency room (ER) or urgent care clinic? NoHave you seen another healthcare provider? NoHave you seen a dentist? Yes - NOCOIntake performed by: Luis Gill MA, April 30, 2019 10:03 AMRate Your HealthIn general, would you say your health is? GoodPain AssessmentAre you currently having any pain which... You would like your provider to address? No Affects your activity level? NoDepression Screening - PHQ-2Over the last two weeks, have you... Had little interest or pleasure in doing things? Not at all Been feeling down, depressed, or hopele ss? Not at all PHQ-2 Score: 0Anxiety Screening - TRE-2Over the last two weeks, have you been... Feeling nervous, anxious, or on edge? Not at all Unable to stop or control worrying? Not at all TRE-2 Score: 0Infectious Disease / Travel ScreeningRecent travel for you, your family, and/or any sexual partners? NoScreening, Brief Intervention, & Referral to Treatment (SBIRT)Pre-Screening Questions How many times have you have 4 or more drinks in a day? 0How many times have you used an illegal drug or used a prescription medication for a non- medical reason? 0Performed by: Luis Gill MA, April 30, 2019 10:03 AMPatient History Medical History:Pseudotumor cerebriAnxietyDepressionADHAPTSDBipolar 2 Due 10/22-Induced 10/14-5 due 03/2017AsthmaSurgical History:Gallbladder remopovalGastric Bypass 03/08/2018Cesarean section x2 Family History:Anxiety (Mother) defects (Mother)Depression (Mother)Schizophrenia (Mother)Depression (Brother)Substance abuse (Brother)Heart disease (Maternal Grandmother)Hypertension (Maternal Grandmother)Diabetes (Maternal Grandmother)Stroke (Maternal Grandmother)Social/Personal History: Chief Complaintmedical clearanceHistory of Present Illness (HPI)ITanisha MA, am scribing for and in the presence of, Dr Kain Dickens, DO29 y/o pt here today for med clearance for a breast reduction on 05/09/2019Patient is cleared for surgery, does not have any concerns. Pt has no complaints. Pt s/p bariatric surgery 2018.Transitions of Care InboundProblem ReviewProblem List was reviewed and/or updated during this visit.Medication Reconciliation & ReviewMedication List was reviewed and/or updated during this visit, including review of any dhus-vyk-deiqayb medications, herbal therapies, and/or supplements.Allergy ReviewAllergy List was reviewed and/or updated during this visit.Review of Systems General: Denies loss of appetite, chills, dizziness, fatigue, fever, continued fever, headache, feeling ill, sweats, night sweats, sleep disturbances, weight loss. Ears/Nose/Throat: Denies earache, ear discharge, ringing in ears, decreased hearing, nasal congestion, nosebleeds, runny nose, sore throat, hoarseness, difficulty swallowing, dry mouth, tooth pain, bleeding gums, swollen glands. Cardiovascular: Denies chest pain, palpitations, feeling faint, trouble breathing w/exertion, SOB upon lying down, SOB at night, peripheral edema, elevated blood pressure, decreased heart rate. Respiratory: Denies cough, difficulty breathing, shortness of breath, excessive sputum, coughing up blood, wheezing, chest pain. Breast: for breast reductionGastrointestinal: Denies nausea, vomiting, bleeding, burning, itching, irritation, cramps, diarrhea, bloody diarrhea, watery diarrhea, constipation, pain or discomfort, feeling any lumps or bumps, pain with BM, pain during receptive anal sex, change in bowel habits, fecal incontinence, abdominal pain, blood in stool, black or tarry stools, jaundice, heartburn, urge to defecate. Musculoskeletal: Complains of back pain. Denies joint pain, leg pain, other pain-see comments, joint swelling, body aches, muscle aches, muscle cramps, muscle weakness, stiffness, recent injury. Skin: Denies rash, hives, redness, itching, dryness, nail changes, suspicious lesions, athlete's foot, rash on palms, rash on bottom of feet. Physical ExamGeneral Appearance: well nourished, well hydrated, no acute distressEyes, External: conjunctivae and lids normal, EOMIExternal Ears: normal, no lesions or deformitiesHearing: grossly intactOtoscopy: canals clear, tympanic membranes intact, no fluid, light reflex intact bilaterallyExternal Nose: normal, no lesions or deformitiesNasal: mucosa, septum, and turbinates normal, nares patentLips/Teeth/Gums: normal dentition, no gingival inflammation, no labial lesionsPharynx: tongue normal, posterior pharynx without erythema or exudate, no thrush/aphthous ulcerBreasts, Inspection: F bra sizeRespiratory, Auscultation: clear to auscultation bilaterally; no rales, rhonchi, or wheezesRespiratory, Effort: no intercostal retractions or use of accessory musclesCardiovascular, Auscultation: S1, S2 audible; no murmur, rub, or gallop; RRRPeripheral Circulation: no clubbing, cyanosis, edema, or varicositiesAbdomen: soft, non-tender, no masses, bowel sounds normalGait & Station: normalSkin, Inspection: no rashes, lesions, or ulcerationsOrientation: oriented to time, place, and personMood & Affect: no depression, anxiety, or agitationJudgment & Insight: intactCare Management Plan Transitions of CareInboundRate Your HealthIn general, would you say your health is? GoodAssessment & Plan Problems:Added: Encounter for other preprocedural examination (ICD-V72.84) (ICD10- Z01.818)Assessment not SavedEncounter for other preprocedural examination (DIO21-V17.818): Pt medically cleared for breast reduction surgeryMedications:VITAMIN D TABLETFLONASE ALLERGY RELIEF 50 MCG/ACT NASAL SUSPENSIONVENTOLIN HFA 108 (90 BASE) MCG/ACT INHALATION AEROSOL SOLUTIONACETAZOLAMIDE ER 500 MG ORAL CAPSULE EXTENDED RELEASE 12 HOURADDERALL 20 MG ORAL TABLETADDERALL 10 MG ORAL TABLETZOLOFT 50 MG ORAL TABLETAllergies:AMOXICILLIN (Critical)* POTOCIN (Critical)* SEASONAL (Mild)Orders:Adult - Ofc Vst, EST, Level IV [CPT-77817] ] Assess ment & Plan Orders:COMP METABOLIC PANEL [CPT-56991] CBC W/DIFF [CPT-51849] Name Value Range Interpretation Code Description Data Feli rce(s) Supporting Document(s) ID Date Data Source [id number] 04/17/2019 09:57:39 AM [facility] Measurements & CalculationsHeight: 62 inches (5 ft. 2 in.) 157.48 cm Weight: 174 pounds 4 oz. 79.20 kg Body Mass Index (BMI): 31.99BMI Interpretation: ObeseBody Surface Area (BSA): 1.80Weight Management Education Done (Nutrition/Physical Activity)Vital SignsTemperature: 98.6F oral Pulse Rate: 86 beats/minuteRespirato ry Rate: 16 respirations/minuteBlood Pressure: 102/74 left arm sitting automaticO2 Saturation: 98% room airVital Signs performed by: Jacek Sosa LPN, April 17, 2019 10:17 AMVital Signs performed by: Bill HERNANDEZ, April 17, 2019 10:24 AMInitial Intake Information from: patientRoom #: 8Infectious Disease- Travel Have you or your sexual partner travelled outside of the country recently? NoSmoking, Tobacco or Smoke Exposure StatusSmoke Status: never smokerTobacco Use: NoPassive Smoke Exposure: NoMenstrual HistoryLast Menstrual Period (LMP): 05/02/2017LMP History: ApproximateAny possibility of ? NoComments: NexplanonHealthcare HistorySince your last office visit...Have you been admitted to the hospital? NoHave you been to an emergency room (ER) or urgent care clinic? Yes - [facility] [place] [facility] Emergency room (ER) or urgent care date reported today: 04/06/2019Have you seen another healthcare provider? Yes - Counselor- SMCHave you seen a dentist? Yes - NCFHDIntake performed by: Jacek Sosa LPN, April 17, 2019 10:02 AMRate Your HealthIn general, would you say your health is? GoodPain AssessmentAre you currently having any pain which... You would like your provider to address? No Affects your activity level? NoDepression Screening - PHQ-2Over the last two weeks, have you... Had little interest or pleasure in doing things? Not at all Been feeling down, depressed, or hopeless? Not at all PHQ-2 Score: 0Anxiety Screening - TRE-2Over the last two weeks, have you been... Feeling nervous, anxious, or on edge? Nearly every day Unable to stop or control worrying? Nearly every day TRE-2 Score: 6Infectious Disease- Travel Cont. Any possibility of ? NoGeneralized Anxiety Disorder 7-Item Screening (TRE-7)Answer Guide:0 = Not at all1 = Several days2 = Over half the days3 = Nearly every dayOver the last 2 weeks, how often have you been bothered by the following problems?Feeling nervous, anxious, or on edge: 3Not being able to stop or control worryinWorrying too much about different things: 3Trouble relaxinBeing so restless that it's hard to sit still: 3Becoming easily annoyed or irritable: 3Feeling afraid as if something awful might happen: 0Answer Guide:0 = Not difficult at all1 = Somewhat difficult2 = Very difficult3 = Extremely difficultHow difficult have these made it for you to do your work, take care of things at home, or get along with other people? 3GAD-7 Screening Results TRE-2 Score: 6GAD-7 Score: 18Functional Impairment: Extremely difficultRecommendation: Severe anxietyPRAPARE Sociodemog raphic Characteristics Race: White, Black or Ethnicity: Not or Preferred Language: EnglishFamily and Home Address: [address] [place] [address] What is your housing situation today? I have housing Are you worried about losing your housing? NoMoney and Resources What is the highest level of school that you have finished? 9th-12th grade Employed? No Are you seeking work? No Insurance: Managed Care - [facility] Community PlanIn the past year, have you or any family members you live with been unable to get any of the following when it was really needed? Denies Insecurity: food, utilities, clothing, child care leader, phone, legal services, otherIn the past year, have you had trouble affording costs associated with health insurance (such as deductibles, co-payments, etc.)? NoSocial and Emotional Health How often do you see or talk to people that you care about and feel close to? More than 5 times a week How stressed are you? Very muchAdditional Optional Domains In the past 3 months, have you spent more than 2 nights in a row in a care home, halfway, shelter center or juvenile correctional facility? No Has lack of transportation kept you from medical appointments or from getting your medications? NoIn the past year, have you had trouble getting any of the following when it was really needed (check all that apply)?noneIn the past year, have you had trouble paying the costs associated with health care or medicine (such as co-payments, costs for services, prices of medicines)? NoHow confident are you that you can control and manage most of your health problems? Very confident Are you a refugee? No (Country of origin: [facility]) Do you feel physically and emotionally safe where you live? Yes In the past year, have you been afraid of a partner, ex-partner? YesScreening, Brief Intervention, & Referral to Treatment (SBIRT)Pre-Screening Questions How many times have you have 4 or more drinks in a day? 12How many times have you used an illegal drug or used a prescription medication for a non- medical reason? 0Performed by: Jacek Sosa LPN, April 17, 2019 9:58 AMAUDIT How often do you have a drink of alcohol? Never Have you or someone else been injured because of your drinking? No Has a relative, friend, doctor, or other health care worker been concerned about your drinking or suggested you cut down? NoToday's Results: AUDIT Score: 0 AUDIT Interpretation: Negative Performed by: Jacek Sosa LPN, April 17, 2019 10:04 AMPatient History Medical History:Pseudotumor cere briAnxietyDepressionADHAPTSDBipolar 2 Due 10/22-Induced 10/14-5 due 03/2017AsthmaSurgical History:Gallbladder remopovalGastric Bypass 03/08/2018Cesarean section x2 Family History:Anxiety (Mother) defects (Mother)Depression (Mother)Schizophrenia (Mother)Depression (Brother)Substance abuse (Brother)Heart disease (Maternal Grandmother)Hypertension (Maternal Grandmother)Diabetes (Maternal Grandmother)Stroke (Maternal Grandmother)Social/Personal History: Sm[facility] Status: [facility] History of Present Illness (HPI)29 yo female here to establish care today.Pt states she was previously being seen at [facility].Pt states that she is seeing psych for her adderall and zoloft Rx. She is wondering if she is able to have all her medications managed by the provider here. Pt believes she has bronchitis. Cough x 2 weeks. Finished prednisone for bronchitis one month ago. 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 HPI performed by: Bill HERNANDEZ, April 17, 2019 10:32 AMTransitions of Care InboundProblem ReviewProblem List was reviewed and/or updated during this visit.Medication Reconciliation & ReviewMedication List was reviewed and/or updated during this visit, including review of any [id number] medications, herbal therapies, and/or supplements.Allergy ReviewAllergy List was reviewed and/or updated during this visit.Adult Preventive CareProvider Calculated and Reviewed all Clinical Protocols for patient today. Labs/Meds/Other Counseling- Nutrition and Physical Activity:BMI Interpretation: Obese (04/17/2019) Counseling: Done (04/17/2019) Physical Activity: Done (04/17/2019)Cancer Screening Pap Smear/HPV TestingReviewed: Today's Comments: Pt would like to scheduled in house. Review of Systems General: Denies loss of appetite, chills, dizziness, fatigue, fever. Eyes: Denies blurring of vision, double vision, sensitivity to light. Ears/Nose/Throat: Denies earache, nasal congestion, sore throat, difficulty swallowing, swollen glands. Cardiovascular: Denies chest pain, palpitations, feeling faint. Respiratory: Complains of cough, wheezing. Denies difficulty breathing, excessive sputum, coughing up blood. Gastrointestinal: Denies nausea, vomiting, diarrhea, pain or discomfort. Musculoskeletal: Denies joint pain, body aches. Skin: Denies rash, suspicious lesions. Neurologic: Denies weakness, numbness/tingling, feeling faint. Psychiatric: Complains of anxiety. Denies depression, feeling stressed. Physical ExamGeneral Appearance: well nourished, well hydrated, no acute distressEyes, External: conjunctivae and lids normal, EOMIExternal Ears: normal, no lesions or deformitiesHearing: grossly intactOtoscopy: canals clear, tympanic membranes intact, no fluid, light reflex intact bilaterallyExternal Nose: normal, no lesions or deformitiesNasal: mucosa, septum, and turbinates normal, nares patentLips/Teeth/Gums: normal dentition, no gingival inflammation, no labial lesionsPharynx: tongue normal, posterior pharynx without erythema or exudate, no thrush/aphthous ulcerNeck: supple, no masses, trachea midline, full range of motion of neckThyroid: no nodules, masses, tenderness, or enlargementRespiratory, Auscultation: clear to auscultation bilaterally; no rales, rhonchi, or wheezesRespiratory, Effort: no intercostal retractions or use of accessory musclesCardiovascular, Auscultation: S1, S2 audible; no murmur, rub, or gallop; RRRPeripheral Circulation: no clubbing, cyanosis, edema, or varicositiesAbdomen: soft, non-tender, no masses, bowel sounds normalGait & Station: normalSkin, Inspection: no rashes, lesions, or ulcerationsCranial Nerves: II - XII grossly intact, no facial droopingSensation: normal and symmetric perception of light touchOrientation: oriented to time, place, and personMood & Affect: no depression, anxiety, or agitationJudgment & Insight: intactCare Management Plan Transitions of CareInboundRate Your HealthIn general, would you say your health is? GoodAssessment & Plan Problems:Added: Bariatric surgery status (ICD-V45.86) (CJK86-W61.84)Mild persistent asthma, uncomplicated (VYS34-J15.30) Assessment: Instructions: No change to current treatment. Referral generated for pulmonology evaluation.[place] palsy of left side of face (HSR58-U82.0) Assessment: Instructions: Continue with prednisone. Referral to neurology.Assessed:General Adult Medical Exam WITH Abnormal Findings (over 18) (ICD-V70.0) (RQZ25-G66.01) Assessment: Instructions: Recommend annual medical appointments. Recommend routine dental and vision care. Recommend influenza vaccines annually and tetanus boosters every 10 years.Depression (ICD-311) (NGA11-T65.9) Assessment: Instructions: Continue per your current mental health specialist. Requested prior records, prefer not to take over psychiatric medications until records are reviewed.Pseudotumor cerebri (ICD- 348.2) (NUT63-W25.2) Assessment: Instructions: Continue with new neurology referral.Anxiety (ICD-300.00) (XOY24-A18.9) Assessment: Instructions: As above.Removed: (ICD-V22.2) (PIJ94-W59.1), Amenorrhea (ICD-626.0) (WEQ30-D34.2)Patient Instructions/Care Plan: Mild persistent asthma- uncomplicated: No change to current treatment. Referral generated for pulmonology evaluation.[place] palsy of left side of face: Continue with prednisone. Referral to neurology.General Adult Medical Exam WITH Abnormal Findings (over 18): Recommend annual medical appointments. Recommend routine dental and vision care. Recommend influenza vaccines annually and tetanus boosters every 10 years.Depression: Continue per your current mental health specialist. Requested prior records, prefer not to take over psychiatric medications until records are reviewed.Pseudotumor cerebri: Continue with new neurology referral.Anxiety: As above. Plan developed in collaboration with patient and/or familyMedications:VITAMIN D TABLETFLONASE ALLERGY RELIEF 50 MCG/ACT NASAL SUSPENSIONVENTOLIN HFA 108 (90 BASE) MCG/ACT INHALATION AEROSOL SOLUTIONACETAZOLAMIDE ER 500 MG ORAL CAPSULE EXTENDED RELEASE 12 HOURADDERALL 20 MG ORAL TABLETADDERALL 10 MG ORAL TABLETZOLOFT 50 MG ORAL TABLETMedication Changes:Added: ZOLOFT 50 MG ORAL TABLET-take 1 tab po qHSADDERALL 10 MG ORAL TABLET-take 1 tab po qAMADDERALL 20 MG ORAL TABLET-take 1 tab po at 3pmACETAZOLAMIDE ER 500 MG ORAL CAPSULE EXTENDED RELEASE 12 HOUR-take 1 cap po dailyVENTOLIN HFA 108 (90 BASE) MCG/ACT INHALATION AEROSOL SOLUTION-inhale 2 puffs pn for SOBFLONASE ALLERGY RELIEF 50 MCG/ACT NASAL SUSPENSION-inhale 1 spray intranasally prnVITAMIN D TABLET-take 1000mg one time dailyRemoved:* ZOLOF T, * LAMITROGEN, * ADDERALL, * ALBUTEROL, * FLONASEAllergies:AMOXICILLIN (Critical)* POTOCIN (Critical)* SEASONAL (Mild)Orders:Neurology Consult [CPT- 36114] Pulmonology Consult [CPT-44491] Cardiology Consult [CPT-92344] Preventive, Est, (18-39) [CPT-08281] Follow-Up Return to clinic: in 3 months for follow upAdditional Follow-Up: referral follow-upClinical Visit Summary DeclinedVaccines Administered/Entered:Vaccination Group: InfluenzaHistorical Source: Historical information - from patientSeries: 1Vaccination: Mfr / Lot# / Exp.Date: Amt. Given / Route / Site: NDC / CVX: 88Administered Date: 12/06/2018 VFC Eligibility: Not recordedVIS Date: Comments: Entered by: aJcek Sosa LPN Name Value Range Interpretation Code Description Data Feli rce(s) Supporting Document(s) Procedure Social History Code Duration Value Status Description Data Source(s ) Smoking 04/16/2020 12:00:00 AM EST Never Smoker completed Never S moker eCW1 ([facility]) Smoking 04/16/2020 12:00:00 AM EST Never Smoker completed Never S moker eCW1 ([facility]) Smoking 03/24/2020 12:00:00 AM EST Never Smoker completed Never S moker eCW1 ([facility]) Smoking 02/17/2020 12:00:00 AM EST Never Smoker completed Never S moker eCW1 ([facility]) Smoking 02/17/2020 12:00:00 AM EST Never Smoker completed Never S moker eCW1 ([facility]) Smoking 02/17/2020 12:00:00 AM EST Never Smoker completed Never S moker eCW1 ([facility]) Smoking 01/22/2020 12:00:00 AM EST Never Smoker completed Never S moker eCW1 ([facility]) Smoking 01/22/2020 12:00:00 AM EST Never Smoker completed Never S moker eCW1 ([facility]) Smoking 08/27/2019 12:00:00 AM EDT Never Smoker completed Never S moker eCW1 ([facility]) Smoking 08/27/2019 12:00:00 AM EDT Never Smoker completed Never S moker eCW1 ([facility]) Vital Signs ID Date Data Source UNK Name Value Range Interpretation Code Description Data Source(s) Diastolic blood pressure 62 mm[Hg] 62 mm[Hg] eCW1 ([facility]) Systolic blood pressure 110 mm[Hg] 110 mm[Hg] e CW1 ([facility]) Body mass index (BMI) [Ratio] 34.188 kg/m2 34.1 88 kg/m2 W1 ([facility]) Body height 63 [in_i] 63 [in_i] eCW1 ([facility]) Body weight 87.54 kg 87.54 kg W1 ([facility]) Body weight 193 [lb_av] 193 [lb_av] eCW1 ([facility]ly [facility]) Diastolic blood pressure 56 mm[Hg] 56 mm[Hg] eCW1 ([facility]) Systolic blood pressure 98 mm[Hg] 98 mm[Hg] e CW1 ([facility]) Body mass index (BMI) [Ratio] 33.657 kg/m2 33.6 57 kg/m2 W1 ([facility]) Body height 63 [in_i] 63 [in_i] eCW1 ([facility]) Body weight 190 [lb_av] 190 [lb_av] eCW1 ([facility]) Diastolic blood pressure 68 mm[Hg] 68 mm[Hg] eCW1 ([facility]) Systolic blood pressure 100 mm[Hg] 100 mm[Hg] e CW1 ([facility]) Body mass index (BMI) [Ratio] 33.055 kg/m2 33.0 55 kg/m2 eCW1 ([facility]) Body height 63 [in_i] 63 [in_i] eCW1 ([facility]) Body weight 84.64 kg 84.64 kg eCW1 ([facility]) Body weight 186.6 [lb_av] 186.6 [lb_av] eCW1 ([facility]) Diastolic blood pressure 62 mm[Hg] 62 mm[Hg] eCW1 ([facility]) Systolic blood pressure 98 mm[Hg] 98 mm[Hg] e CW1 ([facility]) Body mass index (BMI) [Ratio] 32.948 kg/m2 32.9 48 kg/m2 eCW1 ([facility]) Body height 63 [in_i] 63 [in_i] eCW1 ([facility]) Body weight 186 [lb_av] 186 [lb_av] eCW1 ([facility]) Body weight 82.669 kg 82.669 kg [facility] ([facility]) Body mass index (BMI) [Ratio] 33.3 kg/m2 33.3 k g/m2 MEDENT ([facility]) Body weight 182.25 [lb_av] 182.25 [lb_av] MEDEN T ([facility]) Body height 62 [in_i] 62 [in_i] [facility] ([facility], ) 5'2" Body temperature 98.4 [degF] 98.4 [degF] [facility] ([facility]) Diastolic blood pressure 70 mm[Hg] 70 mm[Hg[facility] Systolic blood pressure 106 mm[Hg] 106 mm[Hg] M EDENT ([facility], ) Body weight 81.648 kg 81.648 kg [facility] ([facility]) Body mass index (BMI) [Ratio] 32.9 kg/m2 32.9 k g/m2 [facility] ([facility], ) Body weight 180.00 [lb_av] 180.00 [lb_av] MEDEN T ([facility]) Body height 62 [in_i] 62 [in_i] [facility] ([facility]) 5'2" Body temperature 98.3 [degF] 98.3 [degF] [facility] ([facility]) Heart rate 72 /min 72 /min [facility] ([facility]) Diastolic blood pressure 62 mm[Hg] 62 mm[Hg] [facility] ([facility]) Systolic blood pressure 96 mm[Hg] 96 mm[Hg] [facility] ([facility]) Body height 62 [in_i] 62 [in_i] [facility] ([facility]) 5'2" Body temperature 97.2 [degF] 97.2 [degF] [facility] ([facility]) Respiratory rate 14 /min 14 /min [facility] ( [facility]) Heart rate 68 /min 68 /min [facility] ([facility]) Diastolic blood pressure 62 mm[Hg] 62 mm[Hg] [facility] ([facility]) Systolic blood pressure 108 mm[Hg] 108 mm[Hg] [facility] ([facility]) Body weight 77.679 kg 77.679 kg [facility] ([facility]) Body mass index (BMI) [Ratio] 31.3 kg/m2 31.3 k g/m2 [facility] ([facility]) Body weight 171.25 [lb_av] 171.25 [lb_av] MEDEN T ([facility]) Body height 62 [in_i] 62 [in_i] [facility] ([facility]) 5'2" Body temperature 98.2 [degF] 98.2 [degF] [facility] ([facility]) Oxygen saturation in Arterial blood by Pulse oximetry 99 % 99 % [facility] ([facility]) Heart rate 97 /min 97 /min [facility] ([facility]) Diastolic blood pressure 74 mm[Hg] 74 mm[Hg] [facility] ([facility]) Systolic blood pressure 120 mm[Hg] 120 mm[Hg] [facility] ([facility]) Body weight 78.926 kg 78.926 kg [facility] ([facility]) Body mass index (BMI) [Ratio] 31.8 kg/m2 31.8 k g/m2 [facility] ([facility]) Body weight 174.00 [lb_av] 174.00 [lb_av] [facility] Body height 62 [in_i] 62 [in_i] [facility] ([facility]) 5'2" Respiratory rate 14 /min 14 /min [facility] ( [facility]) Heart rate 74 /min 74 /min [facility] ([facility]) Diastolic blood pressure 70 mm[Hg] 70 mm[Hg] [facility] ([facility]) Systolic blood pressure 110 mm[Hg] 110 mm[Hg] [facility] ([facility]) ID Date Data Source [id number] 04/15/2020 11:52:00 AM [facility] Name Value Range Interpretation Code Description Data Source(s) WEIGHT 80.446017 kilos 80.768617 kilos [facility] HEIGHT 157.48 centimeters 157.48 centimeter [facility] Patient Treatment Plan of Care Planned Activity Planned Date Details Description Data Source (s) Acetaminophen 325 MG / Oxycodone Hydrochloride 5 MG Or al Tablet [Percocet] 04/22/2020 12:00:00 AM EST eCW1 ([facility]) Sucralfate 100 MG/ML Oral Suspension 04/22/2020 12:00:00 AM EST eCW1 ([facility]) Amphetamine aspartate 5 MG / Amphetamine Sulfate 5 MG / Dextroamphetamine saccharate 5 MG / Dextroamphetamine Sulfate 5 MG Oral Tablet [Adderall] 03/24/2020 12:00:00 AM EST eCW1 ([facility]) Amphetamine aspartate 5 MG / Amphetamine Sulfate 5 MG / Dextroamphetamine saccharate 5 MG / Dextroamphetamine Sulfate 5 MG Oral Tablet [Adderall] 03/24/2020 12:00:00 AM EST eCW1 ([facility]) 24 HR Amphetamine aspartate 6.25 MG / Am phetamine Sulfate 6.25 MG / Dextroamphetamine saccharate 6.25 MG / Dextroamphetamine Sulfate 6.25 MG Extended Release Oral Capsule [Adderall] 03/12/2020 12:00:00 AM EST eCW1 ([facility]) 24 HR Amphetamine aspartate 6.25 MG / Am phetamine Sulfate 6.25 MG / Dextroamphetamine saccharate 6.25 MG / Dextroamphetamine Sulfate 6.25 MG Extended Release Oral Capsule [Adderall] 02/05/2020 12:00:00 AM EST eCW1 ([facility]) 24 HR Amphetamine aspartate 5 MG / Amphe tamine Sulfate 5 MG / Dextroamphetamine saccharate 5 MG / Dextroamphetamine Sulfate 5 MG Extended Release Oral Capsule [Adderall] 01/01/2020 12:00:00 AM EDT eCW1 ([facility]) 24 HR Amphetamine aspartate 1.25 MG / Am phetamine Sulfate 1.25 MG / Dextroamphetamine saccharate 1.25 MG / Dextroamphetamine Sulfate 1.25 MG Extended Release Oral Capsule 01/01/2020 12:00:00 AM EDT eCW1 ([facility])
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
--- OUTSIDE RECORDS SUMMARY | 2020-04-30 11:05 | CCD ---
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 [address] [facility] [address] [place] [address] SELF EMPLOYED Next Of Kin [address] [place] [address] BABYSITTING Next Of Kin [address] [facility] [address] [place] [address] CATALINO WIGGINS Next Of Kin [address] [place] [address] [place] [address] CATALINO LICEA Next Of Kin [address] [facility] [address] [place] [address] ZULAY DE LA PAZ Next Of Kin [address] [facility] [place] [address] KRISTEN DE LA PAZ Next Of Kin [address] [place] [address] EUGENIO CHARLES Next Of Kin [address] [place] [address] BECCA'S Next Of Kin [address] [facility] [place] [address] [place] [address] LISE MANCILLA Next Of Kin [address] [place] [address] NONE [place] [address] HERRING CHOPPER Next Of Kin [address] [facility] [address] [place] [address] [place] [address] ARIANA TINSLEY Next Of Kin [address] [place] [address] MUSTAPHA BORJA Next Of Kin [facility] [place] [address] KRISTEN HERRING Next Of Kin [address] [place] [address] LYUBOV BORJA Next Of Kin [address] [place] [address] ISRRAEL MAHER [place] [address] CAESAR [place] Next Of Kin [address] [place] [address] UE Next Of Kin Unknown Unavailable KRISTEN MORRISSEY Next Of Kin [address] [facility] [address] [place] [address] CONNER ALCOCER Next Of Kin [address] [place] [address] Catalino Lieca ECON [address] [facility] [address] [place] [address] [phone] Care Team Providers Care Hogshead Inspector Name Role Phone RAMESH FARIA Unavailable Unavailable [...] Loida CNM Unavailable Unavailabl e Vallandigham, D Lioda CNM Unavailable Unavailabl e Vallandigham, D Loida [...] W VINOD PA Unavailable Unavailable Charlotte MurrayP RECRUITING ADMINISTRATOR Unavailable Unavailable ROGELIO GREENBERG Unavailable Unavailable Nicole Murray RECRUITING ADMINISTRATOR Unavailable Unavailable Nicole Murrayra RECRUITING ADMINISTRATOR Unavailable Unavailable Trevor, A Charlotte RECRUITING ADMINISTRATOR Unavailable Unavailable Trevor, A Charlotte RECRUITING ADMINISTRATOR Unavailable Unavailable Trevor, A Charlotte RECRUITING ADMINISTRATOR Unavailable Unavailable Trevor, A Charlotte RECRUITING ADMINISTRATOR Unavailable Unavailable Trevor, A Charlotte RECRUITING ADMINISTRATOR Unavailable Unavailable Trevor, A Charlotte RECRUITING ADMINISTRATOR Unavailable Unavailable Trevor, A Charlotte RECRUITING ADMINISTRATOR Unavailable Unavailable Trevor, A Charlotte RECRUITING ADMINISTRATOR Unavailable Unavailable Trevor, A Charlotte RECRUITING ADMINISTRATOR Unavailable Unavailable Trevor, A Charlotte RECRUITING ADMINISTRATOR Unavailable Unavailable Trevor, A Charlotte RECRUITING ADMINISTRATOR Unavailable Unavailable Trevor, A Charlotte RECRUITING ADMINISTRATOR Unavailable Unavailable Trevor, A Charlotte RECRUITING ADMINISTRATOR Unavailable Unavailable Trevor, A Charlotte RECRUITING ADMINISTRATOR Unavailable Unavailable Trevor, A Charlotte RECRUITING ADMINISTRATOR Unavailable Unavailable Trevor, A Charlotte RECRUITING ADMINISTRATOR Unavailable Unavailable Trevor, A Charlotte RECRUITING ADMINISTRATOR Unavailable Unavailable Trevor, A Charlotte RECRUITING ADMINISTRATOR Unavailable Unavailable Trevor, A Charlotte RECRUITING ADMINISTRATOR Unavailable Unavailable Trevor, A Charlotte RECRUITING ADMINISTRATOR Unavailable Unavailable Trevor, A Charlotte RECRUITING ADMINISTRATOR Unavailable Unavailable Trevor, A Charlotte RECRUITING ADMINISTRATOR Unavailable Unavailable Trevor, A Charlotte RECRUITING ADMINISTRATOR Unavailable Unavailable Trevor, A Charlotte RECRUITING ADMINISTRATOR Unavailable Unavailable Trevor, A Charlotte RECRUITING ADMINISTRATOR Unavailable Unavailable Trevor, A Charlotte RECRUITING ADMINISTRATOR Unavailable Unavailable Re-disclosure Warning The records that [...] is protected by Article 27-F of the [facility] Public Health law. If you continue you may have access to information: Regarding HIV / AIDS; Provided by facilities licensed or operated by the [facility] Office of Mental Health; or Provided by the [facility] Office for People With Developmental Disabilities. If such information is present, then the following [facility] mandated warning applies: This information has been [...] law may result in a fine or penitentiary sentence or both. A general authorization for the release of medical or other information is NOT sufficient authorization for further disc losure. Allergies and Adverse Reactions Type Description Substance Reaction Status Data Source(s ) Drug allergy POTOCIN POTOCIN [facility] y Family Health Family History Family Member Name Family Member Gender Family Member Status Date o f Status Description Data Source(s) Unknown Unknown Problem MEDENT ([facility] ) Unknown Unknown Problem MEDENT ([facility] ) Encounters Encounter Providers Location Date Indications Data Source(s ) [facility] [address] [place] [address] 04/22/2020 12:00:00 AM EST eCW1 ([facility]) Unknown [address] [facility] [address] 04/21/2020 12:00:00 AM EST eCW1 ([facility]) Outpatient Attender: RAMESH FARIA 04/15/2020 11:00:00 AM [facility] ( EST[facility]) [facility] [address] [place] [address] 03/24/2020 12:00:00 AM EST eCW1 ([facility]) Unknown [address] [facility] [address] 03/10/2020 12:00:00 AM EST eCW1 ([facility]) Unknown [address] [facility] [address] 03/09/2020 12:00:00 AM EST eCW1 ([facility]) [facility] [address] [place] [address] 02/20/2020 12:00:00 AM EST eCW1 ([facility]) Unknown [address] [facility] [address] 01/30/2020 12:00:00 AM EST eCW1 ([facility]) ([facility]) [facility] [address] [place] [address] 01/22/2020 12:00:00 AM EST eCW1 ([facility]) Unknown [address] [facility] [address] 12/30/2019 12:00:00 AM EDT [facility]CW1 [facility] Outpatient Attender: Charlotte CALZADA FP 12/22/2019 06:1 1:00 PM EDT [facility] Unknown [address] [facility] [address] 12/18/2019 12:00:00 AM EDT eCW1 ([facility]) Outpatient Attender: Charlotte DEWEY 12/16/2019 10:5 8:00 AM EDT [facility] Outpatient Attender: ELSI CALZADA FP 12/16/2019 10:48:01 A M EDT [facility] Outpatient Attender: ELSI CALZADA FP 12/16/2019 09:56:03 A M EDT [facility] Outpatient Attender: Charlotte DEWEY 12/16/2019 09:5 6:02 AM EDT [facility] Outpatient Attender: ELSI DEWEY 12/16/2019 09:01:02 A M EDT [facility] Outpatient Attender: ELSI DEWEY 11/12/2019 05:50:01 P M EDT [facility] Outpatient Attender: ELSI DEWEY 10/14/2019 03:58:00 P M EDT [facility] Outpatient Attender: Charlotte DEWEY 08/30/2019 11:0 4:00 AM EDT [facility] Outpatient Attender: Charlotte DEWEY 08/29/2019 01:3 2:01 PM EDT [facility] Outpatient Attender: ESLI DEWEY 08/22/2019 03:46:02 P M EDT [facility] Outpatient Attender: ELSI DEWEY 08/22/2019 03:15:01 P M EDT [facility] Outpatient Attender: ELSI BUSTAMANTEP FP 08/22/2019 03:13:01 P M EDT [facility] Outpatient Attender: ELSI BUSTAMANTEP FP 08/22/2019 03:12:00 P M EDT [facility] Outpatient Attender: ELSI BUSTAMANTEP FP 08/22/2019 11:52:00 A M EDT [facility] Outpatient Attender: Charlotte BUSTAMANTEP FP 08/22/2019 11:2 8:00 AM EDT [facility] Outpatient Attender: Charlotte BUSTAMANTEP FP 08/20/2019 11:1 2:01 AM EDT [facility] Outpatient Attender: ELSI BUSTAMANTEP FP 08/10/2019 12:14:40 A M EDT [facility] Outpatient Attender: ELSI BUSTAMANTEP FP 08/02/2019 11:05:00 A M EDT [facility] Outpatient Attender: Charlotte BUSTAMANTEP FP 07/08/2019 01:3 5:03 PM EDT [facility] Outpatient Referrer: Loida ANDREWS 06/18/2019 05:34:00 AM EDT [facility] Outpatient Attender: ELSI BUSTAMANTEP FP 06/10/2019 09:13:00 A M EDT [facility] Outpatient Attender: ELSI BUSTAMANTEP FP 06/08/2019 01:06:02 P M EDT [facility] Outpatient Attender: Charlotte BUSTAMANTEP FP 06/08/2019 01:0 6:01 PM EDT [facility] Outpatient Attender: ELSI BUSTAMANTEP FP 06/08/2019 01:06:00 P M EDT [facility] Outpatient Attender: Charlotte BUSTAMANTEP FP 06/08/2019 12:5 7:02 PM EDT [facility] Outpatient Attender: Charlotte BUSTAMANTEP FP 06/08/2019 12:1 1:01 PM EDT [facility] Outpatient Attender: ELSI BUSTAMANTEP FP 06/08/2019 12:11:00 P M EDT [facility] Outpatient Attender: Charlotte BUSTAMANTEP FP 06/08/2019 12:0 7:01 PM EDT [facility] Outpatient Attender: ELSI BUSTAMANTEP FP 06/08/2019 12:06:59 P M EDT [facility] Outpatient Attender: ELSI Trevor RECRUITING ADMINISTRATOR FP 06/07/2019 08:36:02 A M EDT [facility] Outpatient Attender: Charlotte Trevor RECRUITING ADMINISTRATOR FP 06/07/2019 08:3 6:01 AM EDT [facility] Outpatient Attender: ELSI Trevor RECRUITING ADMINISTRATOR FP 06/05/2019 03:26:02 P M EDT [facility] Outpatient Attender: ELSI Trevor RECRUITING ADMINISTRATOR FP 06/05/2019 01:10:01 P M EDT [facility] Outpatient Attender: Charlotte Trevor RECRUITING ADMINISTRATOR FP 05/09/2019 10:4 2:00 AM EST [facility] Outpatient Attender: ELSI Murray RECRUITING ADMINISTRATOR FP 05/09/2019 10:42:00 A M [address] [address] 05/02/2019 12:00:00 AM EST eCW1 ([facility]) [address] [address] 05/02/2019 12:00:00 AM EST eCW1 ([facility]) Outpatient Attender: Charlotte BUSTAMANTEP FP 04/30/2019 11:2 7:00 AM [facility] Outpatient Attender: Charlotte Trevor BUSTAMANTEP FP 04/30/2019 10:2 9:01 AM [facility] Outpatient Attender: ELSI Murray RECRUITING ADMINISTRATOR FP 04/30/2019 10:22:02 A M [facility] Outpatient Attender: Charlotte BUSTAMANTEP FP 04/30/2019 10:2 2:01 AM [facility] Outpatient Attender: ELSI Murray RECRUITING ADMINISTRATOR FP 04/30/2019 09:53:[address] [facility] [address] [place] [address] [place] [address] 04/30/2019 12:00:00 AM EST eCW1 ([facility]) [facility] [address] [place] [address] [place] [address] 04/30/2019 12:00:00 AM EST eCW1 ([facility]) Outpatient Referrer: Loida ANDREWS 04/23/2019 09:19:00 PM [facility] Outpatient Attender: ELSI CALZADA FP 04/22/2019 01:26:00 P [facility] Outpatient Attender: Charlotte CALZADA FP 04/22/2019 07:5 8:04 AM [facility] Outpatient Attender: ELSI CALZADA FP 04/18/2019 12:00:23 A M [facility] [address] [place] [address], [place] [address] 04/18/2019 12:00:00 AM [place] [address] ([facility]) Outpatient Attender: ELSI CALZADA FP 04/17/2019 09:01:04 P [facility] Outpatient Attender: ELSI CALZADA FP 04/17/2019 02:23:00 P [facility] Outpatient Attender: ELSI CALZADA FP 04/17/2019 02:16:06 P [facility] Outpatient Attender: ELSI BUSTAMANTEP FP 04/17/2019 02:15:01 P [facility] Outpatient Attender: ELSI BUSTAMANTEP FP 04/17/2019 02:14:01 P [facility] Outpatient Attender: ELSI CALZADA FP 04/17/2019 10:40:02 A [facility] Outpatient Attender: ELSI CALZADA FP 04/17/2019 09:16:01 A [facility] Outpatient Attender: ELSI BUSTAMANTEP FP 04/16/2019 09:01:05 P [facility] Outpatient Referrer: Loida Ortega [facility] 04/12/2019 01:22:00 PM [facility] Outpatient Referrer: Loida ANDREWS 04/10/2019 09:07:[address] [facility] Outpatient Attender: ELSI CALZADA FP 04/10/2019 09:22:01 A [facility] Outpatient Attender: Charlotte CALZADA FP 04/09/2019 03:5 3:[address] [facility] [address] [facility] [address] 04/08/2019 12:00:00 AM EST eCW1 ([facility]) Outpatient Referrer: Loida Ortega CNM 04/04/2019 12:53:00 PM [facility] Outpatient Attender: ELSI Murray [facility] 04/02/2019 09:53:00 A M [facility] Outpatient Attender: ELSI Murray RECRUITING ADMINISTRATOR FP 04/01/2019 01:52:00 P M [facility] Outpatient Attender: [facility] 04/01/2019 01:51:00 P [place] [address] [address] 03/29/2019 12:00:00 AM EST eCW1 ([facility] [address] [address] 03/25/2019 12:00:00 AM EST eCW1 ([facility] [address] [address] 03/25/2019 12:00:00 AM EST eCW1 [facility] [address] [address] 03/12/2019 12:00:00 AM EST eCW1 ([facility]) [address] [address] 03/11/2019 12:00:00 AM EST eCW1 ([facility]) [address] [address] 03/08/2019 12:00:00 AM EST eCW1 [facility] [address] [address] 03/05/2019 12:00:00 AM EST eCW1 ([facility]) Emergency Attender: VINOD HERNANDEZ EMERGENCY ROOM-ER 2014 10:33:00 PM EST - 04/06/2014 11:21:00 PM [facility] Emergency Attender: ROGELIO GREENBERG 3 07:58:00 PM T - 11/10/2012 03:30:00 AM [facility] Medications Medication Brand Name Start Date Product Form Dose Route Admi nistrative Instructions Pharmacy Instructions Status Indications Reaction Description Data Source(s) Sucralfate 100 MG/ML Oral Suspension Sucralfate 1 GM/10ML Kwon cralfate 1 GM/10ML 04/22/2020 12:00:00 AM EST 10.0 {ml_on_an_empty_stomach} active Sucralfate 1 GM/10ML eCW1 ([facility]) Acetaminophen 325 MG / Oxycodone Hydroch loride 5 MG Oral Tablet [Percocet] Percocet 5-325 MG Percocet 5-325 MG 04/22/2020 12:00:00 AM EST 1 .0 {tablet_as_needed} active Percocet 5-32 5 MG eCW1 ([facility]) Amphetamine aspartate 5 MG / Amphetamine Sulfate 5 MG / Dextroamphetamine saccharate 5 MG / Dextroamphetamine Sulfate 5 MG Oral Tablet [Adderall] Adderall 20 MG Adderall 20 MG 03/24/2020 12:00:00 AM EST 1.0 {tablet} active Adderall 20 MG eCW1 ([facility]) Amphetamine aspartate 5 MG / Amphetamine Sulfate 5 MG / Dextroamphetamine saccharate 5 MG / Dextroamphetamine Sulfate 5 MG Oral Tablet [Adderall] Adderall 20 MG Adderall 20 MG 03/24/2020 12:00:00 AM EST 1.0 {tablet} active Adderall 20 MG eCW1 ([facility]) Amphetamine aspartate 5 MG / Amphetamine Sulfate 5 MG / Dextroamphetamine saccharate 5 MG / Dextroamphetamine Sulfate 5 MG Oral Tablet [Adderall] Adderall 20 MG Adderall 20 MG 03/24/2020 12:00:00 AM EST 1.0 {tablet} active Adderall 20 MG eCW1 ([facility]) 24 HR Amphetamine aspartate 6.25 MG / Am phetamine Sulfate 6.25 MG / Dextroamphetamine saccharate 6.25 MG / Dextroamphetamine Sulfate 6.25 MG Extended Release Oral Capsule [Adderall] Adderall XR 25 MG Adderall XR 25 MG 03/12/2020 12:00:00 AM EST active Adderall XR 25 MG eCW1 ([facility]) 24 HR Amphetamine aspartate 6.25 MG / Am phetamine Sulfate 6.25 MG / Dextroamphetamine saccharate 6.25 MG / Dextroamphetamine Sulfate 6.25 MG Extended Release Oral Capsule [Adderall] Adderall XR 25 MG Adderall XR 25 MG 03/12/2020 12:00:00 AM EST active Adderall XR 25 MG eCW1 ([facility]) 24 HR Amphetamine aspartate 6.25 MG / Am phetamine Sulfate 6.25 MG / Dextroamphetamine saccharate 6.25 MG / Dextroamphetamine Sulfate 6.25 MG Extended Release Oral Capsule [Adderall] Adderall XR 25 MG Adderall XR 25 MG 03/12/2020 12:00:00 AM EST active Adderall XR 25 MG eCW1 ([facility]) 24 HR Amphetamine aspartate 6.25 MG / Am phetamine Sulfate 6.25 MG / Dextroamphetamine saccharate 6.25 MG / Dextroamphetamine Sulfate 6.25 MG Extended Release Oral Capsule [Adderall] Adderall XR 25 MG Adderall XR 25 MG 03/12/2020 12:00:00 AM EST active Adderall XR 25 MG eCW1 ([facility]) 24 HR Amphetamine aspartate 6.25 MG / Am phetamine Sulfate 6.25 MG / Dextroamphetamine saccharate 6.25 MG / Dextroamphetamine Sulfate 6.25 MG Extended Release Oral Capsule [Adderall] Adderall XR 25 MG Adderall XR 25 MG 02/05/2020 12:00:00 AM EST active Adderall XR 25 MG eCW1 ([facility]) 24 HR Amphetamine aspartate 6.25 MG / Am phetamine Sulfate 6.25 MG / Dextroamphetamine saccharate 6.25 MG / Dextroamphetamine Sulfate 6.25 MG Extended Release Oral Capsule [Adderall] Adderall XR 25 MG Adderall XR 25 MG 02/05/2020 12:00:00 AM EST active Adderall XR 25 MG eCW1 ([facility]) 24 HR Amphetamine aspartate 6.25 MG / Am phetamine Sulfate 6.25 MG / Dextroamphetamine saccharate 6.25 MG / Dextroamphetamine Sulfate 6.25 MG Extended Release Oral Capsule [Adderall] Adderall XR 25 MG Adderall XR 25 MG 02/05/2020 12:00:00 AM EST active Adderall XR 25 MG eCW1 ([facility]) 24 HR Amphetamine aspartate 1.25 MG / Am phetamine Sulfate 1.25 MG / Dextroamphetamine saccharate 1.25 MG / Dextroamphetamine Sulfate 1.25 MG Extended Release Oral Capsule Amphetamine-Dextroamphet ER 5 MG Amphetamine- Dextroamphet ER 5 MG 01/01/2020 12:00:00 AM EDT 1.0 {capsule_in_ the_evening} suspended Amphetamine-Dextroam phet ER 5 MG eCW1 ([facility]) 24 HR Amphetamine aspartate 1.25 MG / Am phetamine Sulfate 1.25 MG / Dextroamphetamine saccharate 1.25 MG / Dextroamphetamine Sulfate 1.25 MG Extended Release Oral Capsule Amphetamine-Dextroamphet ER 5 MG Amphetamine- Dextroamphet ER 5 MG 01/01/2020 12:00:00 AM EDT 1.0 {capsule_in_ the_evening} suspended Amphetamine-Dextroam phet ER 5 MG eCW1 ([facility]) 24 HR Amphetamine aspartate 1.25 MG / Am phetamine Sulfate 1.25 MG / Dextroamphetamine saccharate 1.25 MG / Dextroamphetamine Sulfate 1.25 MG Extended Release Oral Capsule Amphetamine-Dextroamphet ER 5 MG Amphetamine- Dextroamphet ER 5 MG 01/01/2020 12:00:00 AM EDT 1.0 {capsule_in_ the_evening} suspended Amphetamine-Dextroam phet ER 5 MG eCW1 ([facility]) 24 HR Amphetamine aspartate 5 MG / Amphe tamine Sulfate 5 MG / Dextroamphetamine saccharate 5 MG / Dextroamphetamine Sulfate 5 MG Extended Release Oral Capsule [Adderall] Adderall XR 20 MG Adderall XR 20 MG 01/01/2020 12:00:00 AM EDT 1.0 {capsule_in_the_morning} suspended Adder all XR 20 MG eCW1 ([facility]) 24 HR Amphetamine aspartate 5 MG / Amphe tamine Sulfate 5 MG / Dextroamphetamine saccharate 5 MG / Dextroamphetamine Sulfate 5 MG Extended Release Oral Capsule [Adderall] Adderall XR 20 MG Adderall XR 20 MG 01/01/2020 12:00:00 AM EDT 1.0 {capsule_in_the_morning} suspended Adder all XR 20 MG eCW1 ([facility]) 24 HR Amphetamine aspartate 1.25 MG / Am phetamine Sulfate 1.25 MG / Dextroamphetamine saccharate 1.25 MG / Dextroamphetamine Sulfate 1.25 MG Extended Release Oral Capsule Amphetamine-Dextroamphet ER 5 MG Amphetamine- Dextroamphet ER 5 MG 01/01/2020 12:00:00 AM EDT 1.0 {capsule_in_ the_evening} active Amphetamine-Dextroam phet ER 5 MG eCW1 ([facility]) 24 HR Amphetamine aspartate 1.25 MG / Am phetamine Sulfate 1.25 MG / Dextroamphetamine saccharate 1.25 MG / Dextroamphetamine Sulfate 1.25 MG Extended Release Oral Capsule Amphetamine-Dextroamphet ER 5 MG Amphetamine- Dextroamphet ER 5 MG 01/01/2020 12:00:00 AM EDT 1.0 {capsule_in_ the_evening} suspended Amphetamine-Dextroam phet ER 5 MG eCW1 ([facility]) 24 HR Amphetamine aspartate 1.25 MG / Am phetamine Sulfate 1.25 MG / Dextroamphetamine saccharate 1.25 MG / Dextroamphetamine Sulfate 1.25 MG Extended Release Oral Capsule Amphetamine-Dextroamphet ER 5 MG Amphetamine- Dextroamphet ER 5 MG 01/01/2020 12:00:00 AM EDT 1.0 {capsule_in_ the_evening} active Amphetamine-Dextroam phet ER 5 MG eCW1 ([facility]) 24 HR Amphetamine aspartate 1.25 MG / Am phetamine Sulfate 1.25 MG / Dextroamphetamine saccharate 1.25 MG / Dextroamphetamine Sulfate 1.25 MG Extended Release Oral Capsule Amphetamine-Dextroamphet ER 5 MG Amphetamine- Dextroamphet ER 5 MG 01/01/2020 12:00:00 AM EDT 1.0 {capsule_in_ the_evening} suspended Amphetamine-Dextroam phet ER 5 MG eCW1 ([facility]) 24 HR Amphetamine aspartate 5 MG / Amphe tamine Sulfate 5 MG / Dextroamphetamine saccharate 5 MG / Dextroamphetamine Sulfate 5 MG Extended Release Oral Capsule [Adderall] Adderall XR 20 MG Adderall XR 20 MG 01/01/2020 12:00:00 AM EDT 1.0 {capsule_in_the_morning} suspended Adder all XR 20 MG eCW1 ([facility]) 24 HR Amphetamine aspartate 5 MG / Amphe tamine Sulfate 5 MG / Dextroamphetamine saccharate 5 MG / Dextroamphetamine Sulfate 5 MG Extended Release Oral Capsule [Adderall] Adderall XR 20 MG Adderall XR 20 MG 01/01/2020 12:00:00 AM EDT 1.0 {capsule_in_the_morning} active Adderal l XR 20 MG eCW1 ([facility]) 24 HR Amphetamine aspartate 5 MG / Amphe tamine Sulfate 5 MG / Dextroamphetamine saccharate 5 MG / Dextroamphetamine Sulfate 5 MG Extended Release Oral Capsule [Adderall] Adderall XR 20 MG Adderall XR 20 MG 01/01/2020 12:00:00 AM EDT 1.0 {capsule_in_the_morning} active Adderal l XR 20 MG eCW1 ([facility]) 24 HR Amphetamine aspartate 5 MG / Amphe tamine Sulfate 5 MG / Dextroamphetamine saccharate 5 MG / Dextroamphetamine Sulfate 5 MG Extended Release Oral Capsule [Adderall] Adderall XR 20 MG Adderall XR 20 MG 01/01/2020 12:00:00 AM EDT 1.0 {capsule_in_the_morning} suspended Adder all XR 20 MG eCW1 ([facility]) 24 HR Amphetamine aspartate 5 MG / Amphe tamine Sulfate 5 MG / Dextroamphetamine saccharate 5 MG / Dextroamphetamine Sulfate 5 MG Extended Release Oral Capsule [Adderall] Adderall XR 20 MG Adderall XR 20 MG 01/01/2020 12:00:00 AM EDT 1.0 {capsule_in_the_morning} active Adderal l XR 20 MG eCW1 ([facility]) 24 HR Amphetamine aspartate 1.25 MG / Am phetamine Sulfate 1.25 MG / Dextroamphetamine saccharate 1.25 MG / Dextroamphetamine Sulfate 1.25 MG Extended Release Oral Capsule Amphetamine-Dextroamphet ER 5 MG Amphetamine- Dextroamphet ER 5 MG 01/01/2020 12:00:00 AM EDT 1.0 {capsule_in_ the_evening} active Amphetamine-Dextroam phet ER 5 MG eCW1 ([facility]) 24 HR Amphetamine aspartate 5 MG / Amphe tamine Sulfate 5 MG / Dextroamphetamine saccharate 5 MG / Dextroamphetamine Sulfate 5 MG Extended Release Oral Capsule [Adderall] Adderall XR 20 MG Adderall XR 20 MG 01/01/2020 12:00:00 AM EDT 1.0 {capsule_in_the_morning} suspended Adder all XR 20 MG eCW1 ([facility]) 24 HR Amphetamine aspartate 5 MG / Amphe tamine Sulfate 5 MG / Dextroamphetamine saccharate 5 MG / Dextroamphetamine Sulfate 5 MG Extended Release Oral Capsule [Adderall] Adderall XR 20 MG Adderall XR 20 MG 01/01/2020 12:00:00 AM EDT 1.0 {capsule_in_the_morning} suspended Adder all XR 20 MG eCW1 ([facility]) 24 HR Amphetamine aspartate 1.25 MG / Am phetamine Sulfate 1.25 MG / Dextroamphetamine saccharate 1.25 MG / Dextroamphetamine Sulfate 1.25 MG Extended Release Oral Capsule Amphetamine-Dextroamphet ER 5 MG Amphetamine- Dextroamphet ER 5 MG 01/01/2020 12:00:00 AM EDT 1.0 {capsule_in_ the_evening} suspended Amphetamine-Dextroam phet ER 5 MG eCW1 ([facility]) Mupirocin 0.02 MG/MG Topical Ointment Mupirocin 07/08/2019 12:00:00 AM EDT TOPICAL active MEDENT ([facility], ) 113-14 mcg/actuation 01/30/2019 12:00:00 [...] type / Coverage type Policy ID Covered libertarian ID Covered libertarian's relationship to sosa Policy Sosa Plan Information [employer] COMMUNITY PLAN MCDO [id number] SP [id number] [facility] [id number] SP [id number] [place] [id number] S [id number] [facility] MEDICAID [id number] S [id number] [facility] PL [id number] S [id number] [facility] MEDICAID [id number] S [id number] [facility](MCAID) O [id number] S [id number] [employer] COMMUNITY PLAN MCDHMO [id number] SP [id number] EMEDNY [id number] SP [id number] [facility] [id number] SP [id number] Medicaid S [id number] S [id number] Managed Care - [facility] Community Plan P [id number] S [id number] Medicaid S [id number] S [id number] UNHC COMMUNITY PLAN MCDO [id number] SP [id number] [facility] [id number] SP [id number] [facility](MCAID) O [id number] S [id number] Managed Care - C Community Plan P [id number] S [id number] ANSI-Medicaid [id number] ANSI-Medicaid [id number] ANSI-Medicaid [id number] ANSI-Medicaid [id number] ANSI-Medicaid [id number] ANSI-Medicaid [id number] ANSI-Medicaid [id number] ANSI-Medicaid [id number] ANSI-Medicaid [id number] ANSI-Medicaid [id number] ANSI-Medicaid [id number]-[id number] ANSI-Medicaid [id number]-vhm6-8ys8-v90e-[id number] ANSI-Medicaid [id number]-[id number]-7g8k-d37x-sskpt3iz81g3 ANSI-Medicaid [id number]-[id number]-[id number]-[id number]-9guf-[id number] ANSI-Medicaid [id number] ANSI-Medicaid [id number]-[id number] ANSI-Medicaid [id number]-[id number] ANSI-Medicaid [id number] ANSI-Medicaid [id number] ANSI-Medicaid [id number] ANSI-Medicaid [id number] ANSI-Medicaid [id number]-9h22-[id number] ANSI-Medicaid [id number] ANSI-Medicaid [id number] ANSI-Medicaid [id number]-70tb-18ip-[id number] ANSI-Medicaid [id number]-[id number] ANSI-Medicaid [id number]-[id number] [id number]-j9b4-5f10-pn81-[id number] ANSI-Medicaid [id number]-[id number] ANSI-Medicaid [id number]-s25a-3o81-285f-[id number] ANSI-Medicaid [id number] ndg0j12v-8g50-5m76-32ja-[id number] ANSI-Medicaid [id number]-[id number] 64qu3la6-04ug-[id number] ANSI-Medicaid [id number]-[id number] ANSI-Medicaid [id number]-[id number]-z906-4b24-jv7w-[id number] ANSI-Medicaid [id number]-f97p-[id number]-c93u-7re5-94z9-[id number] ANSI-Medicaid [id number] ANSI-Medicaid [id number]-tqvw-625t-[id number] [facility] Health Maintenance Organization (HMO) [id number] Self [id number] [facility] [id number] Self [id number] Managed Care - Community Plan [facility] P [id number] S [id number] MEDICAID [id number] SP [id number] ANSI-Medicaid [id number] ANSI-Medicaid [id number] ANSI-Medicaid [id number]-[id number] ANSI-Medicaid [id number] 4u4j2ol0-0257-7f2l-kk77-[id number] ANSI-Medicaid [id number]-8zq9-[id number] 4p3k1t29-l377-123w-6fw6-x0c2j967s2qf ANSI-Medicaid [id number]-9839-[id number] ANSI-Medicaid [id number]-teyv-3y29-87ud-[id number] cd02l3d5-hiwu-7i83-26zt-s0w48s908n4w ANSI-Medicaid [id number]-32b2-c92l-[id number] ANSI-Medicaid [id number]-9mz5-91s7-[id number] [id number]-95sl-3nh5-23s8-jo7k5z3o502v ANSI-Medicaid [id number]-9q6l-s473-[id number] ANSI-Medicaid [id number] ANSI-Medicaid [id number]-qv71-4m74-07sj-[id number] ANSI-Medicaid [id number]-y627-[id number] ANSI-Medicaid [id number]-l4l8-[id number] ANSI-Medicaid [id number]-689d-[id number] [facility] I [id number] Self [id number] ANSI-Medicaid [id number]-69ds-[id number] ANSI-Medicaid [id number]-[id number] ANSI-Medicaid [id number]-echh-[id number] ANSI-Medicaid [id number]-[id number] ANSI-Medicaid [id number]-83uq-[id number] ANSI-Medicaid [id number]-[id number] x885zht6-2932-3bsq-[id number] ANSI-Medicaid [id number]-5a1k-[id number] ANSI-Medicaid [id number]-e41a-60za-[id number] ANSI-Medicaid [id number]-[id number] [id number]-k883-4x5j-s6rg-v0ss4i3d4q1i ANSI-Medicaid [id number] 68x042u7-d8i2-5k5b-md28-[id number] ANSI-Medicaid [id number]-[id number] ANSI-Medicaid [id number]-57h6-67g6-[id number] 0stslq2r-72s9-95z7-[id number] ANSI-Medicaid [id number]-1062-2469-[id number] ANSI-Medicaid [id number]-[id number] 2sp5nu53-90l0-2305-z1ex-h2300s04x22y ANSI-Medicaid [id number]-wa79-1n9w-[id number] 42mbkz4l-yt40-8m5j-[id number] ANSI-Medicaid [id number]-[id number] c041d4m7-90at-9h74-8040-4v5ilh07050z ANSI-Medicaid [id number]-[id number]-a020-9f9a-mda0-4y2wr2a8j17b ANSI-Medicaid [id number]-[id number]-[id number]-e16y5u33lyc5 ANSI-Medicaid [id number]-frr3-81t9-[id number] ANSI-Medicaid [id number]-[id number] ANSI-Medicaid [id number] [facility] Health Maintenance Organization ([facility]) [id number] Self [id number] ANSI-Medicaid [id number]-[id number] ANSI-Medicaid [id number]-[id number] ANSI-Medicaid [id number]-u760-29w6-mepb-[id number] ANSI-Medicaid [id number]-[id number]-[id number] ANSI-Medicaid [id number]-[id number]-[id number] ANSI-Medicaid [id number]-1910-wjmt-[id number]-54ss-1287-nwdn-[id number] ANSI-Medicaid [id number] ANSI-Medicaid [id number] ANSI-Medicaid [id number]-vqx4-[id number] 20h1qx76-7tv7-7468-cdr3-p7s49p1n6e6h [facility] COMMUNITY PLAN [facility] [id number] ANSI-Medicaid [id number] ANSI-Medicaid [id number]-[id number] d0q3n0x6-92r1-8ohe-9qqx-[id number] ANSI-Medicaid [id number]-[id number]-ts8u-960n-2p12-798a7hj24l7i ANSI-Medicaid [id number]-98r5-5xy3-[id number] ANSI-Medicaid [id number]-sxa7-2c22-96qh-d7477tj5cz1y ANSI-Medicaid [id number]-4433-[id number] ANSI-Medicaid [id number]-[id number]-2520-8o33-85o5uz35n0fu ANSI-Medicaid [id number] [id number]-572k-4466-[id number] ANSI-Medicaid [id number] OTHER1 [facility] [id number] Managed Care - Community Plan [facility] P [id number] S [id number] ANSI-Medicaid [id number]-9z5a-81w3-g831-[id number] ANSI-Medicaid [id number]-[id number]-1s97-3c79-nfjs22qv985h ANSI-Medicaid [id number]-[id number] ANSI-Medicaid [id number] ANSI-Medicaid [id number]-[id number] [facility] MEDICAID [id number] Ingrid [id number] [facility] MEDICAID PI PI [facility] COMM[facility]ITY PL[facility] [id number] ANSI-Medicaid [id number] ANSI-Medicaid [id number]-[id number]-x9hb-[id number] ANSI-Medicaid [id number]-uz2m-32sa-[id number] ANSI-Medicaid [id number]-4948-9n1d-[id number] ANSI-Medicaid [id number] [id number]-m816-4814-f7uo-[id number] ANSI-Medicaid [id number]-[id number] ANSI-Medicaid [id number]-23t4-u15n-[id number] ANSI-Medicaid [id number]-[id number]-xufa-[id number] ANSI-Medicaid [id number]-[id number]-97x2-m9v2-[id number] ANSI-Medicaid [id number]-[id number] ANSI-Medicaid [id number]-73gf-[id number] ANSI-Medicaid [id number] ANSI-Medicaid [id number] ANSI-Medicaid [id number]-16ru-[id number] ANSI-Medicaid [id number]-ylw0-1u9d-[id number] ANSI-Medicaid [id number]-[id number] ANSI-Medicaid [id number] q89uy7h6-t893-805h-c1x2-w04v21jictf7 ANSI-Medicaid [id number]-s0w2-378j-a44b-[id number] ANSI-Medicaid [id number] ANSI-Medicaid [id number] ANSI-Medicaid [id number]-[id number]-bd0z-[id number] ANSI-Medicaid [id number] ANSI-Medicaid [id number]-565l-[id number] ANSI-Medicaid [id number]-0tgh-[id number] ANSI-Medicaid [id number]-jixk-001j-47j6-p0yu1o2d0u1o 7y8p966x-syfb-410p-37r4-q7ni2h0w8c0b ANSI-Medicaid [id number] z2tqxr95-ex9o-[id number] ANSI-Medicaid [id number]-f4ep-[id number] q77n6t2d-0up9-1534-u9vu-rp7a4yurb753 ANSI-Medicaid [id number] g34fsf48-846h-7r82-89eb-[id number] ANSI-Medicaid [id number]-n967-38v6-71t2-[id number] ANSI-Medicaid [id number]-[id number]-[id number] ANSI-Medicaid [id number]-[id number] ANSI-Medicaid [id number]-[id number] ANSI-Medicaid [id number]-[id number] ANSI-Medicaid [id number] ANSI-Medicaid [id number] ANSI-Medicaid [id number] ANSI-Medicaid [id number] ANSI-Medicaid [id number] ANSI-Medicaid [id number] ANSI-Medicaid [id number] ANSI-Medicaid [id number] ANSI-Medicaid [id number] ANSI-Medicaid [id number] ANSI-Medicaid [id number] UN COMMUNITY PLAN MCDHMO [id number] SP [id number] [facility] Health Maintenance Organization (HMO) [id number] Self [id number] [facility]/MCR Medigap Part B [id number] Self [id number] [facility]/M[facility] Health Maintenance Organization (HMO) [id number] Self [id number] HC COMMUNITY PLAN MCDHMO [id number] SP [id number] [facility] O [id number] S [id number] UNHC COMMUNITY PLAN MCDHMO [id number] SP [id number] [employer] BS Medigap Part B [id number] Self [id number] [facility]/MCR Medigap Part B [id number] Self [id number] [employer] BCBS Medigap Part B [id number] Self [id number] [facility]/MCR Health Maintenance Organization (HMO) [id number] Self [id number] SELF PAY O UNAVAILABLE S UNAVAILA BLE MEDICAID [id number] SP [id number] UNHC COMMUNITY PLAN MCDHMO [id number] SP [id number] [facility] I [id number] Self [id number] UNHC COMMUNITY PLAN MCDHMO [id number] SP [id number] [facility] COMM PLAN [place] W [id number] S [id number] MEDICAID GME W [id number] S [id number] E [facility] Hmo Commercial Self United HLCR/Community [place] Health Maintenance Organization (HMO) Self [facility] Community Plan Health Maintenance Organization (HMO) Self MEDICAID [id number] SP [id number] BCBS [facility] [address] BC [id number] S [id number] BLUE [employer] PLAN [id number] SP [id number] SELF PAY UNAVAILABLE UNAVAILA BLE MEDICAID P [id number] S [id number] HMO BLUE [id number] SP [id number] Problems, Conditions, and Diagnoses Code Display Name Description Problem Type Effective Dates Data Source(s) O99.[id number] atus complicating , second trimester Problem 03/24/2020 12:00:00 AM EST eCW1 ([facility]) O99.841 [id number] Previous gastric byp ass complicating in first trimester, antepartum Problem 01/22/2020 12:00:00 AM EST eCW1 ([facility]) Z34.80 care Supervision of other normal P roblem 01/17/2020 12:00:00 AM EST eCW1 ([facility]) F90.9 [id number] ADHD Problem 01/01/2020 12:00:00 AM ED T eCW1 ([facility]) 626.8 Missed period Missed period 12/16/2019 09:55:42 AM EDT [facility] 782.1 Eruption Eruption 11/12/2019 05:49:17 PM ED T [facility] R58 Hemorrhage, not elsewhere classified Ecchymosis 08/22/2019 03:44:50 PM EDT [facility] 724.2 Low back pain Low back pain 08/22/2019 03:44:50 PM EDT [facility] 268.9 vitamin D deficiency vitamin D deficiency 06/07 01:05:19 PM EDT [facility] 998.59 Infection following a procedure, deep in cisional surgical site, sequela Infection following a procedure, deep incisional surgical site, sequela 06/07/2019 08:35:28 AM EDT [facility] R52 Pain, unspecified Pain of lymph node 06/07/2019 08:35:28 AM EDT [facility] V70.0 Health Screening Health Screening 06/05/2019 03 :24:34 PM EDT [facility] 998.59 Infection following a proced ure, superficial incisional surgical site, initial encounter Infection following a procedure, superfi cial incisional surgical site, initial encounter 06/05/2019 03:24:34 PM EDT [facility] 787.01 Nausea with vomiting, unspecified Nausea with vomiting , unspecified 06/05/2019 03:24:34 PM EDT [facility] 780.79 Other fatigue Other fatigue 06/05/2019 03:24:34 PM EDT [facility] V72.84 Encounter for other preprocedural examin ation Encounter for other preprocedural examination 04/30/2019 10:21:10 AM EST [facility] [id number] Mild persistent asthma, uncomplicated Mi ld persistent asthma, uncomplicated 04/17/2019 10:38:38 AM [facility] 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 04/17/2019 10:38:38 AM [facility] V45.86 Bariatric surgery status Bariatric surgery status 04/17/2019 10:38:38 AM [facility] Surgeries/Procedures Procedure Description Date Indications Data Source(s) Reduction Mammaplasty (Female Only) 05/09/2019 12:00:0 0 AM EST [facility] ([facility], ) Results ID Date Data Source [id number] 01/16/2020 12:00:00 AM EST [facility] Name Value Range Interpretation Code Description Data Feli rce(s) Supporting Document(s) SARS coronavirus 2 RNA [Presence] in Res piratory specimen by ARMIN with probe detection [facility] This lab was ordered by Cherrie shore Hai and reported by [employer] [facility]. ID Date Data Source [id number] 12/16/2019 01:11:44 PM EDT [facility] Labs In-House Blood TestsDate/Time Colle cted: December 16, 2019 11:05 AMTest Result Reference Range Normal ValueComments: Blood drawn in office. Taken from [facility]. Tolerated well. Nohemy Ching MA, December 16, 2019 1:13 PMAssessment & Plan Orders:14000-Kta Vst-Est Level I [CPT-45802] 99424 - Venipuncture [CPT-87178] Name Value Range Interpretation Code Description Data Feli rce(s) Supporting Document(s) ID Date Data Source [id number] 11/12/2019 04:52:37 PM EDT [facility] Measurements & CalculationsHeight: 62 inches (5 [...] barriers: nonePatient's Language used in visit: YesLanguage: Belgian Pain AssessmentPain ScaleNumeric Rating Scale: 5 / [...] due 03/2017AsthmaSurgical History:Gallbladder remopovalGastric Bypass 03/08/2018Cesarean section [id number] reduction-may 2019 Family History:Anxiety (Mother) defects (Mother)Depression [...] during this visit, including review of any hsip-lpr-leqlele medications, herbal therapies, and/or supplements.Allergy ReviewAllergy List [...] is? GoodAssessment & Plan Problems:Added: Eruption (ICD-782.1) (BFG52-E49) Assessment: Instructions: We have sent a prescription to your pharmacy today. Please use medication as prescribed. Please report any major side effects.Assessment not Saved Eruption ([id number]): Patient Instructions/Care Plan: Eruption: We have sent a prescription to your pharmacy today. Please use medication as prescribed. Please report any major side effects. Plan developed in collaboration with patient and/or familyMedications:VOLTAREN 1 % TRANSDERMAL GELVITAMIN D (ERGOCALCIFEROL) 67578 UNIT ORAL CAPSULEVITAMIN D TABLETFLONASE ALLERGY RELIEF 50 MCG/ACT NASAL SUSPENSIONVENTOLIN HFA 108 (90 BASE) MCG/ACT INHALATION AEROSOL SOLUTIONADDERALL 20 MG ORAL TABLETADDERALL 10 MG ORAL TABLETZOLOFT 50 MG ORAL TABLETMedication Changes:New Prescription:BETAMETHASONE DIPROPIONATE 0.05 % EXTERNAL CREAM-apply to affected areas twice daily. Bilat hands and forearm. Qty: 2[Tube] Refills: 1 Method: ElectronicAllergies:AMOXICILLIN (Critical)* POTOCIN (Critical)* SEASONAL (Mild)Orders:Allergy Consult [CPT-63850] Adult - Ofc Vst, EST, Level III [CPT-96381] Follow-Up Return to clinic: 4-6 weeks for follow up. Clinical Visit Summary Completed Name Value Range Interpretation Code Description Data Feli rce(s) Supporting Document(s) ID Date Data Source [id number] 08/22/2019 03:10:28 PM EDT [facility] Measurements & CalculationsHeight: 62 inches (5 [...] due 03/2017AsthmaSurgical History:Gallbladder remopovalGastric Bypass 03/08/2018Cesarean section [id number] reduction-may 2019 Family History:Anxiety (Mother) defects (Mother)Depression (Mother)Schizophrenia (Mother)Depression (Brother)Substance abuse (Brother)Heart disease (Maternal Grandmother)Hypertension (Maternal Grandmother)Diabetes (Maternal Grandmother)Stroke (Maternal Grandmother)Social/Personal History: Chief Complaintfollow-up visit: [facility].History of Present Illness (HPI)29 yo female pt presents today for [facility] ED discharge for back pain. Pt states [...] & Plan Problems:Added: Low back pain (ICD-724.2) (SFI28-T07.5) Assessment: Instructions: Supportive measures: rest, ice/heat, muscle rub/massage, Robaxin and Voltaren as prescribed, tylenol as needed. Consider physical therapy and/or chiropractic if pain continues.Ecchymosis (ICD-459.89) (XWG66-L62) Assessment: Instructions: Unclear origin. Appears to be [...] dailyOrders:Adult - Ofc Vst, EST, Level III [CPT-16727] Follow-Up Return to clinic: as needed Clinical Visit Summary CompletedMedications:VOLTAREN 1 % TRANSDERMAL GEL (DICLOFENAC SODIUM) Apply to low back up to three times daily prn pain #1[Tube] x 1 Route:TRANSDERMAL Entered and Authorized by: Bill HERNANDEZ Method used: Electronically to [facility] (retail) [address] [place] [address] Note to Pharmacy: Route: TRANSDERMAL; Indications: LOW BACK PAIN;ECCHYMOSIS RxID: [id number] signed by Bill HERNANDEZ on 08/29/2019 at 1:31 PM Name Value Range Interpretation Code Description Data Feli rce(s) Supporting Document(s) ID Date Data Source [id number] 06/07/2019 08:15:53 AM EDT [facility] Measurements & CalculationsHeight: 62 inches 157.48 cm Weight: 177 pounds 80.45 kg Body Mass Index (BMI): 32.49BMI Interpretation: ObeseBody Surface Area (BSA): 1.82Weight Management Education Done (Nutrition/Physical Activity)Vital SignsTemperature: 98.7F tympanic Pulse Rate: 89 beats/minuteRespiratory Rate: 20 respirations/minuteBlood Pressure: 107/77 left arm sitting automaticO2 Saturation: 98% room airVital Signs performed by: Luis Gill MA, June 07, 2019 8:21 AMInitial Intake Information from: [facility] #: 14Smoking, Tobacco, Vaping or Smoke Exposure [...] during this visit, including review of any ykff-udn-nrprjpf medications, herbal therapies, and/or supplements.Allergy ReviewAllergy List [...] procedure, deep incisional surgical site, sequela (ICD-998.59) (RJO97-X58.42xS)Pain of lymph node (ICD-457.8) (VWJ98-E64) Assessment: pt on clindamycinAssessment not Saved Pain of lymph node (IOA79-X84): Comment Onlypt on clindamycinMedications:CLINDAMYCIN 300 MGVITAMIN D TABLETFLONASE ALLERGY RELIEF 50 MCG/ACT NASAL SUSPENSIONVENTOLIN HFA 108 (90 BASE) MCG/ACT INHALATION AEROSOL SOLUTIONACETAZOLAMIDE ER 500 MG ORAL CAPSULE EXTENDED RELEASE 12 HOURADDERALL 20 MG ORAL TABLETADDERALL 10 MG ORAL TABLETZOLOFT 50 MG ORAL TABLETAllergies:AMOXICILLIN (Critical)* POTOCIN (Critical)* SEASONAL (Mild) Name Value Range Interpretation Code Description Data Feli rce(s) Supporting Document(s) ID Date Data Source [id number] 06/07/2019 08:10:00 AM EDT [facility] Name Value Range Interpretation Code Description Data Feli rce(s) Supporting Document(s) VIT D25 TOT 9.8 ng/mL 30.0-100.0 L [facility] BG FASTING 104 mg/dL 70-[address] [facility] T4, FREE 0.80 ng/dL 0.76-1.[address] [facility] TSH 1.430 microintl units/mL 0.358-3.[address] [facility] ID Date Data Source [id number] 06/07/2019 08:10:00 AM EDT [facility] Name Value Range Interpretation Code Description Data Feli rce(s) Supporting Document(s) HCT 37.6 % 36.0-47.0 N [facility] HGB 11.9 g/dL 12.0-15.5 L [facility] MCH 31.6 G/DL pg 32.0-36.5 L [facility] MCHC 27.5 PG % 27.0-33.0 N [facility] PLATELETS 281 10 10*3/mm3 150-450 [facility] RBC 4.33 10 10*6/mm3 4.00-5.40 [facility] RDW 11.8 % 11.5-14.5 [facility] WBC TOTAL 6.8 4.0-10.0 [facility] ID Date Data Source [id number] 06/07/2019 08:10:00 AM EDT [facility] Name Value Range Interpretation Code Description Data Feli rce(s) Supporting Document(s) HGBA1C 5.0 % N [facility] ID Date Data Source [id number] 06/05/2019 02:03:25 PM EDT [facility] Measurements & CalculationsHeight: 62 inches (5 [...] (ER) or urgent care clinic? Yes - [facility] ER Emergency room (ER) or urgent care [...] during this visit, including review of any axke-hst-redwtlw medications, herbal therapies, and/or supplements.Allergy ReviewAllergy List [...] GoodAssessment & Plan Problems:Added: Health Screening (ICD-V70.0) (RJQ39-V05.9) Assessment: Instructions: We have ordered fasting labs for you today. Please return prior to your next visit to have labs drawn. Please fast for 8-10 hours prior.Infection following a procedure, superficial incisional surgical site, initial encounter (ICD-998.59) (OIY16-V52.41xA) Assessment: Instructions: Please continue medications as prescribed. Please continue warm compresses three times daily and as needed. Please try to maintain good hygiene.Please continue to follow with your surgeon as scheduled.Nausea with vomiting, unspecified (ICD-787.01) (PRD20-A82.2) Assessment: Instructions: Urine test negative in office today.We will order Blood HCG level. We will contact you if your result is positive.Other fatigue (ICD-780.79) (WZU70-M13.83) Assessment: Instructions: We have orde red labs for you today. We will contact you if results are abnormal.Assessment not Saved Nausea with vomiting; unspecified (ECB24-G57.2): Patient Instructions/Care Plan: Health Screening: We have [...] (Critical)* POTOCIN (Critical)* SEASONAL (Mild)Orders:COMP METABOLIC PANEL [CPT-51459] CBC W/DIFF [CPT-30052] HgBA1c [CPT-09131] LIPID PANEL [CPT-01251] T-4 free [CPT-40327] URINALYSIS [CPT-94149] Vitamin D 250H Unspecified [CPT-21852] TSH [CPT-76036] Free Beta hCG [CPT-12192] HCG- QUALITATIVE [CPT-84122] Adult - Ofc Vst, EST, Level IV [CPT-03534] Follow- Up Return to clinic: 2-3 weeks for follow up. Clinical Visit Summary Completed Name Value Range Interpretation Code Description Data Feli rce(s) Supporting Document(s) ID Date Data Source [id number] 05/09/2019 02:29:00 PM EST [facility] ([facility], ) Name Value Range Interpretation Code Description Data Feli rce(s) Supporting Document(s) Surgical pathology study Laboratory test result [facility] ([facility], ) FINAL DIAGNOSIS AB - Right and [...] fibrotic bands. No well-defined mass/lesion is noted. 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 B - Received in formalin labeled "left breast tissue" is a 15 x 15 x approximately 10 cm aggregate of breast tissue fragments and skin. Sectioning reveals focal fibrotic areas. No well-defined mass/lesion is noted. 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 - 05/10/2019 - 1344 Signed Nish Naylor MD 05/14/2019 1102 ID Date Data Source [id number] 04/30/2019 10:40:32 AM EST [facility] Labs In-House Blood TestsDate/Time Colle cted: April 30, 2019 10:41 AMTest Result Reference Range Normal ValueComments: blood draw done in offcie done in the right ac tolertaed well Min Babcock MA, April 30, 2019 10:41 AMAssessment & Plan Orders:[id number] Vst-Est Level I [CPT-65942] 80745 - Venipuncture [CPT-59970] Name Value Range Interpretation Code Description Data Feli rce(s) Supporting Document(s) ID Date Data Source [id number] 04/30/2019 10:35:00 AM [facility] Name Value Range Interpretation Code Description Data Feli rce(s) Supporting Document(s) HCT 40.8 % 36.0-47.0 N [facility] HGB 13.3 g/dL 12.0-15.5 N [facility] MCH 32.6 G/DL pg 32.0-36.5 N [facility] MCHC 29.2 PG % 27.0-33.0 N [facility] PLATELETS 263 10 10*3/mm3 150-450 N [facility] RBC 4.55 10 10*6/mm3 4.00-5.40 [facility] RDW 11.9 % 11.5-14.5 N [facility] WBC TOTAL 6.2 4.0-10.0 [facility] ID Date Data Source [id number] 04/30/2019 10:35:00 AM [facility] Name Value Range Interpretation Code Description Data Feli rce(s) Supporting Document(s) BG FASTING 80 mg/dL 70-100 N [facility] ID Date Data Source [id number] 04/30/2019 09:59:52 AM [facility] Measurements & CalculationsHeight: 62 inches 157.48 cm Weight: 177.8 pounds 80.82 kg Body Mass Index (BMI): 32.64BMI Interpretation: ObeseBody Surface Area (BSA): 1.82Vital SignsTemperature: 99.0F oral Pulse Rate: 80 beats/minuteRespiratory Rate: 20 respirations/minuteBlood Pressure: 103/72 right arm sitting O2 Saturation: 100% room airVital Signs performed by: Luis Gill MA, April 30, 2019 10:02 AMInitial Intake Information from: [facility] #: 13Smoking, Tobacco, Vaping or Smoke Exposure [...] during this visit, including review of any iytz-mml-kbixsaa medications, herbal therapies, and/or supplements.Allergy ReviewAllergy List [...] Z01.818)Assessment not SavedEncounter for other preprocedural examination (SHS06-S17.818): Pt medically cleared for breast reduction surgeryMedications:VITAMIN D TABLETFLONASE ALLERGY RELIEF 50 MCG/ACT NASAL SUSPENSIONVENTOLIN HFA 108 (90 BASE) MCG/ACT INHALATION AEROSOL SOLUTIONACETAZOLAMIDE ER 500 MG ORAL CAPSULE EXTENDED RELEASE 12 HOURADDERALL 20 MG ORAL TABLETADDERALL 10 MG ORAL TABLETZOLOFT 50 MG ORAL TABLETAllergies:AMOXICILLIN (Critical)* POTOCIN (Critical)* SEASONAL (Mild)Orders:Adult - Ofc Vst, EST, Level IV [CPT-11356] ] Assess ment & Plan Orders:COMP METABOLIC PANEL [CPT-23586] CBC W/DIFF [CPT-24858] Name Value Range Interpretation Code Description Data Feli rce(s) Supporting Document(s) ID Date Data Source [id number] 04/17/2019 09:57:39 AM [facility] Measurements & CalculationsHeight: 62 inches [...] urgent care clinic? Yes - [facility] ER- [place] palsy Emergency room (ER) or urgent care [...] or Preferred Language: EnglishFamily and Home Address: [address] [place] [address] What is your housing situation today? I have housing Are you worried about losing your housing? NoMoney and Resources What is the highest level of school that you have finished? 9th-12th grade Employed? No Are you seeking work? No Insurance: Managed Care - [facility] Community PlanIn the past year, have you or any family members you live with been unable to get any of the following when it was really needed? 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 No Has [...] you a refugee? No (Country of origin: [place] [place] [place]) Do you feel physically and emotionally safe [...] Grandmother)Stroke (Maternal Grandmother)Social/Personal History: Smoking Status: never smokerChildren's [place] care History of Present Illness (HPI)29 yo female here to establish care today.Pt states she was previously being seen at [facility].Pt states that she is seeing psych for [...] during this visit, including review of any tmwq-urn-bovxgtf medications, herbal therapies, and/or supplements.Allergy ReviewAllergy List [...] & Plan Problems:Added: Bariatric surgery status (ICD-V45.86) (BWR98-O60.84)Mild persistent asthma, uncomplicated (OGU71-G39.30) Assessment: Instructions: No change to current treatment. Referral generated for pulmonology evaluation.[place] palsy of left side of face (HRA22-T40.0) Assessment: Instructions: Continue with prednisone. Referral to neurology.Assessed:General Adult Medical Exam WITH Abnormal Findings (over 18) (ICD-V70.0) (QCA63-R88.01) Assessment: Instructions: Recommend annual medical appointments. Recommend routine dental and vision care. Recommend influenza vaccines annually and tetanus boosters every 10 years.Depression (ICD-311) (YVX85-L57.9) Assessment: Instructions: Continue per your current mental health specialist. Requested prior records, prefer not to take over psychiatric medications until records are reviewed.Pseudotumor cerebri (ICD- 348.2) (ZZX30-Y77.2) Assessment: Instructions: Continue with new neurology referral.Anxiety (ICD-300.00) (OKR92-V68.9) Assessment: Instructions: As above.Removed: (ICD-V22.2) (WKJ78-E53.1), Amenorrhea (ICD-626.0) (XGG01-H37.2)Patient Instructions/Care Plan: Mild persistent asthma- uncomplicated: No change to current treatment. Referral generated for pulmonology evaluation.[place] palsy of left side of face: Continue [...] (Critical)* POTOCIN (Critical)* SEASONAL (Mild)Orders:Neurology Consult [CPT- 50249] Pulmonology Consult [CPT-14049] Cardiology Consult [CPT-46656] Preventive, Est, (18-39) [CPT-20072] Follow-Up Return to clinic: in 3 months for follow upAdditional Follow-Up: referral follow-upClinical Visit Summary DeclinedVaccines Administered/Entered:Vaccination Group: InfluenzaHistorical Source: Historical information - from patientSeries: 1Vaccination: Mfr / Lot# / Exp.Date: Amt. Given / Route / Site: NDC / CVX: 88Administered Date: 12/06/2018 VFC Eligibility: Not recordedVIS Date: Comments: Entered by: Jacek Sosa LPN Name Value Range Interpretation Code Description Data Feli rce(s) Supporting Document(s) Procedure Social History Code Duration Value Status Description Data Source(s ) Smoking 04/16/2020 12:00:00 AM EST Never Smoker completed Never S moker eCW1 ([facility]) Smoking 04/16/2020 12:00:00 AM EST Never Smoker completed Never S moker eCW1 ([facility]) Smoking 03/24/2020 12:00:00 AM EST Never Smoker completed Never S moker eCW1 ([facility]) Smoking 02/17/2020 12:00:00 AM EST Never Smoker completed Never S moker eCW1 ([facility]) Smoking 02/17/2020 12:00:00 AM EST Never Smoker completed Never S moker eCW1 ([facility]) Smoking 02/17/2020 12:00:00 AM EST Never Smoker completed Never S moker eCW1 ([facility]) Smoking 01/22/2020 12:00:00 AM EST Never Smoker completed Never S moker eCW1 ([facility]) Smoking 01/22/2020 12:00:00 AM EST Never Smoker completed Never S moker eCW1 ([facility]) Smoking 08/27/2019 12:00:00 AM EDT Never Smoker completed Never S moker eCW1 ([facility]) Smoking 08/27/2019 12:00:00 AM EDT Never Smoker completed Never S moker eCW1 ([facility]) Vital Signs ID Date Data Source UNK Name Value Range Interpretation Code Description Data Source(s) Diastolic blood pressure 62 mm[Hg] 62 mm[Hg] eCW1 ([facility]) Systolic blood pressure 110 mm[Hg] 110 mm[Hg] e CW1 ([facility]) Body mass index (BMI) [Ratio] 34.188 kg/m2 34.1 88 kg/m2 W1 ([facility]) Body height 63 [in_i] 63 [in_i] eCW1 ([facility]) Body weight 87.54 kg 87.54 kg W1 ([facility]) Body weight 193 [lb_av] 193 [lb_av] eCW1 ([facility]) Diastolic blood pressure 56 mm[Hg] 56 mm[Hg] eCW1 ([facility]) Systolic blood pressure 98 mm[Hg] 98 mm[Hg] e CW1 ([facility]) Body mass index (BMI) [Ratio] 33.657 kg/m2 33.6 57 kg/m2 W1 ([facility]) Body height 63 [in_i] 63 [in_i] eCW1 ([facility]) Body weight 190 [lb_av] 190 [lb_av] eCW1 ([facility]) Diastolic blood pressure 68 mm[Hg] 68 mm[Hg] eCW1 ([facility]) Systolic blood pressure 100 mm[Hg] 100 mm[Hg] e CW1 ([facility]) Body mass index (BMI) [Ratio] 33.055 kg/m2 33.0 55 kg/m2 eCW1 ([facility]) Body height 63 [in_i] 63 [in_i] eCW1 ([facility]) Body weight 84.64 kg 84.64 kg eCW1 ([facility]) Body weight 186.6 [lb_av] 186.6 [lb_av] eCW1 ([facility]) Diastolic blood pressure 62 mm[Hg] 62 mm[Hg] eCW1 ([facility]) Systolic blood pressure 98 mm[Hg] 98 mm[Hg] e CW1 ([facility]) Body mass index (BMI) [Ratio] 32.948 kg/m2 32.9 48 kg/m2 eCW1 ([facility]) Body height 63 [in_i] 63 [in_i] eCW1 ([facility]) Body weight 186 [lb_av] 186 [lb_av] eCW1 ([facility]) Body weight 82.669 kg 82.669 kg [facility] ([facility]) Body mass index (BMI) [Ratio] 33.3 kg/m2 33.3 k g/m2 [facility] ([facility]) Body weight 182.25 [lb_av] 182.25 [lb_av] MED[facility] T ([facility]) Body height 62 [in_i] 62 [in_i] [facility] ([facility], ) 5'2" Body temperature 98.4 [degF] 98.4 [degF] [facility] ([facility]) Diastolic blood pressure 70 mm[Hg] 70 mm[facility]Hg] [facility] Systolic blood pressure 106 mm[Hg] 106 mm[Hg] M [facility] ([facility], ) Body weight 81.648 kg 81.648 kg [facility] ([facility]) Body mass index (BMI) [Ratio] 32.9 kg/m2 32.9 k g/m2 [facility] ([facility], ) Body weight 180.00 [lb_av] 180.00 [lb_av] [facility] T ([facility]) Body height 62 [in_i] 62 [in_i] [facility] ([facility]) 5'2" Body temperature 98.3 [degF] 98.3 [degF] [facility] ([facility]) Heart rate 72 /min 72 /min [facility] ([facility]) Diastolic blood pressure 62 mm[Hg] 62 mm[Hg] [facility] ([facility]) Systolic blood pressure 96 mm[Hg] 96 mm[Hg] [facility] ([facility]) Body height 62 [in_i] 62 [in_i] [facility] ([facility]) 5'2" Body temperature 97.2 [degF] 97.2 [degF] [facility] ([facility]) Respiratory rate 14 /min 14 /min [facility] ( [facility]) Heart rate 68 /min 68 /min [facility] ([facility]) Diastolic blood pressure 62 mm[Hg] 62 mm[Hg] [facility] ([facility]) Systolic blood pressure 108 mm[Hg] 108 mm[Hg] [facility] ([facility]) Body weight 77.679 kg 77.679 kg [facility] ([facility]) Body mass index (BMI) [Ratio] 31.3 kg/m2 31.3 k g/m2 [facility] ([facility]) Body weight 171.25 [lb_av] 171.25 [lb_av] [facility] T ([facility]) Body height 62 [in_i] 62 [in_i] [facility] ([facility]) 5'2" Body temperature 98.2 [degF] 98.2 [degF] [facility] ([facility]) Oxygen saturation in Arterial blood by Pulse oximetry 99 % 99 % [facility] ([facility]) Heart rate 97 /min 97 /min [facility] ([facility]) Diastolic blood pressure 74 mm[Hg] 74 mm[Hg] [facility] ([facility]) Systolic blood pressure 120 mm[Hg] 120 mm[Hg] [facility] ([facility]) Body weight 78.926 kg 78.926 kg [facility] ([facility]) Body mass index (BMI) [Ratio] 31.8 kg/m2 31.8 k g/m2 [facility] ([facility]) Body weight 174.00 [lb_av] 174.00 [lb_av] [facility] Body height 62 [in_i] 62 [in_i] [facility] ([facility]) 5'2" Respiratory rate 14 /min 14 /min [facility] ( [facility]) Heart rate 74 /min 74 /min [facility] ([facility]) Diastolic blood pressure 70 mm[Hg] 70 mm[Hg] [facility] ([facility]) Systolic blood pressure 110 mm[Hg] 110 mm[Hg] [facility] ([facility]) ID Date Data Source [id number] 04/15/2020 11:52:00 AM [facility] Name Value Range Interpretation Code Description Data Source(s) WEIGHT 80.348788 kilos 80.217319 kilos [facility] HEIGHT 157.48 centimeters 157.48 centimeter [facility] Patient Treatment Plan of Care Planned Activity Planned Date Details Description Data Source (s) Acetaminophen 325 MG / Oxycodone Hydrochloride 5 MG Or al Tablet [Percocet] 04/22/2020 12:00:00 AM EST eCW1 ([facility]) Sucralfate 100 MG/ML Oral Suspension 04/22/2020 12:00:00 AM EST eCW1 ([facility]) Amphetamine aspartate 5 MG / Amphetamine Sulfate 5 MG / Dextroamphetamine saccharate 5 MG / Dextroamphetamine Sulfate 5 MG Oral Tablet [Adderall] 03/24/2020 12:00:00 AM EST eCW1 ([facility]) Amphetamine aspartate 5 MG / Amphetamine Sulfate 5 MG / Dextroamphetamine saccharate 5 MG / Dextroamphetamine Sulfate 5 MG Oral Tablet [Adderall] 03/24/2020 12:00:00 AM EST eCW1 ([facility]) 24 HR Amphetamine aspartate 6.25 MG / Am phetamine Sulfate 6.25 MG / Dextroamphetamine saccharate 6.25 MG / Dextroamphetamine Sulfate 6.25 MG Extended Release Oral Capsule [Adderall] 03/12/2020 12:00:00 AM EST eCW1 ([facility]) 24 HR Amphetamine aspartate 6.25 MG / Am phetamine Sulfate 6.25 MG / Dextroamphetamine saccharate 6.25 MG / Dextroamphetamine Sulfate 6.25 MG Extended Release Oral Capsule [Adderall] 02/05/2020 12:00:00 AM EST eCW1 ([facility]) 24 HR Amphetamine aspartate 5 MG / Amphe tamine Sulfate 5 MG / Dextroamphetamine saccharate 5 MG / Dextroamphetamine Sulfate 5 MG Extended Release Oral Capsule [Adderall] 01/01/2020 12:00:00 AM EDT eCW1 ([facility]) 24 HR Amphetamine aspartate 1.25 MG / Am phetamine Sulfate 1.25 MG / Dextroamphetamine saccharate 1.25 MG / Dextroamphetamine Sulfate 1.25 MG Extended Release Oral Capsule 01/01/2020 12:00:00 AM EDT eCW1 ([facility])
[2020-04-30 11:33] LABS: BASO % 0.2 % (0.0-1.0); EOS # 0.1 10^3/uL (0.0-0.5); EOS % 1.1 % (0.0-3.0); HEMATOCRIT 28.3 % (36.0-47.0); HEMOGLOBIN 8.6 g/dl (12.0-15.5); LYMPH # 1.7 10^3/uL (1.5-5.0); LYMPH % 19.4 % (24.0-44.0); MEAN CORPUSCULAR HEMOGLOBIN 24.6 pg (27.0-33.0); MEAN CORPUSCULAR HGB CONC 30.4 g/dl (32.0-36.5); MEAN CORPUSCULAR VOLUME 80.9 fl (80.0-96.0); MONO # 0.6 10^3/uL (0.0-0.8); MONO % 6.5 % (2.0-8.0); NEUTROPHILS # 6.1 10^3/uL (1.5-8.5); NEUTROPHILS % 71.9 % (36.0-66.0); PLATELET COUNT, AUTOMATED 267 10^3/uL (150-450); WHITE BLOOD COUNT 8.6 10^3/uL (4.0-10.0)
[2020-04-30 11:57] LABS: ALBUMIN 2.4 GM/DL (3.2-5.2); ALT/SGPT 13 U/L (12-78); BILIRUBIN,DIRECT < 0.1 MG/DL (0.0-0.2); BILIRUBIN,TOTAL 0.3 MG/DL (0.2-1.0); BLOOD UREA NITROGEN 9 MG/DL (7-18); CALCIUM LEVEL 8.7 MG/DL (8.5-10.1); CARBON DIOXIDE LEVEL 23 MEQ/L (21-32); CHLORIDE LEVEL 108 MEQ/L (98-107); CREATININE FOR GFR 0.41 MG/DL (0.55-1.30); GLOMERULAR FILTRATION RATE > 60.0 (>60); GLUCOSE, FASTING 80 MG/DL (70-100); POTASSIUM SERUM 4.1 MEQ/L (3.5-5.1); SODIUM LEVEL 140 MEQ/L (136-145)
--- NOTE | 2020-04-30 12:54 | REP ---
INDICATION: short of breath, . COMPARISON: Comparison chest x-ray May 26, 2019. TECHNIQUE: Portable upright AP chest radiograph. FINDINGS: The lungs are well inflated and free of infiltrate. Pleural angles are sharp. Heart size is normal. Pulmonary vasculature is not increased. AP technique is felt to exaggerate cardiac silhouette. No overall cardiomegaly. IMPRESSION: No active disease. <Electronically signed by Adolfo Little > 04/30/20 [id number]
[2020-04-30 13:54] VITALS: BP 125/62
--- NOTE | 2020-05-01 08:14 | ECGEPIP ---
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
== END 2020-04-30 14:13 | disposition home or self-care (01) ==
LOC: M ED 10:31
DX: O99.512 Diseases of the respiratory system complicating pregnancy, second trimester (principal); R06.02 Shortness of breath; O99.842 Bariatric surgery status complicating pregnancy, second trimester; Z79.899 Other long term (current) drug therapy; Z3A.24 24 weeks gestation of pregnancy

== ENCOUNTER → 2020-05-20 | Outpatient (CLI) | payer OTHER ==
--- NOTE | 2020-05-20 17:15 | REP ---
INDICATION: MARGINAL PLACENTA ASSESS DISTANCE FROM CERVIX. COMPARISON: Comparison sonography 25 March 2020.. TECHNIQUE: Transabdominal obstetric sonography. FINDINGS: Scanning through the gravid uterus demonstrates a viable single intrauterine gestation in cephalic lie. motion is observed and heart rate is recorded at 165 beats per minute. A anterior placenta is seen, grade 2, without evidence of placenta previa. Closed cervical length is measured at 3.6 cm transabdominally. No extrauterine abnormality is observed. Amniotic fluid is subjectively normal. Marginal cord insertion on the superior edge of the placenta again noted.. Previously noted choroid plexus cysts is not apparent.. Biometry chart: BPD 6.0 cm, 24 weeks 3 days Head circumference 23.3 cm, 25 weeks 2 days Abdominal circumference 20.7 cm, 25 weeks 2 days Femur length 4.9 cm, 26 weeks 3 days Humeral length 4.3 cm, 25 weeks 4 days HC AC ratio normal 1.13 Cephalic index normal 0.70 Estimated weight 839 g, 1 lb 13 oz, 15th percentile for 26 weeks 3 days IMPRESSION: Viable single intrauterine gestation at 25 weeks 3 days by today's composite sonographic criteria. SHOLA by today's sonography August 30, 2020. No complication identified. Expected gestational age estimate based on prior sonography is 26 weeks 3 days. SHOLA by prior sonography August 23, 2020. <Electronically signed by Adolfo Little > 05/20/20 [id number]
== END ==
LOC: M WHC 15:03
PROVIDERS: ATTEND Specialist
DX: Z34.83 Encounter for supervision of other normal pregnancy, third trimester (principal); Z3A.25 25 weeks gestation of pregnancy

== ENCOUNTER → 2020-05-20 | Outpatient (REF) | payer OTHER | LOC: M PLALAB 12:49 | PROVIDERS: ATTEND Obstetrics & Gynecology | DX: Z3A.26 26 weeks gestation of pregnancy (principal) ==

== ENCOUNTER 2020-05-26 22:25 | Outpatient (CLI) | payer OTHER ==
[~2020-05-26] VITALS: Ht 157.5 cm; Wt 89.6 kg
[2020-05-26 22:48] VITALS: BP 92/60
[2020-05-26 22:58] VITALS: BP 98/61
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
[2020-05-27] MEDS ORDERED: PROV108A INH (14:09)
[2020-05-27] MEDS ORDERED: MULTTAB20 PO (14:10)
[2020-05-27] MEDS ORDERED: FOLI400T13 PO (14:11)
[2020-05-27] MEDS ORDERED: VITA1TAB61 PO (14:12)
[2020-05-27] MEDS ORDERED: CALT1TAB PO (14:12)
== END 2020-05-27 00:44 | disposition home or self-care (01) ==
LOC: M LDO 22:25
PROVIDERS: ATTEND Obstetrics & Gynecology
DX: O9A.212 Injury, poisoning and certain other consequences of external causes complicating pregnancy, second trimester (principal); O26.892 Other specified pregnancy related conditions, second trimester; M54.89 Other dorsalgia; Z3A.27 27 weeks gestation of pregnancy

== ENCOUNTER 2020-05-27 12:06 | Outpatient (CLI) | payer OTHER ==
[~2020-05-27] VITALS: Ht 157.5 cm; Wt 89.0 kg
[2020-05-27] VITALS (7 sets, daily range): BP systolic 85–119; BP diastolic 50–71
[~2020-05-27 12:06] MED LIST changes: +IRON SUCROSE 500 MG in NS 250 ML OVER 4 HRS IV ONE
[2020-05-27] MEDS ORDERED: PROV108A INH (14:09)
[2020-05-27] MEDS ORDERED: MULTTAB20 PO (14:10)
[2020-05-27] MEDS ORDERED: FOLI400T13 PO (14:11)
[2020-05-27] MEDS ORDERED: CALT1TAB PO (14:12)
[2020-05-27] MEDS ORDERED: VITA1TAB61 PO (14:12)
== END 2020-05-27 16:55 | disposition home or self-care (01) ==
LOC: M INFU 12:06
PROVIDERS: ATTEND Obstetrics & Gynecology
DX: O99.019 Anemia complicating pregnancy, unspecified trimester (principal); Z3A.26 26 weeks gestation of pregnancy
CPT/HCPCS: 96365; 96366; J1756

== ENCOUNTER → 2020-06-26 | Outpatient (REF) | payer OTHER ==
[~2020-06-26] MED LIST changes: +CALT1TAB PO; +FOLI400T13 PO; -IRON SUCROSE 500 MG in NS 250 ML OVER 4 HRS IV ONE; +MULTTAB20 PO; +PROV108A INH; +VITA1TAB61 PO
[2020-06-26 13:12] LABS: HEMATOCRIT 31.6 % (36.0-47.0); HEMOGLOBIN 9.5 g/dl (12.0-15.5); MEAN CORPUSCULAR HGB CONC 30.1 g/dl (32.0-36.5); MEAN CORPUSCULAR VOLUME 83.2 fl (80.0-96.0); PLATELET COUNT, AUTOMATED 260 10^3/uL (150-450); WHITE BLOOD COUNT 9.5 10^3/uL (4.0-10.0)
[2020-06-26 14:00] LABS: CALCIUM LEVEL 9.1 MG/DL (8.5-10.1); TOTAL 25(OH) VITAMIN D 10.6 NG/ML (30.0-100.0)
== END ==
LOC: M PLALAB 11:33
PROVIDERS: ATTEND Obstetrics & Gynecology
DX: Z36.89 Encounter for other specified antenatal screening (principal); Z3A.26 26 weeks gestation of pregnancy

== ENCOUNTER 2020-07-09 08:35 | Outpatient (CLI) | payer OTHER ==
[~2020-07-09] VITALS: Ht 160 cm; Wt 90.7 kg
[2020-07-09 08:42] VITALS: BP 124/70
[2020-07-09] MEDS ORDERED: LATU20TA PO (08:54)
[2020-07-09] MEDS ORDERED: IRON SUCROSE 500 MG in NS 250 ML OVER 4 HRS IV ONE (09:00)
[2020-07-09 09:52] VITALS: BP 115/53
[2020-07-09 11:00] VITALS: BP 110/68
[2020-07-09 13:20] VITALS: BP 141/80
== END 2020-07-09 13:20 | disposition home or self-care (01) ==
LOC: M INFU 08:35
PROVIDERS: ATTEND Obstetrics & Gynecology
DX: D64.9 Anemia, unspecified (principal)
CPT/HCPCS: 96365; 96366; J1756

== ENCOUNTER → 2020-07-24 | Outpatient (REF) | payer OTHER ==
[~2020-07-24] MED LIST changes: +LATU20TA PO
== END ==
LOC: M SFHCWAGY 10:13
PROVIDERS: ATTEND Obstetrics & Gynecology
DX: Z36.85 Encounter for antenatal screening for Streptococcus B (principal); O99.843 Bariatric surgery status complicating pregnancy, third trimester

== ENCOUNTER → 2020-07-28 | Outpatient (CLI) | payer OTHER ==
[2020-07-28 12:13] LABS: HEMATOCRIT 32.9 % (36.0-47.0); HEMOGLOBIN 10.4 g/dl (12.0-15.5); MEAN CORPUSCULAR HEMOGLOBIN 26.7 pg (27.0-33.0); MEAN CORPUSCULAR HGB CONC 31.6 g/dl (32.0-36.5); MEAN CORPUSCULAR VOLUME 84.4 fl (80.0-96.0); PLATELET COUNT, AUTOMATED 248 10^3/uL (150-450); WHITE BLOOD COUNT 7.2 10^3/uL (4.0-10.0)
== END ==
LOC: M LAB 11:25
PROVIDERS: ATTEND Obstetrics & Gynecology
DX: O99.843 Bariatric surgery status complicating pregnancy, third trimester (principal); Z3A.00 Weeks of gestation of pregnancy not specified

== ENCOUNTER → 2020-08-04 | Outpatient (CLI) | payer OTHER ==
[~2020-08-04] MED LIST changes: +D31000TA2; +METF500T13; +VITA-113 SL
--- NOTE | 2020-08-04 09:37 | REP ---
INDICATION: GROWTH/PREVIOUS GASTRIC BYPASS COMPARISON: 05/20/2020 TECHNIQUE: Transabdominal obstetrical ultrasound with color Doppler evaluation. FINDINGS: Examination demonstrates a single live intrauterine in cephalic presentation. motion is identified by technologist. Placenta is noted anterior and grade 2 without evidence for placenta previa or abruption. Amniotic fluid volume is normal. Cervix measures 3.2 cm in length and appears closed.. Gestational age by LMP 37 weeks 4 days with SHOLA 08/21/2020. Gestational age by current measurements 36 weeks 1 day with SHOLA 08/31/2020. FHR equals 169 beats per minute. BPD: 8.9 cm at 36 weeks 0 days HC: 33.2 cm at 37 weeks 6 days AC: 32.8 cm at 36 weeks 5 days FL: 7.1 cm at 36 weeks 1 day HL: 5.9 cm at 34 weeks 0 days HC/AC: 1.01 Estimated weight 2986 grams (35thpercentile). RENALDO: 14.9 cm (7.4-24.1) IMPRESSION: Single live intrauterine in cephalic presentation demonstrating appropriate interval growth. <Electronically signed by Jani Lowery > 08/04/20 0910
== END ==
LOC: M WHC 08:31
PROVIDERS: ATTEND Obstetrics & Gynecology
DX: O99.843 Bariatric surgery status complicating pregnancy, third trimester (principal); Z3A.37 37 weeks gestation of pregnancy

== ENCOUNTER → 2020-08-11 | Outpatient (CLI) | payer OTHER | LOC: M LABSMTC 09:40 | PROVIDERS: ATTEND Anesthesiology | DX: Z01.812 Encounter for preprocedural laboratory examination (principal); Z11.52 Encounter for screening for COVID-19 ==

== ENCOUNTER 2020-08-13 17:54 | Emergency (ER) | payer OTHER ==
[~2020-08-13] VITALS: Ht 157.5 cm; Wt 94.1 kg
[2020-08-13 17:55] VITALS: BP 114/64
[2020-08-14] MEDS ORDERED: PERCOCET PO (09:26)
== END 2020-08-13 20:02 | disposition left against medical advice (07) ==
LOC: M ED 17:54
DX: Z53.21 Procedure and treatment not carried out due to patient leaving prior to being seen by health care provider (principal)

== ENCOUNTER 2020-08-14 05:17 | Inpatient (IN) | payer OTHER ==
[~2020-08-14] VITALS: Ht 157.5 cm; Wt 91.5 kg
[2020-08-14] VITALS (8 sets, daily range): BP systolic 89–107; BP diastolic 50–67
[2020-08-14] MEDS ORDERED: CLINDAMYCIN 900 MG in IV 1 EA IV ONE (06:00)
[2020-08-14 06:24] LABS: HEMATOCRIT 31.7 % (36.0-47.0); HEMOGLOBIN 9.9 g/dl (12.0-15.5); MEAN CORPUSCULAR HEMOGLOBIN 26.3 pg (27.0-33.0); MEAN CORPUSCULAR HGB CONC 31.2 g/dl (32.0-36.5); MEAN CORPUSCULAR VOLUME 84.1 fl (80.0-96.0); PLATELET COUNT, AUTOMATED 242 10^3/uL (150-450); RED BLOOD COUNT 3.77 10^6/uL (4.00-5.40); WHITE BLOOD COUNT 8.7 10^3/uL (4.0-10.0)
[2020-08-14] MEDS ORDERED: GENTAMICIN 150 MG in D5W 50 ML IV ONE (07:00)
[2020-08-14] MEDS ORDERED: MORPHINE PRES-FREE INJ 10 MG/10 ML VIAL (J2274) As Ordered ONE (07:19)
[2020-08-14] MEDS ORDERED: ONDANSETRON 4MG/2ML VIAL As Ordered ONE (07:20)
[2020-08-14] MEDS ORDERED: dexameTHASONE 4 MG/ML 1ML VIAL (J1100 PER 1MG) As Ordered ONE (07:20)
--- NOTE | 2020-08-14 07:20 | HPEPDOC ---
Obstetrical History & Physical General Date of Admission Aug 14, 2020 at 05:17 History of Present Illness 30-year-old at 39+0 weeks gestation. Presents for a scheduled repeat low transverse section She denies vaginal bleeding, loss of fluid or painful, frequent uterine contractions. She reports regular movement. She denies headache, visual changes, right upper quadrant pain, shortness of breath or chest pain. course: History of low transverse section 2, declining tubal sterilization at time of repeat . ADHD/controlled on Adderall 20 mg twice a day. Anemia. History of gastric bypass. PMH: Status post gastric bypass. ADHD, asthma, anemia SH: LTC S 2, cholecystectomy, laparoscopic Young-en-Y gastric bypass, breast reduction Meds: vitamin,. Iron All: NKDA ADMISSIONS SPECIALIST: History of chlamydia treated or dysplasia OB:, G1, . G2 SAB. G3 SAB G4, primary for abnormal heart rate tracing/category 3, G5, repeat low transverse section. Sochx: No tobacco, alcohol or drug use FamHx: Hypertension, diabetes, breast cancer labs: Blood type O+, antibody screen negative, HepBsAg neg, HIV neg, rubella immune, Hep C antibody negative, RPR nonreactive, CT/GC neg, urine culture negative, GDM screening was negative, GBS, negative Past Medical History Allergies Coded Allergies: amoxicillin (Verified Allergy, Severe, anaphylaxis, 07/31/20) Medications Scheduled Albuterol Sulfate (Proventil Hfa) 6.7 Gm Hfa.aer.ad, 2 PUFF INH Q4H for wheezing Cholecalciferol (Vitamin D3) (Vitamin D3) 1,000 Unit Tablet, DAILY Dextroamphetamine/Amphetamine (Adderall 5 mg Tablet) 5 Mg Tablet, 20 MG PO BID takes in the afternoon Folic Acid (Folic Acid) 0.4 Mg Tablet, 1 TAB PO DAILY Lurasidone Hydrochloride (Latuda) 20 Mg Tablet, 20 MG PO DAILY Metformin HCl (Metformin HCl) 500 Mg Tablet, BID No122/Iron/Folic Acid ( Multi Tablet) 1 Each Tablet, 1 TAB PO DAILY Miscellaneous Medications Cyanocobalamin (Vitamin B-12) (Vitamin B-12) 1,000 Mcg Tab.subl, 1,000 MCG SL Physical Examination Physical Examination GENERAL: Alert and oriented times three. ABDOMEN: Gravid and non-tender to touch. FETUS: Is vertex (VTX) by sterile vaginal examination (SVE), fetus is vertex (VTX) by Zafar. HEART RATE: Regular rate and rhythm. LUNGS: Clear to auscultation (CTA). EXTREMITIES: No edema. No clonus. EFM: Cat I Cary: no ctx Vital Signs/I&O Vital Signs Date Time Temp Pulse Resp B/P (MAP) Pulse Ox O2 Delivery O2 Flow Rate FiO2 08/14/20 05:43 97.5 97 18 89/50 (63) Laboratory Data 24H LABS Laboratory Tests 2 08/13/20 21:35: Serology Scanned Report Hepatitis B Testing 08/14/20 06:00: Nucleated Red Blood Cells % (auto) 0.0 CBC/BMP Laboratory Tests 08/14/20 06:00 Assessment/Plan Assessment 30-year-old G6, P3 023 at 39+0 weeks gestation. History of low transverse section 2, declines tubal sterilization Plan Admit and orient. 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 C-S as appropriate. RENITA WHALEY DO Aug 14, 2020 07:20
[2020-08-14] MEDS ORDERED: ONDANSETRON 4MG/2ML VIAL IV PRN ×3 (07:57→09:30)
[2020-08-14] MEDS ORDERED: NALBUPHINE HCL 10 MG/ML AMP (J2300) IV PRN (07:57)
[2020-08-14] MEDS ORDERED: NALOXONE INJ 0.4MG/1ML VIAL (J2310 PER 1MG) IV PRN ×2 (07:57)
[2020-08-14] MEDS: ADDERALL 5 MG TAB PO SCH ×2 (08:00→14:00)
[2020-08-14] MEDS ORDERED: PHENYLephrine 500MCG 5ML (100MCG/ML) SYRINGE As Ordered ONE (08:28)
[2020-08-14] MEDS ORDERED: ePHEDrine SULFATE 25 MG/5 ML(5MG/ML) SYRINGE As Ordered ONE ×2 (08:28→08:29)
[2020-08-14] MEDS ORDERED: ATROPINE SULF 0.4 MG/ML 1ML VIAL (J0461) As Ordered ONE (08:29)
[2020-08-14] MEDS ORDERED: OXYTOCIN 30 UNITS IN 0.9% NaCl 500ML IV BAG (J2590) As Ordered ONE ×2 (08:29→09:15)
--- NOTE | 2020-08-14 09:16 | ROOPDOC ---
[facility] Report Of Operation Report of Operation DATE OF PROCEDURE: 08/14/2020 PREPROCEDURE DIAGNOSES: 39+ weeks gestation, history of low transverse section 2 POSTPROCEDURE DIAGNOSES: Same PROCEDURE: Repeat low transverse section SURGEON: Zane Miranda DO FACOG RISK ADJUSTMENT SPECIALIST: Dallas Geronimo (Essential role in retraction, extraction, and closure of all tissue layers) ANESTHESIA: Spinal ESTIMATED BLOOD LOSS: 500 mL. IV FLUIDS: 1500 mL LR URINE OUTPUT: 25 mL COMPLICATIONS: None. PREOPERATIVE ANTIBIOTICS: Gentamicin 300mg, Clindamycin 900mg COMPLICATIONS: none DATA: Apgars 8 and 9. Birthweight 2850 g, 6 lbs 5 oz. SPECIMENS: none PRIMARY INDICATION FOR : History of x 2 DESCRIPTION OF PROCEDURE: The patient was counseled on the risks, benefits, indications and alternatives of the procedure. Informed consent was obtained. She was taken to the operating room with IV running and placed on the operating table in the dorsal supine position with a leftward tilt. Regional anesthesia was found to be adequate. Sequential compression devices were placed on the lower extremities. A Gregorio catheter was placed under sterile conditions. She was prepared and draped in normal sterile fashion. A time out was performed per protocol. Regional anesthesia was again found to be adequate. A Pfannenstiel skin incision was made with the 10 blade. The 10 blade was used to dissect down to the level of the rectus sheath fascia. The rectus sheath pressure was incised midline and this was extended bilaterally with Ulloa scissors , and manual stretch. The rectus muscle bellies were dissected off the rectus sheath fascia superiorly and inferiorly using both sharp and blunt dissection. The midline was identified. The peritoneum was identified and entered digitally. The peritoneal opening was extended with manual stretch. T he Mobius retractor was placed. The vesicouterine peritoneum was dissected with Metzenbaum scissors to create the bladder flap. A low transverse uterine incision was made with the 10 blade. This was extended with manual stretch. The amniotic sac was punctured, and clear fluid was noted. The baby delivered through the hysterotomy without difficulty. The cord was doubly clamped and cut, and the baby was handed off to awaiting care. data shown above. The placenta was removed manually. The intrauterine cavity was cleared of all clot and debris. The hysterotomy was closed with 0 Vicryl in running locked fashion. This was reinforced with a second imbricating layer using 0 Monocryl in running fashion. Excellent hemostasis of the hysterotomy w as noted. The pelvis was irrigated and the fluid suctioned. The Mobius retractor was removed. The peritoneum was closed with 3-0 Vicryl running fashion. The rectus muscle bellies were reapproximated with interrupted stitches using 3-0 Vicryl. The rectus muscles bellies were hemostatic. The rectus sheath fascia was closed with 0 Vicryl running fashion. The subcutaneous layer was irrigated and the fluid suctioned. Small bleeding vessels were cauterized with Bovie. Excellent hemostasis was noted. The subcutaneous layer was reapproximated with 3-0 Vicryl running fashion. Skin was closed with 3-0 Monocryl in subcuticular fashion. An Optifoam bandage was placed over the closed incision. Sponge, needle and instrument counts were correct per protocol throughout the procedure. The patient tolerated the entire procedure very well. She was transferred to the PACU in stable condition. DO CÉSAR Charles JONATHAN R. DO Aug 14, 2020 09:16
[2020-08-14] MEDS ORDERED: MEASLES,MUMPS,RUBELLA VACCINE INJ (MMR-II) (90707) SC SCH (09:20)
[2020-08-14] MEDS ORDERED: PERCOCET 5MG/325MG TAB PO PRN ×2 (09:20→09:30)
[2020-08-14] MEDS ORDERED: RHOGAM 300 MCG (1500 IU) INJ (J2790) IM SCH (09:20)
[2020-08-14] MEDS ORDERED: OXYTOCIN DRIP 30 UNITS in IV 1 EA IV SCH (09:20)
[2020-08-14] MEDS ORDERED: PERCOCET PO (09:26)
[2020-08-14] MEDS ORDERED: LR 1,000 ML IV SCH (09:30)
[2020-08-14] MEDS ORDERED: fentaNYL 100 MCG/2 ML INJECTION (J3010) IV PRN (09:30)
[2020-08-14] MEDS ORDERED: METOCLOPRAMIDE INJ 10MG/2ML VIAL (J2765 PER 1) IV PRN (09:30)
[2020-08-14] MEDS: SIMETHICONE 80MG CHEW TAB PO PRN (11:09)
[2020-08-14] MEDS: METOCLOPRAMIDE INJ 10MG/2ML VIAL (J2765 PER 1) IV PRN ×2 (11:09→20:10)
[2020-08-14] MEDS: diphenhydrAMINE 50MG/ML VIAL (J1200) IV PRN ×2 (11:09→20:10)
[2020-08-14] MEDS: LR 1,000 ML IV SCH ×3 (11:10→18:47)
[2020-08-14] MEDS: KETOROLAC 30 MG/ML 1ML VIAL IV SCH ×2 (15:47→21:44)
[2020-08-14] MEDS ORDERED: LACTATED RINGER'S 1000 ML IV ONE (18:05)
[2020-08-15] MEDS ORDERED: LACTATED RINGER'S 1000 ML IV ONE (00:05)
[2020-08-15] MEDS: LR 1,000 ML IV SCH ×2 (00:15→04:38)
[2020-08-15 02:00] VITALS: BP 99/57
[2020-08-15] MEDS: KETOROLAC 30 MG/ML 1ML VIAL IV SCH (03:46)
[2020-08-15 06:00] VITALS: BP 96/51
--- NOTE | 2020-08-15 07:37 | IPNPDOC ---
Text Note Date of Service The patient was seen on 08/15/20. NOTE Postop Feels well. Adequate pain management. Tolerating diet. Gregorio removed this am, due to void. Has been diuresing well overnight post IVF bolus. VSS, afebrile,normotensive No complaints Fundus firm, NT, dressing intact Lochia rubra light without odor PO #1 Routine care. Anticipate D/C in am VS,Fishbone, I+O VS, Fishbone, I+O Vital Signs Date Time Temp Pulse Resp B/P (MAP) Pulse Ox O2 Delivery O2 Flow Rate FiO2 08/15/20 06:00 97.8 76 17 96/51 (66) 97 Room Air 08/14/20 12:28 30 I&O- Last 24 Hours up to 6 AM 08/15/20 06:00 Intake Total 3590 ml Output Total 1945 ml Balance 1645 ml Loida Ortega CNM Aug 15, 2020 07:37
[2020-08-15 07:38] LABS: HEMATOCRIT 26.1 % (36.0-47.0); HEMOGLOBIN 8.1 g/dl (12.0-15.5); MEAN CORPUSCULAR HEMOGLOBIN 26.4 pg (27.0-33.0); PLATELET COUNT, AUTOMATED 200 10^3/uL (150-450); RED BLOOD COUNT 3.07 10^6/uL (4.00-5.40); WHITE BLOOD COUNT 11.7 10^3/uL (4.0-10.0)
[2020-08-15] MEDS: ADDERALL 5 MG TAB PO SCH ×2 (08:00→14:00)
[2020-08-15] MEDS: PRENATAL VITAMINS CHEWABLE TABLET PO SCH (08:06)
[2020-08-15] MEDS: ACETAMINOPHEN 500 MG TAB PO PRN ×2 (09:25→22:36)
[2020-08-15 10:00] VITALS: BP 105/63
[2020-08-15] MEDS ORDERED: IBUPROFEN 800 MG TAB PO SCH (11:20)
[2020-08-15 14:02] VITALS: BP 89/55
[2020-08-15] MEDS: SIMETHICONE 80MG CHEW TAB PO PRN (19:41)
[2020-08-15] MEDS: PERCOCET 5MG/325MG TAB PO PRN (19:42)
[2020-08-15 22:00] VITALS: BP 119/68
[2020-08-16 02:00] VITALS: BP 92/66
[2020-08-16] MEDS: PERCOCET 5MG/325MG TAB PO PRN ×3 (05:52→22:49)
[2020-08-16 06:00] VITALS: BP 106/64
[2020-08-16] MEDS: ADDERALL 5 MG TAB PO SCH ×2 (08:00→13:56)
[2020-08-16] MEDS: PRENATAL VITAMINS CHEWABLE TABLET PO SCH (09:10)
[2020-08-16] MEDS: ACETAMINOPHEN 500 MG TAB PO PRN ×2 (09:11→20:30)
--- NOTE | 2020-08-16 13:41 | IPNPDOC ---
Progress Note Date of Service: Aug 16, 2020 Day#: 2 Progress Note SUBJECT: Doing well without complaints. Ambulating, voiding and pain is well-co ntrolled. Reports minimal lochia. OBJECTIVE: VITAL SIGNS: Within normal limits, afebrile. Alert and oriented times three. Abdomen: Fundus firm at U-2. Soft, NTTP. Incision: dressed Ext: neg calf tenderness. ASSESSMENT: /postoperative day #2 status post delivery. Recovering in stable condition. PLAN: 1. Continue routine /postoperative care 2. Discharge plans for tomorrow VS, I&O, 24H, Fishbone Vital Signs/I&O Vital Signs Date Time Temp Pulse Resp B/P (MAP) Pulse Ox O2 Delivery O2 Flow Rate FiO2 08/16/20 11:00 16 08/16/20 06:27 Room Air 08/16/20 06:00 98.6 75 106/64 (78) 99 08/14/20 12:28 30 I&O- Last 24 Hours up to 6 AM 08/16/20 05:59 Intake Total 1100 ml Output Total 700 ml Balance 400 ml AMINA CONNELL MD. Aug 16, 2020 13:41
[2020-08-16 17:55] VITALS: BP 101/63
[2020-08-16] MEDS: SIMETHICONE 80MG CHEW TAB PO PRN (20:29)
[2020-08-17 06:00] VITALS: BP 90/52
[2020-08-17] MEDS: ACETAMINOPHEN 500 MG TAB PO PRN (06:28)
[2020-08-17] MEDS: ADDERALL 5 MG TAB PO SCH (08:00)
[2020-08-17] MEDS: PRENATAL VITAMINS CHEWABLE TABLET PO SCH ×2 (09:06→09:07)
--- NOTE | 2020-08-17 11:34 | DS.PDOC ---
Discharge Summary General Date of Admission Aug 14, 2020 at 05:17 Date of Discharge 08/17/20 Attending Physician: RENITA WHALEY DO Discharge Summary PROCEDURES PERFORMED DURING STAY: repeat section. ADMITTING DIAGNOSES: 1. IUP at 39+ weeks gestation 2. Repeat section. DISCHARGE DIAGNOSES: 1. Day 3 postoperative section. COMPLICATIONS/CHIEF COMPLAINT: Previous Section. HISTORY OF PRESENT ILLNESS: Michelle is a who presented at 39+ weeks gestation for a repeat section. Her has been complicated by ADHD, which she take Adderall 20 mg BID for, history of gastric bypass, history of drug and alcohol abuse, depression and history of 2 previous sections. She has a repeat section done. She reports her pain has been managed. She is eating a regular diet without any issues. She is ambulating and voiding without any issues. Baby is in the NICU currently. Patient is formula feeding. DISCHARGE MEDICATIONS: Please see below. ALLERGIES: Please see below. PHYSICAL EXAMINATION ON DISCHARGE: VITAL SIGNS: Please see below. GENERAL: Does not appear to be in any distress. Sitting up in bed eating breakfast. RESPIRATORY EXAMINATION: regular rate without use of accessory muscles. ABDOMINAL EXAMINATION: dressing is intact without erythema surrounding dressing. EXTREMITIES: generalized edema bilateral legs and feet. SKIN: warm and dry without any lesions or rashes. NEUROLOGICAL EXAMINATION: alert and oriented. PSYCHIATRIC EXAMINATION: patient is pleasant LABORATORY DATA: Please see below. ACTIVITY: As tolerated. Pelvic rest. DIET: regular DISCHARGE INSTRUCTIONS: 1. Patient to be seen in 1-2 weeks and again in 6-8 weeks. 2. Discharge to home. 3. Education done on incisional care, removal of dressing, signs of infection, DVT, pulmonary embolism, mastitis, endometritis, depression. DISCHARGE CONDITION: Stable. Vital Signs/I&Os Vital Signs Date Time Temp Pulse Resp B/P (MAP) Pulse Ox O2 Delivery O2 Flow Rate FiO2 08/17/20 06:00 96.2 64 14 90/52 (65) 97 Room Air 08/14/20 12:28 30 Laboratory Data CBC/BMP Item Value Date Time White Blood Count 11.7 10^3/uL H 08/15/20 0653 Red Blood Count 3.07 10^6/uL L 08/15/20 0653 Hemoglobin 8.1 g/dl L 08/15/20 0653 Hematocrit 26.1 % L 08/15/20 0653 Mean Corpuscular Volume 85.0 fl 08/15/20 0653 Mean Corpuscular Hemoglobin 26.4 pg L 08/15/20 0653 Mean Corpuscular Hemoglobin Concent 31.0 g/dl L 08/15/20 0653 Red Cell Distribution Width 18.6 % H 08/15/20 0653 Platelet Count 200 10^3/uL 08/15/20 0653 Discharge Medications Scheduled Albuterol Sulfate (Proventil Hfa) 6.7 Gm Hfa.aer.ad, 2 PUFF INH Q4H for wheezing, (Reported) Cholecalciferol (Vitamin D3) (Vitamin D3) 1,000 Unit Tablet, DAILY, (Reported) Dextroamphetamine/Amphetamine (Adderall 5 mg Tablet) 5 Mg Tablet, 20 MG PO BID, (Reported) takes in the afternoon Folic Acid (Folic Acid) 0.4 Mg Tablet, 1 TAB PO DAILY, (Reported) Lurasidone Hydrochloride (Latuda) 20 Mg Tablet, 20 MG PO DAILY, (Reported) Metformin HCl (Metformin HCl) 500 Mg Tablet, BID, (Reported) No122/Iron/Folic Acid ( Multi Tablet) 1 Each Tablet, 1 TAB PO DAILY, (Reported) Scheduled PRN Oxycodone/Acetaminophen (Oxycodone-Acetaminophen 5-325) 1 Each Tablet, 2 TAB PO Q6H PRN for SEVERE PAIN (PS 8-10) Miscellaneous Medications Cyanocobalamin (Vitamin B-12) (Vitamin B-12) 1,000 Mcg Tab.subl, 1,000 MCG SL, (Reported) Allergies Coded Allergies: amoxicillin (Verified Allergy, Severe, anaphylaxis, 07/31/20) OCTAVIO JUNG CNM Aug 17, 2020 11:34
== END 2020-08-17 11:28 | disposition home or self-care (01) | DRG 540 ==
LOC: M LDI 05:17 → M OBS 11:00
PROVIDERS: ADMIT Obstetrics & Gynecology; ATTEND Obstetrics & Gynecology
PROC: 10D00Z1 Extraction of Products of Conception, Low, Open Approach (ICD-10-PCS; principal; 2020-08-14 07:30)
DX: O34.211 Maternal care for low transverse scar from previous cesarean delivery (principal); Z3A.39 39 weeks gestation of pregnancy; Z37.0 Single live birth; O99.02 Anemia complicating childbirth; O99.844 Bariatric surgery status complicating childbirth

== ENCOUNTER → 2020-10-30 | Outpatient (CLI) | payer OTHER ==
[~2020-10-30] MED LIST changes: -PSEU30TA85 PO; +PSEU30TA86 PO
== END ==
LOC: M LAB 10:00
PROVIDERS: ATTEND Obstetrics & Gynecology
DX: Z13.1 Encounter for screening for diabetes mellitus (principal)

== ENCOUNTER → 2020-11-02 | Outpatient (CLI) | payer OTHER ==
--- NOTE | 2020-11-02 13:20 | REP ---
INDICATION: PALPABLE RIGHT BREAST LUMP 1000 TENDER TO TOUCH. COMPARISON: Mammogram 10/19/2017. TECHNIQUE: MLO and CC views right breast performed with tomosynthesis. Spot compression views right breast at the site of a palpable lump, which is marked on the skin. Focused right breast ultrasound upper outer quadrant. FINDINGS: There is moderate scattered fibroglandular tissue bilaterally. No mammographic abnormality is seen at the site of the palpable lump. More posteriorly in the upper outer quadrant of the right breast an oval nodule appears to demonstrate a lucent notch and measures approximately 2 x 1 cm. No other mass is seen bilaterally. There is no architectural distortion. There are no clustered microcalcifications. There are nonenlarged axillary lymph nodes present bilaterally. Focused right breast ultrasound at the site of the palpable lump demonstrates no cystic or solid nodule. In the region of 10 o'clock at the site of the nodule on the mammogram, a hypoechoic nodule is seen with an echogenic notch at the periphery measuring 1.5 x 0.6 x 1.5 cm. Elastography interrogation demonstrates average KP a value 33.3. The Volpara volumetric breast density pattern is B. IMPRESSION: BIRADS/ACR category 2, benign. No mammographic or sonographic evidence of suspicious nodule or mass at the site of the reported palpable lump in the right breast. In the upper-outer quadrant of the right breast there is a nodule which demonstrates mammographic and sonographic characteristics of an intramammary lymph node. This patient's [facility] lifetime breast cancer risk assessment score is 40.6%. This mammogram was interpreted with the aid of an FDA-approved computer-aided detection system. The patient states she had a clinical breast exam in September 2020. The patient letter being requested is M2. RECOMMENDATION: Given the patient's elevated lifetime risk of breast cancer 40.6%, Yearly supplemental screening MRI of the breasts is recommended for patients with an elevated lifetime risk of breast cancer of 20% or greater, in addition to annual screening mammography, staggered every 6 months. <Electronically signed by Richar Frederick > 11/02/20 3277
== END ==
LOC: M WHC 10:58
PROVIDERS: ATTEND Nurse Practitioner Family
DX: N63.11 Unspecified lump in the right breast, upper outer quadrant (principal)
CPT/HCPCS: 76642; 77066; G0279

== ENCOUNTER 2021-04-19 11:58 | Emergency (ER) | payer OTHER ==
[~2021-04-19] VITALS: Ht 157.5 cm; Wt 90.2 kg
[2021-04-19 11:58] VITALS: BP 113/85
[2021-04-19] MEDS ORDERED: KETOROLAC TROMETHAMINE 10 MG TAB PO ONE (15:15)
[2021-04-19] MEDS ORDERED: methocarbamoL 500 MG TAB PO ONE (15:15)
[2021-04-19] MEDS ORDERED: METH-1164 PO (15:46)
== END 2021-04-19 15:57 | disposition home or self-care (01) ==
LOC: M ED 11:58
DX: S06.0X0A Concussion without loss of consciousness, initial encounter (principal); S20.219A Contusion of unspecified front wall of thorax, initial encounter; V49.49XA Driver injured in collision with other motor vehicles in traffic accident, initial encounter; Y92.410 Unspecified street and highway as the place of occurrence of the external cause; M54.2 Cervicalgia; M25.512 Pain in left shoulder; R07.89 Other chest pain; J45.909 Unspecified asthma, uncomplicated; F31.9 Bipolar disorder, unspecified; F33.9 Major depressive disorder, recurrent, unspecified; F41.9 Anxiety disorder, unspecified; F43.10 Post-traumatic stress disorder, unspecified; F90.9 Attention-deficit hyperactivity disorder, unspecified type; Z88.0 Allergy status to penicillin; Z79.899 Other long term (current) drug therapy

== ENCOUNTER → 2021-08-20 | Outpatient (CLI) | payer OTHER ==
[~2021-08-20] MED LIST changes: -D31000TA2; +METH-1164 PO; +VITA100093
[2021-08-20 14:04] LABS: HCG, SERUM QUALITATIVE NEGATIVE (NEGATIVE)
== END ==
LOC: M PLALAB 09:56
PROVIDERS: ATTEND Advanced Practice Midwife
DX: N92.6 Irregular menstruation, unspecified (principal)

== ENCOUNTER 2021-08-22 15:23 | Emergency (ER) | payer OTHER ==
[~2021-08-22] VITALS: Ht 157.5 cm; Wt 91.6 kg
[2021-08-22] MEDS ORDERED: NS 1,000 ML IV ONE (16:30)
[2021-08-22 17:31] LABS: BASO % 0.5 % (0.0-1.0); EOS # 0.1 10^3/uL (0.0-0.5); EOS % 0.8 % (0.0-3.0); HEMATOCRIT 35.7 % (36.0-47.0); HEMOGLOBIN 11.3 g/dl (12.0-15.5); LYMPH # 1.8 10^3/uL (1.5-5.0); LYMPH % 30.9 % (24.0-44.0); MEAN CORPUSCULAR HEMOGLOBIN 26.5 pg (27.0-33.0); MEAN CORPUSCULAR HGB CONC 31.7 g/dl (32.0-36.5); MEAN CORPUSCULAR VOLUME 83.6 fl (80.0-96.0); MONO # 0.5 10^3/uL (0.0-0.8); MONO % 7.6 % (2.0-8.0); NEUTROPHILS # 3.5 10^3/uL (1.5-8.5); NEUTROPHILS % 59.9 % (36.0-66.0); PLATELET COUNT, AUTOMATED 261 10^3/uL (150-450); RED BLOOD COUNT 4.27 10^6/uL (4.00-5.40); WHITE BLOOD COUNT 5.9 10^3/uL (4.0-10.0)
[2021-08-22 17:48] LABS: ALBUMIN 3.1 GM/DL (3.2-5.2); ALT/SGPT 16 U/L (12-78); BILIRUBIN,DIRECT 0.1 MG/DL (0.0-0.2); BILIRUBIN,TOTAL 0.5 MG/DL (0.2-1.0); BLOOD UREA NITROGEN 7 MG/DL (7-18); CALCIUM LEVEL 8.6 MG/DL (8.5-10.1); CARBON DIOXIDE LEVEL 25 MEQ/L (21-32); CHLORIDE LEVEL 113 MEQ/L (98-107); FREE THYROXINE INDEX 2.6 % (1.3-4.8); GLOMERULAR FILTRATION RATE > 60.0 (>60); GLUCOSE, FASTING 88 MG/DL (70-100); LIPASE 117 U/L (73-393); POTASSIUM SERUM 4.3 MEQ/L (3.5-5.1); SODIUM LEVEL 144 MEQ/L (136-145); T UPTAKE 37 % (30-39); THYROXINE (T4) 7.1 UG/DL (4.5-12.0); TOTAL PROTEIN 6.6 GM/DL (6.4-8.2)
[2021-08-22 17:59] LABS: ERYTHROCYTE SEDIMENTATION RATE 11 mm/hr (0-20)
[2021-08-22] MEDS ORDERED: KETOROLAC 30 MG/ML 1ML VIAL IV ONE (18:10)
[2021-08-22] MEDS ORDERED: PROCHLORPERAZINE 10MG/2ML VIAL (J0780 PER 1) IV ONE (18:15)
[2021-08-22 18:26] VITALS: BP 100/74
[2021-08-22] MEDS ORDERED: ISOVUE-370 76% 100ML VIAL As Ordered ONE (18:58)
== END 2021-08-22 19:28 | disposition left against medical advice (07) ==
LOC: M ED 15:23
DX: R51.9 Headache, unspecified (principal); J45.909 Unspecified asthma, uncomplicated; F31.9 Bipolar disorder, unspecified; F33.9 Major depressive disorder, recurrent, unspecified; F41.9 Anxiety disorder, unspecified; Z98.84 Bariatric surgery status; Z79.899 Other long term (current) drug therapy; Z88.0 Allergy status to penicillin
CPT/HCPCS: 70450; 71046; 74177; 80048; 80076; 83690; 84436; 84443; 84479; 84702; 85025; 85652; 86140; 96361; 96374; 96375; 99284; J0780; J1885; Q9967

== ENCOUNTER 2022-02-06 15:52 | Emergency (ER) | payer OTHER ==
[~2022-02-06] VITALS: Ht 157.5 cm; Wt 95.5 kg
[~2022-02-06 15:52] MED LIST changes: +ALBU6.7H6 INH; +ETON68IM SC; -NEXP1IMP SC; -PROV108A INH
[2022-02-06 15:53] VITALS: BP 122/61
[2022-02-06] MEDS ORDERED: OSEL75CA PO (16:47)
== END 2022-02-06 17:07 | disposition home or self-care (01) ==
LOC: M ED 15:52
DX: J09.X2 Influenza due to identified novel influenza A virus with other respiratory manifestations (principal); J45.909 Unspecified asthma, uncomplicated; Z88.1 Allergy status to other antibiotic agents; Z90.49 Acquired absence of other specified parts of digestive tract; Z98.84 Bariatric surgery status

== ENCOUNTER 2022-03-27 05:58 | Emergency (ER) | payer OTHER ==
[~2022-03-27] VITALS: Ht 157.5 cm; Wt 95.4 kg
[~2022-03-27 05:58] MED LIST changes: +OSEL75CA PO
[2022-03-27 07:24] LABS: HEMATOCRIT 40.3 % (36.0-47.0); HEMOGLOBIN 12.5 g/dl (12.0-15.5); MEAN CORPUSCULAR HEMOGLOBIN 27.1 pg (27.0-33.0); MEAN CORPUSCULAR VOLUME 87.2 fl (80.0-96.0); PLATELET COUNT, AUTOMATED 228 10^3/uL (150-450); RED BLOOD COUNT 4.62 10^6/uL (4.00-5.40); WHITE BLOOD COUNT 7.4 10^3/uL (4.0-10.0)
[2022-03-27 07:51] LABS: AMPHETAMINES LEVEL URINE NEGATIVE (NEGATIVE); BARBITURATES URINE NEGATIVE (NEGATIVE); BENZODIAZEPINES URINE NEGATIVE (NEGATIVE); CANNABINOIDS URINE NEGATIVE (NEGATIVE); COCAINE METABOLITE URINE NEGATIVE (NEGATIVE); METHADONE URINE NEGATIVE (NEGATIVE); OPIATES URINE NEGATIVE (NEGATIVE); PHENCYCLIDINE URINE NEGATIVE (NEGATIVE)
[2022-03-27 07:57] LABS: THYROID STIMULATING HORMONE 2.539 uIU/ML (0.55-4.78)
[2022-03-27 07:59] LABS: RSV AMPLIFICATION NEGATIVE (NEGATIVE)
[2022-03-27 08:01] LABS: ETHYL ALCOHOL (ETHANOL) 0.191 % (0.000-0.010)
[2022-03-27 08:02] LABS: ACETAMINOPHEN LEVEL < 2.0 UG/ML (10.0-20.0)
[2022-03-27 08:03] LABS: ALBUMIN 3.5 G/DL (3.2-5.2); ALKALINE PHOSPHATASE 108 U/L (46-116); ALT/SGPT 58 U/L (7.0-40); AST/SGOT 102 U/L (<34); BILIRUBIN,DIRECT < 0.1 MG/DL (<0.4); BILIRUBIN,TOTAL 0.2 MG/DL (0.3-1.2); BLOOD UREA NITROGEN 6 MG/DL (9-23); CALCIUM LEVEL 8.4 MG/DL (8.5-10.1); CARBON DIOXIDE LEVEL 17 MMOL/L (20-31); CHLORIDE LEVEL 110 MMOL/L (98-107); CREATININE FOR GFR 0.56 MG/DL (0.55-1.30); GLOMERULAR FILTRATION RATE > 60.0 (>60); GLUCOSE, FASTING 82 MG/DL (60-100); POTASSIUM SERUM 3.9 MMOL/L (3.5-5.1); SALICYLATE LEVEL < 3.0 MG/DL (<30); SODIUM LEVEL 144 MMOL/L (136-145); TOTAL PROTEIN 6.9 G/DL (5.7-8.2)
[2022-03-27 08:10] LABS: HCG, SERUM QUALITATIVE NEGATIVE (NEGATIVE)
[2022-03-27 13:33] VITALS: BP 162/78
== END 2022-03-27 13:44 | disposition home or self-care (01) ==
LOC: M ED 05:58
DX: F10.129 Alcohol abuse with intoxication, unspecified (principal); F32.A Depression, unspecified; Z98.84 Bariatric surgery status; Z90.49 Acquired absence of other specified parts of digestive tract; F31.9 Bipolar disorder, unspecified; Z88.1 Allergy status to other antibiotic agents

== ENCOUNTER 2022-04-21 02:39 | Emergency (ER) | payer OTHER ==
[~2022-04-21] VITALS: Ht 157.5 cm; Wt 90.9 kg
[2022-04-21] MEDS ORDERED: MIDAZOLAM INJ 2MG/2ML VIAL IM ONE (03:20)
[2022-04-21] MEDS ORDERED: diphenhydrAMINE 50MG/ML VIAL IM ONE (03:20)
[2022-04-21] MEDS ORDERED: HALOPERIDOL 5MG/ML 1ML VIAL IM ONE (03:20)
[2022-04-21 03:35] LABS: ACETAMINOPHEN LEVEL < 2.0 UG/ML (10.0-20.0)
[2022-04-21 03:36] LABS: SALICYLATE LEVEL < 3.0 MG/DL (<30)
[2022-04-21 03:38] LABS: HEMATOCRIT 39.8 % (36.0-47.0); HEMOGLOBIN 12.8 g/dl (12.0-15.5); MEAN CORPUSCULAR HEMOGLOBIN 27.2 pg (27.0-33.0); MEAN CORPUSCULAR HGB CONC 32.2 g/dl (32.0-36.5); MEAN CORPUSCULAR VOLUME 84.7 fl (80.0-96.0); PLATELET COUNT, AUTOMATED 364 10^3/uL (150-450); WHITE BLOOD COUNT 9.7 10^3/uL (4.0-10.0)
[2022-04-21 03:49] LABS: ALBUMIN 3.7 G/DL (3.2-5.2); ALKALINE PHOSPHATASE 104 U/L (46-116); ALT/SGPT 23 U/L (7.0-40); AST/SGOT 26 U/L (<34); BILIRUBIN,DIRECT 0.1 MG/DL (<0.4); BILIRUBIN,TOTAL 0.3 MG/DL (0.3-1.2); BLOOD UREA NITROGEN 10 MG/DL (9-23); CARBON DIOXIDE LEVEL 22 MMOL/L (20-31); CHLORIDE LEVEL 108 MMOL/L (98-107); CREATININE FOR GFR 0.57 MG/DL (0.55-1.30); GLOMERULAR FILTRATION RATE > 60.0 (>60); GLUCOSE, FASTING 111 MG/DL (60-100); SODIUM LEVEL 142 MMOL/L (136-145); THYROID STIMULATING HORMONE 2.004 uIU/ML (0.55-4.78); TOTAL PROTEIN 7.1 G/DL (5.7-8.2)
[2022-04-21 04:06] LABS: HCG, SERUM QUALITATIVE NEGATIVE (NEGATIVE)
[2022-04-21 04:49] LABS: AMPHETAMINES LEVEL URINE NEGATIVE (NEGATIVE); BARBITURATES URINE NEGATIVE (NEGATIVE); CANNABINOIDS URINE NEGATIVE (NEGATIVE); COCAINE METABOLITE URINE NEGATIVE (NEGATIVE); METHADONE URINE NEGATIVE (NEGATIVE); OPIATES URINE NEGATIVE (NEGATIVE); PHENCYCLIDINE URINE NEGATIVE (NEGATIVE)
[2022-04-21 04:50] LABS: BENZODIAZEPINES URINE POSITIVE (NEGATIVE)
[2022-04-21] MEDS ORDERED: ARIP10TA32 PO (10:10)
[2022-04-21] MEDS ORDERED: ADDE30TA PO (10:10)
[2022-04-21] MEDS ORDERED: HOME MED LIST COMPLETE! XX SCH (10:10)
[2022-04-21] MEDS ORDERED: ALPR0.25 PO (10:10)
[2022-04-21 14:19] VITALS: BP 113/59
== END 2022-04-21 14:19 | disposition home or self-care (01) ==
LOC: M ED 02:39
DX: Z04.6 Encounter for general psychiatric examination, requested by authority (principal); F10.129 Alcohol abuse with intoxication, unspecified; Z79.899 Other long term (current) drug therapy; Z88.0 Allergy status to penicillin; Z98.84 Bariatric surgery status; Z90.49 Acquired absence of other specified parts of digestive tract
CPT/HCPCS: 36415; 80048; 80076; 80143; 80307; 82077; 84443; 84703; 85027; 87635; 96372; 99285; J1200; J1630; J2250

== ENCOUNTER 2022-05-01 05:18 | Emergency (ER) | payer OTHER ==
[~2022-05-01] VITALS: Ht 157.5 cm; Wt 90.9 kg
[~2022-05-01 05:18] MED LIST changes: +ADDE30TA PO; +ALPR0.25 PO; +ARIP10TA32 PO
[2022-05-01 06:02] VITALS: BP 125/85
[2022-05-01 06:25] LABS: HEMATOCRIT 38.7 % (36.0-47.0); HEMOGLOBIN 12.5 g/dl (12.0-15.5); MEAN CORPUSCULAR HEMOGLOBIN 27.5 pg (27.0-33.0); MEAN CORPUSCULAR HGB CONC 32.3 g/dl (32.0-36.5); MEAN CORPUSCULAR VOLUME 85.1 fl (80.0-96.0); PLATELET COUNT, AUTOMATED 263 10^3/uL (150-450); RED BLOOD COUNT 4.55 10^6/uL (4.00-5.40)
[2022-05-01 07:00] LABS: HCG, SERUM QUALITATIVE NEGATIVE (NEGATIVE)
[2022-05-01 07:04] LABS: METHADONE URINE NEGATIVE (NEGATIVE)
[2022-05-01 07:05] LABS: CANNABINOIDS URINE NEGATIVE (NEGATIVE); OPIATES URINE NEGATIVE (NEGATIVE); PHENCYCLIDINE URINE NEGATIVE (NEGATIVE)
[2022-05-01 07:06] LABS: AMPHETAMINES LEVEL URINE NEGATIVE (NEGATIVE); BARBITURATES URINE NEGATIVE (NEGATIVE); BENZODIAZEPINES URINE NEGATIVE (NEGATIVE); COCAINE METABOLITE URINE NEGATIVE (NEGATIVE)
[2022-05-01 07:07] LABS: ETHYL ALCOHOL (ETHANOL) 0.167 % (0.000-0.010)
[2022-05-01 07:09] LABS: ACETAMINOPHEN LEVEL < 2.0 UG/ML (10.0-20.0); ALBUMIN 3.6 G/DL (3.2-5.2); ALKALINE PHOSPHATASE 94 U/L (46-116); ALT/SGPT 38 U/L (7.0-40); AST/SGOT 42 U/L (<34); BILIRUBIN,DIRECT 0.1 MG/DL (<0.4); BILIRUBIN,TOTAL 0.3 MG/DL (0.3-1.2); BLOOD UREA NITROGEN 7 MG/DL (9-23); CALCIUM LEVEL 8.4 MG/DL (8.5-10.1); CARBON DIOXIDE LEVEL 25 MMOL/L (20-31); CHLORIDE LEVEL 109 MMOL/L (98-107); CREATININE FOR GFR 0.74 MG/DL (0.55-1.30); GLOMERULAR FILTRATION RATE > 60.0 (>60); GLUCOSE, FASTING 86 MG/DL (60-100); POTASSIUM SERUM 3.7 MMOL/L (3.5-5.1); SALICYLATE LEVEL < 3.0 MG/DL (<30); SODIUM LEVEL 142 MMOL/L (136-145); TOTAL PROTEIN 7.2 G/DL (5.7-8.2)
== END 2022-05-01 11:01 | disposition home or self-care (01) ==
LOC: M ED 05:18
DX: F32.9 Major depressive disorder, single episode, unspecified (principal); F10.10 Alcohol abuse, uncomplicated; F90.9 Attention-deficit hyperactivity disorder, unspecified type; F43.10 Post-traumatic stress disorder, unspecified; J45.909 Unspecified asthma, uncomplicated; Z79.899 Other long term (current) drug therapy; Z88.0 Allergy status to penicillin

== ENCOUNTER 2022-08-20 03:28 | Emergency (ER) | payer OTHER ==
[~2022-08-20 03:28] MED LIST changes: +ARTIDRO4 OP; +ARTIDRO4 OU; -POLYOPD OP; -POLYOPD OU
[2022-08-20 04:46] VITALS: BP 112/68; TEMP 97.1; O2SAT 97
[2022-08-20 05:52] LABS: HEMATOCRIT 41.6 % (36.0-47.0); HEMOGLOBIN 13.6 g/dl (12.0-15.5); MEAN CORPUSCULAR HEMOGLOBIN 27.3 pg (27.0-33.0); MEAN CORPUSCULAR HGB CONC 32.7 g/dl (32.0-36.5); MEAN CORPUSCULAR VOLUME 83.5 fl (80.0-96.0); PLATELET COUNT, AUTOMATED 348 10^3/uL (150-450); RED BLOOD COUNT 4.98 10^6/uL (4.00-5.40); WHITE BLOOD COUNT 11.3 10^3/uL (4.0-10.0)
[2022-08-20 05:55] LABS: ETHYL ALCOHOL (ETHANOL) 0.234 % (0.000-0.010)
[2022-08-20 05:57] LABS: ACETAMINOPHEN LEVEL < 2.0 UG/ML (10.0-20.0); ALBUMIN 3.9 G/DL (3.2-5.2); ALKALINE PHOSPHATASE 88 U/L (46-116); ALT/SGPT 31 U/L (7.0-40); AST/SGOT 29 U/L (<34); BILIRUBIN,DIRECT < 0.1 MG/DL (<0.4); BILIRUBIN,TOTAL 0.3 MG/DL (0.3-1.2); BLOOD UREA NITROGEN 7 MG/DL (9-23); CALCIUM LEVEL 8.8 MG/DL (8.5-10.1); CARBON DIOXIDE LEVEL 18 MMOL/L (20-31); CHLORIDE LEVEL 107 MMOL/L (98-107); CREATININE FOR GFR 0.58 MG/DL (0.55-1.30); GLOMERULAR FILTRATION RATE > 60.0 (>60); GLUCOSE, FASTING 104 MG/DL (60-100); POTASSIUM SERUM 4.5 MMOL/L (3.5-5.1); SALICYLATE LEVEL < 3.0 MG/DL (<30); SODIUM LEVEL 139 MMOL/L (136-145); TOTAL PROTEIN 7.3 G/DL (5.7-8.2)
[2022-08-20 06:12] LABS: AMPHETAMINES LEVEL URINE NEGATIVE (NEGATIVE); BARBITURATES URINE NEGATIVE (NEGATIVE); BENZODIAZEPINES URINE NEGATIVE (NEGATIVE); CANNABINOIDS URINE NEGATIVE (NEGATIVE); COCAINE METABOLITE URINE NEGATIVE (NEGATIVE); METHADONE URINE NEGATIVE (NEGATIVE); OPIATES URINE NEGATIVE (NEGATIVE); PHENCYCLIDINE URINE NEGATIVE (NEGATIVE)
[2022-08-20 06:20] LABS: HCG, SERUM QUALITATIVE NEGATIVE (NEGATIVE)
== END 2022-08-20 10:59 | disposition home or self-care (01) ==
LOC: M ED 03:28
DX: F10.129 Alcohol abuse with intoxication, unspecified (principal); F31.9 Bipolar disorder, unspecified; F32.A Depression, unspecified; Z98.84 Bariatric surgery status; Z88.0 Allergy status to penicillin; Z79.899 Other long term (current) drug therapy

== ENCOUNTER → 2022-08-30 | Outpatient (CLI) | payer OTHER | LOC: M PLALAB 16:16 | DX: F19.90 Other psychoactive substance use, unspecified, uncomplicated (principal) ==

== ENCOUNTER 2022-09-02 14:49 | Outpatient (CLI) | payer OTHER ==
[~2022-09-02] VITALS: Ht 160 cm; Wt 93.0 kg
[2022-09-02 14:25] VITALS: BP 117/76; O2SAT 99
[~2022-09-02 14:49] MED LIST changes: +ALBUTEROL SULFATE 2.5MG/0.5ML INH NEB SOLN INH PRN; +EPINEPHrine INJ 1 MG/ML 1ML AMP IM PRN; +diphenhydrAMINE 50MG/ML VIAL IV PRN; +methylPREDNISolone 125MG 2ML VIAL IV PRN
[2022-09-02 14:55] VITALS: BP 115/69; O2SAT 99
[2022-09-02] MEDS ORDERED: NS 1,000 ML IV SCH (15:00)
[2022-09-02] MEDS ORDERED: FERRIC CARBOXYMALTOSE INJ 750 MG in NS 250 ML (>50kg) IV ONE ×3 (15:00)
[2022-09-02 16:25] VITALS: BP 117/76; O2SAT 99
== END 2022-09-02 16:25 | disposition home or self-care (01) ==
LOC: M INFU 14:49
PROVIDERS: ATTEND Internal Medicine Hematology
DX: D50.9 Iron deficiency anemia, unspecified (principal); Z88.0 Allergy status to penicillin
CPT/HCPCS: 96365; J1439

== ENCOUNTER 2022-10-22 12:43 | Emergency (ER) | payer MEDICAID, OTHER, SELFPAY ==
[~2022-10-22] VITALS: Ht 157.5 cm; Wt 92.0 kg
[~2022-10-22 12:43] MED LIST changes: -ALBUTEROL SULFATE 2.5MG/0.5ML INH NEB SOLN INH PRN; +DICY-61 PO; -DICY10CA13 PO; -EPINEPHrine INJ 1 MG/ML 1ML AMP IM PRN; -diphenhydrAMINE 50MG/ML VIAL IV PRN; -methylPREDNISolone 125MG 2ML VIAL IV PRN
[2022-10-22] MEDS ORDERED: TRAZ-252 (13:03)
[2022-10-22] MEDS ORDERED: SERT50TA29 (13:03)
[2022-10-22] MEDS ORDERED: ACAM0.05 (13:03)
[2022-10-22] MEDS ORDERED: FERR32TA (13:03)
[2022-10-22] MEDS ORDERED: BUPR300T92 (13:03)
[2022-10-22] MEDS ORDERED: HYDR-3363 (13:03)
[2022-10-22] MEDS ORDERED: NALT50TA4 (13:03)
[2022-10-22] MEDS ORDERED: methocarbamoL 750 MG TAB PO ONE (17:00)
[2022-10-22] MEDS ORDERED: KETOROLAC 60MG 2ML VIAL IM ONE (17:00)
[2022-10-22] MEDS ORDERED: LIDOCAINE 5% (LIDODERM) PATCH TD ONE (17:00)
[2022-10-22] MEDS ORDERED: ASPE4PAD TOP (17:04)
[2022-10-22] MEDS ORDERED: NAPR-837 PO (17:04)
[2022-10-22] MEDS ORDERED: METH-1165 PO (17:04)
[2022-10-22] MEDS ORDERED: HYDR-3713 PO (17:04)
[2022-10-22 17:18] VITALS: BP 110/77; TEMP 97.8; O2SAT 100
== END 2022-10-22 17:22 | disposition home or self-care (01) ==
LOC: M ED 12:43
DX: R07.89 Other chest pain (principal); Z88.0 Allergy status to penicillin; F41.9 Anxiety disorder, unspecified; F32.A Depression, unspecified; Z79.899 Other long term (current) drug therapy; Z98.84 Bariatric surgery status
CPT/HCPCS: 71101; 96372; 99284; J1885

== ENCOUNTER → 2022-10-26 | Outpatient (REF) | payer OTHER, MEDICAID ==
[~2022-10-26] MED LIST changes: +ACAM0.05; +ASPE4PAD TOP; +BUPR300T92; +FERR32TA; +HYDR-3363; +HYDR-3713 PO; +METH-1165 PO; +NALT50TA4; +SERT50TA29; +TRAZ-252
== END ==
LOC: M LAB REF 16:19
PROVIDERS: ATTEND Pediatrics
DX: R30.0 Dysuria (principal)

== ENCOUNTER → 2022-10-27 | Outpatient (CLI) | payer OTHER, SELFPAY | LOC: M RAD 12:08 | PROVIDERS: ATTEND Pediatrics | DX: R05.9 Cough, unspecified (principal) ==

== ENCOUNTER 2023-02-13 11:56 | Emergency (ER) | payer OTHER, SELFPAY ==
[2023-02-13 14:56] LABS: RSV AMPLIFICATION NEGATIVE (NEGATIVE)
[2023-02-13 15:30] VITALS: BP 115/75; TEMP 98; O2SAT 98
[2023-02-13] MEDS ORDERED: AZIT200S30 PO (15:49)
== END 2023-02-13 16:00 | disposition home or self-care (01) ==
LOC: M ED 11:56
DX: J02.9 Acute pharyngitis, unspecified (principal); Z88.1 Allergy status to other antibiotic agents; Z79.899 Other long term (current) drug therapy; Z79.1 Long term (current) use of non-steroidal anti-inflammatories (NSAID)

== ENCOUNTER → 2023-07-11 | Outpatient (REF) | payer OTHER ==
[~2023-07-11] MED LIST changes: +ACET250T18; -ACET250T2; +AZIT200S30 PO; +BUPR-597; -BUPR300T92; -PSEU30TA86 PO; +PSEU30TA87 PO
== END ==
LOC: M PLALAB 10:26
PROVIDERS: ATTEND Advanced Practice Midwife
DX: Z34.91 Encounter for supervision of normal pregnancy, unspecified, first trimester (principal); K90.9 Intestinal malabsorption, unspecified

== ENCOUNTER → 2023-08-10 | Outpatient (REF) | payer OTHER | LOC: M PLALAB 13:19 | PROVIDERS: ATTEND Advanced Practice Midwife | DX: O09.522 Supervision of elderly multigravida, second trimester (principal); Z3A.00 Weeks of gestation of pregnancy not specified ==

== ENCOUNTER → 2023-12-20 | Outpatient (REF) | payer OTHER ==
[~2023-12-20] MED LIST changes: +ACET1TAB55 PO; +ALBU8.5H INH; +ALPR0.25; +APAP325T4 PO; -ARIP10TA32 PO; +ARIP10TA63 PO; +ARIP1TAB PO; -BUPR-597; +BUPR-597 PO; +CEPH500T PO; +CIPR-250 PO; +CLEO150C PO; +DEXTROAMP-AMPHETAMIN; +ENSULIQ51 PO; +EQL50TAB2 PO; +FERR325T3 PO; +FLON1SPR NARES; +FOLI1TAB11 PO; -HYDR-3363; +HYDR-3363 PO; +MONT10TA97 PO; +NOXI1TAB PO; +NYST1POW9 TOP; +PROA1AER2 INH; +REGL5TAB2 PO; +SERT50TA29 PO; +TOLN1CRE9 TOP; +TUMS750C22 PO; +VITACAP37 PO
== END ==
LOC: M PLALAB 16:06
PROVIDERS: ATTEND Advanced Practice Midwife
DX: Z36.85 Encounter for antenatal screening for Streptococcus B (principal); Z3A.36 36 weeks gestation of pregnancy

== ENCOUNTER 2024-01-20 12:58 | Emergency (ER) | payer OTHER ==
[~2024-01-20] VITALS: Ht 157.5 cm; Wt 91.6 kg
[~2024-01-20 12:58] MED LIST changes: +ADDE30CA3 PO; +COLA100C5 PO; +IBUP80TA PO; +NYST1POW3 TOP; -NYST1POW9 TOP
[2024-01-20] MEDS ORDERED: ARIP1TAB10 (13:07)
[2024-01-20 13:30] LABS: BASO # 0.1 10^3/uL (0.0-0.2); BASO % 0.7 % (0.0-1.0); EOS # 0.4 10^3/uL (0.0-0.5); EOS % 5.5 % (0.0-3.0); HEMATOCRIT 43.4 % (36.0-47.0); HEMOGLOBIN 14.7 g/dl (12.0-15.5); LYMPH # 2.2 10^3/uL (1.5-5.0); MEAN CORPUSCULAR HEMOGLOBIN 31.1 pg (27.0-33.0); MEAN CORPUSCULAR HGB CONC 33.9 g/dl (32.0-36.5); MEAN CORPUSCULAR VOLUME 91.9 fl (80.0-96.0); MONO # 0.4 10^3/uL (0.0-0.8); MONO % 5.9 % (2.0-8.0); NEUTROPHILS # 4.2 10^3/uL (1.5-8.5); NEUTROPHILS % 57.5 % (36.0-66.0); PLATELET COUNT, AUTOMATED 325 10^3/uL (150-450); RED BLOOD COUNT 4.72 10^6/uL (4.00-5.40); WHITE BLOOD COUNT 7.3 10^3/uL (4.0-10.0)
[2024-01-20 13:59] LABS: BLOOD UREA NITROGEN 17 MG/DL (9-23); CALCIUM LEVEL 9.4 MG/DL (8.5-10.1); CARBON DIOXIDE LEVEL 25 MMOL/L (20-31); CHLORIDE LEVEL 110 MMOL/L (98-107); CREATININE FOR GFR 0.62 MG/DL (0.55-1.30); GLOMERULAR FILTRATION RATE > 60.0 (>60); GLUCOSE, FASTING 83 MG/DL (60-100); POTASSIUM SERUM 4.5 MMOL/L (3.5-5.1); SODIUM LEVEL 141 MMOL/L (136-145)
[2024-01-20] MEDS: ONDANSETRON 4MG 2ML VIAL IV ONE (14:29)
[2024-01-20] MEDS: ACETAMINOPHEN *IV* 1,000 MG in IV 1 EA IV ONE (14:30)
[2024-01-20 14:55] LABS: INR 0.99; PARTIAL THROMBOPLASTIN TIME 35.6 SECONDS (24.8-34.2); PROTHROMBIN TIME 13.4 SECONDS (12.5-14.5)
[2024-01-20 14:58] LABS: HCG, SERUM QUANTITATIVE 5.4 MIU/ML (<4.2)
[2024-01-20 14:59] LABS: ALBUMIN 2.8 G/DL (3.2-5.2); ALKALINE PHOSPHATASE 119 U/L (35-104); ALT/SGPT 23 U/L (7.0-40); AST/SGOT 22 U/L (<34); BILIRUBIN,DIRECT 0.1 MG/DL (<0.4); BILIRUBIN,TOTAL 0.4 MG/DL (0.3-1.2); TOTAL PROTEIN 6.6 G/DL (5.7-8.2)
[2024-01-20 16:46] VITALS: BP 136/78; TEMP 98.2; O2SAT 98
== END 2024-01-20 16:58 | disposition home or self-care (01) ==
LOC: EEVIPCON 12:58 → M ED 12:58
DX: O72.1 Other immediate postpartum hemorrhage (principal); O99.53 Diseases of the respiratory system complicating the puerperium; O99.345 Other mental disorders complicating the puerperium; O99.845 Bariatric surgery status complicating the puerperium; Z79.899 Other long term (current) drug therapy; Z88.0 Allergy status to penicillin
CPT/HCPCS: 76856; 80048; 80076; 81001; 84702; 85025; 85610; 85730; 86850; 86900; 86901; 87088; 87186; 93976; 96374; 96375; 99284; J0131; J2405

== ENCOUNTER 2024-04-20 13:43 | Emergency (ER) | payer OTHER ==
[~2024-04-20] VITALS: Ht 157.5 cm; Wt 97.1 kg
[~2024-04-20 13:43] MED LIST changes: +ARIP1TAB10
[2024-04-20] MEDS ORDERED: IBUP80TA (13:58)
[2024-04-20] MEDS: IPRATROPIUM 0.5MG/ALBUTEROL 2.5MG INH SOL UD 3ML (DUONEB) NEB ONE (15:29)
[2024-04-20] MEDS: KETOROLAC 30 MG/ML 1ML VIAL IM ONE (16:11)
[2024-04-20 16:39] VITALS: BP 126/80; TEMP 97.3; O2SAT 99
[2024-04-20] MEDS ORDERED: ALBU2.5V10 NEB (16:50)
== END 2024-04-20 17:01 | disposition home or self-care (01) ==
LOC: M ED 13:43
DX: J20.9 Acute bronchitis, unspecified (principal); R07.89 Other chest pain; J45.909 Unspecified asthma, uncomplicated; Z88.1 Allergy status to other antibiotic agents; Z79.52 Long term (current) use of systemic steroids; Z79.1 Long term (current) use of non-steroidal anti-inflammatories (NSAID); Z79.899 Other long term (current) drug therapy
CPT/HCPCS: 71111; 87486; 87581; 87633; 87798; 94640; 96372; 99284; J1885

== ENCOUNTER 2024-06-09 12:42 | Emergency (ER) | payer OTHER ==
[~2024-06-09] VITALS: Ht 157.5 cm; Wt 99.0 kg
[~2024-06-09 12:42] MED LIST changes: +ALBU2.5V10 NEB; +IBUP80TA
[2024-06-09] MEDS ORDERED: BUPR150T12 (12:55)
[2024-06-09] MEDS: IBUPROFEN 600MG TAB PO ONE (14:34)
[2024-06-09] MEDS: BOOSTRIX VACCINE (TETANUS/DIPHTH/ACEL. PERTUSSIS) 0.5ML SYR IM ONE (14:35)
[2024-06-09 14:57] VITALS: BP 118/80; TEMP 98.1; O2SAT 98
[2024-06-09 15:03] LABS: APPEARANCE, URINE HAZY (CLEAR); BACTERIA, URINE AUTO NEGATIVE (NEGATIVE); BILIRUBIN, URINE AUTO NEGATIVE (NEGATIVE); BLOOD, URINE BLOOD NEGATIVE (NEGATIVE); COLOR, URINE YELLOW (YELLOW); GLUCOSE, URINE (UA) AUTO NEGATIVE (NEGATIVE); KETONE, URINE AUTO NEGATIVE (NEGATIVE); LEUKOCYTE ESTERASE, URINE AUTO 1+ (NEGATIVE); MUCUS, URINE SMALL (NEGATIVE); NITRITE, URINE AUTO NEGATIVE (NEGATIVE); PROTEIN, URINE AUTO NEGATIVE (NEGATIVE); RBC, URINE AUTO 0 /HPF (0-3); SPECIFIC GRAVITY URINE AUTO 1.019 (1.002-1.035); SQUAMOUS EPITHELIAL CELL UR AU 4 /HPF (0-6); WBC, URINE AUTO 1 /HPF (0-3)
[2024-06-09 16:00] LABS: Trichomonas vaginalis (AMP) NOT DETECTED (NEGATIVE)
[2024-06-09 16:24] LABS: GC DNA AMPLIFICATION NEGATIVE (NEGATIVE)
[2024-06-09 16:36] LABS: HEPATITIS B SURFACE ANTIGEN NEGATIVE (NEGATIVE)
[2024-06-09 16:56] LABS: HEPATITIS B CORE ANTIBODY IGM NEGATIVE (NEGATIVE)
[2024-06-09 16:57] LABS: HEPATITIS C VIRUS ABY INDEX 0.03 INDEX (<0.8)
== END 2024-06-09 15:04 | disposition home or self-care (01) ==
LOC: M ED 12:42
DX: T74.21XA Adult sexual abuse, confirmed, initial encounter (principal); S00.501A Unspecified superficial injury of lip, initial encounter; Y04.8XXA Assault by other bodily force, initial encounter; J45.909 Unspecified asthma, uncomplicated; F90.9 Attention-deficit hyperactivity disorder, unspecified type; Z88.1 Allergy status to other antibiotic agents; Z79.52 Long term (current) use of systemic steroids; Z79.899 Other long term (current) drug therapy; Z23 Encounter for immunization; Y92.9 Unspecified place or not applicable; Y93.89 Activity, other specified; Y99.9 Unspecified external cause status

== ENCOUNTER → 2024-09-27 | Outpatient (CLI) | payer OTHER ==
[~2024-09-27] MED LIST changes: -BUPR-597 PO; +BUPR-766 PO; +BUPR150T12; -EQL50TAB2 PO; +LAMO-18; -LAMO25TA4; +VITA1TAB82 PO
[2024-09-27 14:01] LABS: BASO # 0.0 10^3/uL (0.0-0.2); BASO % 0.5 % (0.0-1.0); EOS # 0.1 10^3/uL (0.0-0.5); EOS % 0.8 % (0.0-3.0); LYMPH # 2.1 10^3/uL (1.5-5.0); LYMPH % 32.2 % (24.0-44.0); MONO # 0.5 10^3/uL (0.0-0.8); MONO % 7.2 % (2.0-8.0); NEUTROPHILS # 3.8 10^3/uL (1.5-8.5); NEUTROPHILS % 59.1 % (36.0-66.0); PLATELET COUNT, AUTOMATED 275 10^3/uL (150-450)
[2024-09-27 14:34] LABS: ALT/SGPT 19 U/L (7.0-40); AST/SGOT 23 U/L (<34); CALCIUM LEVEL 9.3 MG/DL (8.5-10.1); CARBON DIOXIDE LEVEL 26 MMOL/L (20-31); CHLORIDE LEVEL 107 MMOL/L (98-107); CREATININE FOR GFR 0.67 MG/DL (0.55-1.30); GLOMERULAR FILTRATION RATE > 90.0 (>60); POTASSIUM SERUM 4.0 MMOL/L (3.5-5.1); SODIUM LEVEL 143 MMOL/L (136-145)
== END ==
LOC: M WUC 11:23
PROVIDERS: ATTEND Physician Assistant
DX: K56.41 Fecal impaction (principal); R10.30 Lower abdominal pain, unspecified; R10.12 Left upper quadrant pain

== ENCOUNTER 2024-10-28 12:46 | Day surgery (SDC) | payer OTHER ==
[~2024-10-28] VITALS: Ht 157.5 cm; Wt 96.6 kg
[~2024-10-28 12:46] MED LIST changes: +ACAM0.05 PO; -BUPR150T12; +BUPR150T12 PO; -IBUP80TA; +NALT50TA4 PO
[2024-10-28 14:13] VITALS: TEMP 96.7
[2024-10-28 14:34] VITALS: BP 126/91; O2SAT 98
== END 2024-10-28 14:53 | disposition home or self-care (01) ==
LOC: M OPP 12:46
PROVIDERS: ATTEND Internal Medicine Gastroenterology
DX: K64.0 First degree hemorrhoids (principal); R10.30 Lower abdominal pain, unspecified; K62.5 Hemorrhage of anus and rectum; R19.4 Change in bowel habit; R12 Heartburn; Z98.84 Bariatric surgery status; Z88.1 Allergy status to other antibiotic agents; Z79.899 Other long term (current) drug therapy

== ENCOUNTER → 2024-12-01 | Outpatient (REF) | payer OTHER ==
[~2024-12-01] MED LIST changes: -IBUP-1022 PO; +IBUP600T42 PO
[2024-12-02 14:03] LABS: Trichomonas vaginalis (AMP) NOT DETECTED (NEGATIVE)
[2024-12-02 14:27] LABS: GC DNA AMPLIFICATION NEGATIVE (NEGATIVE)
== END ==
LOC: M LAB REF 12:18
PROVIDERS: ATTEND Registered Nurse
DX: Z11.3 Encounter for screening for infections with a predominantly sexual mode of transmission (principal)

== ENCOUNTER → 2025-01-01 | Outpatient (REF) | payer OTHER, MEDICAID ==
[2025-01-01 16:53] LABS: BASO # 0.0 10^3/uL (0.0-0.2); BASO % 0.6 % (0.0-1.0); EOS # 0.1 10^3/uL (0.0-0.5); EOS % 1.2 % (0.0-3.0); LYMPH # 2.2 10^3/uL (1.5-5.0); LYMPH % 32.6 % (24.0-44.0); MONO # 0.4 10^3/uL (0.0-0.8); MONO % 6.7 % (2.0-8.0); NEUTROPHILS # 3.9 10^3/uL (1.5-8.5); NEUTROPHILS % 58.6 % (36.0-66.0); PLATELET COUNT, AUTOMATED 318 10^3/uL (150-450)
[2025-01-01 16:59] LABS: ALT/SGPT 24 U/L (7.0-40); AST/SGOT 23 U/L (<34); CALCIUM LEVEL 9.1 MG/DL (8.5-10.1); CARBON DIOXIDE LEVEL 27 MMOL/L (20-31); CHLORIDE LEVEL 109 MMOL/L (98-107); CHOLESTEROL LEVEL 160 MG/DL (<200); CHOLESTEROL RISK RATIO 2.82 (<5); CREATININE FOR GFR 0.62 MG/DL (0.55-1.30); GLOMERULAR FILTRATION RATE > 90.0 (>60); LDL CHOLESTEROL 75.2 MG/DL (<100); NON-HDL-C 103.4 MG/DL; POTASSIUM SERUM 4.8 MMOL/L (3.5-5.1); SODIUM LEVEL 146 MMOL/L (136-145); TRIGLYCERIDES LEVEL 141 MG/DL (<150)
[2025-01-01 18:12] LABS: ESTIMATED AVERAGE GLUCOSE 91.0 MG/DL (60-110)
== END ==
LOC: M LAB REF 16:20
PROVIDERS: ATTEND Family Medicine Addiction Medicine
DX: Z68.41 Body mass index [BMI] 40.0-44.9, adult (principal)